=== PATIENT | male | born 1955 | race Caucasian/White ===

== ENCOUNTER → 2019-10-14 00:01 | Outpatient (BNVA) | payer MEDICARE, MEDICAID, SELFPAY | PROVIDERS: PCP Nurse Practitioner Family; Visit Provider Nurse Practitioner Family | DX: E11.9 Type 2 diabetes mellitus without complications (principal); G43.909 Migraine, unspecified, not intractable, without status migrainosus; E55.9 Vitamin D deficiency, unspecified; H66.90 Otitis media, unspecified, unspecified ear; R52 Pain, unspecified; E78.2 Mixed hyperlipidemia; R53.83 Other fatigue; Z12.5 Encounter for screening for malignant neoplasm of prostate | CPT/HCPCS: 80053; 80061; 81001; 82306; 82607; 82746; 83036; 83735; 84153; 84443; 85025 ==

== ENCOUNTER 2020-06-02 16:30 | Inpatient (IN) | payer MEDICARE, MEDICAID, SELFPAY ==
[2020-06-02 17:06] VITALS: BP 100/63; PULSE 67; RESP 14; TEMP 36.7; O2SAT 98; BMI 20.7
--- NOTE | 2020-06-02 17:58 | XR_ITS ---
WS: [id number] KUMary, 06/02/2020 Clinical Data: constipation Comparison: None. Findings: No abnormal intraabdominal masses or calcifications are seen. There are dilated central small bowel l oops consistent with partial small bowel obstruction. There is fecal material in the colon.There is a healed fracture of the pubic symphysis. XR/XR KUB [id number] Impression: 1. Dilated central small bowel loops consistent with small bowel obstruction. 2. Recommend follow-up abdomen x-ray in one to 2 days.
[2020-06-02] MEDS: lactulose oral liq 20 gm/30 mL UDC 30 GM PO (18:07)
--- NOTE | 2020-06-02 18:12 | W.ED.GENADLT ---
HPI - General Adult General: Chief complaint: General Medical Stated complaint: lower abd pain Time Seen by Provider: 06/02/20 17:58 Source: patient Mode of arrival: ambulatory Limitations: no limitations History of Present Illness: HPI narrative: 65-year-old male states he had constipation over the last 2 weeks. Patient states he is been seen at [place] and was placed on docusate but states he still has not been able have a bowel movement. States he had some abdominal pain and distention. States pain is cramping and rates it a 2 out of 10. He said no vomiting. Associated symptoms: Deny chest pain, dyspnea, headache(s) or rash Review of Systems Const: Denies: fever(s), chills, body aches or change in appetite Eyes: Denies: blurry vision or eye discomfort ENMT: Denies: throat pain or dental pain Card: Denies: chest pain Resp: Denies: dyspnea GI: Reports: abdominal pain and constipation : Denies: dysuria Musc: Denies: neck pain or back pain Skin/Breast: Denies: rash Neuro: Denies: headache(s) Psych: Denies: depression Patel/Lymph: Denies: easy bruising All/Imm: Denies: urticaria PFSH ED PFSH: Medical History Constipation Environmental and seasonal allergies Insect bite Migraine Pre-diabetes Vitamin B12 deficiency (dietary) anemia Surgical History Status post knee surgery Social History Smoking and tobacco status: never smoked Second hand smoke exposure: No Smoking risk assessment/counseling performed?: No Alcohol intake: never Desire information about alcohol rehabilitation?: No Counseling given: No Desire information about substance/drug rehabilitation?: No Counseling given: No Physical Exam Const: COMMON NORMALS: no acute distress, patient oriented x3 and healthy appearing HENMT: COMMON NORMALS: normocephalic and atraumatic HEAD & SCALP: normocephalic and atraumatic Eye: COMMON NORMALS: Equal, round and reactive pupils present and EOMs intact bilaterally PUPIL: Yes Equal, round and reactive pupils present Neck/C-Spine: COMMON NORMALS: full ROM and supple Chest: COMMONS NORMALS: normal inspection of the chest and normal palpation of entire chest wall Resp: COMMON NORMALS: normal respiratory effort, No retractions, No use of accessory muscles and clear to auscultation bilaterally AUSCULTATION: clear to auscultation bilaterally Cardio: COMMON NORMALS: regular rate, regular rhythm and No murmurs present (Cardio) RATE: regular rate RHYTHM: regular rhythm GI: COMMON NORMALS: Normal to inspection, nondistended, normoactive bowel sounds present, Soft to palpation, non-tender and no masses PALPATION: Yes Soft to palpation Extremity: COMMON NORMALS: normal to inspection and full ROM Neuro: COMMON NORMALS: patient oriented x3, moves all extremities and no focal motor deficits Psych: COMMON NORMALS: mental status grossly normal, Normal thought process present and cooperative THOUGHT PROCESS: Normal thought process present Skin: COMMON NORMALS: no rashes or lesions noted and no wounds GENERAL SKIN EXAM: no rashes or lesions noted Course Vital Signs: Vital signs: Vital Signs Temperature 98.0 F 06/02/20 17:06 Pulse Rate 67 06/02/20 17:06 Respiratory Rate 14 06/02/20 17:06 Blood Pressure 100/63 06/02/20 17:06 Pulse Oximetry 98 06/02/20 17:06 MDM - General Adult MDM Narrative: Medical decision making narrative: Patient presents with a small bowel obstruction. Will place an NG tube. I spoke to hospitalist who is admitting also spoke to Dr. Craig who is consulting. Patient is been stable on the ED. Lab Data: Labs: Lab Results 06/02/20 06/02/20 Range/Units 18:30 18:30 WBC 7.7 (4.0-10.0) 10^3/ uL RBC 4.82 (4.1-5.3) 10^6/u L Hgb 14.7 (11.7-16.6) g/dL Hct 43.8 (42.0-52.0) % MCV 90.9 (80-94) fL MCH 30.5 (28.0-34.0) pg MCHC 33.6 (30.0-36.0) g/dL RDW 12.9 (12.1-15.1) % Plt Count 267 (130-400) 10^3/c mm MPV 9.7 (7.4-10.4) fL Neut % (Auto) 63.9 % Lymph % (Auto) 24.3 % [place] % (Auto) 9.2 % Eos % (Auto) 1.9 % Baso % (Auto) 0.4 % Neut # (Auto) 4.95 (1.8-7.7) 10^3/u L Lymph # (Auto) 1.9 (0.8-4.8) 10^3/u L [place] # (Auto) 0.7 (0.2-0.9) 10^3/u L Eos # (Auto) 0.2 (0.0-0.8) 10^3/u L Baso # (Auto) 0.0 (0.0-0.1) 10^3/u L Nucleated RBC % (a uto) 0 % Nucleated RBCs # 0.0 /100WBC Sodium 138 (136-145) mmol/L Potassium 4.2 (3.5-5.1) mmol/L Chloride 101 (98-107) mmol/L Carbon Dioxide 29 (22-29) mmol/L Anion Gap 12.2 (5-19) BUN 21 (8-23) mg/dL Creatinine 1.1 (0.7-1.2) mg/dL GFR Calculation 67.0 L (90-130) mL/min Glucose 100 (65-115) mg/dL Calculated Osmolal ity 283 L (285-295) mOsm/k g Calcium 10.4 (8.5-10.5) mg/dL Total Bilirubin 1.0 (0.15-1.2) mg/dL AST 29 (0-40) U/L ALT 31 (0-41) U/L Alkaline Phosphata se 52 (40-130) IU/L Total Protein 6.8 (6.6-8.7) g/dL Albumin 4.1 (3.5-5.2) g/dL Globulin 2.7 (1.3-4.6) g/dL Lipase 49 (13-60) U/L Imaging Data^: CT Abd/Pel: Attestation: I personally reviewed and interpreted this imaging study as follows: Radiologist's impression: [address] [place] [address] CT Scan Report Signed Patient: Ryland Huang Unit #: [id number] : 1955 [facility]#:[id number] Age/Sex: 65 / M ADM Date: 06/02/20 Loc: ER Room/Bed: Attending Dr: Ordering Provider/Ordering MD: Epi Chauhan MD Date of Service: 06/02/20 Procedure(s): CT abdomen pelvis w con* [id number] Accession Number(s): [id number] Report Number: [id number] PROCEDURE INFORMATION: Exam: CT Abdomen And Pelvis With Contrast Exam date and time: 06/02/2020 7:27 PM Age: 65 years old Clinical indication: Constipation; Abdominal pain; Additional info: Abd pain TECHNIQUE: Imaging protocol: Computed tomography of the abdomen and pelvis with intravenous contrast. Radiation optimization: All CT scans at this facility use at least one of these dose optimization techniques: automated exposure control; mA and/or kV adjustment per patient size (includes targeted exams where dose is matched to clinical indication); or iterative reconstruction. Contrast material: OMNI 30; Contrast volume: 75 ml; Contrast route: INTRAVENOUS (IV); COMPARISON: CR XR KUB [id number] 06/02/2020 6:08 PM RADIATION DOSE METRICS: Total DLP (mGy-cm): 246.79 FINDINGS: Lungs: Limited assessment lung bases without visible evidence of active cardiopulmonary process. Liver: Unremarkable. No mass. Gallbladder and bile ducts: Gallbladder is contracted. No visible cholelithiasis. No visible intra or extrahepatic biliary ectasia. Pancreas: Unremarkable. No ductal dilation. Spleen: Normal. No splenomegaly. Adrenals: Unremarkable. No mass. Kidneys and ureters: Normal. No hydronephrosis. Stomach and bowel: Examination reveals a high grade partial distal small-bowel obstruction. Exact transition zone is difficult to ascertain with any high level of confidence but appears to occur distal ileal loop anterior right lower quadrant of the abdomen series 2, image 52. Suspected site of transition coronal image series 602, image 39 and sagittal image series 601, image 38. Distal ileal loops to the terminal ileum decompressed. Associated gastrictasis and would recommend decompression. Appendix: No evidence of appendicitis. Intraperitoneal space: Tiny amount of free fluid in the pouch of Dk. Vasculature: The abdominal aorta is nonaneurysmal. Moderate arterial sclerotic disease. Lymph nodes: Unremarkable. No enlarged lymph nodes. Bladder: Unremarkable as visualized. Reproductive: Prostate hypertrophy. Bones/joints: No visible acute osseous abnormality. Age-appropriate degenerative disease of the spine. No visible osteolytic or osteoblastic destructive process. Soft tissues: Unremarkable. CT/CT abdomen pelvis w con* [id number] IMPRESSION: High-grade partial distal small-bowel obstruction. Discharge Plan Discharge Condition: Good Prescriptions: No Action naproxen 125 mg/5 mL suspension 750 mg PO BID RF: 0 cyanocobalamin (vitamin B-12) 1,000 mcg/15 mL liquid 1,000 mcg PO DAILY 30 Days Qty: 240 RF: 5 cholecalciferol (vitamin D3) 125 mcg/mL (5,000 unit/mL) drops 5,000 unit PO DAILY 30 Days Qty: 59 RF: 2 hydrocortisone 1 % ointment 1 applic TOPICAL BID PRN (Reason: skin irritation) 30 Days Qty: 28 RF: 0 docusate sodium 50 mg/5 mL liquid 100 mg PO DAILY 30 Days Qty: 473 RF: 5 sumatriptan 5 mg/actuation spray,non-aerosol 5 mg INTRANASAL DAILY MDD benita PRN (Reason: migraine headache) 30 Days Qty: 1 RF: 2 bisacodyl 10 mg Suppository 10 mg KS DAILY PRN (Reason: Constipation) RF: 0 lansoprazole 15 mg Tablet,Disintegrat, Delay Rel 15 mg PO DAILY RF: 0 Referrals: LUCERO Dueñas, WAISTLINE JOINER [Primary Care Provider] - Coding Level of Care Code ED Volleyball Commentator for Chg Fwd Exam Comprehensive
[2020-06-02 18:40] LABS: Basophils % 0.4 %; Eosinophils # 0.2 10^3/uL (0.0-0.8); Eosinophils % 1.9 %; Hematocrit 43.8 % (42.0-52.0); Hemoglobin 14.7 g/dL (11.7-16.6); Lymphocytes # 1.9 10^3/uL (0.8-4.8); Lymphocytes % 24.3 %; Mean Corpuscular HGB Conc 33.6 g/dL (30.0-36.0); Mean Corpuscular Hemoglobin 30.5 pg (28.0-34.0); Mean Corpuscular Volume 90.9 fL (80-94); Mean Platelet Volume 9.7 fL (7.4-10.4); Monocytes # 0.7 10^3/uL (0.2-0.9); Monocytes % 9.2 %; Neutrophils # 4.95 10^3/uL (1.8-7.7); Neutrophils % 63.9 %; Nucleated Red Blood Cells % 0 %; Platelet Count 267 10^3/cmm (130-400); Red Blood Count 4.82 10^6/uL (4.1-5.3); Red Cell Distribution Width 12.9 % (12.1-15.1); White Blood Count 7.7 10^3/uL (4.0-10.0)
--- NOTE | 2020-06-02 18:55 | CTR_ITS ---
PROCEDURE INFORMATION: Exam: CT Abdomen And Pelvis With Contrast Exam date and time: 06/02/2020 7:27 PM Age: 65 years old Clinical indication: Constipation; Abdominal pain; Additional info: Abd pain TECHNIQUE: Imaging protocol: Computed tomography of the abdomen and pelvis with intravenous contrast. Radiation optimization: All CT scans at this facility use at least one of these dose optimization techniques: automated exposure control; mA and/or kV adjustment per patient size (includes targeted exams where dose is matched to clinical indication); or iterative reconstruction. Contrast material: OMNI 30; Contrast volume: 75 ml; Contrast route: INTRAVENOUS (IV); COMPARISON: CR XR KUB [id number] 06/02/2020 6:08 PM RADIATION DOSE METRICS: Total DLP (mGy-cm): 246.79 FINDINGS: Lungs: Limited assessment lung bases without visible evidence of active cardiopulmonary process. Liver: Unremarkable. No mass. Gallbladder and bile ducts: Gallbladder is contracted. No visible cholelithiasis. No visible intra or extrahepatic biliary ectasia. Pancreas: Unremarkable. No ductal dilation. Spleen: Normal. No splenomegaly. Adrenals: Unremarkable. No mass. Kidneys and ureters: Normal. No hydronephrosis. Stomach and bowel: Examination reveals a high grade partial distal small-bowel obstruction. Exact transition zone is difficult to ascertain with any high level of confidence but appears to occur distal ileal loop anterior right lower quadrant of the abdomen series 2, image 52. Suspected site of transition coronal image series 602, image 39 and sagittal image series 601, image 38. Distal ileal loops to the terminal ileum decompressed. Associated gastrictasis and would recommend decompression. Appendix: No evidence of appendicitis. Intraperitoneal space: Tiny amount of free fluid in the pouch of Dk. Vasculature: The abdominal aorta is nonaneurysmal. Moderate arterial sclerotic disease. Lymph nodes: Unremarkable. No enlarged lymph nodes. Bladder: Unremarkable as visualized. Reproductive: Prostate hypertrophy. Bones/joints: No visible acute osseous abnormality. Age-appropriate degenerative disease of the spine. No visible osteolytic or osteoblastic destructive process. Soft tissues: Unremarkable. CT/CT abdomen pelvis w con* [id number] IMPRESSION: High-grade partial distal small-bowel obstruction. Radiation Dose CTDIVOL = (mGy): DLP = 246.79 (mGy-cm)
[2020-06-02 18:57] LABS: Alanine Aminotransferase 31 U/L (0-41); Albumin Level 4.1 g/dL (3.5-5.2); Alkaline Phosphatase 52 IU/L (40-130); Anion Gap 12.2 (5-19); Aspartate Amino Transferase 29 U/L (0-40); Blood Urea Nitrogen 21 mg/dL (8-23); Calcium 10.4 mg/dL (8.5-10.5); Carbon Dioxide 29 mmol/L (22-29); Chloride 101 mmol/L (98-107); Globulin 2.7 g/dL (1.3-4.6); Glucose 100 mg/dL (65-115); Lipase 49 U/L (13-60); Osmolality Calculated 283 mOsm/kg (285-295); Potassium 4.2 mmol/L (3.5-5.1); Sodium 138 mmol/L (136-145); Total Protein 6.8 g/dL (6.6-8.7)
[2020-06-02] MEDS: iohexol 300 mg/mL 100 mL Btl IV (19:46)
[2020-06-02] MEDS: LORazepam 2 mg/mL INJ 1 mL 1 MG IVP (20:58)
--- NOTE | 2020-06-02 21:03 | PM.HP ---
Providers/Chief Complaint Primary Care Provider: JAYCEE Clemente Chief Complaint: lower abd pain History of Present Illness Ryland Huang is a 65 year old male does not have significant past medical history came in with chief complaint of nausea, vomiting and abdominal pain. Patient is stating that he was in his usual state of health until 3 weeks ago he started experiencing nausea, constipation, he tried multiple bowel regimens but was unsuccessful, his p.o. intake decreased, he tried to have chicken soup today when he started experiencing recurrent episodes of vomiting associated with nausea. He was abdominal pain in periumbilical area and hypogastric region which got better after placement of NG tube in the ER. Patient is denying fever, night sweats, abnormal colonoscopies in the past, dysuria, chest pain, shortness of breath. He chews tobacco. Does not drink alcohol. No IV drug abuse. No family history of colon cancers. Denies previous history abdominal surgeries. Diagnosis in the ER revealed normal hemodynamics, normal CBC and BMP, urinalysis unremarkable, CT abdomen revealed high-grade distal small bowel obstruction, NG tube has been placed which is draining creamy colored content Review of Systems Const: Reports: chills, body aches and fatigue; Denies: fever(s) Eyes: Denies: change in vision ENMT: Denies: throat pain Card: Denies: chest pain Resp: Denies: dyspnea GI: Reports: abdominal pain, nausea, vomiting and constipation : Denies: flank pain Musc: Denies: neck pain Skin/Breast: Denies: rash Neuro: Denies: headache(s) Psych: Reports: anxiety Endo: Denies: polyuria Patel/Lymph: Denies: easy bruising All/Imm: Denies: urticaria Medications/Allergies Home Medications Medication Instructions Recorded Confirmed Last Taken Type cholecalciferol (vitamin D3) 125 5,000 unit PO DAILY 30 Days #59 ml 03/15/20 06/02/20 06/01/20 Rx mcg/mL (5,000 unit/mL) oral drops cyanocobalamin (vitamin B-12) 1,000 mcg PO DAILY 30 Days #240 ml 03/15/20 06/02/20 06/01/20 Rx 1,000 mcg/15 mL oral liquid hydrocortisone 1 % topical ointment 1 applic TOPICAL BID PRN 30 Days 03/15/20 06/02/20 Unknown Rx #28 gm naproxen 125 mg/5 mL oral 750 mg PO BID ml 03/15/20 06/02/20 Unknown History suspension docusate sodium 50 mg/5 mL oral 100 mg PO DAILY 30 Days #473 ml 03/25/20 06/02/20 Unknown Rx liquid sumatriptan 5 mg/actuation nasal 5 mg INTRANASAL DAILY PRN 30 Days 04/14/20 06/02/20 Unknown Rx spray #1 each MDD benita bisacodyl 10 mg [place] DAILY PRN 06/02/20 06/02/20 Unknown History lansoprazole 15 mg PO DAILY 06/02/20 06/02/20 Unknown History Allergies Allergy/AdvReac Type Severity Reaction Status Date / Time aspirin AdvReac low heart Verified 06/02/20 18:59 rate PFSH Acute PFSH: Medical History Constipation Environmental and seasonal allergies Insect bite Migraine Pre-diabetes Vitamin B12 deficiency (dietary) anemia Surgical History Status post knee surgery Family History (Updated 06/02/20 @ 22:26 by Vinicius Moulton MD) Denies family history of CAD (coronary artery disease) Cancer Social History (Updated 06/02/20 @ 22:27 by Vinicius Moulton MD) Smoking and tobacco status: current every day smoker smokeless tobacco Smokeless tobacco user: chewing tobacco Second hand smoke exposure: No Smoking risk assessment/counseling performed?: No Alcohol intake: never Desire information about alcohol rehabilitation?: No Counseling given: No Substance/Drug Use: never Desire information about substance/drug rehabilitation?: No Counseling given: No Vitals/I&O/Wt Last Vital Signs Temp 98.0 F 06/02/20 17:06 Pulse 67 06/02/20 17:06 Resp 14 06/02/20 17:06 BP 100/63 06/02/20 17:06 Pulse Ox 98 06/02/20 17:06 Weight last 48 hrs Weight 56.699 kg Physical Exam Narrative: EXAM NARRATIVE: male appears more than stated age Dehydrated, lean body mass NG tube draining creamy colored gastric content without any blood or bile colored Abdomen soft, nontender, bowel sounds sluggish S1, S2 no tachycardia heart failure Lungs are clear to auscultation Patient is experiencing nausea with dry heaves, complaining of sore throat because of NG placement Awake alert oriented x3 GCS 15 Irritable mood No skin ulcers noted Data : 06/02/20 18:30 06/02/20 18:30 A&P Assessment and plan (1) Small bowel obstruction: Status: Acute (2) Constipation: Status: Acute (3) Chews tobacco: Status: Acute Additional A&P Information High-grade small bowel obstruction No previous history abdominal surgeries, patient is stating that his previous 2 colonoscopies was unremarkable, no family history of colon cancer Patient is endorsing symptoms started 3 weeks ago and before 3 weeks he never had similar complaints Denying fever, night sweats, Conservative management N.p.o., NG to suction Dr. Craig has been consulted Serial abdominal exams We will get KUB in the morning No severe electrolyte abnormality noticed He will need diagnostic endoscopy down the road, no acute indication, no active signs of peritonitis, no leukocytosis Patient is stating that he was diagnosed as prediabetic Current glucose 100, starting D5 half-normal saline fluid resuscitation, We will check A1c level and B12 level Needs extensive counseling to quit tobacco usage, he is using smokeless tobacco, chews tobacco on daily basis Full code DVT prophylaxis: Lovenox N.p.o. Maintenance fluid with D5 half-normal saline Zofran antiemetic regimen along Dilaudid for analgesia Attestations Medical Necessity Statement*: Suffering from high-grade small bowel obstruction I am anticipating stay in the hospital cross more than 2 midnights currently needs NG placement Time Spent in Patient Care: (>than 50% of time spent in counselling and/or direct pt care on unit). 40 minutes Coding Level of Care Code Acute Analysis Analyst for Chg Fwd Diagnoses Small bowel obstruction K56.609 Constipation K59.00 Chews tobacco Z72.0
[2020-06-02] MEDS: ondansetron 2 mg/ML SDV 2 mL 4 MG IVP (21:12)
[2020-06-02 21:49] LABS: Add Urine Microscopic? NO
[2020-06-02 21:53] LABS: Bilirubin Urine 2+ (NEGATIVE); Blood Urine Neg (Negative); Glucose Urine UA Norm (Normal); Ketones Urine Negative (Negative); Leukocyte Esterase Urine Negative (Negative); Nitrate Urine Negative (Negative); Protein Urine Neg (Negative); Urine Appearance Clear (CLEAR); Urine Color Yellow (Yellow); Urobilinogen Urine 1 mg/dL (Negative); pH Urine 5 (5-7)
[2020-06-02 22:04] VITALS: BP 121/67; PULSE 63; O2SAT 97
--- NOTE | 2020-06-02 22:44 | XR_ITS ---
WS: [id number] Portable AP upright chest, 06/02/2020 Clinical Data: ng tube Comparison: None. Findings: No nodules, masses or effusions are seen. The heart is normal. The pulmonary vascularity is not increased. No pneumonia or pneumothorax is seen. There is a nasogastric tube which appears to en d in the stomach. The aortic arch and descending aorta show calcification and tortuosity. XR/XR chest 1V portable [id number] Impression: Atherosclerosis.
[2020-06-02 22:56] LABS: Amphetamines Screen Urine Negative (Negative); Barbiturates Screen Urine Negative (Negative); Benzodiazepines Screen Urine Negative (Negative); Cocaine Screen Urine Negative (Negative); Opiate Screen Urine Negative (Negative); PCP Screen Urine Negative (Negative); THC Screen Urine Negative (Negative)
[2020-06-02 23:12] LABS: Alcohol Level < 10 mg/dL (0-10); Estmated Average Glucose 105; Hemoglobin A1C 5.3 % (4.0-6.0)
[2020-06-02 23:27] VITALS: BP 119/75; PULSE 79; RESP 18; TEMP 36.5; O2SAT 94
--- NOTE | 2020-06-03 00:27 | PC.NURSE ---
Patient arrived on floor at 2327 with 18F NG tube in right nare. When hooking NG tube to suction, the suction sounds was very loud and sounded like it was coming from the mouth. Upon further assessment, NG tube was placed in the throat. NG tube was removed. This nurse, with the assistance of two nurses reinserted a 16 F NG in the Right nare. This nurse injected 60mls of air and auscultated for bubbles which were heard. Suction was applied with thick yellow secretions. Patient is resting well currently. Will continue to monitor.
[2020-06-03 01:05] LABS: Vitamin B12 190 pg/mL (232-1245)
[2020-06-03] MEDS: enoxaparin 40 mg/0.4 mL Syringe SUBCUT (03:32)
[2020-06-03] MEDS: dextrose 5%-sod chloride 0.45% 1,000 ML 75 ML IV (03:32)
[2020-06-03 03:58] VITALS: BP 107/68; PULSE 65; RESP 16; TEMP 36.8; O2SAT 93
[2020-06-03 06:08] LABS: Basophils % 0.4 %; Eosinophils # 0.1 10^3/uL (0.0-0.8); Eosinophils % 1.4 %; Hematocrit 40.2 % (42.0-52.0); Hemoglobin 13.6 g/dL (11.7-16.6); Lymphocytes # 1.7 10^3/uL (0.8-4.8); Mean Corpuscular HGB Conc 33.8 g/dL (30.0-36.0); Mean Corpuscular Hemoglobin 30.5 pg (28.0-34.0); Mean Corpuscular Volume 90.1 fL (80-94); Mean Platelet Volume 10.5 fL (7.4-10.4); Monocytes # 0.8 10^3/uL (0.2-0.9); Monocytes % 10.8 %; Neutrophils # 4.58 10^3/uL (1.8-7.7); Neutrophils % 63.1 %; Nucleated Red Blood Cells % 0 %; Platelet Count 264 10^3/cmm (130-400); Red Blood Count 4.46 10^6/uL (4.1-5.3); Red Cell Distribution Width 12.9 % (12.1-15.1); White Blood Count 7.3 10^3/uL (4.0-10.0)
--- NOTE | 2020-06-03 06:22 | PM.CONSULT ---
Providers/Reason For Consult Consulting Physican/Specialty*: General Surgery Rigo Craig MD Reason for Consult*: Small bowel obstruction by CT. Attending Physician: Vinicius Moulton MD Primary Care Provider: JAYCEE Clemente History of Present Illness History of Present Illness Ryland Huang is a 65 year old male for about 3 weeks now he has had problems on and off with constipation, abdominal bloating and growling. He has been to the emergency room at [facility] several times by his own account. It sounds like he was diagnosed with constipation and was told to take stool softeners. He also ended up getting some suppositories which did not work very well. He says his stools were very hard before all of this started. He continues to pass flatus. He has not had any evidence of hematochezia. He has had some intermittent nausea and vomiting over the past 3 weeks and got to the point yesterday where he had a hard time keeping anything down and so he presented to the hospital again. He denies any evidence of hematemesis or coffee-ground emesis. A CAT scan showed evidence of what was thought to be a distal small bowel obstruction. The patient says he has never had these problems before. He says since his problem started 3 to 4 weeks ago he has lost about 15 pounds, but he has not been able to eat normally. He denies any other constitutional symptoms such as fevers, night sweats, etc. He thinks he may have had a colonoscopy in [facility] about 20 years ago and says they did not find any issues. He denies any known family history of upper or lower GI neoplasia. He has never had any abdominal surgery. Review of Systems General: Reports: 10 or more systems reviewed and unremarkable except in HPI and below Const: Reports: change in weight; Denies: fever(s) GI: Reports: abdominal pain, nausea, vomiting and change in bowel habits Meds/Allergies Home Medications and Allergies Home Medications Medication Instructions Recorded Confirmed Last Taken Type cholecalciferol (vitamin D3) 125 5,000 unit PO DAILY 30 Days #59 ml 03/15/20 06/02/20 06/01/20 Rx mcg/mL (5,000 unit/mL) oral drops cyanocobalamin (vitamin B-12) 1,000 mcg PO DAILY 30 Days #240 ml 03/15/20 06/02/2020 Rx 1,000 mcg/15 mL oral liquid hydrocortisone 1 % topical ointment 1 applic TOPICAL BID PRN 30 Days 03/15/20 06/02/20 Unknown Rx #28 gm naproxen 125 mg/5 mL oral 750 mg PO BID ml 03/15/20 06/02/20 Unknown History suspension docusate sodium 50 mg/5 mL oral 100 mg PO DAILY 30 Days #473 ml 03/25/20 06/02/20 Unknown Rx liquid sumatriptan 5 mg/actuation nasal 5 mg INTRANASAL DAILY PRN 30 Days 04/14/20 06/02/20 Unknown Rx spray #1 each MDD benita bisacodyl 10 mg TN DAILY PRN 06/02/20 06/02/20 Unknown History lansoprazole 15 mg PO DAILY 06/02/20 06/02/20 Unknown History Allergies Allergy/AdvReac Type Severity Reaction Status Date / Time aspirin AdvReac low heart Verified 06/03/20 06:48 rate Current Medications Current Medications Generic Name Dose Route Start Last Admin Trade Name Freq PRN Reason Stop Dose Admin Enoxaparin Sodium 40 mg 06/02/20 23:26 06/03/20 03:32 Lovenox SUBCUT 40 mg Q24H NETO Administration Dextrose/Sodium Chloride 1,000 mls @ 75 mls/hr 06/02/20 23:26 06/03/20 03:32 Dextrose 5%-Sod Chloride 0.45% IV 75 mls/hr .[id number] NETO Administration PFSH Acute PFSH: Medical History Chews tobacco Constipation Environmental and seasonal allergies Insect bite Migraine Pre-diabetes Vitamin B12 deficiency (dietary) anemia Surgical History (Updated 06/03/20 @ 06:43 by Rigo Craig MD) Status post knee surgery Left Family History Denies family history of CAD (coronary artery disease) Cancer Social History Smoking and tobacco status: current every day smoker smokeless tobacco Smokeless tobacco user: chewing tobacco Second hand smoke exposure: No Smoking risk assessment/counseling performed?: No Alcohol intake: never Desire information about alcohol rehabilitation?: No Counseling given: No Substance/Drug Use: never Desire information about substance/drug rehabilitation?: No Counseling given: No Vitals/I&O/Wt Last Vital Signs Temp 98.2 F 06/03/20 03:58 Pulse 65 06/03/20 03:58 Resp 16 06/03/20 03:58 BP 107/68 06/03/20 03:58 Pulse Ox 93 06/03/20 03:58 06/02/20 06/02/20 06/03/20 14:59 22:59 06:59 Output Total 200 / 200 Balance -200 / -200 Weight last 48 hrs Weight 125 lb Physical Exam Narrative: EXAM NARRATIVE: The patient was encountered in his hospital room. He has a nasogastric tube in place which is draining some somewhat thick yellow material. The pupils seem equal. No carotid bruits are heard. The lungs are clear anteriorly. The heart is regular. The abdomen is soft but bowel sounds are hyperactive. He does not really seem to have much in the way of tenderness on exam, however. I cannot feel any obvious masses. The extremities reveal no significant edema. Neurologically the patient appears to be grossly intact. Data Imaging^: CT Abd/Pel: Radiologist's impression: CT scan abdomen/pelvis 06/02/2020 iMPRESSION: High-grade partial distal small-bowel obstruction. A&P Assessment and plan (1) Small bowel obstruction: CT reviewed. I agree that the patient seems to have evidence of at least a partial obstructive process in the distal small bowel. His colon contains an excessive amount of stool, however, and I have to wonder if things are being complicated by that factor; I have to wonder if he is full enough that his small bowel is having a hard time moving things through. He has not had any previous abdominal surgery and has no obvious hernias. Status: Acute (2) Constipation: I have suggested to the patient that we try an enema to see if we can get things moving for him. If he improves remarkably after that I do not know that any further studies will be necessary, but if he continues to have obstructive issues then exploratory surgery may have to be entertained. He is agreeable with the above plan. Status: Acute Consult Attestations Medical Necessity Statement: See admitting service's notation. 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
[2020-06-03 06:28] LABS: Anion Gap 12.7 (5-19); Blood Urea Nitrogen 21 mg/dL (8-23); Calcium 9.4 mg/dL (8.5-10.5); Carbon Dioxide 25 mmol/L (22-29); Chloride 104 mmol/L (98-107); Glomerular Filtration Rate 84.4 mL/min (90-130); Glucose 97 mg/dL (65-115); Osmolality Calculated 283 mOsm/kg (285-295); Potassium 3.7 mmol/L (3.5-5.1); Sodium 138 mmol/L (136-145)
--- NOTE | 2020-06-03 07:00 | XR_ITS ---
WS: [id number] KUB, portable supine, 06/03/2020 Clinical Data: SBO Comparison: KUB, 06/02/2020 Findings: The dilated small bowel loops remain unchanged. There is fecal material throughout the colon. There i s a nasogastric tube that appears to end in the stomach. Contrast material is seen in the bladder fro m the patient's recent CT abdomen and pelvis. No abnormal intra-abdominal masses or calcifications ar e seen. XR/XR KUB portable [id number] Impression: 1. No change in probable small bowel obstruction. 2. Nasogastric tube probably ends within the stomach.
[2020-06-03 07:32] VITALS: BP 107/72; PULSE 88; RESP 18; TEMP 36.7; O2SAT 92
[2020-06-03] MEDS: pantoprazole 40 mg SDV IVP (09:59)
[2020-06-03] MEDS: cyanocobalamin 1,000 mcg/mL SDV 1000 MCG IM (09:59)
[2020-06-03 11:17] VITALS: BP 99/59; PULSE 59; RESP 18; TEMP 36.6; O2SAT 95
--- NOTE | 2020-06-03 11:38 | PC.CHAP ---
Pastoral Care Encounter/Spiritual Assessment Type of Contact [] Declined pharmacology teacher visit [] Patient/Family/Request visit [] Outpatient visit [] Follow-up visit [] Physician referral [] Code/Alert [x] Routine visit [] Staff referral [] Actively dying [] Patient sleeping [] Family support [] [] Out of room [] Palliative care [] [] Receiving care in room [] Pre-surgical visit [] Trauma [] Long length of stay [] ICU visit [] Other: Relational/Emotional Strength [x] Patient feels connected with others/family/visitors/staff [] Distress [] Loneliness/isolation [] Abandonment Spirituality of Patient [] Person of Toya [] Attends Religion of their [place]a [] Believes in Prayer [] Reads Bible or Caodaism materials [x] There are Spiritual issues to be addressed Head Librarian Interventions [x] Prayer [x] Active listening [x] Non-anxious presence [x] Spiritual/emotional support [] Crisis/trauma care [x] Spiritual counseling [] Bereavement support [] Provided bereavement packet [] Provided Bible/devotional materials [] Provided toy/stuffed animal, coloring book to patient or family member [] Provided Communion [] Anointing/[place] [] Salvation [x] Completed spiritual assessment [] Other: Impact on Illness or Injury [] Angry [] Fearful [] Anxious [] Often cries [] Exhaustion [] Unable to work [] Unable to attend bahai [] Unable to walk/stand [] Unable to read [] Unable to drive [] Unable to eat/drink [] Unable to sleep [] Unable to be with family [] Patient intubated [x] Other: Summary Patient expressed an intellectual belief and understanding regarding the [place] of [place]feanyi. The Gospel of Ifeanyi, specific to the Lord's [employer] Day and the believer's acknowledgement and submission through obedience to His holy standards was provided in-part. Time spent with patient 15 minutes
--- NOTE | 2020-06-03 14:23 | PC.NURSE ---
Patient did not recall previous IM injection of cyanocobalamin when asked about band-aid on left arm.
--- NOTE | 2020-06-03 15:07 | PM.PN ---
Subjective Subjective: Interval history: Patient reports doing much better and has less abdominal discomfort. Denies shortness of breath or chest pain. Nausea improved and he reports being hungry and wants to eat although still has NG tube draining gastric fluid. Reports passing gas but had no bowel movement yet. Vitals/I&O/Wt Last Vital Signs Temp 97.8 F 06/03/20 11:17 Pulse 59 L 06/03/20 11:17 Resp 18 06/03/20 11:17 BP 99/59 06/03/20 11:17 Pulse Ox 95 06/03/20 11:17 06/03/20 06/03/20 06/03/20 06:59 14:59 22:59 Intake Total 698.333 / 698.333 Output Total 450 / 450 1500 / 1500 Balance -450 / -450 -801.667 / -801.667 Weight last 48 hrs Weight 56.699 kg Physical Exam Const: COMMON NORMALS: no acute distress and patient oriented x3 Resp: COMMON NORMALS: normal respiratory effort and clear to auscultation bilaterally AUSCULTATION: clear to auscultation bilaterally Cardio: COMMON NORMALS: regular rate, regular rhythm and S2 normal heart sound present RATE: regular rate RHYTHM: regular rhythm HEART SOUNDS: S2 normal heart sound present OTHER: No lower extremity edema GI: COMMON NORMALS: Normal to inspection, nondistended, normoactive bowel sounds present, Soft to palpation and non-tender PALPATION: Yes Soft to palpation Neuro: COMMON NORMALS: patient oriented x3 and no focal motor deficits Data : 06/03/20 05:15 06/03/20 05:15 A&P Assessment and plan (1) Small bowel obstruction: Status: Acute (2) Constipation: Status: Acute (3) Chews tobacco: Status: Acute Additional A&P Information High-grade small bowel obstruction No previous history abdominal surgeries, patient is stating that his previous 2 colonoscopies was unremarkable, no family history of colon cancer Patient is endorsing symptoms started 3 weeks ago and before 3 weeks he never had similar complaints Denying fever, night sweats, Conservative management N.p.o., NG to suction Dr. Craig has been consulted Serial abdominal exams We will get KUB in the morning No severe electrolyte abnormality noticed He will need diagnostic endoscopy down the road, no acute indication, no active signs of peritonitis, no leukocytosis Patient is stating that he was diagnosed as prediabetic Current glucose 100, starting D5 half-normal saline fluid resuscitation, We will check A1c level and B12 level Needs extensive counseling to quit tobacco usage, he is using smokeless tobacco, chews tobacco on daily basis Full code DVT prophylaxis: Lovenox N.p.o. Maintenance fluid with D5 half-normal saline Zofran antiemetic regimen along Dilaudid for analgesia PLAN: Appreciate Dr. Craig's help. Continue current monitoring and treatment. Attestations Medical Necessity Statement*: Patient with small bowel obstruction requires close inpatient monitoring and treatment. Time Spent in Patient Care: less than 15 minutes Coding Level of Care Code Acute Process Supervisor for [facility] Nicolasd Diagnoses Small bowel obstruction K56.609 Constipation K59.00 Chews tobacco Z72.0
[2020-06-03 15:53] VITALS: BP 92/52; PULSE 63; RESP 18; TEMP 36.9; O2SAT 94
--- NOTE | 2020-06-03 19:17 | PC.NURSE ---
Spoke with Dr. Craig about about admin of magnesium citrate. Dr. Craig ordered for admin of 10 ml of mag citrate and to flush with 20ml of water. Ordered clamp of NG tube. If patient becomes distended or nauseated to place back on suction.
[2020-06-03 19:32] VITALS: BP 114/52; PULSE 67; RESP 18; TEMP 36.9; O2SAT 95
[2020-06-03] MEDS: magnesium citrate Btl 296 mL NG-TUBE (20:07)
[2020-06-03] MEDS: phenol oral Spray 177 mL 3 SPRAY MUCOUS MEM (22:21)
[2020-06-03 23:52] VITALS: BP 103/63; PULSE 66; RESP 18; TEMP 36.8; O2SAT 93
[2020-06-04] MEDS: enoxaparin 40 mg/0.4 mL Syringe SUBCUT ×2 (00:01→23:41)
--- NOTE | 2020-06-04 01:17 | PC.NURSE ---
Patient was complaining of feeling fullness and acid reflux. Patient stated It's like everything in my stomach is trying to come back up. NG was hooked up to intermittent suctioning. 200 ml was removed. Will continue to monitor.
[2020-06-04] MEDS: dextrose 5%-sod chloride 0.45% 1,000 ML 100 ML IV ×2 (01:21→14:09)
[2020-06-04 04:00] VITALS: BP 95/60; PULSE 59; RESP 18; TEMP 36.6; O2SAT 95
--- NOTE | 2020-06-04 06:38 | PC.NURSE ---
Patient expressed desire too use the toilet this morning. BM was of water consistency, brown/yellow in color with minimal small flakes of fecal matter.
--- NOTE | 2020-06-04 07:00 | XR_ITS ---
WS: [id number] [facility], 06/04/2020 Clinical Data: Follow-up small bowel obstruction Comparison: [facility], 06/03/2020 Findings: The dilated small bowel loops are no longer present. There is minimal small bowel air in the left jovanna e of the abdomen and the loops are not dilated. There is air throughout the colon. The nasogastric tu be remains in the stomach. XR/XR KUB [id number] Impression: Marked improvement in small bowel obstruction with only minimal small bowel air on the left side of the abdomen.
--- NOTE | 2020-06-04 07:44 | PM.PN ---
Subjective Subjective: Interval history: The patient feels well this morning. He had an enema yesterday morning with some results. His NG tube got clamped yesterday and he ended up getting some magnesium citrate by the tube. He has done well and has continued to pass flatus and have more bowel movements. He is hungry and would like the nasogastric tube removed. Vitals/I&O/Wt Last Vital Signs Temp 97.9 F 06/04/20 04:00 Pulse 59 L 06/04/20 04:00 Resp 18 06/04/20 04:00 BP 95/60 06/04/20 04:00 Pulse Ox 95 06/04/20 04:00 06/03/20 06/04/20 06/04/20 22:59 06:59 14:59 Intake Total 120 / 818.333 0 / 818.333 Output Total 250 / 2225 475 / 2225 Balance -130 / -1406.667 -475 / -1406.667 Weight last 48 hrs Weight 125 lb Physical Exam Narrative: EXAM NARRATIVE: Abdomen is soft and nontender. I hooked his nasogastric tube up to suction this morning with no significant return of fluid. Data : 06/03/20 05:15 06/03/20 05:15 A&P Assessment and plan (1) Small bowel obstruction: Discontinue nasogastric tube. Continue clear liquid diet. If the patient continues to do well consideration could be given to a small bowel follow-through study given his original presentation. Status: Acute (2) Constipation: I have suggested to the patient that we try an enema to see if we can get things moving for him. If he improves remarkably after that I do not know that any further studies will be necessary, but if he continues to have obstructive issues then exploratory surgery may have to be entertained. He is agreeable with the above plan. Status: Acute Attestations Medical Necessity Statement*: See admitting service's notation. Coding Level of Care Code Acute Clerk Rating for [facility]on Londono Diagnoses Small bowel obstruction K56.609 Constipation K59.00
[2020-06-04 08:00] VITALS: BP 96/62; PULSE 60; RESP 16; TEMP 36.6; O2SAT 97
[2020-06-04] MEDS: cyanocobalamin 1,000 mcg/mL SDV 1000 MCG IM (10:10)
[2020-06-04] MEDS: pantoprazole 40 mg SDV IVP (10:19)
--- NOTE | 2020-06-04 10:25 | P.PN_ITS ---
Subjective Subjective: Interval history: Patient reports doing much better this morning. He had good bowel movement after laxative. He is passing gas and denies nausea. His NG tube was removed this morning and diet was advanced. Vitals/I&O/Wt Last Vital Signs Temp 97.9 F 06/04/20 08:00 Pulse 60 06/04/20 08:00 Resp 16 06/04/20 08:00 BP 96/62 06/04/20 08:00 Pulse Ox 97 06/04/20 08:00 06/03/20 06/04/20 06/04/20 22:59 06:59 14:59 Intake Total 120 / 818.333 0 / 818.333 300 / 300 Output Total 250 / 1750 475 / 2225 Balance -130 / -931.667 -475 / -1406.667 300 / 300 Weight last 48 hrs Weight 56.699 kg Physical Exam Const: COMMON NORMALS: no acute distress and patient oriented x3 Resp: COMMON NORMALS: normal respiratory effort and clear to auscultation bilaterally AUSCULTATION: clear to auscultation bilaterally Cardio: COMMON NORMALS: regular rate, regular rhythm and S2 normal heart sound present RATE: regular rate RHYTHM: regular rhythm HEART SOUNDS: S2 normal heart sound present OTHER: No lower extremity edema GI: COMMON NORMALS: Normal to inspection, nondistended, normoactive bowel sounds present, Soft to palpation and non-tender PALPATION: Yes Soft to palpation Neuro: COMMON NORMALS: patient oriented x3 and no focal motor deficits Data : 06/03/20 05:15 06/03/20 05:15 A&P Assessment and plan (1) Small bowel obstruction: Status: Acute (2) Constipation: Status: Acute (3) Chews tobacco: Status: Acute Additional A&P Information High-grade small bowel obstruction No previous history abdominal surgeries, patient is stating that his previous 2 colonoscopies was unremarkable, no family history of colon cancer Patient is endorsing symptoms started 3 weeks ago and before 3 weeks he never had similar complaints Denying fever, night sweats, Conservative management N.p.o., NG to suction Dr. Craig has been consulted Serial abdominal exams We will get KUB in the morning No severe electrolyte abnormality noticed He will need diagnostic endoscopy down the road, no acute indication, no active signs of peritonitis, no leukocytosis Patient is stating that he was diagnosed as prediabetic Current glucose 100, starting D5 half-normal saline fluid resuscitation, We will check A1c level and B12 level Needs extensive counseling to quit tobacco usage, he is using smokeless tobacco, chews tobacco on daily basis Full code DVT prophylaxis: Lovenox N.p.o. Maintenance fluid with D5 half-normal saline Zofran antiemetic regimen along Dilaudid for analgesia PLAN: Appreciate Dr. Craig's help. Continue current monitoring and treatment. If continues to get better we will likely be able to dismiss him home later today or tomorrow. Attestations Medical Necessity Statement*: Patient with small bowel obstruction requires close inpatient monitoring and treatment until deemed safe for discharge. 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
[2020-06-04 11:29] VITALS: BP 95/62; PULSE 59; RESP 16; TEMP 36.7; O2SAT 96
[2020-06-04 16:00] VITALS: BP 98/50; PULSE 65; RESP 17; TEMP 36.9; O2SAT 93
--- NOTE | 2020-06-04 18:35 | PC.NURSE ---
pt NG tube was removed, pt has tolerated clear liquids and gi soft diet. pt has had multiple liquid BM's this shift. Pt has not been nauseous after NG tube removed. no other changes this shift.
[2020-06-04 19:17] VITALS: BP 96/62; PULSE 59; RESP 18; TEMP 36.8; O2SAT 94
[2020-06-05] VITALS: BP 110/65; PULSE 54; RESP 20; TEMP 36.7; O2SAT 96
[2020-06-05 03:47] VITALS: BP 102/58; PULSE 61; RESP 18; TEMP 36.8; O2SAT 94
[2020-06-05] MEDS: dextrose 5%-sod chloride 0.45% 1,000 ML 100 ML IV (07:10)
--- NOTE | 2020-06-05 07:29 | P.PN_ITS ---
Subjective Subjective: Interval history: I ordered a small bowel follow-through yesterday, but the patient could not tolerate drinking the oral contrast and refused to drink enough to make it a meaningful study. He has been on solid food since then and continues to have bowel movements and is passing flatus. He has minimal symptoms of abdominal pain and would like to go home. Vitals/I&O/Wt Last Vital Signs Temp 98.2 F 06/05/20 03:47 Pulse 61 06/05/20 03:47 Resp 18 06/05/20 03:47 BP 102/58 06/05/20 03:47 Pulse Ox 94 06/05/20 03:47 06/04/20 06/05/20 06/05/20 22:59 06:59 14:59 Intake Total 120 / 3121 1480 / 3121 Balance 120 / 3121 1480 / 3121 Physical Exam Narrative: EXAM NARRATIVE: The patient has minimal scattered abdominal tenderness on exam. Data : 06/03/20 05:15 06/03/20 05:15 A&P Assessment and plan (1) Small bowel obstruction: The patient's bowel obstruction appears to have resolved. He was unable to tolerate oral contrast for a small bowel follow-through study yesterday. As result, I am okay with him being discharged with PRN follow-up. Disposition per hospitalist team. Status: Acute (2) Constipation: Resolved with enema and magnesium citrate. Status: Acute Attestations Medical Necessity Statement*: See admitting service's notation. Coding Level of Care Code Acute Plant Maintenance Worker for [facility] Londono Diagnoses Small bowel obstruction K56.609 Constipation K59.00
[2020-06-05 07:56] VITALS: BP 105/55; PULSE 82; RESP 16; TEMP 36.7; O2SAT 98
[2020-06-05] MEDS: pantoprazole 40 mg SDV IVP (09:01)
[2020-06-05] MEDS: cyanocobalamin 1,000 mcg/mL SDV 1000 MCG IM (09:03)
--- NOTE | 2020-06-05 09:09 | PM.DCS ---
Discharge Providers Date of Admission: 06/02/20 20:42 Date of Discharge: June 05, 2020 Attending Provider at Admission: Vinicius Moulton MD Attending Provider at Discharge: Eliseo Joel MD Primary Care Provider: JAYCEE Clemente Diagnoses at Discharge Discharge Diagnosis (1) Small bowel obstruction: Status: Acute (2) Constipation: Status: Acute Reason for Visit Reason for Visit: lower abd pain Hospital Course Discharge Summary: Patient presented with small bowel obstruction which improved with conservative treatment. Because of obstructive process was not clear. Patient noted to be on NSAID and this could possibly play a role therefore it will be discontinued and patient will be started on Tylenol as needed. This morning patient denies any shortness of breath or chest pain. Denies abdominal pain or nausea. Passes gas and had several bowel movements. He wants to go home and I have discussed with patient for further evaluation and we agreed on starting with colonoscopy first. Patient may require upper endoscopy or capsule endoscopy down the road if his small bowel obstruction recurs. Will add lactulose to use as needed for constipation. Patient was seen by Dr. Craig and unfortunately patient could not tolerate small bowel follow-through test as he was unable to drink enough of the contrast. Physical Exam Const: COMMON NORMALS: no acute distress and patient oriented x3 Resp: COMMON NORMALS: normal respiratory effort and clear to auscultation bilaterally AUSCULTATION: clear to auscultation bilaterally Cardio: COMMON NORMALS: regular rate, regular rhythm and S2 normal heart sound present RATE: regular rate RHYTHM: regular rhythm HEART SOUNDS: S2 normal heart sound present OTHER: No lower extremity edema GI: COMMON NORMALS: Normal to inspection, nondistended, normoactive bowel sounds present, Soft to palpation and non-tender PALPATION: Yes Soft to palpation Neuro: COMMON NORMALS: patient oriented x3 and no focal motor deficits Discharge Data Data Completed and Pending: Completed Studies During Hospitalization Category Date Time Status CT abdomen pelvis w con* [id number] Urge nt Cat Scan 06/02/20 18:55 Completed XR KUB [id number] Rout ine Exams 06/04/20 07:00 Completed XR KUB [id number] Stat Exams 06/02/20 17:58 Completed XR KUB portable 7 [id number] Routine Exams 06/03/20 07:00 Completed XR chest 1V chandan ble [id number] Routine Exams 06/02/20 22:44 Completed Pending at discharge Category Date Time Status Complete Blood Co unt w/Auto Stat Lab 06/05/20 08:35 Results Comprehensive Met abolic Panel Stat Lab 06/05/20 08:35 Received Labs from last 24 hours 06/05/20 06/05/20 08:35 08:35 WBC Pending RBC Pending Hgb Pending Hct Pending MCV Pending MCH Pending MCHC Pending RDW Pending Plt Count Pending MPV Pending Lymph % (Auto) Pending [place] % (Auto) Pending Lymph # (Auto) Pending [place] # (Auto) Pending Sodium Pending Potassium Pending Chloride Pending Carbon Dioxide Pending Anion Gap Pending BUN Pending Creatinine Pending GFR Calculation Pending Glucose Pending Calculated Osmolal ity Pending Calcium Pending Total Bilirubin Pending AST Pending ALT Pending Alkaline Phosphata se Pending Total Protein Pending Albumin Pending Globulin Pending Vitals: Last Vital Signs Temp 98.0 F 06/05/20 07:56 Pulse 82 06/05/20 07:56 Resp 16 06/05/20 07:56 BP 105/55 06/05/20 07:56 Pulse Ox 98 06/05/20 07:56 Discharge Plan Discharge Patient Disposition: Home Condition: Stable Prescriptions: New acetaminophen [Tylenol 8 Hour] 650 mg tablet extended release 650 mg PO Q8H PRN (Reason: pain) Qty: 30 RF: 0 pantoprazole [Protonix] 40 mg tablet,delayed release (DR/EC) 40 mg PO DAILY 28 Days Qty: 30 RF: 0 lactulose 10 gram/15 mL solution 20 gm PO DAILY PRN (Reason: constipation) Qty: 473 RF: 0 Continued cyanocobalamin (vitamin B-12) 1,000 mcg/15 mL liquid 1,000 mcg PO DAILY 30 Days Qty: 240 RF: 5 cholecalciferol (vitamin D3) 125 mcg/mL (5,000 unit/mL) drops 5,000 unit PO DAILY 30 Days Qty: 59 RF: 2 hydrocortisone 1 % ointment 1 applic TOPICAL BID PRN (Reason: skin irritation) 30 Days Qty: 28 RF: 0 docusate sodium 50 mg/5 mL liquid 100 mg PO DAILY 30 Days Qty: 473 RF: 5 sumatriptan 5 mg/actuation spray,non-aerosol 5 mg INTRANASAL DAILY MDD benita PRN (Reason: migraine headache) 30 Days Qty: 1 RF: 2 bisacodyl 10 mg Suppository 10 mg MS DAILY PRN (Reason: Constipation) RF: 0 lansoprazole 15 mg Tablet,Disintegrat, Delay Rel 15 mg PO DAILY RF: 0 Discontinued naproxen 125 mg/5 mL suspension 750 mg PO BID RF: 0 Discharge Orders: Discharge Order (Routine); Ordered 06/05/20 Ordered By: Eliseo Joel Referrals: Rigo Craig MD [Physician] - 4-7 days LUCERO Dueñas FNP [Primary Care Provider] - 4-7 days Discharge Diet: Advance as tolerated Discharge Activity: Increase activity as tolerated Patient Instructions: Constipation - Adult, Bowel Obstruction (DC), Smokeless Tobacco Activity Restrictions/Additional Instructions: Please call your doctor or present to emergency department if your condition worsens or you develop diarrhea, lightheadedness, fatigue or see blood in your stool or black stool. Discharge Attestations Time Spent in Discharge Care*: greater than 30 min Quality Metrics Clinical Quality Measures During this hospital stay, did patient experience: None Coding Level of Care Code Acute Multimedia Project Manager for Chg Fwd Diagnoses Small bowel obstruction K56.609 Constipation K59.00
[2020-06-05 09:21] LABS: Basophils % 0.4 %; Eosinophils # 0.1 10^3/uL (0.0-0.8); Eosinophils % 2.5 %; Hematocrit 43.8 % (42.0-52.0); Lymphocytes # 1.8 10^3/uL (0.8-4.8); Lymphocytes % 32.9 %; Mean Corpuscular HGB Conc 34.2 g/dL (30.0-36.0); Mean Corpuscular Hemoglobin 31.3 pg (28.0-34.0); Mean Corpuscular Volume 91.3 fL (80-94); Monocytes # 0.6 10^3/uL (0.2-0.9); Monocytes % 11.3 %; Neutrophils # 2.96 10^3/uL (1.8-7.7); Neutrophils % 52.7 %; Nucleated Red Blood Cells % 0 %; Platelet Count 154 10^3/cmm (130-400); Red Cell Distribution Width 13.2 % (12.1-15.1); White Blood Count 5.6 10^3/uL (4.0-10.0)
[2020-06-05 10:10] LABS: Alanine Aminotransferase 25 U/L (0-41); Albumin Level 3.6 g/dL (3.5-5.2); Alkaline Phosphatase 42 IU/L (40-130); Blood Urea Nitrogen 13 mg/dL (8-23); Carbon Dioxide 27 mmol/L (22-29); Chloride 105 mmol/L (98-107); Globulin 2.3 g/dL (1.3-4.6); Glomerular Filtration Rate 96.7 mL/min (90-130); Glucose 91 mg/dL (65-115); Osmolality Calculated 288 mOsm/kg (285-295); Sodium 141 mmol/L (136-145); Total Bilirubin 0.4 mg/dL (0.15-1.2); Total Protein 5.9 g/dL (6.6-8.7)
[2020-06-05 10:18] LABS: Anion Gap 13.4 (5-19); Aspartate Amino Transferase 24 U/L (0-40); Potassium 4.4 mmol/L (3.5-5.1)
[2020-06-05 11:23] VITALS: BP 105/55; PULSE 82; RESP 16; TEMP 36.7; O2SAT 98
--- NOTE | 2020-06-05 11:54 | PC.SOCIAL ---
IMM Update Pg. 2 of [facility] updated and copy provided to patient, who verbalized understanding.
== END 2020-06-05 13:30 | disposition home or self-care (01) | DRG 390 ==
LOC: ER 21:37 → MEDSURG 21:38
PROVIDERS: Emergency Medicine; Admitting Provider Internal Medicine; PCP Nurse Practitioner Family; Visit Provider Internal Medicine
DX: K56.609 Unspecified intestinal obstruction, unspecified as to partial versus complete obstruction (principal); K59.00 Constipation, unspecified; D51.9 Vitamin B12 deficiency anemia, unspecified; F17.220 Nicotine dependence, chewing tobacco, uncomplicated
CPT/HCPCS: 12345; 36415; 71045; 74018; 74177; 80048; 80053; 80306; 80307; 81003; 82607; 83036; 83690; 85025; 96372; 96375; 99283; C9113; J1650; J2060; J2405; J3411; J3420; J7799; Q9967

== ENCOUNTER 2020-06-07 16:20 | Inpatient (IN) | payer MEDICARE, MEDICAID, SELFPAY ==
[2020-06-07 16:25] VITALS: BP 119/76; PULSE 70; RESP 18; TEMP 36.2; O2SAT 96; BMI 20.7
--- NOTE | 2020-06-07 16:42 | XRR_ITS ---
PROCEDURE INFORMATION: Exam: XR Abdomen, 2 Views Exam date and time: 06/07/2020 6:06 PM Age: 65 years old Clinical indication: Abdominal pain; Additional info: Abd pain TECHNIQUE: Imaging protocol: XR of the abdomen. Views: 2 Views. COMPARISON: CR XR KUB [id number] 06/04/2020 6:36 AM FINDINGS: Gastrointestinal tract: Multiple dilated small bowel loops are seen in the mid and lower abdomen. The lower abdomen is not visible on the upright views. There is no significant air within the colon. These findings are suspicious for a small bowel obstruction. Clarification of this finding with CT examination of the abdomen and pelvis is recommended Intraperitoneal space: Normal. No free air. Bones/joints: Unremarkable for age. Chest: The heart and great vessels are normal for projection. The lungs are clear. A granuloma is present in the right upper lobe. XR/XR acute abdomen series 15300 IMPRESSION: 1. Multiple dilated bowel loops possible small bowel obstruction 2. Negative for acute chest abnormalities. 3. Granuloma right upper lobe
--- NOTE | 2020-06-07 16:44 | ED_ITS ---
Documented by User: Earl Ryder DO 06/08/20 09:07 HPI - Abdominal Pain General: Chief Complaint: Abdominal Pain Stated Complaint: abd pain Time Seen by Provider: 06/07/20 16:30 History of Present Illness: HPI narrative: 65-year-old male comes in complaining of abdominal pain with nausea. He is still having bowel movements he was hospitalized last week and discharged from [facility] [address] Lopez been following up for small bowel obstruction which resolved with conservative measures. He felt fine until this morning and began having increasing cramping and discomfort similar to what it had when he is admitted with a bowel obstruction he denies hematochezia melena hematemesis cough tenderness no fever no respiratory symptoms no dysuria urgency or frequency. MD elicited complaint: abdominal pain Pertinent past history: other (Recent hospitalization small bowel obstruction) Onset (ago): hour(s) Pain Consistency: constant Location: Diffuse (Abdomen) Severity: moderate Quality: cramping Radiation: none Exacerbating factors: nothing Relieving factors: nothing Context: history of similar episodes and other (Recent small bowel obstruction) Associated Symptoms: Reports bloating, change in stool character and GI cramping; Denies coffee ground emesis, constipation, diarrhea, dyspepsia, dysuria, fever(s), hematochezia, hematuria, hematemesis, fecal incontinence, loose stools, melena, nausea, poor appetite and vomiting Review of Systems Const: Denies: fever(s) ENMT: Denies: throat pain, ear or mastoid pain, nasal discharge or nasal congestion Card: Denies: chest pain, edema, dyspnea on exertion or orthopnea Resp: Denies: dyspnea, productive cough or non-productive cough GI: Reports: bloating, GI cramping and change in stool character; Denies: nausea, vomiting, hematemesis, coffee ground emesis, diarrhea, constipation, fecal incontinence, hematochezia or melena : Denies: dysuria or hematuria Skin/Breast: Denies: rash or pruritus [facility] ED PFSH: Medical History (Updated 06/07/20 @ 21:08 by Prashanth Kamara MD) Chews tobacco Constipation Environmental and seasonal allergies Insect bite Migraine Pre-diabetes Tobacco dependency Vitamin B12 deficiency (dietary) anemia Surgical History Status post knee surgery Left Family History Denies family history of CAD (coronary artery disease) Cancer Social History Smoking and tobacco status: current every day smoker smokeless tobacco Smokeless tobacco user: chewing tobacco Second hand smoke exposure: No Smoking risk assessment/counseling performed?: No Alcohol intake: never Desire information about alcohol rehabilitation?: No Counseling given: No Desire information about substance/drug rehabilitation?: No Counseling given: No Physical Exam Const: COMMON NORMALS: no acute distress GENERAL APPEARANCE: cooperative and comfortable ORIENTATION/CONSCIOUSNESS: Yes awake, Yes oriented to person, Yes oriented to place and Yes oriented to time HENMT: COMMON NORMALS: normocephalic, atraumatic and hearing grossly normal bilaterally HEAD & SCALP: normocephalic and atraumatic Eye: COMMON NORMALS: Equal, round and reactive pupils present, EOMs intact bilaterally, conjunctivae normal and no scleral icterus CONJUNCTIVA: Yes conjunctivae normal PUPIL: Yes Equal, round and reactive pupils present Neck/C-Spine: COMMON NORMALS: no JVD Resp: COMMON NORMALS: normal respiratory effort, No retractions, No use of accessory muscles and clear to auscultation bilaterally AUSCULTATION: clear to auscultation bilaterally Cardio: COMMON NORMALS: no JVD, regular rate, regular rhythm and No murmurs present (Cardio) RATE: regular rate RHYTHM: regular rhythm GI: COMMON NORMALS: Soft to palpation and No hepatosplenomegaly present AUSCULTATION: Yes normoactive bowel sounds PALPATION: Yes Soft to palpation, Yes Tenderness to palpation present (GI) (Diffuse mild tenderness), No Guarding due to palpation present (GI) and Yes No hepatosplenomegaly present Extremity: COMMON NORMALS: normal to inspection, capillary refill normal, no clubbing, cyanosis or edema, no calf tenderness and no pedal edema NARRATIVE EXTREMITY EXAM: Femoral pulses equal bilaterally Neuro: SENSORIUM/ORIENTATION: Yes oriented to person, Yes oriented to place and Yes oriented to time Skin: COMMON NORMALS: no rashes or lesions noted GENERAL SKIN EXAM: no rashes or lesions noted Course Vital Signs: Vital signs: Vital Signs Temperature 97.8 F 06/08/20 07:36 Pulse Rate 64 06/08/20 07:36 Respiratory Rate 18 06/08/20 07:36 Blood Pressure 104/65 06/08/20 07:36 Pulse Oximetry 95 06/08/20 07:36 MDM - Abdominal Pain MDM Narrative: Medical decision making narrative: Care turned over to Dr. Chauhan at change of shift see his note for final diagnosis and disposition Lab Data: Labs: Lab Results 06/07/20 06/07/20 06/07/20 Range/Units 17:14 17:24 17:24 WBC 9.0 (4.0-10.0) 10^3/ uL RBC 4.90 (4.1-5.3) 10^6/u L Hgb 14.8 (11.7-16.6) g/dL Hct 45.2 (42.0-52.0) % MCV 92.2 (80-94) fL MCH 30.2 (28.0-34.0) pg MCHC 32.7 (30.0-36.0) g/dL RDW 13.1 (12.1-15.1) % Plt Count 261 (130-400) 10^3/c mm MPV 9.8 (7.4-10.4) fL Neut % (Auto) 72.6 % Lymph % (Auto) 18.6 % [place] % (Auto) 7.1 % Eos % (Auto) 1.3 % Baso % (Auto) 0.2 % Neut # (Auto) 6.53 (1.8-7.7) 10^3/u L Lymph # (Auto) 1.7 (0.8-4.8) 10^3/u L [place] # (Auto) 0.6 (0.2-0.9) 10^3/u L Eos # (Auto) 0.1 (0.0-0.8) 10^3/u L Baso # (Auto) 0.0 (0.0-0.1) 10^3/u L Nucleated RBC % (a uto) 0 % Nucleated RBCs # 0.0 /100WBC Sodium 139 (136-145) mmol/L Potassium 4.2 (3.5-5.1) mmol/L Chloride 104 (98-107) mmol/L Carbon Dioxide 27 (22-29) mmol/L Anion Gap 12.2 (5-19) BUN 10 (8-23) mg/dL Creatinine 1.1 (0.7-1.2) mg/dL GFR Calculation 67.0 L (90-130) mL/min Glucose 87 (65-115) mg/dL Calculated Osmolal ity 283 L (285-295) mOsm/k g Calcium 10.5 (8.5-10.5) mg/dL Magnesium (1.7-2.3) mg/dL Total Bilirubin 0.5 (0.15-1.2) mg/dL AST 61 H (0-40) U/L ALT 69 H (0-41) U/L Alkaline Phosphata se 51 (40-130) IU/L Total Protein 7.3 (6.6-8.7) g/dL Albumin 4.1 (3.5-5.2) g/dL Globulin 3.2 (1.3-4.6) g/dL Lipase (13-60) U/L Urine Color Straw (Yellow) Urine Appearance Clear (CLEAR) Urine pH 8 H (5-7) Ur Specific Gravit y 1.010 (1.005-1.030) Urine Protein Neg (Negative) Urine Glucose (UA) Norm (Normal) Urine Ketones 1+ H (Negative) Urine Blood Neg (Negative) Urine Nitrate Negative (Negative) Urine Bilirubin Neg (NEGATIVE) Prot Sulfosalicyli c Acd Negative (Negative) Urine Urobilinogen Norm (Negative) mg/dL Ur Leukocyte Lisa ase Negative (Negative) 06/07/20 06/07/20 Range/Units 17:24 17:24 WBC (4.0-10.0) 10^3/ uL RBC (4.1-5.3) 10^6/u L Hgb (11.7-16.6) g/dL Hct (42.0-52.0) % MCV (80-94) fL MCH (28.0-34.0) pg MCHC (30.0-36.0) g/dL RDW (12.1-15.1) % Plt Count (130-400) 10^3/c mm MPV (7.4-10.4) fL Neut % (Auto) % Lymph % (Auto) % [place] % (Auto) % Eos % (Auto) % Baso % (Auto) % Neut # (Auto) (1.8-7.7) 10^3/u L Lymph # (Auto) (0.8-4.8) 10^3/u L [place] # (Auto) (0.2-0.9) 10^3/u L Eos # (Auto) (0.0-0.8) 10^3/u L Baso # (Auto) (0.0-0.1) 10^3/u L Nucleated RBC % (a uto) % Nucleated RBCs # /100WBC Sodium (136-145) mmol/L Potassium (3.5-5.1) mmol/L Chloride (98-107) mmol/L Carbon Dioxide (22-29) mmol/L Anion Gap (5-19) BUN (8-23) mg/dL Creatinine (0.7-1.2) mg/dL GFR Calculation (90-130) mL/min Glucose (65-115) mg/dL Calculated Osmolal ity (285-295) mOsm/k g Calcium (8.5-10.5) mg/dL Magnesium 2.3 (1.7-2.3) mg/dL Total Bilirubin (0.15-1.2) mg/dL AST (0-40) U/L ALT (0-41) U/L Alkaline Phosphata se (40-130) IU/L Total Protein (6.6-8.7) g/dL Albumin (3.5-5.2) g/dL Globulin (1.3-4.6) g/dL Lipase 49 (13-60) U/L Urine Color (Yellow) Urine Appearance (CLEAR) Urine pH (5-7) Ur Specific Gravit y (1.005-1.030) Urine Protein (Negative) Urine Glucose (UA) (Normal) Urine Ketones (Negative) Urine Blood (Negative) Urine Nitrate (Negative) Urine Bilirubin (NEGATIVE) Prot Sulfosalicyli c Acd (Negative) Urine Urobilinogen (Negative) mg/dL Ur Leukocyte Lisa ase (Negative) Discharge Plan Discharge Patient Disposition: Admitted As Inpatient Admit Provider: Prashanth Kamara Clinical Impression: Small bowel obstruction Condition: Stable Referrals: LUCERO Dueñas, JAYCEE [Primary Care Provider] - Discharge Date/Time: 06/07/20 21:00 Coding Level of Care Code ED Grain Operator for Chg Fwd Exam Comprehensive Documented by User: Epi Chauhan MD 06/07/20 19:45 HPI - Abdominal Pain General: Chief Complaint: Abdominal Pain Stated Complaint: abd pain Time Seen by Provider: 06/07/20 16:30 PFSH ED PFSH: Medical History (Updated 06/07/20 @ 21:08 by Prashanth Kamara MD) Chews tobacco Constipation Environmental and seasonal allergies Insect bite Migraine Pre-diabetes Tobacco dependency Vitamin B12 deficiency (dietary) anemia Surgical History Status post knee surgery Left Family History Denies family history of CAD (coronary artery disease) Cancer Social History Smoking and tobacco status: current every day smoker smokeless tobacco Smokeless tobacco user: chewing tobacco Second hand smoke exposure: No Smoking risk assessment/counseling performed?: No Alcohol intake: never Desire information about alcohol rehabilitation?: No Counseling given: No Desire information about substance/drug rehabilitation?: No Counseling given: No Course Vital Signs: Vital signs: Vital Signs Temperature 97.8 F 06/08/20 07:36 Pulse Rate 64 06/08/20 07:36 Respiratory Rate 18 06/08/20 07:36 Blood Pressure 104/65 06/08/20 07:36 Pulse Oximetry 95 06/08/20 07:36 MDM - Abdominal Pain MDM Narrative: Medical decision making narrative: Patient presents here with a small bowel obstruction. This is seen on CT scan. Will place an NG tube I spoke to hospitalist who will admit. I also spoke to Dr. Gilbert of surgery who is consulted. Lab Data: Labs: Lab Results 06/07/20 06/07/20 06/07/20 Range/Units 17:14 17:24 17:24 WBC 9.0 (4.0-10.0) 10^3/ uL RBC 4.90 (4.1-5.3) 10^6/u L Hgb 14.8 (11.7-16.6) g/dL Hct 45.2 (42.0-52.0) % MCV 92.2 (80-94) fL MCH 30.2 (28.0-34.0) pg MCHC 32.7 (30.0-36.0) g/dL RDW 13.1 (12.1-15.1) % Plt Count 261 (130-400) 10^3/c mm MPV 9.8 (7.4-10.4) fL Neut % (Auto) 72.6 % Lymph % (Auto) 18.6 % [place] % (Auto) 7.1 % Eos % (Auto) 1.3 % Baso % (Auto) 0.2 % Neut # (Auto) 6.53 (1.8-7.7) 10^3/u L Lymph # (Auto) 1.7 (0.8-4.8) 10^3/u L [place] # (Auto) 0.6 (0.2-0.9) 10^3/u L Eos # (Auto) 0.1 (0.0-0.8) 10^3/u L Baso # (Auto) 0.0 (0.0-0.1) 10^3/u L Nucleated RBC % (a uto) 0 % Nucleated RBCs # 0.0 /100WBC Sodium 139 (136-145) mmol/L Potassium 4.2 (3.5-5.1) mmol/L Chloride 104 (98-107) mmol/L Carbon Dioxide 27 (22-29) mmol/L Anion Gap 12.2 (5-19) BUN 10 (8-23) mg/dL Creatinine 1.1 (0.7-1.2) mg/dL GFR Calculation 67.0 L (90-130) mL/min Glucose 87 (65-115) mg/dL Calculated Osmolal ity 283 L (285-295) mOsm/k g Calcium 10.5 (8.5-10.5) mg/dL Magnesium (1.7-2.3) mg/dL Total Bilirubin 0.5 (0.15-1.2) mg/dL AST 61 H (0-40) U/L ALT 69 H (0-41) U/L Alkaline Phosphata se 51 (40-130) IU/L Total Protein 7.3 (6.6-8.7) g/dL Albumin 4.1 (3.5-5.2) g/dL Globulin 3.2 (1.3-4.6) g/dL Lipase (13-60) U/L Urine Color Straw (Yellow) Urine Appearance Clear (CLEAR) Urine pH 8 H (5-7) Ur Specific Gravit y 1.010 (1.005-1.030) Urine Protein Neg (Negative) Urine Glucose (UA) Norm (Normal) Urine Ketones 1+ H (Negative) Urine Blood Neg (Negative) Urine Nitrate Negative (Negative) Urine Bilirubin Neg (NEGATIVE) Prot Sulfosalicyli c Acd Negative (Negative) Urine Urobilinogen Norm (Negative) mg/dL Ur Leukocyte Lisa ase Negative (Negative) 06/07/20 06/07/20 Range/Units 17:24 17:24 WBC (4.0-10.0) 10^3/ uL RBC (4.1-5.3) 10^6/u L Hgb (11.7-16.6) g/dL Hct (42.0-52.0) % MCV (80-94) fL MCH (28.0-34.0) pg MCHC (30.0-36.0) g/dL RDW (12.1-15.1) % Plt Count (130-400) 10^3/c mm MPV (7.4-10.4) fL Neut % (Auto) % Lymph % (Auto) % [place] % (Auto) % Eos % (Auto) % Baso % (Auto) % Neut # (Auto) (1.8-7.7) 10^3/u L Lymph # (Auto) (0.8-4.8) 10^3/u L [place] # (Auto) (0.2-0.9) 10^3/u L Eos # (Auto) (0.0-0.8) 10^3/u L Baso # (Auto) (0.0-0.1) 10^3/u L Nucleated RBC % (a uto) % Nucleated RBCs # /100WBC Sodium (136-145) mmol/L Potassium (3.5-5.1) mmol/L Chloride (98-107) mmol/L Carbon Dioxide (22-29) mmol/L Anion Gap (5-19) BUN (8-23) mg/dL Creatinine (0.7-1.2) mg/dL GFR Calculation (90-130) mL/min Glucose (65-115) mg/dL Calculated Osmolal ity (285-295) mOsm/k g Calcium (8.5-10.5) mg/dL Magnesium 2.3 (1.7-2.3) mg/dL Total Bilirubin (0.15-1.2) mg/dL AST (0-40) U/L ALT (0-41) U/L Alkaline Phosphata se (40-130) IU/L Total Protein (6.6-8.7) g/dL Albumin (3.5-5.2) g/dL Globulin (1.3-4.6) g/dL Lipase 49 (13-60) U/L Urine Color (Yellow) Urine Appearance (CLEAR) Urine pH (5-7) Ur Specific Gravit y (1.005-1.030) Urine Protein (Negative) Urine Glucose (UA) (Normal) Urine Ketones (Negative) Urine Blood (Negative) Urine Nitrate (Negative) Urine Bilirubin (NEGATIVE) Prot Sulfosalicyli c Acd (Negative) Urine Urobilinogen (Negative) mg/dL Ur Leukocyte Lisa ase (Negative) Imaging Data ^: CT Abd/Pel: Radiologist's impression: [address] [address] [address] Scan Report Signed Patient: Ryland Huang Unit #: [id number] : 1955 Age/Sex: 65 / M ADM Date: 06/07/20 Loc: ER Room/Bed: Attending Dr: Ordering Provider/Ordering MD: Epi Chauhan MD Date of Service: 06/07/20 Procedure(s): CT abdomen pelvis con [id number] Accession Number(s): [id number] Report Number: [id number] PROCEDURE INFORMATION: Exam: CT Abdomen And Pelvis Without Contrast Exam date and time: 06/07/2020 6:50 PM Age: 65 years old Clinical indication: Abdominal pain; Patient HX: Recent bowel obstruction; Additional info: Abd pain TECHNIQUE: Imaging protocol: Computed tomography of the abdomen and pelvis without contrast. Radiation optimization: All CT scans at this facility use at least one of these dose optimization techniques: automated exposure control; mA and/or kV adjustment per patient size (includes targeted exams where dose is matched to clinical indication); or iterative reconstruction. COMPARISON: CT abdomen pelvis w con* [id number] 06/02/2020 7:41 PM RADIATION DOSE METRICS: Total DLP (mGy-cm): 253.43 FINDINGS: Lungs: Limited assessment lung bases without visible evidence of active cardiopulmonary process. Coronary artery disease. Liver: Unremarkable. No mass. Gallbladder and bile ducts: Unremarkable. No calcified stones. No ductal dilation. Pancreas: Unremarkable. No ductal dilation. Spleen: Normal. No splenomegaly. Adrenals: Unremarkable. No mass. Kidneys and ureters: Unremarkable. No hydronephrosis. Stomach and bowel: Examination again reveals a high-grade partial distal small-bowel obstruction. Again the exact transition zone remains difficult to ascertain with any level of confidence. Suspect transition zone most likely distal ileal loop anterior right lower quadrant of the abdomen. Remaining distal ileal loops to the terminal ileum decompressed. Colon partially decompressed. Colonic gas is identified to at least the splenic flexure. Appendix: No evidence of appendicitis. Intraperitoneal space: Tiny amount of free fluid in the pouch of Dk. Vasculature: The abdominal aorta is nonaneurysmal. Moderate arterial sclerotic disease. Lymph nodes: Unremarkable. No enlarged lymph nodes. Bladder: Urinary bladder unremarkable. Reproductive: Prostate hypertrophy. Bones/joints: No visible acute osseous abnormality. Age-appropriate degenerative disease of the spine. Soft tissues: Unremarkable. CT/CT abdomen pelvis con [id number] IMPRESSION: 1. Examination again reveals a high-grade partial distal small-bowel obstruction. 2. Again the exact transition zone remains difficult to ascertain with any level of confidence. 3. Suspect transition zone most likely distal ileal loop anterior right lower quadrant of the abdomen. 4. Remaining distal ileal loops to the terminal ileum decompressed. Discharge Plan Discharge Patient Disposition: Admitted As Inpatient Admit Provider: Prashanth Kamara Clinical Impression: Small bowel obstruction Condition: Stable Referrals: LUCERO Dueñas, IRON WORKER FOREMAN [Primary Care Provider] - Discharge Date/Time: 06/07/20 21:00 Coding Level of Care Code ED Grain Operator for Chg Fwd Exam Comprehensive
[2020-06-07 17:09] VITALS: BP 108/66; PULSE 64; RESP 12; O2SAT 97
[2020-06-07 17:31] LABS: Basophils % 0.2 %; Eosinophils # 0.1 10^3/uL (0.0-0.8); Eosinophils % 1.3 %; Hematocrit 45.2 % (42.0-52.0); Hemoglobin 14.8 g/dL (11.7-16.6); Lymphocytes # 1.7 10^3/uL (0.8-4.8); Lymphocytes % 18.6 %; Mean Corpuscular HGB Conc 32.7 g/dL (30.0-36.0); Mean Corpuscular Hemoglobin 30.2 pg (28.0-34.0); Mean Corpuscular Volume 92.2 fL (80-94); Mean Platelet Volume 9.8 fL (7.4-10.4); Monocytes # 0.6 10^3/uL (0.2-0.9); Monocytes % 7.1 %; Neutrophils # 6.53 10^3/uL (1.8-7.7); Neutrophils % 72.6 %; Nucleated Red Blood Cells % 0 %; Platelet Count 261 10^3/cmm (130-400); Red Cell Distribution Width 13.1 % (12.1-15.1)
--- NOTE | 2020-06-07 17:31 | PC.NURSE ---
Read and agree with assessment.
[2020-06-07 17:33] LABS: Add Urine Microscopic? NO
[2020-06-07 17:37] LABS: Bilirubin Urine Neg (NEGATIVE); Blood Urine Neg (Negative); Glucose Urine UA Norm (Normal); Ketones Urine 1+ (Negative); Leukocyte Esterase Urine Negative (Negative); Nitrate Urine Negative (Negative); Protein Urine Neg (Negative); Sulfosalicylic Acid Urine Negative (Negative); Urine Appearance Clear (CLEAR); Urine Color Straw (Yellow); Urobilinogen Urine Norm (Negative); pH Urine 8 (5-7)
[2020-06-07] MEDS: acetaminophen 325 mg Tablet 650 MG PO (17:43)
[2020-06-07] MEDS: sodium chloride 0.9% 1,000 ML 999 ML IV (17:44)
[2020-06-07] MEDS: ondansetron 2 mg/ML SDV 2 mL 4 MG IVP (17:44)
[2020-06-07 17:45] VITALS: BP 108/66; PULSE 61; RESP 16; O2SAT 98
[2020-06-07 17:58] LABS: Alanine Aminotransferase 69 U/L (0-41); Albumin Level 4.1 g/dL (3.5-5.2); Alkaline Phosphatase 51 IU/L (40-130); Anion Gap 12.2 (5-19); Aspartate Amino Transferase 61 U/L (0-40); Blood Urea Nitrogen 10 mg/dL (8-23); Calcium 10.5 mg/dL (8.5-10.5); Carbon Dioxide 27 mmol/L (22-29); Chloride 104 mmol/L (98-107); Globulin 3.2 g/dL (1.3-4.6); Glucose 87 mg/dL (65-115); Osmolality Calculated 283 mOsm/kg (285-295); Potassium 4.2 mmol/L (3.5-5.1); Sodium 139 mmol/L (136-145); Total Bilirubin 0.5 mg/dL (0.15-1.2); Total Protein 7.3 g/dL (6.6-8.7)
[2020-06-07 18:11] VITALS: BP 105/62; PULSE 65; RESP 16; O2SAT 95
--- NOTE | 2020-06-07 18:39 | CTR_ITS ---
PROCEDURE INFORMATION: Exam: CT Abdomen And Pelvis Without Contrast Exam date and time: 06/07/2020 6:50 PM Age: 65 years old Clinical indication: Abdominal pain; Patient HX: Recent bowel obstruction; Additional info: Abd pain TECHNIQUE: Imaging protocol: Computed tomography of the abdomen and pelvis without contrast. Radiation optimization: All CT scans at this facility use at least one of these dose optimization techniques: automated exposure control; mA and/or kV adjustment per patient size (includes targeted exams where dose is matched to clinical indication); or iterative reconstruction. COMPARISON: CT abdomen pelvis w con* [id number] 06/02/2020 7:41 PM RADIATION DOSE METRICS: Total DLP (mGy-cm): 253.43 FINDINGS: Lungs: Limited assessment lung bases without visible evidence of active cardiopulmonary process. Coronary artery disease. Liver: Unremarkable. No mass. Gallbladder and bile ducts: Unremarkable. No calcified stones. No ductal dilation. Pancreas: Unremarkable. No ductal dilation. Spleen: Normal. No splenomegaly. Adrenals: Unremarkable. No mass. Kidneys and ureters: Unremarkable. No hydronephrosis. Stomach and bowel: Examination again reveals a high-grade partial distal small-bowel obstruction. Again the exact transition zone remains difficult to ascertain with any level of confidence. Suspect transition zone most likely distal ileal loop anterior right lower quadrant of the abdomen. Remaining distal ileal loops to the terminal ileum decompressed. Colon partially decompressed. Colonic gas is identified to at least the splenic flexure. Appendix: No evidence of appendicitis. Intraperitoneal space: Tiny amount of free fluid in the pouch of [place]. Vasculature: The abdominal aorta is nonaneurysmal. Moderate arterial sclerotic disease. Lymph nodes: Unremarkable. No enlarged lymph nodes. Bladder: Urinary bladder unremarkable. Reproductive: Prostate hypertrophy. Bones/joints: No visible acute osseous abnormality. Age-appropriate degenerative disease of the spine. Soft tissues: Unremarkable. CT/CT abdomen pelvis wo con [id number] IMPRESSION: 1. Examination again reveals a high-grade partial distal small-bowel obstruction. 2. Again the exact transition zone remains difficult to ascertain with any level of confidence. 3. Suspect transition zone most likely distal ileal loop anterior right lower quadrant of the abdomen. 4. Remaining distal ileal loops to the terminal ileum decompressed. Radiation Dose CTDIVOL = (mGy): DLP = 253.43 (mGy-cm)
--- NOTE | 2020-06-07 20:21 | PC.NURSE ---
PT HAS BEEN ASKED A NUMBER OF TIMES IF HE WANTED MORPHINE AND ATIVAN THAT WAS ORDERED FOR HIM. PT CONT TO REFUSE MEDS AT THIS TIME. PT INSTRUCTED TO CALL IF HE WANTS THE MEDS. PT RESTING COMFORTABLY IN BED. NG TUBE PLACED AND TO LOW INTER. SUCTION.
--- NOTE | 2020-06-07 20:31 | P.HP_ITS ---
Providers/Chief Complaint Admitting Physician: Prashanth Kamara MD Primary Care Provider: JAYCEE Clemente Chief Complaint: abd pain History of Present Illness Ryland Huang is a 65 year old male who presents with complaints of abdominal discomfort. He was recently admitted for a partial small bowel obstruction that was treated conservatively. He reports he got home, and was feeling well but this morning awoke with similar abdominal pain that was severe, infraumbilical associate with nausea. He had no vomiting. He had a small bowel movement this morning and passed some gas this morning. He reports he is still having pain. This is the second time of occurrence of pain, with the first time being his recent admission. No fever. No history of COVID or COVID exposure. No blood in his stool or black or tarry stool. He reports he did not get Protonix that was prescribed last admission as he has difficulty swallowing pills, for fear of choking. He reports he has to chew all of his food up to prevent this from occurring. Review of Systems General: Reports: 10 or more systems reviewed and unremarkable except in HPI and below Const: Denies: fever(s) or chills Eyes: Denies: change in vision ENMT: Denies: throat pain Card: Denies: chest pain Resp: Denies: dyspnea GI: Reports: abdominal pain and nausea; Denies: vomiting : Denies: flank pain Musc: Denies: neck pain Skin/Breast: Denies: rash Neuro: Denies: headache(s) Psych: Denies: anxiety Endo: Denies: polyuria Patel/Lymph: Denies: easy bruising All/Imm: Denies: urticaria Medications/Allergies Home Medications Medication Instructions Recorded Confirmed Last Taken Type cholecalciferol (vitamin D3) 125 5,000 unit PO DAILY 30 Days #59 ml 03/15/20 06/07/20 06/01/20 Rx mcg/mL (5,000 unit/mL) oral drops cyanocobalamin (vitamin B-12) 1,000 mcg PO DAILY 30 Days #240 ml 03/15/20 06/07/20 06/01/20 Rx 1,000 mcg/15 mL oral liquid hydrocortisone 1 % topical ointment 1 applic TOPICAL BID PRN 30 Days 03/15/20 06/07/20 Unknown Rx #28 gm sumatriptan 5 mg/actuation nasal 5 mg INTRANASAL DAILY PRN 30 Days 04/14/20 06/07/20 Unknown Rx spray #1 each MDD benita bisacodyl 10 mg [place] DAILY PRN 06/02/20 06/07/20 Unknown History lansoprazole 15 mg PO DAILY 06/02/20 06/07/20 Unknown History acetaminophen [Tylenol 8 Hour] 650 mg PO Q8H PRN #30 tab 06/05/20 06/07/20 Unknown Rx lactulose 20 gm PO DAILY PRN #473 ml 06/05/20 06/07/20 Unknown Rx pantoprazole [Protonix] 40 mg PO DAILY 28 Days #30 tab 06/05/20 06/07/20 Unknown Rx Allergies Allergy/AdvReac Type Severity Reaction Status Date / Time aspirin AdvReac low heart Verified 06/07/20 17:50 rate PFSH Acute PFSH: Medical History Chews tobacco Constipation Environmental and seasonal allergies Insect bite Migraine Pre-diabetes Vitamin B12 deficiency (dietary) anemia Surgical History Status post knee surgery Left Family History Denies family history of CAD (coronary artery disease) Cancer Social History Smoking and tobacco status: current every day smoker smokeless tobacco Smokeless tobacco user: chewing tobacco Second hand smoke exposure: No Smoking risk assessment/counseling performed?: No Alcohol intake: never Desire information about alcohol rehabilitation?: No Counseling given: No Desire information about substance/drug rehabilitation?: No Counseling given: No Vitals/I&O/Wt Last Vital Signs Temp 97.1 F L 06/07/20 16:25 Pulse 65 06/07/20 18:11 Resp 16 06/07/20 18:11 BP 105/62 06/07/20 18:11 Pulse Ox 95 06/07/20 18:11 06/07/20 06/07/20 06/07/20 06:59 14:59 22:59 Intake Total 1000 / 1000 Balance 1000 / 1000 Weight last 48 hrs Weight 56.699 kg Physical Exam Narrative: EXAM NARRATIVE: General exam is a white male, no apparent distress, conversant HEENT: Pupils equally round. Oropharynx clear. Neck is supple no lymphadenopathy or thyromegaly Cardiovascular regular rate and rhythm without murmur, no S3 or S4 Lungs clear no wheezing or crackles Abdomen is tender, infraumbilical. No obvious organomegaly . No evidence of hernias Extremities no cyanosis clubbing or edema, cap refill brisk Skin no rash Neuro no focal deficits Data : 06/07/20 17:24 06/07/20 17:24 Other data: AST and ALT 61 and 69. Alk phos normal. Urinalysis negative. Lipase not checked Abdominal pelvis CT demonstrates high-grade partial distal small bowel obstruction Chest x-ray no pneumonia A&P Assessment and plan (1) Small bowel obstruction: Inpatient admission NG to low intermittent suction Hydration Surgical consultation Magnesium level blood in lab as well as lipase level. Status: Acute (2) Tobacco dependency: Encourage cessation. Counseling. Status: Acute Attestations Medical Necessity Statement*: Will need greater than 2 midnight stay for evaluation and treatment of partial small bowel obstruction. Coding Level of Care Code Acute Service Technician for [facility] Fwd Diagnoses Small bowel obstruction K56.609 Tobacco dependency F17.200
[2020-06-07 20:42] VITALS: BP 104/65; PULSE 60; RESP 16; O2SAT 94
[2020-06-07 21:21] VITALS: BP 100/64; PULSE 71; RESP 21; TEMP 36.6; O2SAT 98
[2020-06-07 21:54] LABS: Lipase 49 U/L (13-60)
[2020-06-07 22:08] LABS: Magnesium 2.3 mg/dL (1.7-2.3)
[2020-06-07] MEDS: sodium chloride 0.9% 1,000 ML 100 ML IV (22:12)
[2020-06-07] MEDS: heparin 5,000 unit/mL INJ 1 mL 5000 UNIT SUBCUT (22:14)
--- NOTE | 2020-06-07 22:26 | PC.NURSE ---
ADMIT NOTE Pt to floor from ER at 2119. Was just discharged from hospital on Sunday and says he felt good for couple of days then by Sunday was having abdominal pain again. Reports alot of gas but is not passing much of it. Abd is sl firm with some generalized tenderness. Has bowel sound present. NG tube in place via right nare from ER. Stated felt like was in the back of his throat. Placement verified and has return of thick creamy colored liquid per low int sx. IV fluids started at 100ml/hr rate. c/o abd pain but refused Morphine in ER and continues to refuse it here. Is aware is NPO
[2020-06-07] MEDS: pantoprazole 40 mg SDV IVP (22:55)
[2020-06-08 04:00] VITALS: BP 94/55; PULSE 56; RESP 17; TEMP 37; O2SAT 93
[2020-06-08 04:54] LABS: Basophils % 0.4 %; Eosinophils # 0.2 10^3/uL (0.0-0.8); Eosinophils % 2.7 %; Hematocrit 39.7 % (42.0-52.0); Hemoglobin 13.1 g/dL (11.7-16.6); Lymphocytes # 1.7 10^3/uL (0.8-4.8); Mean Corpuscular Hemoglobin 30.5 pg (28.0-34.0); Mean Corpuscular Volume 92.3 fL (80-94); Mean Platelet Volume 9.9 fL (7.4-10.4); Monocytes # 0.6 10^3/uL (0.2-0.9); Monocytes % 9.2 %; Neutrophils # 4.38 10^3/uL (1.8-7.7); Neutrophils % 63.4 %; Nucleated Red Blood Cells % 0 %; Platelet Count 216 10^3/cmm (130-400); Red Cell Distribution Width 13.2 % (12.1-15.1); White Blood Count 6.9 10^3/uL (4.0-10.0)
--- NOTE | 2020-06-08 05:19 | PC.NURSE ---
SHIFT SUMMARY Has rested well since admission. NG has drained 50ml creamy colored liquid with what appears to be some undigested food pieces. IV infusing without difficulty
[2020-06-08 05:35] LABS: Alanine Aminotransferase 57 U/L (0-41); Albumin Level 3.3 g/dL (3.5-5.2); Alkaline Phosphatase 43 IU/L (40-130); Anion Gap 11.3 (5-19); Aspartate Amino Transferase 47 U/L (0-40); Blood Urea Nitrogen 11 mg/dL (8-23); Calcium 9.5 mg/dL (8.5-10.5); Carbon Dioxide 23 mmol/L (22-29); Chloride 110 mmol/L (98-107); Globulin 2.5 g/dL (1.3-4.6); Glomerular Filtration Rate 84.4 mL/min (90-130); Glucose 76 mg/dL (65-115); Osmolality Calculated 285 mOsm/kg (285-295); Potassium 4.3 mmol/L (3.5-5.1); Sodium 140 mmol/L (136-145); Total Bilirubin 0.6 mg/dL (0.15-1.2); Total Protein 5.8 g/dL (6.6-8.7)
[2020-06-08 07:36] VITALS: BP 104/65; PULSE 64; RESP 18; TEMP 36.6; O2SAT 95
[2020-06-08] MEDS: sodium chloride 0.9% 1,000 ML 100 ML IV ×2 (08:13→18:01)
[2020-06-08] MEDS: pantoprazole 40 mg SDV IVP ×2 (09:17→22:12)
--- NOTE | 2020-06-08 09:39 | XRR_ITS ---
PROCEDURE INFORMATION: Exam: XR Abdomen, 2 Views Exam date and time: 06/08/2020 10:05 AM Age: 65 years old Clinical indication: Condition or disease; Intestinal condition; Obstruction; Additional info: Sbo TECHNIQUE: Imaging protocol: XR of the abdomen. Views: 2 Views. COMPARISON: CT abdomen pelvis w con* [id number] 06/07/2020 6:56 PM FINDINGS: Tubes, catheters and devices: Nasogastric tube in the region of the antrum. Gastrointestinal tract: Bowel gas pattern is nonspecific. No mass effect upon the bowel loops. Distal rectal gas. Scattered loops of air filled small bowel in the mid abdomen. Correlate. Moderate amount of stool throughout the large bowel. Intraperitoneal space: Normal. No free air. Bones/joints: Unremarkable for age. Soft tissues: No appreciable calcifications XR/XR abdomen min 2V [id number] IMPRESSION: 1. Bowel gas pattern is nonspecific. 2. Scattered loops of air filled small bowel in the mid abdomen. Correlate. 3. Moderate amount of stool throughout the large bowel. 4. Nasogastric tube in the region of the antrum.
[2020-06-08] MEDS: magnesium citrate Btl 296 mL 150 ML PO (10:33)
--- NOTE | 2020-06-08 10:47 | PC.CHAP ---
Pastoral Care Encounter/Spiritual Assessment Type of Contact [x] Declined green chain off bearer visit [] Patient/Family/Request visit [] Outpatient visit [] Follow-up visit [] Physician referral [] Code/Alert [] Routine visit [] Staff referral [] Actively dying [] Patient sleeping [] Family support [] [] Out of room [] Palliative care [] [] Receiving care in room [] Pre-surgical visit [] Trauma [] Long length of stay [] ICU visit [] Other: Relational/Emotional Strength [] Patient feels connected with others/family/visitors/staff [] Distress [] Loneliness/isolation [] Abandonment Spirituality of Patient [] Person of Toya [] Attends Orthodox of their [place] [] Believes in Prayer [] Reads Bible or Amish materials [] There are Spiritual issues to be addressed Hand Tool Filer Interventions [] Prayer [] Active listening [] Non-anxious presence [] Spiritual/emotional support [] Crisis/trauma care [] Spiritual counseling [] Bereavement support [] Provided bereavement packet [] Provided Bible/devotional materials [] Provided toy/stuffed animal, coloring book to patient or family member [] Provided Communion [] Anointing/[place] [] Salvation [] Completed spiritual assessment [] Other: Impact on Illness or Injury [] Angry [] Fearful [] Anxious [] Often cries [] Exhaustion [] Unable to work [] Unable to attend hinduism [] Unable to walk/stand [] Unable to read [] Unable to drive [] Unable to eat/drink [] Unable to sleep [] Unable to be with family [] Patient intubated [] Other: Summary Time spent with patient
--- NOTE | 2020-06-08 10:48 | PC.CHAP ---
Pastoral Care Encounter/Spiritual Assessment Type of Contact [x] Declined electrical controls designer visit [] Patient/Family/Request visit [] Outpatient visit [] Follow-up visit [] Physician referral [] Code/Alert [] Routine visit [] Staff referral [] Actively dying [] Patient sleeping [] Family support [] [] Out of room [] Palliative care [] [] Receiving care in room [] Pre-surgical visit [] Trauma [] Long length of stay [] ICU visit [] Other: Relational/Emotional Strength [] Patient feels connected with others/family/visitors/staff [] Distress [] Loneliness/isolation [] Abandonment Spirituality of Patient [] Person of Toya [] Attends Jew of their [place] [] Believes in Prayer [] Reads Bible or Yazidism materials [] There are Spiritual issues to be addressed Tray Room Worker Interventions [] Prayer [] Active listening [] Non-anxious presence [] Spiritual/emotional support [] Crisis/trauma care [] Spiritual counseling [] Bereavement support [] Provided bereavement packet [] Provided Bible/devotional materials [] Provided toy/stuffed animal, coloring book to patient or family member [] Provided Communion [] Anointing/[place] [] Salvation [] Completed spiritual assessment [] Other: Impact on Illness or Injury [] Angry [] Fearful [] Anxious [] Often cries [] Exhaustion [] Unable to work [] Unable to attend anabaptism [] Unable to walk/stand [] Unable to read [] Unable to drive [] Unable to eat/drink [] Unable to sleep [] Unable to be with family [] Patient intubated [] Other: Summary Patient declined Tray Room Worker visit. Time spent with patient
--- NOTE | 2020-06-08 10:55 | PM.PN ---
Subjective Subjective: Interval history: Patient awake in bed at time of exam this morning. He reported that his abdominal pain is significantly improved from admission. He stated that he is now able to Pass flatus. He reports not having any more nausea at this time. Patient denies any melanotic stools, no hematochezia. Patient reports some weight loss recently but believed to be due to decreased oral intake. Reports that his last bowel movement was on Sunday. Vitals/I&O/Wt Last Vital Signs Temp 97.8 F 06/08/20 07:36 Pulse 64 06/08/20 07:36 Resp 18 06/08/20 07:36 BP 104/65 06/08/20 07:36 Pulse Ox 95 06/08/20 07:36 06/07/20 06/08/20 06/08/20 22:59 06:59 14:59 Intake Total 1000 / 1000 0 / 1000 1000 / 1000 Output Total 200 / 200 Balance 1000 / 1000 -200 / 800 1000 / 1000 Weight last 48 hrs Weight 57.969 kg Weight 56.699 kg Physical Exam Const: COMMON NORMALS: patient oriented x3 and alert GENERAL APPEARANCE: cooperative ORIENTATION/CONSCIOUSNESS: Yes awake, Yes oriented to person, Yes oriented to place and Yes oriented to time HENMT: COMMON NORMALS: normocephalic and atraumatic HEAD & SCALP: normocephalic and atraumatic Eye: COMMON NORMALS: Equal, round and reactive pupils present PUPIL: Yes Equal, round and reactive pupils present Neck/C-Spine: COMMON NORMALS: supple GENERAL: Yes normal visual inspection Resp: COMMON NORMALS: normal respiratory effort and clear to auscultation bilaterally EFFORT & INSPECTION: Yes able to speak in complete sentences AUSCULTATION: clear to auscultation bilaterally, no rhonchi and no wheezes Cardio: COMMON NORMALS: regular rate, regular rhythm and No murmurs present (Cardio) RATE: regular rate RHYTHM: regular rhythm GI: COMMON NORMALS: Soft to palpation and non-tender INSPECTION: No abdominal distension AUSCULTATION: Yes normoactive bowel sounds PALPATION: Yes Soft to palpation Extremity: COMMON NORMALS: no clubbing, cyanosis or edema and no calf tenderness Neuro: COMMON NORMALS: patient oriented x3, CN's II-XII intact bilaterally, moves all extremities and no focal motor deficits SENSORIUM/ORIENTATION: Yes alert, Yes oriented to person, Yes oriented to place and Yes oriented to time SPEECH: speech normal Psych: COMMON NORMALS: mental status grossly normal and cooperative Skin: COMMON NORMALS: no rashes or lesions noted GENERAL SKIN EXAM: no rashes or lesions noted Data : 06/08/20 04:40 06/08/20 04:40 A&P Assessment and plan (1) Small bowel obstruction: Patient reports improvement today Clamp NG tube at this time Give dose of magnesium citrate Further bowel management protocol General surgeon, Dr. Gilbert consulted. Discussed with him this morning we will plan to clamp NG tube and if patient continues to have improvement we will set up close outpatient follow-up for further work-up due to recurrent small bowel obstruction. Imaging improved this morning. Gradually start on clear liquid diet as tolerated increase to full liquid diet as tolerated Status: Acute (2) Tobacco dependency: Encourage cessation. Counseling. Status: Acute Additional A&P Information Slight increase in AST and ALT: Appears to be downtrending, no right upper quadrant pain or tenderness, lipase within normal limits DVT prophylaxis: Heparin Diet: N.p.o. with gradual increase to clear liquid diet CODE STATUS: Full code Attestations Medical Necessity Statement*: Further hospitalization due to recurrent small bowel obstruction. Coding Level of Care Code Acute Associate Vice President for [facility] Fwd Diagnoses Small bowel obstruction K56.609 Tobacco dependency F17.200
[2020-06-08 11:09] VITALS: BP 110/69; PULSE 67; RESP 16; TEMP 36.8; O2SAT 94
--- NOTE | 2020-06-08 12:18 | PM.CONSULT ---
Providers/Reason For Consult Consulting Physican/Specialty*: Dr. Kamara Reason for Consult*: Small bowel obstruction Attending Physician: Mary Ellen Rushing DO Primary Care Provider: JAYCEE Clemente History of Present Illness History of Present Illness Ryland Huang is a 65 year old male who was recently admitted to the hospital and managed conservatively for small bowel obstruction. Patient states that he had been home for 3 days and subsequently started having severe abdominal pain associated with nausea and vomiting. He has not had a bowel movement over the last 24 hours he has been passing some flatus. Patient denies any nausea vomiting since the NG tube was placed. He states that he usually gets constipated. No prior colonoscopy. No prior abdominal surgeries. Review of Systems General: Reports: 10 or more systems reviewed and unremarkable except in HPI and below Meds/Allergies Home Medications and Allergies Home Medications Medication Instructions Recorded Confirmed Last Taken Type cholecalciferol (vitamin D3) 125 5,000 unit PO DAILY 30 Days #59 ml 03/15/20 06/07/20 06/01/20 Rx mcg/mL (5,000 unit/mL) oral drops cyanocobalamin (vitamin B-12) 1,000 mcg PO DAILY 30 Days #240 ml 03/15/20 06/07/20 06/01/20 Rx 1,000 mcg/15 mL oral liquid hydrocortisone 1 % topical ointment 1 applic TOPICAL BID PRN 30 Days 03/15/20 06/07/20 Unknown Rx #28 gm sumatriptan 5 mg/actuation nasal 5 mg INTRANASAL DAILY PRN 30 Days 04/14/20 06/07/20 Unknown Rx spray #1 each MDD benita bisacodyl 10 mg [place] DAILY PRN 06/02/20 06/07/20 Unknown History lansoprazole 15 mg PO DAILY 06/02/20 06/07/20 Unknown History acetaminophen [Tylenol 8 Hour] 650 mg PO Q8H PRN #30 tab 06/05/20 06/07/20 Unknown Rx lactulose 20 gm PO DAILY PRN #473 ml 06/05/20 06/07/20 Unknown Rx pantoprazole [Protonix] 40 mg PO DAILY 28 Days #30 tab 06/05/20 06/07/20 Unknown Rx Allergies Allergy/AdvReac Type Severity Reaction Status Date / Time aspirin AdvReac low heart Verified 06/07/20 17:50 rate Current Medications Current Medications Generic Name Dose Route Start Last Admin Trade Name Arturo PRN Reason Stop Dose Admin Heparin Sodium (Beef Lung) 5,000 unit 06/07/20 21:49 06/08/20 09:17 Heparin SUBCUT Not Given Q12H NETO Sodium Chloride 1,000 mls @ 30 mls/hr 06/07/20 21:49 06/08/20 08:13 Sodium Chloride 0.9% IV 100 mls/hr .Q24H NETO Administration Pantoprazole Sodium 40 mg 06/07/20 21:49 06/08/20 09:17 Protonix IVP 40 mg Q12H NETO Administration PFSH Acute PFSH: Medical History Environmental and seasonal allergies Migraine Pre-diabetes Small bowel obstruction Vitamin B12 deficiency (dietary) anemia Surgical History Status post knee surgery Left Family History Denies family history of CAD (coronary artery disease) Cancer Social History Smoking and tobacco status: current every day smoker smokeless tobacco Smokeless tobacco user: chewing tobacco Second hand smoke exposure: No Smoking risk assessment/counseling performed?: No Alcohol intake: never Desire information about alcohol rehabilitation?: No Counseling given: No Desire information about substance/drug rehabilitation?: No Counseling given: No Vitals/I&O/Wt Last Vital Signs Temp 98.2 F 06/08/20 11:09 Pulse 67 06/08/20 11:09 Resp 16 06/08/20 11:09 BP 110/69 06/08/20 11:09 Pulse Ox 94 06/08/20 11:09 06/07/20 06/08/20 06/08/20 22:59 06:59 14:59 Intake Total 1000 / 1000 0 / 1000 1000 / 1000 Output Total 200 / 200 300 / 300 Balance 1000 / 800 -200 / 800 700 / 700 Weight last 48 hrs Weight 127 lb 12.8 oz Weight 125 lb Physical Exam Narrative: EXAM NARRATIVE: HEENT: Normocephalic, NG tube in place Eye: Sclera /conjunctiva normal Respiratory and chest: Bilateral clear breath sounds on auscultation Cardiovascular: Normal S1 and S2 heart sounds Abdomen: Soft to palpation, nontender, nondistended, no guarding or rigidity Neurological: Oriented to place person and time Skin: Intact, no lesions appreciated on gross exam A&P Assessment and plan (1) Small bowel obstruction: 65-year-old gentleman with longstanding history of constipation who is now been admitted on 2 occasions in the last 1 week with small bowel obstruction. Patient is currently hemodynamically stable with no evidence of peritonitis. We will therefore clamp NG tube, start clear liquid diet and give him 1 bottle of magnesium citrate to see how he responds. If he responds to conservative measures then we will plan for outpatient colonoscopy Status: Acute Coding Level of Care Code Acute Phytochemistry Professor for [facility] Diagnoses Small bowel obstruction K56.609
--- NOTE | 2020-06-08 14:05 | PC.NURSE ---
Enema given at this time time. 150mls instilled and patient's states, I can not take anymore that is all. Patient held enema for approximately 15 minutes. No return out except for the enema liquid.
[2020-06-08 15:25] VITALS: BP 112/68; PULSE 67; RESP 20; TEMP 36.7; O2SAT 97
--- NOTE | 2020-06-08 18:24 | PC.NURSE ---
End of shift summary Patient had lunch and dinner liquid trays without any nausea or vomiting. Patient has had NG tube clammed since 10:30 this morning when he had Mag Citrate 150mg. Patient insisted that I put it in his NG tube because he has, trouble swallowin. medications. Patient is refusing his Heparin shots because he does not like it. Patient had a Milk and Molasses enema with only small liquid BM around 18:30. Patient is A&Ox3. Respirations even and non-labored on room air.
[2020-06-08 20:00] VITALS: BP 134/78; PULSE 52; RESP 18; TEMP 36.6; O2SAT 94
[2020-06-08] MEDS: acetaminophen 325 mg Tablet 650 MG PO (21:09)
[2020-06-08] MEDS: heparin 5,000 unit/mL INJ 1 mL 5000 UNIT SUBCUT (22:04)
[2020-06-08 23:27] VITALS: BP 131/75; PULSE 55; RESP 16; TEMP 36.8; O2SAT 95
[2020-06-09 04:00] VITALS: BP 101/60; PULSE 59; RESP 18; TEMP 36.7; O2SAT 95
[2020-06-09] MEDS: sodium chloride 0.9% 1,000 ML 30 ML IV (04:03)
--- NOTE | 2020-06-09 07:45 | PM.PN ---
Subjective Subjective: Interval history: Patient's NG tube was clamped yesterday, had multiple bowel movements after he was given enema and magnesium citrate. Patient tolerated clear liquid diet Vitals/I&O/Wt Last Vital Signs Temp 98.1 F 06/09/20 04:00 Pulse 59 L 06/09/20 04:00 Resp 18 06/09/20 04:00 BP 101/60 06/09/20 04:00 Pulse Ox 95 06/09/20 04:00 06/08/20 06/09/20 06/09/20 22:59 06:59 14:59 Intake Total 1340 / 3940 1000 / 3940 Output Total 850 / 1550 400 / 1550 Balance 490 / 2390 600 / 2390 Weight last 48 hrs Weight 127 lb Weight 127 lb 12.8 oz Weight 125 lb Physical Exam Narrative: EXAM NARRATIVE: Abdomen: Soft, not distended, nontender Data : 06/08/20 04:40 06/09/20 08:47 A&P Assessment and plan (1) Small bowel obstruction: Resolved with conservative measures 1 bottle of magnesium citrate then remove NG tube Advance to full liquid diet DC home today Follow-up in 2 weeks in clinic to schedule an outpatient colonoscopy Discharge home on Colace and lactulose twice daily to avoid further constipation Status: Acute Attestations Medical Necessity Statement*: SBO resolved Coding Level of Care Code Acute [place] Department Manager for [facility] Diagnoses Small bowel obstruction K56.609
[2020-06-09 08:00] VITALS: BP 121/74; PULSE 63; RESP 18; TEMP 36.8; O2SAT 99
[2020-06-09] MEDS: magnesium citrate Btl 296 mL PO (08:23)
[2020-06-09] MEDS: pantoprazole 40 mg SDV IVP (08:35)
[2020-06-09 09:12] LABS: Alanine Aminotransferase 48 U/L (0-41); Albumin Level 3.5 g/dL (3.5-5.2); Alkaline Phosphatase 46 IU/L (40-130); Anion Gap 11.9 (5-19); Aspartate Amino Transferase 32 U/L (0-40); Blood Urea Nitrogen 7 mg/dL (8-23); Calcium 9.8 mg/dL (8.5-10.5); Carbon Dioxide 27 mmol/L (22-29); Chloride 105 mmol/L (98-107); Globulin 2.9 g/dL (1.3-4.6); Glomerular Filtration Rate 96.7 mL/min (90-130); Glucose 116 mg/dL (65-115); Osmolality Calculated 287 mOsm/kg (285-295); Potassium 3.9 mmol/L (3.5-5.1); Sodium 140 mmol/L (136-145); Total Bilirubin 0.5 mg/dL (0.15-1.2); Total Protein 6.4 g/dL (6.6-8.7)
--- NOTE | 2020-06-09 09:30 | PC.NURSE ---
NG tube removed intact at this time. Patient tolerated well.
[2020-06-09] MEDS: heparin 5,000 unit/mL INJ 1 mL 5000 UNIT SUBCUT (10:31)
[2020-06-09 11:16] VITALS: BP 100/67; PULSE 69; RESP 17; TEMP 37; O2SAT 96
--- NOTE | 2020-06-09 11:55 | P.DS_ITS ---
Discharge Providers Date of Admission: 06/07/20 19:35 Date of Discharge: June 09, 2020 Attending Provider at Admission: Prashanth Kamara MD Attending Provider at Discharge: Mary Ellen Rushing DO Primary Care Provider: JAYCEE Clemente Diagnoses at Discharge Discharge Diagnosis (1) Small bowel obstruction: Status: Acute Reason for Visit Reason for Visit: abd pain Hospital Course Hospital Course: Patient was seen and evaluated in the emergency department noted to have concern for small bowel obstruction admitted for further evaluation and treatment. He had NG tube placed in the ED and had improvement of symptoms with decompression. He was kept n.p.o. and general surgery was consulted. Patient continued to improve and NG tube was clamped. He was started on clear liquid diet and started on medications to help with constipation. Patient continued to pass flatus and had improvement of nausea and abdominal pain. He was able to have large bowel movements and recommendation from surgery was for discharge to home with close outpatient follow-up for further evaluation due to recurrence of small bowel obstruction. On date of discharge patient denied any abdominal pain, tolerating a full liquid diet without any concern, had reported a large bowel movement. Discussed with patient plan for discharge to home with close outpatient follow-up, he verbalized understanding and agreed with plan. Discussed with general surgery on date of discharge, they cleared patient from surgical perspective for discharge with close outpatient follow-up. Physical Exam Const: COMMON NORMALS: patient oriented x3 and alert GENERAL APPEARANCE: cooperative ORIENTATION/CONSCIOUSNESS: Yes awake, Yes oriented to person, Yes oriented to place and Yes oriented to time HENMT: COMMON NORMALS: normocephalic and atraumatic HEAD & SCALP: normocephalic and atraumatic Eye: COMMON NORMALS: Equal, round and reactive pupils present PUPIL: Yes Equal, round and reactive pupils present Neck/C-Spine: COMMON NORMALS: supple GENERAL: Yes normal visual inspection Resp: COMMON NORMALS: normal respiratory effort and clear to auscultation bilaterally EFFORT & INSPECTION: Yes able to speak in complete sentences AUSCULTATION: clear to auscultation bilaterally, no rhonchi and no wheezes Cardio: COMMON NORMALS: regular rate, regular rhythm and No murmurs present (Cardio) RATE: regular rate RHYTHM: regular rhythm GI: COMMON NORMALS: Soft to palpation and non-tender INSPECTION: No abdominal distension AUSCULTATION: Yes normoactive bowel sounds PALPATION: Yes Soft to palpation Extremity: COMMON NORMALS: no clubbing, cyanosis or edema and no calf tenderness Neuro: COMMON NORMALS: patient oriented x3, CN's II-XII intact bilaterally, moves all extremities and no focal motor deficits SENSORIUM/ORIENTATION: Yes alert, Yes oriented to person, Yes oriented to place and Yes oriented to time SPEECH: speech normal Psych: COMMON NORMALS: mental status grossly normal and cooperative Skin: COMMON NORMALS: no rashes or lesions noted GENERAL SKIN EXAM: no rashes or lesions noted Discharge Data Data Completed and Pending: Completed Studies During Hospitalization Category Date Time Status CT abdomen pelvis wo con [id number] Urge nt Cat Scan 06/07/20 18:39 Completed XR abdomen min 2V [id number] Routine Exams 06/08/20 09:39 Completed XR acute abdomen series [id number] Stat Exams 06/07/20 16:42 Completed Labs from last 24 hours 06/09/20 08:47 Sodium 140 Potassium 3.9 Chloride 105 Carbon Dioxide 27 Anion Gap 11.9 BUN 7 L Creatinine 0.8 GFR Calculation 96.7 Glucose 116 H Calculated Osmolal ity 287 Calcium 9.8 Total Bilirubin 0.5 AST 32 ALT 48 H Alkaline Phosphata se 46 Total Protein 6.4 L Albumin 3.5 Globulin 2.9 Vitals: Last Vital Signs Temp 98.6 F 06/09/20 11:16 Pulse 69 06/09/20 11:16 Resp 17 06/09/20 11:16 BP 100/67 06/09/20 11:16 Pulse Ox 96 06/09/20 11:16 Discharge Plan Discharge Patient Disposition: Home Condition: Stable Prescriptions: New docusate sodium [Colace] 100 mg capsule 100 mg PO BID Qty: 30 RF: 0 lactulose 10 gram/15 mL solution 15 ml PO BID Qty: 237 RF: 2 Continued cyanocobalamin (vitamin B-12) 1,000 mcg/15 mL liquid 1,000 mcg PO DAILY 30 Days Qty: 240 RF: 5 cholecalciferol (vitamin D3) 125 mcg/mL (5,000 unit/mL) drops 5,000 unit PO DAILY 30 Days Qty: 59 RF: 2 hydrocortisone 1 % ointment 1 applic TOPICAL BID PRN (Reason: skin irritation) 30 Days Qty: 28 RF: 0 sumatriptan 5 mg/actuation spray,non-aerosol 5 mg INTRANASAL DAILY MDD benita PRN (Reason: migraine headache) 30 Days Qty: 1 RF: 2 bisacodyl 10 mg Suppository 10 mg NM DAILY PRN (Reason: Constipation) RF: 0 lansoprazole 15 mg Tablet,Disintegrat, Delay Rel 15 mg PO DAILY RF: 0 acetaminophen [Tylenol 8 Hour] 650 mg tablet extended release 650 mg PO Q8H PRN (Reason: pain) Qty: 30 RF: 0 pantoprazole [Protonix] 40 mg tablet,delayed release (DR/EC) 40 mg PO DAILY 28 Days Qty: 30 RF: 0 Discontinued lactulose 10 gram/15 mL solution 20 gm PO DAILY PRN (Reason: constipation) Qty: 473 RF: 0 Discharge Orders: Discharge Order (Routine); Ordered 06/09/20 Ordered By: Mary Ellen Rushing Referrals: LUCERO Dueñas, M[employer]IC[employer] LINE OPERATOR [Primary Care Provider] - 4-7 days Poncho Gilbert MD [Physician] - 2 weeks Discharge Diet: GI Soft Discharge Activity: Increase activity as tolerated Activity Restrictions/Additional Instructions: Continue with stool softener and laxative as prescribed. Continue to monitor for any worsening abdominal pain, increased nausea. Recommend follow-up with primary care provider in 4 to 7 days. Follow-up with general surgeon, Dr. Gilbert in 2 weeks we will plan for outpatient EGD and colonoscopy at that time. Call your physician or present to the ED for any acute illness or concern including increasing abdominal pain with inability to tolerate oral liquids or medications. 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
[2020-06-09 12:03] VITALS: BP 100/67; PULSE 69; RESP 17; TEMP 37; O2SAT 96
[2020-06-09 13:43] VITALS: BP 100/67; PULSE 69; RESP 17; TEMP 37; O2SAT 96
--- NOTE | 2020-06-09 13:44 | PC.NURSE ---
Reviewed patient's discharge with patient at this time. Patient verbalized understanding of follow up appointments and how to take Lactulose and stool softener. Patient is A&Ox3. Respirations even and non-labored on room air. IV removed intact. Patient ambulated to his private car without difficulty.
== END 2020-06-09 13:30 | disposition home or self-care (01) | DRG 390 ==
LOC: ER 19:35 → MEDSURG 20:30
PROVIDERS: Family Medicine; Admitting Provider Internal Medicine; PCP Nurse Practitioner Family; Visit Provider Family Medicine
DX: K56.609 Unspecified intestinal obstruction, unspecified as to partial versus complete obstruction (principal); F17.220 Nicotine dependence, chewing tobacco, uncomplicated; R73.03 Prediabetes; D51.9 Vitamin B12 deficiency anemia, unspecified
CPT/HCPCS: 12345; 36415; 74019; 74022; 74176; 80053; 81003; 83690; 83735; 85025; 96372; 96375; 99284; C9113; J1644; J2405; J7030

== ENCOUNTER 2020-06-11 12:31 | Inpatient (IN) | payer MEDICARE, MEDICAID, SELFPAY ==
[2020-06-11] VITALS (7 sets, daily range): BP systolic 95–133; BP diastolic 57–91; PULSE 57–100; RESP 15–26; TEMP 36.7–36.9; O2SAT 91–98; BMI 20.8
--- NOTE | 2020-06-11 13:01 | CT_ITS ---
WS: [id number] CT ABDOMEN AND PELVIS WITH CONTRAST HISTORY: abd pain, RIGHT lower abdominal pain. TECHNIQUE: Imaging performed of the abdomen and pelvis with IV contrast. Single phase imaging of the abdomen. Coronal and sagittal reformats are submitted. All CT scans at [facility] use at least one of these dose optimization techniques: automated exposure control; mA and/or kV adjustment per patient size (includes targeted exams where dose is matched to clinical indication); or iterativ e reconstruction. IV CONTRAST: Omnipaque 300; 95 mL IV. Oral contrast: No DLP: 205.81 mGy.cm COMPARISON: 06/07/2020 Lower thorax: Emphysematous changes at the lung bases. Linear atelectasis at the RIGHT lung base. Hea rt is normal size. No hiatal hernia. Liver/biliary system: Normal size with no intrahepatic dilatation. Gallbladder: Normal. No gallstones or wall thickening. No pericholecystic fluid. Pancreas: Normal. Spleen: Normal. Adrenal glands: Normal. Right kidney: Normal. Left kidney: Normal. Aorta: Mild atherosclerosis with no aneurysm. Lymphadenopathy: None. Free fluid: Small amount of free fluid in the pelvis. Fluid has slightly increased but is still only a small amount. GI tract: There is significant dilatation of small bowel loops with fluid. Proximal colon is also dil ated. The exact site of transition cannot be determined due to the significant distention of the GI t rack with fluid. There is conglomerate mass in the central abdomen, just to the RIGHT of midline with some tethering and narrowing of the lumen. This could very well be the site of the obstruction. Neop lasm needs to be considered as a possible etiology along with internal hernia. Indeterminate for small amount of free air in the upper abdomen and also entrapped within the central mesentery. Abdominal wall: Unremarkable abdominal wall. No hernia. Pelvis: Small amount of free fluid in the pelvis. Prostate gland contains central calcifications. Bones: No osteoblastic or osteolytic bone disease. CT/CT abdomen pelvis w con* [id number] IMPRESSION: 1. Persistent high-grade small bowel obstruction. Proximal colon also appears distended with fluid. Conglomerate mass in the central abdomen, just to the RIG HT of midline. Neoplasm needs to be considered as a possible etiology. Indeterm inate but suspicious for small amount of free air. 2. Small amount of free fluid in the pelvis is slightly increased. Notified Earl Ryder DO at 06/11/2020 2:23 PM.
--- NOTE | 2020-06-11 13:36 | PC.NURSE ---
pt to CT by stretcher with tech
[2020-06-11] MEDS: iohexol 300 mg/mL 100 mL Btl IV (13:41)
[2020-06-11 13:44] LABS: Alanine Aminotransferase 43 U/L (0-41); Albumin Level 4.3 g/dL (3.5-5.2); Alkaline Phosphatase 47 IU/L (40-130); Blood Urea Nitrogen 6 mg/dL (8-23); Calcium 10.2 mg/dL (8.5-10.5); Carbon Dioxide 27 mmol/L (22-29); Chloride 102 mmol/L (98-107); Globulin 3.2 g/dL (1.3-4.6); Glomerular Filtration Rate 84.4 mL/min (90-130); Glucose 95 mg/dL (65-115); Lipase 30 U/L (13-60); Osmolality Calculated 284 mOsm/kg (285-295); Sodium 139 mmol/L (136-145); Total Bilirubin 0.5 mg/dL (0.15-1.2); Total Protein 7.5 g/dL (6.6-8.7)
[2020-06-11 13:45] LABS: Lactic Sepsis W/Reflex 1.9 mmol/L (0.5-2.2)
[2020-06-11 13:46] LABS: Anion Gap 14.4 (5-19); Aspartate Amino Transferase 27 U/L (0-40); Potassium 4.4 mmol/L (3.5-5.1)
[2020-06-11] MEDS: sodium chloride 0.9% 1,000 ML 999 ML IV (13:53)
[2020-06-11] MEDS: ondansetron 2 mg/ML SDV 2 mL 4 MG IVP ×2 (13:53→22:28)
[2020-06-11] MEDS: morphine 4 mg/mL SDV 1 mL IVP (13:53)
[2020-06-11 14:03] LABS: Add Urine Microscopic? NO
[2020-06-11 14:04] LABS: Basophils % 0.2 %; Eosinophils # 0.1 10^3/uL (0.0-0.8); Eosinophils % 1.3 %; Hematocrit 42.9 % (42.0-52.0); Lymphocytes % 10.8 %; Mean Corpuscular HGB Conc 32.6 g/dL (30.0-36.0); Mean Corpuscular Hemoglobin 30.7 pg (28.0-34.0); Mean Corpuscular Volume 94.1 fL (80-94); Mean Platelet Volume 9.6 fL (7.4-10.4); Monocytes # 0.6 10^3/uL (0.2-0.9); Monocytes % 5.9 %; Neutrophils # 7.75 10^3/uL (1.8-7.7); Neutrophils % 81.4 %; Nucleated Red Blood Cells % 0 %; Platelet Count 257 10^3/cmm (130-400); Red Blood Count 4.56 10^6/uL (4.1-5.3); Red Cell Distribution Width 13.2 % (12.1-15.1); White Blood Count 9.5 10^3/uL (4.0-10.0)
[2020-06-11 14:11] LABS: Urine Appearance Clear (CLEAR); Urine Color Yellow (Yellow); pH Urine 8 (5-7)
[2020-06-11 14:12] LABS: Bilirubin Urine Neg (NEGATIVE); Blood Urine Neg (Negative); Glucose Urine UA Norm (Normal); Ketones Urine Negative (Negative); Leukocyte Esterase Urine Negative (Negative); Nitrate Urine Negative (Negative); Protein Urine Neg (Negative); Specific Gravity, Urine 1.015 (1.005-1.030); Sulfosalicylic Acid Urine Negative (Negative); Urobilinogen Urine Neg (Negative)
--- NOTE | 2020-06-11 14:39 | ED_ITS ---
HPI - Abdominal Pain General: Chief Complaint: Abdominal Pain Stated Complaint: blockage in bowels/ fluids in stomach Time Seen by Provider: 06/11/20 12:54 History of Present Illness: HPI narrative: 65-year-old male returns the emergency room again with abdominal pain and distention. He had a bowel movement of late this morning before coming in he has had vomiting and bloating after that. He has had several admissions for this problem and they keep contin uing a recurring is actually admitted earlier this week treated conservatively resolved and he went home he denies any fever sweats or chills. Associated Symptoms: Denies bloating, chills, coffee ground emesis, constipation, diarrhea, dysuria, fever(s), hematochezia, hematemesis, melena, nausea and vomiting Review of Systems Const: Denies: fever(s), chills, body aches, change in appetite, fatigue or malaise ENMT: Denies: throat pain, ear or mastoid pain, nasal discharge or nasal congestion Card: Denies: chest pain, edema, dyspnea on exertion or orthopnea Resp: Denies: dyspnea, productive cough or non-productive cough GI: Denies: abdominal pain, nausea, vomiting, hematemesis, coffee ground emesis, diarrhea, constipation, bloating, hematochezia or melena : Denies: flank pain, dysuria, urinary frequency or urinary urgency Skin/Breast: Denies: rash or pruritus PFSH ED PFSH: Medical History Environmental and seasonal allergies Migraine Pre-diabetes Small bowel obstruction Vitamin B12 deficiency (dietary) anemia Surgical History Status post knee surgery Left Family History Denies family history of CAD (coronary artery disease) Cancer Social History Smoking and tobacco status: current every day smoker smokeless tobacco Smokeless tobacco user: chewing tobacco Second hand smoke exposure: No Smoking risk assessment/counseling performed?: No Alcohol intake: never Desire information about alcohol rehabilitation?: No Counseling given: No Desire information about substance/drug rehabilitation?: No Counseling given: No Physical Exam Const: COMMON NORMALS: no acute distress GENERAL APPEARANCE: cooperative and comfortable ORIENTATION/CONSCIOUSNESS: Yes awake, Yes oriented to person, Yes oriented to place and Yes oriented to time HENMT: COMMON NORMALS: normocephalic, atraumatic and hearing grossly normal bilaterally HEAD & SCALP: normocephalic and atraumatic Eye: COMMON NORMALS: Equal, round and reactive pupils present, EOMs intact bilaterally, conjunctivae normal and no scleral icterus CONJUNCTIVA: Yes conjunctivae normal PUPIL: Yes Equal, round and reactive pupils present Neck/C-Spine: COMMON NORMALS: no JVD Resp: COMMON NORMALS: normal respiratory effort, No retractions, No use of accessory muscles and clear to auscultation bilaterally AUSCULTATION: clear to auscultation bilaterally Cardio: COMMON NORMALS: no JVD, regular rate, regular rhythm and No murmurs present (Cardio) RATE: regular rate RHYTHM: regular rhythm GI: COMMON NORMALS: Soft to palpation and No hepatosplenomegaly present AUSCULTATION: Yes normoactive bowel sounds PALPATION: Yes Soft to palpation, Yes Tenderness to palpation present (GI), No Guarding due to palpation present (GI) and Yes No hepatosplenomegaly present OTHER: Tympanic to percussion with bowel sounds present Extremity: COMMON NORMALS: normal to inspection, capillary refill normal, no clubbing, cyanosis or edema, no calf tenderness and no pedal edema Neuro: SENSORIUM/ORIENTATION: Yes oriented to person, Yes oriented to place and Yes oriented to time Skin: COMMON NORMALS: no rashes or lesions noted GENERAL SKIN EXAM: no rashes or lesions noted Course Vital Signs: Vital signs: Vital Signs Temperature 98.3 F 06/16/20 04:00 Pulse Rate 51 L 06/16/20 04:00 Respiratory Rate 20 H 06/16/20 04:00 Blood Pressure 80/47 06/16/20 04:00 Pulse Oximetry 100 06/16/20 04:00 MDM - Abdominal Pain MDM Narrative: Medical decision making narrative: Signs of an early obstruction as well as blood possible free air in the abdomen according to Dr. Espinoza see her note. Discussed Dr. Gilbert he will admit the patient Lab Data: Labs: Lab Results 06/11/20 06/11/20 06/11/20 Range/Units 13:15 13:15 13:54 WBC 9.5 (4.0-10.0) 10^3/ uL RBC 4.56 (4.1-5.3) 10^6/u L Hgb 14.0 (11.7-16.6) g/dL Hct 42.9 (42.0-52.0) % MCV 94.1 H (80-94) fL MCH 30.7 (28.0-34.0) pg MCHC 32.6 (30.0-36.0) g/dL RDW 13.2 (12.1-15.1) % Plt Count 257 (130-400) 10^3/c mm MPV 9.6 (7.4-10.4) fL Neut % (Auto) 81.4 % Lymph % (Auto) 10.8 % Perkins % (Auto) 5.9 % Eos % (Auto) 1.3 % Baso % (Auto) 0.2 % Neut # (Auto) 7.75 H (1.8-7.7) 10^3/u L Lymph # (Auto) 1.0 (0.8-4.8) 10^3/u L Perkins # (Auto) 0.6 (0.2-0.9) 10^3/u L Eos # (Auto) 0.1 (0.0-0.8) 10^3/u L Baso # (Auto) 0.0 (0.0-0.1) 10^3/u L Nucleated RBC % (a uto) 0 % Nucleated RBCs # 0.0 /100WBC Sodium 139 (136-145) mmol/L Potassium 4.4 (3.5-5.1) mmol/L Chloride 102 (98-107) mmol/L Carbon Dioxide 27 (22-29) mmol/L Anion Gap 14.4 (5-19) BUN 6 L (8-23) mg/dL Creatinine 0.9 (0.7-1.2) mg/dL GFR Calculation 84.4 L (90-130) mL/min Glucose 95 (65-115) mg/dL Calculated Osmolal ity 284 L (285-295) mOsm/k g Lactic Acid 1.9 (0.5-2.2) mmol/L Calcium 10.2 (8.5-10.5) mg/dL Total Bilirubin 0.5 (0.15-1.2) mg/dL AST 27 (0-40) U/L ALT 43 H (0-41) U/L Alkaline Phosphata se 47 (40-130) IU/L Total Protein 7.5 (6.6-8.7) g/dL Albumin 4.3 (3.5-5.2) g/dL Globulin 3.2 (1.3-4.6) g/dL Lipase 30 (13-60) U/L Urine Color (Yellow) Urine Appearance (CLEAR) Urine pH (5-7) Ur Specific Gravit y (1.005-1.030) Urine Protein (Negative) Urine Glucose (UA) (Normal) Urine Ketones (Negative) Urine Blood (Negative) Urine Nitrate (Negative) Urine Bilirubin (NEGATIVE) Prot Sulfosalicyli c Acd (Negative) Urine Urobilinogen (Negative) mg/dL Ur Leukocyte Lisa ase (Negative) 06/11/20 Range/Units 13:57 WBC (4.0-10.0) 10^3/ uL RBC (4.1-5.3) 10^6/u L Hgb (11.7-16.6) g/dL Hct (42.0-52.0) % MCV (80-94) fL MCH (28.0-34.0) pg MCHC (30.0-36.0) g/dL RDW (12.1-15.1) % Plt Count (130-400) 10^3/c mm MPV (7.4-10.4) fL Neut % (Auto) % Lymph % (Auto) % Perkins % (Auto) % Eos % (Auto) % Baso % (Auto) % Neut # (Auto) (1.8-7.7) 10^3/u L Lymph # (Auto) (0.8-4.8) 10^3/u L Perkins # (Auto) (0.2-0.9) 10^3/u L Eos # (Auto) (0.0-0.8) 10^3/u L Baso # (Auto) (0.0-0.1) 10^3/u L Nucleated RBC % (a uto) % Nucleated RBCs # /100WBC Sodium (136-145) mmol/L Potassium (3.5-5.1) mmol/L Chloride (98-107) mmol/L Carbon Dioxide (22-29) mmol/L Anion Gap (5-19) BUN (8-23) mg/dL Creatinine (0.7-1.2) mg/dL GFR Calculation (90-130) mL/min Glucose (65-115) mg/dL Calculated Osmolal ity (285-295) mOsm/k g Lactic Acid (0.5-2.2) mmol/L Calcium (8.5-10.5) mg/dL Total Bilirubin (0.15-1.2) mg/dL AST (0-40) U/L ALT (0-41) U/L Alkaline Phosphata se (40-130) IU/L Total Protein (6.6-8.7) g/dL Albumin (3.5-5.2) g/dL Globulin (1.3-4.6) g/dL Lipase (13-60) U/L Urine Color Yellow (Yellow) Urine Appearance Clear (CLEAR) Urine pH 8 H (5-7) Ur Specific Gravit y 1.015 (1.005-1.030) Urine Protein Neg (Negative) Urine Glucose (UA) Norm (Normal) Urine Ketones Negative (Negative) Urine Blood Neg (Negative) Urine Nitrate Negative (Negative) Urine Bilirubin Neg (NEGATIVE) Prot Sulfosalicyli c Acd Negative (Negative) Urine Urobilinogen Neg (Negative) mg/dL Ur Leukocyte Lisa ase Negative (Negative) Discharge Plan Discharge Patient Disposition: Admitted As Inpatient Admit Provider: Poncho Gilbert Clinical Impression: Small bowel obstruction Condition: Stable Discharge Diet: Full LIquid Discharge Activity: Resume usual activity Additional Instructions: My office will contact him to schedule a colonoscopy for Interventions: ED Discharge Assessment Last Done: 06/11/20 15:23 ED Charges Last Done: 06/11/20 15:23 Discharge Date/Time: 06/11/20 15:35 Coding Level of Care Code 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
[2020-06-11] MEDS: D5-NS 0.45% + KCL 20 mEq 20 MEQ/1,000 ML BAG 100 MEQ IV (16:20)
--- NOTE | 2020-06-11 17:01 | XRR_ITS ---
PROCEDURE INFORMATION: Exam: XR Abdomen, 2 Views Exam date and time: 06/11/2020 8:19 PM Age: 65 years old Clinical indication: Abdominal pain; Additional info: Sbo TECHNIQUE: Imaging protocol: XR of the abdomen. Views: 2 Views. COMPARISON: CT abdomen pelvis w con* [id number] 06/11/2020 1:34 PM FINDINGS: Gastrointestinal tract: Persistent numerous ectatic loops of small bowel with short-segment asynchronous air-fluid levels suggest the presence of small bowel obstruction. Colonic gas is visible to at least the level of the splenic flexure. Intraperitoneal space: No visible pneumoperitoneum. Bones/joints: Unremarkable for age. XR/XR abdomen min 2V [id number] IMPRESSION: Small bowel obstruction.
--- NOTE | 2020-06-11 17:03 | PM.HP ---
Providers/Chief Complaint Admitting Physician: Poncho Gilbert MD Primary Care Provider: JAYCEE Clemente Chief Complaint: blockage in bowels/ fluids in stomach History of Present Illness Ryland Huang is a 65 year old male who had been admitted to the hospital on 2 occasions over the last 1 week, with the first 1 being on 06/02/2020 and the second 1 being on 06/07/2020 with small bowel obstruction which was managed conservatively with NG tube and bowel rest. Patient had been discharged on 06/09/2020 and presented to the ER again on 06/11/2020 with complaints of abdominal pain, nausea and vomiting. Patient is passing flatus and had a bowel movement earlier that day. He states that he had some cheese which made him constipated and bloated. The pain is generalized, did not radiate, no aggravating or relieving factors and was described as a constant ache. No prior colonoscopy. No prior abdominal surgeries. Review of Systems General: Reports: 10 or more systems reviewed and unremarkable except in HPI and below Medications/Allergies Home Medications Medication Instructions Recorded Confirmed Last Taken Type docusate sodium 100 mg PO BID PRN 06/11/20 06/11/20 Unknown History lactulose 15 ml PO BID PRN 06/11/20 06/11/20 06/11/20 History Allergies Allergy/AdvReac Type Severity Reaction Status Date / Time aspirin AdvReac low heart Verified 06/07/20 17:50 rate PFSH Acute PFSH: Medical History Environmental and seasonal allergies Migraine Pre-diabetes Small bowel obstruction Vitamin B12 deficiency (dietary) anemia Surgical History Status post knee surgery Left Family History Denies family history of CAD (coronary artery disease) Cancer Social History Smoking and tobacco status: current every day smoker smokeless tobacco Smokeless tobacco user: chewing tobacco Second hand smoke exposure: No Smoking risk assessment/counseling performed?: No Alcohol intake: never Desire information about alcohol rehabilitation?: No Counseling given: No Desire information about substance/drug rehabilitation?: No Counseling given: No Vitals/I&O/Wt Last Vital Signs Temp 98.1 F 06/11/20 16:00 Pulse 100 06/11/20 16:00 Resp 18 06/11/20 16:00 BP 103/67 06/11/20 16:00 Pulse Ox 93 06/11/20 16:00 06/11/20 06/11/20 06/11/20 06:59 14:59 22:59 Intake Total 1000 / 1000 Balance 1000 / 1000 Weight last 48 hrs Weight 127 lb Physical Exam Narrative: EXAM NARRATIVE: HEENT: Normocephalic, NG tube in place Eye: Sclera /conjunctiva normal Respiratory and chest: Bilateral clear breath sounds on auscultation Cardiovascular: Normal S1 and S2 heart sounds Abdomen: Soft to palpation, nontender, slightly distended, no guarding or rigidity Neurological: Oriented to place person and time Skin: Intact, no lesions appreciated on gross exam Data : 06/13/20 04:00 06/13/20 04:00 A&P Assessment and plan (1) Small bowel obstruction: 65-year-old gentleman with longstanding history of constipation who is now been admitted on 2 occasions in the last 1 week with small bowel obstruction. Patient is currently hemodynamically stable with no evidence of peritonitis. CT scan read by Dr. Espinoza showed a possible mass to the right of the midline though it is not seen on the [address] scans. If he responds to conservative measures then we will plan for outpatient colonoscopy, but if there is no improvement in the next 48 to 72 hours we will need to consider surgical options NG tube to low intermittent suction Daily labs Abdominal series in the morning We will, less enema today Protonix for GI prophylaxis Lovenox for DVT prophylaxis Patient will need greater than 2 nights of inpatient stay to ensure resolution of obstruction. 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
--- NOTE | 2020-06-11 18:52 | PC.NURSE ---
NG PLACEMENT ATTEMPTED NG TUBE PLACEMENT TWICE LEFT SIDE. PT NOSE STARTED BLEEDING, WAS NOT ABLE TO PLACE NG TUBE. COULD NOT PLACE NG TUBE IN LEFT NOSTRIL BECAUSE PERVIOUS BREAK. DR. MIRELES NOTIFIED, HOLD NG PLACEMENT OFF FOR THE NIGHT. MYSQL DEVELOPER NURSE NOTIFIED. MILK AND MOLASSES ENEMA GIVEN RESULTING IN A BROWN LIQUID BOWEL MOVEMENT WITH SEVERAL LUMPS OF STOOL.
[2020-06-11] MEDS: sennosides 8.6 mg Tablet 17.2 MG PO (21:55)
[2020-06-12] VITALS (9 sets, daily range): BP systolic 93–128; BP diastolic 56–87; PULSE 56–98; RESP 17–22; TEMP 36.3–37.2; O2SAT 94–96
[2020-06-12] MEDS: morphine 4 mg/mL SDV 1 mL 2 MG IVP ×2 (00:33→11:13)
[2020-06-12] MEDS: D5-NS 0.45% + KCL 20 mEq 20 MEQ/1,000 ML BAG 100 MEQ IV ×3 (02:03→21:24)
[2020-06-12 04:37] LABS: Basophils % 0.2 %; Eosinophils # 0.1 10^3/uL (0.0-0.8); Eosinophils % 1.3 %; Hematocrit 43.9 % (42.0-52.0); Hemoglobin 14.4 g/dL (11.7-16.6); Lymphocytes # 1.3 10^3/uL (0.8-4.8); Lymphocytes % 15.4 %; Mean Corpuscular HGB Conc 32.8 g/dL (30.0-36.0); Mean Corpuscular Hemoglobin 30.7 pg (28.0-34.0); Mean Corpuscular Volume 93.6 fL (80-94); Mean Platelet Volume 10.8 fL (7.4-10.4); Monocytes # 0.6 10^3/uL (0.2-0.9); Monocytes % 6.9 %; Neutrophils # 6.34 10^3/uL (1.8-7.7); Neutrophils % 75.8 %; Nucleated Red Blood Cells % 0 %; Platelet Count 235 10^3/cmm (130-400); Red Blood Count 4.69 10^6/uL (4.1-5.3); Red Cell Distribution Width 13.2 % (12.1-15.1); White Blood Count 8.4 10^3/uL (4.0-10.0)
[2020-06-12 04:57] LABS: Alanine Aminotransferase 31 U/L (0-41); Albumin Level 3.4 g/dL (3.5-5.2); Alkaline Phosphatase 46 IU/L (40-130); Blood Urea Nitrogen 4 mg/dL (8-23); Calcium 9.7 mg/dL (8.5-10.5); Carbon Dioxide 24 mmol/L (22-29); Chloride 106 mmol/L (98-107); Globulin 2.6 g/dL (1.3-4.6); Glomerular Filtration Rate 84.4 mL/min (90-130); Glucose 116 mg/dL (65-115); Osmolality Calculated 283 mOsm/kg (285-295); Sodium 138 mmol/L (136-145); Total Bilirubin 0.5 mg/dL (0.15-1.2)
[2020-06-12 04:58] LABS: Anion Gap 12.3 (5-19); Aspartate Amino Transferase 23 U/L (0-40); Potassium 4.3 mmol/L (3.5-5.1)
[2020-06-12] MEDS: pantoprazole 40 mg SDV IVP (09:14)
--- NOTE | 2020-06-12 12:08 | XRR_ITS ---
PROCEDURE INFORMATION: Exam: XR Chest, 1 View Exam date and time: 06/12/2020 2:22 PM Age: 65 years old Clinical indication: Device placement; Ng tube; Additional info: Ng tube placement TECHNIQUE: Imaging protocol: XR of the chest Views: 1 view. COMPARISON: CR XR chest 1V portable [id number] 06/02/2020 10:56 PM FINDINGS: Tubes, catheters and devices: Coiling and termination of feeding tube in the gastric fundus. Lungs: Hyperinflation and interstitial prominence. Pleural space: No pleural effusion. Heart/Mediastinum: No cardiomegaly. Vascular: Ectasia of the thoracic aorta. Bones/joints: Degenerative change. Gastrointestinal tract: Small bowel dilatation and air-fluid levels, in the setting of CT detected small-bowel obstruction. XR/XR chest 1V portable [id number] IMPRESSION: 1. Coiling and termination of feeding tube in the gastric fundus. 2. Small bowel dilatation and air-fluid levels, in the setting of CT detected small-bowel obstruction.
--- NOTE | 2020-06-12 14:05 | P.PN_ITS ---
Subjective Subjective: Interval history: Patient feels better today, no significant nausea or vomiting, had 3 bowel movements with milk of molasses enema. Multiple attempts made at NG tube placement yesterday by the nursing staff which were unsuccessful Vitals/I&O/Wt Last Vital Signs Temp 98.1 F 06/12/20 11:38 Pulse 56 L 06/12/20 11:38 Resp 18 06/12/20 11:38 BP 115/73 06/12/20 11:38 Pulse Ox 96 06/12/20 11:38 06/11/20 06/12/20 06/12/20 22:59 06:59 14:59 Intake Total 971.667 / 1971.667 891.667 / 891.667 Output Total 200 / 500 300 / 500 300 / 300 Balance -200 / 1471.667 671.667 / 1471.667 591.667 / 591.667 Weight last 48 hrs Weight 127 lb Physical Exam Narrative: EXAM NARRATIVE: Abdomen: Soft, distended, no guarding or rigidity Data : 06/12/20 03:45 06/12/20 03:45 A&P Assessment and plan (1) Small bowel obstruction: 65-year-old gentleman with third episode of small bowel obstruction in the last 10 days. Patient is currently hemodynamically stable with no evidence of peritonitis. He had multiple bowel movements last night and has not had any nausea or vomiting. An NG tube was placed today without difficulty. Abdominal x-ray is pending Continue IV fluids Protonix for GI prophylaxis Lovenox for DVT prophylaxis Milk of molasses enema today Abdominal series in the morning Daily labs If there is no improvement in his status over the next 48 to 72 hours patient will need laparoscopy /laparotomy Status: Acute Attestations Medical Necessity Statement*: Small bowel obstruction requiring continued inpatient stay greater than 2 nights Coding Level of Care Code Acute Securities Research Analyst for [facility] Diagnoses Small bowel obstruction K56.609
--- NOTE | 2020-06-12 14:47 | PC.CHAP ---
Pastoral Care Encounter/Spiritual Assessment Type of Contact [xx] Declined vault attendant visit [] Patient/Family/Request visit [] Outpatient visit [] Follow-up visit [] Physician referral [] Code/Alert [] Routine visit [] Staff referral [] Actively dying [] Patient sleeping [] Family support [] [] Out of room [] Palliative care [] [] Receiving care in room [] Pre-surgical visit [] Trauma [] Long length of stay [] ICU visit [] Other: Relational/Emotional Strength [] Patient feels connected with others/family/visitors/staff [] Distress [] Loneliness/isolation [] Abandonment Spirituality of Patient [] Person of Toya [] Attends Tenriism of their Toya [] Believes in Prayer [] Reads Bible or Cheondoism materials [] There are Spiritual issues to be addressed Collar Cutter Interventions [] Prayer [] Active listening [] Non-anxious presence [] Spiritual/emotional support [] Crisis/trauma care [] Spiritual counseling [] Bereavement support [] Provided bereavement packet [] Provided Bible/devotional materials [] Provided toy/stuffed animal, coloring book to patient or family member [] Provided Communion [] Anointing/Rollins [] Salvation [] Completed spiritual assessment [] Other: Impact on Illness or Injury [] Angry [] Fearful [] Anxious [] Often cries [] Exhaustion [] Unable to work [] Unable to attend hinduism [] Unable to walk/stand [] Unable to read [] Unable to drive [] Unable to eat/drink [] Unable to sleep [] Unable to be with family [] Patient intubated [] Other: Summary Time spent with patient
[2020-06-12] MEDS: phenol oral Spray 177 mL 3 SPRAY MUCOUS MEM (16:06)
--- NOTE | 2020-06-12 18:27 | PC.NURSE ---
shift summary Dr Gilbert placed ng tube today, xray stated it needed to be advanced, speech writer advanced tube, pt was not happy with tube, stated it hurt, xray confirmed placement one more time, intermitted suction placed on low, output of 150ml of clear bhavana, PRN throat spray was appreciated.
--- NOTE | 2020-06-12 21:56 | PC.NURSE ---
Patient has been messing with NG tube complaining that it hurts. Patient was educated and agreed to understanding. Patients states he has been using the chloraseptic spray but it does not help. This nurse pushed 50ml bolus of air for placement confirmation with bubbles notes upon auscultation. Tubing was taped to patients gown to prevent tubing from dislodging. Will continue to monitor.
[2020-06-13 04:00] VITALS: BP 111/75; PULSE 58; RESP 18; TEMP 37.1
[2020-06-13 04:24] LABS: Basophils % 0.4 %; Eosinophils # 0.3 10^3/uL (0.0-0.8); Eosinophils % 3.7 %; Hematocrit 44.6 % (42.0-52.0); Hemoglobin 14.5 g/dL (11.7-16.6); Lymphocytes # 1.5 10^3/uL (0.8-4.8); Lymphocytes % 20.8 %; Mean Corpuscular HGB Conc 32.5 g/dL (30.0-36.0); Mean Corpuscular Hemoglobin 30.3 pg (28.0-34.0); Mean Corpuscular Volume 93.1 fL (80-94); Mean Platelet Volume 9.7 fL (7.4-10.4); Monocytes # 0.9 10^3/uL (0.2-0.9); Monocytes % 12.8 %; Neutrophils % 61.9 %; Nucleated Red Blood Cells % 0 %; Platelet Count 249 10^3/cmm (130-400); Red Blood Count 4.79 10^6/uL (4.1-5.3); Red Cell Distribution Width 13.5 % (12.1-15.1); White Blood Count 7.1 10^3/uL (4.0-10.0)
[2020-06-13 04:45] LABS: Anion Gap 9.3 (5-19); Blood Urea Nitrogen 3 mg/dL (8-23); Calcium 9.9 mg/dL (8.5-10.5); Carbon Dioxide 28 mmol/L (22-29); Chloride 106 mmol/L (98-107); Glomerular Filtration Rate 96.7 mL/min (90-130); Glucose 108 mg/dL (65-115); Osmolality Calculated 284 mOsm/kg (285-295); Potassium 4.3 mmol/L (3.5-5.1); Sodium 139 mmol/L (136-145)
--- NOTE | 2020-06-13 06:07 | XRR_ITS ---
PROCEDURE INFORMATION: Exam: XR Abdomen, 2 Views Exam date and time: 06/13/2020 12:00 AM Age: 65 years old Clinical indication: Small bowel obstruction; 2nd upright taken after advancement of NG tube. TECHNIQUE: Imaging protocol: XR of the abdomen. Views: 2 Views. COMPARISON: CR XR abdomen min 2V [id number] 06/11/2020 8:08 PM FINDINGS: Tubes, catheters and devices: There is an enteric tube present with the tip in the fundus of the stomach, and the side hole just above the gastroesophageal junction. This is demonstrated on the 2nd of 2 images after the enteric tube tip was advanced. Gastrointestinal tract: Gas-filled distended loops of small bowel persist but are slightly improved. There is gas in the colon which is not distended. Intraperitoneal space: No pneumoperitoneum. Bones/joints: Multilevel disc degeneration and facet arthropathy in the lumbar spine. XR/XR abdomen min 2V [id number] IMPRESSION: 1. Some improvement in the small bowel obstruction pattern. 2. Enteric tube tip in the stomach.
--- NOTE | 2020-06-13 07:12 | PC.NURSE ---
Patients rested through the night. Patient had zero output from NG and stated his stomach pain is feeling better. No pain medication was given. Patient passed flatus with no bowel movements.
[2020-06-13 08:00] VITALS: BP 100/62; PULSE 65; RESP 16; TEMP 36.8; O2SAT 93
[2020-06-13] MEDS: D5-NS 0.45% + KCL 20 mEq 20 MEQ/1,000 ML BAG 100 MEQ IV ×2 (08:21→22:35)
[2020-06-13] MEDS: pantoprazole 40 mg SDV IVP (09:44)
--- NOTE | 2020-06-13 10:36 | CTR_ITS ---
PROCEDURE INFORMATION: Exam: CT Abdomen And Pelvis With Contrast Exam date and time: 06/13/2020 10:45 AM Age: 65 years old Clinical indication: Bloating; Patient HX: Follow up small bowel obstruction; PT denies HX of CA, PT is a current smoker; Additional info: Sbo TECHNIQUE: Imaging protocol: Computed tomography of the abdomen and pelvis with intravenous contrast. Radiation optimization: All CT scans at this facility use at least one of these dose optimization techniques: automated exposure control; mA and/or kV adjustment per patient size (includes targeted exams where dose is matched to clinical indication); or iterative reconstruction. Contrast material: OMNIPAQUE 300; Contrast volume: 95 ml; Contrast route: INTRAVENOUS (IV); COMPARISON: CT abdomen pelvis w con* [id number] 06/11/2020 1:34 PM RADIATION DOSE METRICS: Total DLP (mGy-cm): 259.24 FINDINGS: Tubes, catheters and devices: An enteric tube is present with the tip in the stomach. Lungs: There is bilateral dependent atelectasis. Liver: The liver is homogeneous and is not enlarged. Gallbladder and bile ducts: No calcified gallstones, gallbladder wall thickening, or pericholecystic inflammation. No biliary ductal dilation. Pancreas: No pancreatic mass. No peripancreatic inflammation. No pancreatic ductal dilation. Spleen: The spleen is homogeneous and is not enlarged. Adrenals: No adrenal mass. Kidneys and ureters: No hydronephrosis. No nephrolithiasis. There is a slightly heterogeneous, solid-appearing 2.4 cm mass in the medial left kidney (series 2, image 23; series 602, image 16). Neoplasm is not excluded. Stomach and bowel: Persistent fluid-filled distention of proximal and mid small bowel with decompressed distal small bowel. The patient has been given gastrointestinal contrast which has moved to the distal distended small bowel. There is a small amount of gastrointestinal contrast in the decompressed terminal ileum and possibly admixed with stool in the proximal colon There is wall thickening involving some distal dilated small bowel loops. No pneumatosis intestinalis. Appendix: No evidence of appendicitis. Intraperitoneal space: There is small to moderate amount of low-attenuation free intraperitoneal fluid, but this has increased in volume in the interval. No pneumoperitoneum. Vasculature: No abdominal aortic aneurysm. No iliac or common femoral artery aneurysm. The mesenteric arteries are patent. The mesenteric, portal, and hepatic veins are patent. Lymph nodes: No enlarged lymph nodes. Bladder: No urinary bladder calculus or wall thickening. Reproductive: Unremarkable as visualized. Bones/joints: There is multilevel disc degeneration and facet arthropathy in the lumbar spine. Soft tissues: No acute soft tissue abnormality. CT/CT abdomen pelvis w con* [id number] IMPRESSION: 1. Persistent high-grade partial distal small bowel obstruction. 2. Increased volume of ascites. 3. Distal small bowel wall thickening which can be due to edema. 4. Solid-appearing left renal mass. Neoplasm is not excluded. Radiation Dose CTDIVOL = (mGy): DLP = 259.24 (mGy-cm)
--- NOTE | 2020-06-13 10:37 | P.PN_ITS ---
Subjective Subjective: Interval history: Patient had a small bowel movement yesterday, denies any nausea or vomiting. Does not feel distended and does not have any significant abdominal pain Vitals/I&O/Wt Last Vital Signs Temp 98.2 F 06/13/20 08:00 Pulse 65 06/13/20 08:00 Resp 16 06/13/20 08:00 BP 100/62 06/13/20 08:00 Pulse Ox 93 06/13/20 08:00 06/12/20 06/13/20 06/13/20 22:59 06:59 14:59 Intake Total 1000 / 3982.666 8111 / 1000 Output Total 1150 / 2450 1000 / 2450 1100 / 1100 Balance -150 / -558.333 -1000 / -558.333 -100 / -100 Weight last 48 hrs Weight 127 lb Physical Exam Narrative: EXAM NARRATIVE: Abdomen: Soft, nontender, minimally distended, NG tube to low intermittent suction Data : 06/13/20 04:00 06/13/20 04:00 A&P Assessment and plan (1) Small bowel obstruction: 65-year-old gentleman with third episode of small bowel obstruction in the last 10 days. Patient is currently hemodynamically stable with no evidence of peritonitis. Abdominal x-rays show slight improvement Continue IV fluids Clamp NG tube Protonix for GI prophylaxis Lovenox for DVT prophylaxis Milk of molasses enema, 1 bottle magnesium citrate today CT abdomen and pelvis with p.o. and IV contrast Daily labs If there is no improvement in his status over the next 48 to 72 hours patient will need laparoscopy /laparotomy Status: Acute Attestations Medical Necessity Statement*: Small bowel obstruction Coding Level of Care Code Acute It Application Support Analyst for [facility] Diagnoses Small bowel obstruction K56.609
[2020-06-13] MEDS: magnesium citrate Btl 296 mL PO (11:36)
[2020-06-13 12:00] VITALS: BP 122/82; PULSE 60; RESP 16; TEMP 37.1; O2SAT 96
[2020-06-13] MEDS: iohexol 300 mg/mL 100 mL Btl IV (12:40)
[2020-06-13 16:00] VITALS: BP 116/74; PULSE 62; RESP 17; TEMP 36.6; O2SAT 96
[2020-06-13 20:00] VITALS: BP 101/68; PULSE 72; RESP 20; TEMP 36.9; O2SAT 93
[2020-06-13] MEDS: sennosides 8.6 mg Tablet 17.2 MG PO (22:35)
[2020-06-14] VITALS: BP 110/75; PULSE 75; RESP 20; TEMP 37.5; O2SAT 94
[2020-06-14 04:00] VITALS: BP 114/75; PULSE 66; RESP 19; TEMP 36.4; O2SAT 94
[2020-06-14 05:35] LABS: Basophils % 0.2 %; Eosinophils # 0.2 10^3/uL (0.0-0.8); Eosinophils % 1.7 %; Hematocrit 44.7 % (42.0-52.0); Hemoglobin 14.9 g/dL (11.7-16.6); Lymphocytes # 1.5 10^3/uL (0.8-4.8); Lymphocytes % 17.2 %; Mean Corpuscular HGB Conc 33.3 g/dL (30.0-36.0); Mean Corpuscular Hemoglobin 30.6 pg (28.0-34.0); Mean Corpuscular Volume 91.8 fL (80-94); Mean Platelet Volume 10.3 fL (7.4-10.4); Monocytes # 1.2 10^3/uL (0.2-0.9); Monocytes % 13.8 %; Neutrophils # 5.79 10^3/uL (1.8-7.7); Neutrophils % 66.8 %; Nucleated Red Blood Cells % 0 %; Platelet Count 236 10^3/cmm (130-400); Red Blood Count 4.87 10^6/uL (4.1-5.3); Red Cell Distribution Width 13.3 % (12.1-15.1); White Blood Count 8.7 10^3/uL (4.0-10.0)
[2020-06-14 05:53] LABS: Blood Urea Nitrogen 6 mg/dL (8-23); Calcium 9.9 mg/dL (8.5-10.5); Carbon Dioxide 25 mmol/L (22-29); Chloride 101 mmol/L (98-107); Glomerular Filtration Rate 96.7 mL/min (90-130); Glucose 89 mg/dL (65-115); Osmolality Calculated 277 mOsm/kg (285-295); Sodium 136 mmol/L (136-145)
[2020-06-14 05:54] LABS: Anion Gap 14.7 (5-19); Potassium 4.7 mmol/L (3.5-5.1)
--- NOTE | 2020-06-14 07:39 | PC.NURSE ---
Patient resting in bed, easily awakens to voice, denies pain, reports passing flatus, denies nausea, no tenderness to abdomen upon palpation, denies nausea, discussed plan of care, verbalized understanding, call light in reach, side rails up X2.
[2020-06-14 08:00] VITALS: BP 109/67; PULSE 73; RESP 17; TEMP 37; O2SAT 97
--- NOTE | 2020-06-14 08:40 | PC.SOCIAL ---
IMM Page 2 of IMM explained to and signed by patient. He verbalizes understanding. Provided him with [facility] number as well. Initialed, dated, and timed and placed in chart. Copy provided to patient.
[2020-06-14] MEDS: pantoprazole 40 mg SDV IVP (08:48)
[2020-06-14] MEDS: D5-NS 0.45% + KCL 20 mEq 20 MEQ/1,000 ML BAG 100 MEQ IV ×2 (08:49→18:05)
--- NOTE | 2020-06-14 09:01 | PC.NURSE ---
Dr. Gilbert in to see patient, new orders to clamp NG and provide clear liquid tray. NG clamped at this time.
--- NOTE | 2020-06-14 10:00 | PM.PN ---
Subjective Subjective: Interval history: Patient had multiple bowel movements yesterday, denies any nausea, vomiting, does not feel bloated. Mainly complains of sore throat from the NG tube Medications: Reviewed: Yes Vitals/I&O/Wt Last Vital Signs Temp 98.6 F 06/14/20 08:00 Pulse 73 06/14/20 08:00 Resp 17 06/14/20 08:00 BP 109/67 06/14/20 08:00 Pulse Ox 97 06/14/20 08:00 06/13/20 06/14/20 06/14/20 22:59 06:59 14:59 Intake Total 1000 / 2000 1000 / 1000 Output Total 1700 / 3400 300 / 3400 700 / 700 Balance -700 / -1400 -300 / -1400 300 / 300 Physical Exam Narrative: EXAM NARRATIVE: Abdomen: Soft, nondistended, nontender Data : 06/14/20 04:48 06/14/20 04:48 A&P Assessment and plan (1) Small bowel obstruction: 65-year-old gentleman with third episode of small bowel obstruction in the last 10 days. Patient is currently hemodynamically stable with no evidence of peritonitis. Continue IV fluids Clamp NG tube, if tolerating will DC NG tube later this evening Clear liquid diet Protonix for GI prophylaxis Lovenox for DVT prophylaxis Milk of molasses enema, 1 bottle magnesium citrate today CT abdomen and pelvis with p.o. and IV contrast showed possible renal mass with partial small bowel obstruction and ascites, bowel wall edema Daily labs He appears to be doing better clinically and hoping that we can get him discharged without requiring surgery Status: Acute Attestations Medical Necessity Statement*: Small bowel obstruction requiring continued inpatient stay to ensure resolution Coding Level of Care Code Acute Semiconductor Package Symbol Stamper for [facility] Diagnoses Small bowel obstruction K56.609
[2020-06-14] MEDS: magnesium citrate Btl 296 mL PO (10:28)
[2020-06-14] MEDS: enoxaparin 40 mg/0.4 mL Syringe SUBCUT (10:28)
--- NOTE | 2020-06-14 10:45 | PC.NURSE ---
Patient demanding NG tube come out, stated, If this doesn't come out I'm pulling it out. Dr. Gilbert made aware and new order to DC NG tube was given.
--- NOTE | 2020-06-14 10:49 | PC.NURSE ---
NG tube removed per Dr. Vladimir verdin, tube intact, tolerated well.
[2020-06-14 12:00] VITALS: BP 93/58; PULSE 74; RESP 16; TEMP 37.2; O2SAT 93
[2020-06-14 16:00] VITALS: BP 99/72; PULSE 83; RESP 16; TEMP 36.9; O2SAT 95
[2020-06-14 20:00] VITALS: BP 93/55; PULSE 63; RESP 20; TEMP 36.8; O2SAT 93
[2020-06-15] VITALS (7 sets, daily range): BP systolic 89–105; BP diastolic 50–64; PULSE 54–68; RESP 18–20; TEMP 36.3–36.9; O2SAT 92–98
[2020-06-15] MEDS: D5-NS 0.45% + KCL 20 mEq 20 MEQ/1,000 ML BAG 100 MEQ IV ×2 (04:09→14:20)
--- NOTE | 2020-06-15 06:28 | PC.NURSE ---
Shift Summary Pt slept well throughout the night. Pt did not have any c/o pain, nausea, or vomiting to this nurse. pt did mention to right to refuse discharge. this nurse educated pt that if pt does not feel like he is medically ready to be discharged, that he does have the right to refuse. pt stated that he just wanted to make sure everything was all cleaned out so he didn't have to come back. Pt refused senna last night because he stated he was still having bowel movements. pt educated that the senna was to help keep his bowels softened so they can pass easily. pt will need more education on this.
--- NOTE | 2020-06-15 07:25 | PC.NURSE ---
Patient awake alert and oriented, reports having frequent stools that are loose and watery, denies abdominal pain but reports cramping in abdomen prior to bowel movement, discussed plan of care including diet advancement to full liquids, verbalized understanding and denies further questions or concerns.
[2020-06-15] MEDS: pantoprazole 40 mg SDV IVP (08:22)
[2020-06-15] MEDS: enoxaparin 40 mg/0.4 mL Syringe SUBCUT (08:22)
--- NOTE | 2020-06-15 11:47 | P.DS_ITS ---
Discharge Providers Date of Admission: 06/11/20 14:54 Date of Discharge: June 15, 2020 Attending Provider at Admission: Poncho Gilbert MD Attending Provider at Discharge: Poncho Gilbert MD Primary Care Provider: JAYCEE Clemente Diagnoses at Discharge Discharge Diagnosis (1) Small bowel obstruction: Status: Acute Reason for Visit Reason for Visit: blockage in bowels/ fluids in stomach Hospital Course Discharge Summary: Ryland Huang is a 65 year old male who had been admitted to the hospital on 2 occasions over the last 1 week, with the first 1 being on 06/02/2020 and the second 1 being on 06/07/2020 with small bowel obstruction which was managed conservatively with NG tube and bowel rest. Patient had been discharged on 06/09/2020 and presented to the ER again on 06/11/2020 with complaints of abdominal pain, nausea and vomiting. Patient is passing flatus and had a bowel movement earlier that day. He states that he had some cheese which made him constipated and bloated. The pain is generalized, did not radiate, no aggravating or relieving factors and was described as a constant ache. No prior colonoscopy. No prior abdominal surgeries. Patient was managed conservatively with bowel rest and NG tube and aggressive bowel regimen. Over the course of the next few days he started having bowel movements and his NG output is minimal. He was started on a full liquid diet and scheduled for a colonoscopy. He underwent colonoscopy on 06/17/2020 which showed a rectal mass which was biopsied. At time of discharge is tolerating a full liquid diet ambulating did not have any abdominal pain and his vital signs are stable. Discharge Data Data Completed and Pending: Completed Studies During Hospitalization Category Date Time Status CT abdomen pelvis w con* [id number] Rout ine Cat Scan 06/13/20 10:[address] abdomen pelvis w con* [id number] Stat Cat Scan 06/11/20 13:01 Completed XR abdomen min 2V [id number] Routine Exams 06/11/20 17:01 Completed XR abdomen min 2V [id number] Routine Exams 06/13/20 06:07 Completed XR chest 1V chandan ble [id number] Routine Exams 06/12/20 12:08 Completed Vitals: Last Vital Signs Temp 97.8 F 06/15/20 07:28 Pulse 67 06/15/20 07:28 Resp 18 06/15/20 07:28 BP 95/60 06/15/20 07:28 Pulse Ox 98 06/15/20 07:28 Discharge Plan Discharge Patient Disposition: Home Condition: Stable Prescriptions: Continued docusate sodium 50 mg/5 mL Liquid 100 mg PO BID PRN (Reason: Constipation) RF: 0 lactulose 10 gram/15 mL solution 15 ml PO BID PRN (Reason: Constipation) RF: 0 Discharge Orders: Discharge Order (Routine); Ordered 06/17/20 Ordered By: Poncho Gilbert Referrals: [facility]ARE [Other] - 2 weeks (PLEASE CALL Sunday06-18-20 TO MAKE AN APPOINTMENT TO FOLLOW UP WITH A ELECTRONIC SPECIALIST PER DR. RANDOLPH'S REQUEST. ) Poncho Gilbert MD [Physician] - 06/22/20 3:45 pm (You have an appointment on June 22 at 3:45pm) Discharge Diet: Full LIquid Discharge Activity: Resume usual activity Patient Instructions: Laxative, Stool Softeners (By mouth), Lactulose (By mouth) Activity Restrictions/Additional Instructions: My office will contact him to schedule a colonoscopy for Discharge Date/Time: 06/17/20 18:57 Discharge Attestations Time Spent in Discharge Care*: less than 30 min Quality Metrics Clinical Quality Measures During this hospital stay, did patient experience: None Coding Level of Care Code Acute Zoo Director for [facility] Diagnoses Small bowel obstruction K56.609
--- NOTE | 2020-06-15 11:47 | PM.PN ---
Subjective Subjective: Interval history: Patient feeling better today, after the NG tube was removed yesterday, no nausea or vomiting, had bowel movements yesterday Vitals/I&O/Wt Last Vital Signs Temp 97.8 F 06/15/20 07:28 Pulse 67 06/15/20 07:28 Resp 18 06/15/20 07:28 BP 95/60 06/15/20 07:28 Pulse Ox 98 06/15/20 07:28 06/14/20 06/15/20 06/15/20 22:59 06:59 14:59 Intake Total 1016.667 / 3016.667 1000 / 3016.667 100 / 100 Output Total 200 / 1450 300 / 1450 500 / 500 Balance 816.667 / 1566.667 700 / 1566.667 -400 / -400 Physical Exam Narrative: EXAM NARRATIVE: Abdomen: Soft, less distended, minimally tender Data : 06/14/20 04:48 06/14/20 04:48 A&P Assessment and plan (1) Small bowel obstruction: 65-year-old gentleman with third episode of small bowel obstruction in the last 10 days. Patient is currently hemodynamically stable with no evidence of peritonitis. Continue IV fluids Full liquid diet today, will try to keep him for a day or so more since this is his third admission with small bowel obstruction Protonix for GI prophylaxis Lovenox for DVT prophylaxis Daily labs Status: Acute Attestations Medical Necessity Statement*: Small bowel obstruction, appears to be improving hopefully discharge in the next 48 hours Coding Level of Care Code Acute Periodontal Assistant for [facility] Diagnoses Small bowel obstruction K56.609
[2020-06-15] MEDS: sennosides 8.6 mg Tablet 17.2 MG PO (22:10)
[2020-06-16] MEDS: D5-NS 0.45% + KCL 20 mEq 20 MEQ/1,000 ML BAG 100 MEQ IV ×2 (02:27→14:07)
[2020-06-16 04:00] VITALS: BP 80/47; PULSE 51; RESP 20; TEMP 36.8; O2SAT 100
[2020-06-16 08:00] VITALS: BP 88/56; PULSE 77; RESP 16; TEMP 36.8; O2SAT 92
[2020-06-16] MEDS: pantoprazole 40 mg SDV IVP (08:53)
--- NOTE | 2020-06-16 09:05 | PC.SOCIAL ---
IMM Updated Page 2 of IMM updated and given to patient. Initialed, dated, and timed and placed back in chart.
--- NOTE | 2020-06-16 10:44 | P.PN_ITS ---
Subjective Subjective: Interval history: Patient denies any nausea or vomiting, no BM today, passing flatus Vitals/I&O/Wt Last Vital Signs Temp 98.3 F 06/16/20 08:00 Pulse 77 06/16/20 08:00 Resp 16 06/16/20 08:00 BP 88/56 06/16/20 08:00 Pulse Ox 92 06/16/20 08:00 06/15/20 06/16/20 06/16/20 22:59 06:59 14:59 Intake Total 720 / 3300 1000 / 3300 600 / 600 Output Total 150 / 1750 700 / 1750 Balance 570 / 1550 300 / 1550 600 / 600 Physical Exam Narrative: EXAM NARRATIVE: Abdomen: Soft, nondistended, minimally tender Data : 06/14/20 04:48 06/14/20 04:48 A&P Assessment and plan (1) Small bowel obstruction: 65-year-old gentleman with third episode of small bowel obstruction in the last 10 days. Patient is currently hemodynamically stable with no evidence of peritonitis. Continue IV fluids Clear liquid diet today Protonix for GI prophylaxis Lovenox for DVT prophylaxis Milk of molasses enema, 1 bottle magnesium citrate today Plan for bowel prep and colonoscopy under MAC tomorrow Daily labs Status: Acute Attestations Medical Necessity Statement*: Small bowel obstruction, appears to be resolving Coding Level of Care Code Acute Speech Language Pathologist Assistant for [facility] Diagnoses Small bowel obstruction K56.609
[2020-06-16] MEDS: magnesium citrate Btl 296 mL PO (11:09)
[2020-06-16] MEDS: enoxaparin 40 mg/0.4 mL Syringe SUBCUT (11:09)
[2020-06-16 11:53] VITALS: BP 94/62; PULSE 57; RESP 18; TEMP 36.7; O2SAT 96
[2020-06-16] MEDS: bisacodyl 5 mg Tablet 40 MG PO (14:07)
[2020-06-16] MEDS: ondansetron 2 mg/ML SDV 2 mL 4 MG IVP ×2 (14:07→19:41)
--- NOTE | 2020-06-16 19:34 | ECG_ITS ---
[facility] Test Date: 2020-06-16 Pat Name: Ryland Huang Department: Room: 277 Gender: Male Layout Former: : 1955 Requested By: Poncho Gilbert Order Number: [id number] Robby MD: Nestor Balbuena M.D. Measurements Intervals Schaller Rate: 62 P: 52 WV: 200 QRS: 78 QRSD: 104 T: 57 QT: 390 QTc: 399 Interpretive Statements SINUS RHYTHM NONSPECIFIC ST ELEVATION [0.05+ mV ST ELEVATION] INTERPRETATION BASED ON A DEFAULT AGE OF 40 YEARS No previous ECG available for comparison Electronically Signed On 06-16-2020 20:02:14 CDT by Nestor Balbuena M.D. [email or web address]
--- NOTE | 2020-06-16 19:52 | XR_ITS ---
WS: [id number] Acute abdomen series, 06/16/2020 Clinical Data: SBO Comparison: Abdomen, flat and upright, 06/13/2020. Findings: In the chest there are no nodules, masses or effusions. The heart is normal. The pulmonary vascularity is not increased. The aortic arch and descending aorta are tortuous. No free air is seen beneath the diaphragms. No abnormal intra-abdominal masses or calcifications are seen. The small bowel loops are modestly dilated in the central portion of the abdomen. There is air in the colon which is not dilated. XR/XR acute abdomen series [id number] Impression: 1. Atherosclerosis. 2. Moderate distention of central small bowel loops which may represent a parti al small bowel obstruction.
[2020-06-16 20:00] VITALS: BP 83/51; PULSE 61; RESP 22; TEMP 36.8; O2SAT 96
[2020-06-16 20:54] LABS: Basophils % 0.5 %; Eosinophils # 0.3 10^3/uL (0.0-0.8); Hematocrit 44.9 % (42.0-52.0); Hemoglobin 14.6 g/dL (11.7-16.6); Lymphocytes # 1.5 10^3/uL (0.8-4.8); Lymphocytes % 17.9 %; Mean Corpuscular HGB Conc 32.5 g/dL (30.0-36.0); Mean Corpuscular Hemoglobin 30.7 pg (28.0-34.0); Mean Corpuscular Volume 94.3 fL (80-94); Mean Platelet Volume 10.3 fL (7.4-10.4); Monocytes # 0.6 10^3/uL (0.2-0.9); Monocytes % 7.8 %; Neutrophils # 5.78 10^3/uL (1.8-7.7); Neutrophils % 70.6 %; Nucleated Red Blood Cells % 0 %; Platelet Count 214 10^3/cmm (130-400); Red Blood Count 4.76 10^6/uL (4.1-5.3); Red Cell Distribution Width 13.2 % (12.1-15.1); White Blood Count 8.2 10^3/uL (4.0-10.0)
[2020-06-16 21:10] LABS: Troponin T (5th) Once 6 ng/L (0-15)
[2020-06-16 21:41] LABS: Alanine Aminotransferase 15 U/L (0-41); Alkaline Phosphatase 46 IU/L (40-130); Aspartate Amino Transferase 20 U/L (0-40); Blood Urea Nitrogen 5 mg/dL (8-23); Calcium 10.5 mg/dL (8.5-10.5); Carbon Dioxide 19 mmol/L (22-29); Chloride 103 mmol/L (98-107); Globulin 3.5 g/dL (1.3-4.6); Glomerular Filtration Rate 84.4 mL/min (90-130); Glucose 88 mg/dL (65-115); Osmolality Calculated 279 mOsm/kg (285-295); Sodium 137 mmol/L (136-145); Total Bilirubin 0.5 mg/dL (0.15-1.2); Total Protein 7.5 g/dL (6.6-8.7)
[2020-06-16 21:55] LABS: Anion Gap 19.1 (5-19); Potassium 4.1 mmol/L (3.5-5.1)
--- NOTE | 2020-06-16 22:50 | P.CONIM_ITS ---
Providers/Reason For Consult Consulting Physican/Specialty*: Jackie Doe MD, Hospitalist Reason for Consult*: ECG changes, medical management Requesting Physcian: Dr. Gilbert Attending Physician: Poncho Gilbert MD Primary Care Provider: JAYCEE Clemente History of Present Illness History of Present Illness Ryland Huang is a 65 year old male with PMHx noted below with known small bowel obstruction, third episode in the past 10 days and now undergoing a bowel prep for colonoscopy tomorrow with noted EKG changes on telemetry hence hospitalist consult. He denies prior cardiac issues and currently no prior EKGs to compare. During episode of noted EKG changes with concern for ST elevation patient was asymptomatic per nursing report. Electrolytes per labs this morning are within normal limits, baseline troponin is 6, EKG shows nonspecific ST changes. Vital signs remained stable. He is currently on room air. Has done partial bowel prep and refuses to continue this due to abdominal discomfort. Review of Systems Const: Denies: fever(s) or chills Eyes: Denies: change in vision ENMT: Reports: dry mouth Card: Denies: chest pain, swelling of feet/ankles or lightheadedness Resp: Denies: dyspnea, productive cough or non-productive cough GI: Reports: nausea and GI cramping; Denies: vomiting, hematemesis or hematochezia : Denies: dysuria, urinary frequency or hematuria Musc: Denies: back pain Skin/Breast: Denies: rash Neuro: Denies: numbness in extremities or weakness in extremities Psych: Denies: anxiety Meds/Allergies Home Medications and Allergies Home Medications Medication Instructions Recorded Confirmed Last Taken Type docusate sodium 100 mg PO BID PRN 06/11/20 06/11/20 Unknown History lactulose 15 ml PO BID PRN 06/11/20 06/11/20 06/11/20 History Allergies Allergy/AdvReac Type Severity Reaction Status Date / Time aspirin AdvReac low heart Verified 06/07/20 17:50 rate Current Medications Current Medications Generic Name Dose Route Start Last Admin Trade Name Freq PRN Reason Stop Dose Admin Enoxaparin Sodium 40 mg 06/14/20 10:15 06/16/20 11:09 Lovenox SUBCUT 40 mg Q24H NETO Administration Potassium Chloride/Dextrose/Sod Cl 20 meq in 1,000 mls @ 100 mls/hr 06/11/20 15:50 06/16/20 14:07 D5-Ns 0.45% + Kcl 20 Meq IV 100 mls/hr .Q10H NETO Administration Ondansetron HCl 4 mg 06/11/20 16:59 06/16/20 19:41 Zofran IVP 4 mg Q4H PRN Administration NAUSEA AND VOMITING Pantoprazole Sodium 40 mg 06/12/20 09:00 06/16/20 08:53 Protonix IVP 40 mg DAILY NETO Administration Phenol 3 spray 06/12/20 15:13 06/12/20 16:06 Phenaseptic MUCOUS MEM 3 spray Q2H PRN Administration SORE THROAT Senna 17.2 mg 06/11/20 21:00 06/16/20 20:12 Senna Lax PO Not Given BEDTIME NETO PFSH Acute PFSH: Medical History Environmental and seasonal allergies Migraine Pre-diabetes Small bowel obstruction Vitamin B12 deficiency (dietary) anemia Surgical History Status post knee surgery Left Family History Denies family history of CAD (coronary artery disease) Cancer Social History Smoking and tobacco status: current every day smoker smokeless tobacco Smokeless tobacco user: chewing tobacco Second hand smoke exposure: No Smoking risk assessment/counseling performed?: No Alcohol intake: never Desire information about alcohol rehabilitation?: No Counseling given: No Desire information about substance/drug rehabilitation?: No Counseling given: No Vitals/I&O/Wt Last Vital Signs Temp 98.3 F 06/16/20 20:00 Pulse 61 06/16/20 20:00 Resp 22 H 06/16/20 20:00 BP 83/51 06/16/20 20:00 Pulse Ox 96 06/16/20 20:00 06/16/20 06/16/20 06/16/20 06:59 14:59 22:59 Intake Total 1000 / 3300 1840 / 1840 530 / 2370 Output Total 700 / 1750 500 / 500 Balance 300 / 1550 1840 / 1840 30 / 1870 Physical Exam Const: COMMON NORMALS: no acute distress, patient oriented x3 and alert GENERAL APPEARANCE: cooperative, comfortable, disheveled and appears older than stated age; not ill appearing NUTRITIONAL APPEARANCE: thin ORIENTATION/CONSCIOUSNESS: Yes awake HENMT: COMMON NORMALS: normocephalic, atraumatic, hearing grossly normal bilaterally and moist oral mucous membranes HEAD & SCALP: normocephalic and atraumatic TEETH & GINGIVA: Yes poor dentition Eye: COMMON NORMALS: Equal, round and reactive pupils present, EOMs intact bilaterally and conjunctivae normal CONJUNCTIVA: Yes conjunctivae normal PUPIL: Yes Equal, round and reactive pupils present Neck/C-Spine: COMMON NORMALS: full ROM GENERAL: Yes normal visual inspection and Yes trachea midline Resp: COMMON NORMALS: normal respiratory effort, No retractions, No use of accessory muscles and clear to auscultation bilaterally EFFORT & INSPECTION: Yes able to speak in complete sentences, Yes symmetric chest movement and No tachypneic AUSCULTATION: clear to auscultation bilaterally Cardio: COMMON NORMALS: regular rate, regular rhythm, S1 normal heart sound present, S2 normal heart sound present and No murmurs present (Cardio) RATE: regular rate RHYTHM: regular rhythm HEART SOUNDS: S1 normal heart sound present and S2 normal heart sound present GI: COMMON NORMALS: Soft to palpation INSPECTION: Yes normal to inspection AUSCULTATION: Yes Hyperactive bowel sounds present PALPATION: Yes Soft to palpation, Yes Tenderness to palpation present (GI) (minimal generalized tenderness), No Guarding due to palpation present (GI) and No Rigid due to palpation Extremity: COMMON NORMALS: normal to inspection, full ROM and no clubbing, cyanosis or edema; negative for no pedal edema Neuro: COMMON NORMALS: patient oriented x3, moves all extremities, no focal motor deficits, no sensory deficits noted and gait normal SENSORIUM/ORIENTATION: Yes alert Psych: COMMON NORMALS: mental status grossly normal, Normal thought process present, cooperative, normal affect and speech normal SPEECH: Yes normal speech THOUGHT PROCESS: Normal thought process present Skin: COMMON NORMALS: no rashes or lesions noted, no jaundice, no petechiae and no mottling GENERAL SKIN EXAM: no rashes or lesions noted A&P Assessment and plan (1) Small bowel obstruction: -has had 3 episodes of these x 10 days -no NGT currently, undergoing bowel prep for colonoscopy tomorrow -NPO, IVF hydration -pain control, antiemetics as needed -continue to monitor vital signs Status: Acute (2) Acute electrocardiogram changes: -noted ST changes on telemetry overnight, confirmed on ECG; patient asymptomatic, troponin wnl -K wnl, check Mg in AM -no prior CAD hx -no prior cardiac workup including ECG to compare -telemetry monitoring; continued monitoring of vital signs -would hold off on further workup at this time unless recurrent, symptomatic Status: Acute Additional A&P Information -NPO -GI ppx with PPI -DVT ppx with lovenox -Dispo: home -Code status: FULL code Thank you for this consult, will continue to follow along with you. Consult Attestations Medical Necessity Statement: Patient requires hospitalization for continued management of small bowel obstruction, pending colonoscopy with noted EKG changes requiring telemetry monitoring. Time Spent in Patient Care: Greater than 35 minutes (>than 50% of time spent in counselling and/or direct pt care on unit) . Coding Level of Care Code Acute Security Delivery Specialist for Delon Londono Diagnoses Small bowel obstruction K56.609 Acute electrocardiogram changes R94.31
[2020-06-17] VITALS (12 sets, daily range): BP systolic 93–145; BP diastolic 53–82; PULSE 53–86; RESP 12–20; TEMP 36.3–36.9; O2SAT 93–100
--- NOTE | 2020-06-17 00:14 | PC.NURSE ---
contacted dr sarah ordonez regarding telemetry rhythm changes, icu stated there was ST elevation. Dr ordered EKG CBC CMP Troponin and abd series. also notified that pt refusing mag cit.
[2020-06-17] MEDS: D5-NS 0.45% + KCL 20 mEq 20 MEQ/1,000 ML BAG 100 MEQ IV (00:46)
[2020-06-17 05:58] LABS: Basophils % 0.6 %; Eosinophils # 0.2 10^3/uL (0.0-0.8); Eosinophils % 4.3 %; Hematocrit 40.2 % (42.0-52.0); Hemoglobin 13.3 g/dL (11.7-16.6); Lymphocytes # 1.5 10^3/uL (0.8-4.8); Lymphocytes % 27.3 %; Mean Corpuscular HGB Conc 33.1 g/dL (30.0-36.0); Mean Corpuscular Hemoglobin 30.3 pg (28.0-34.0); Mean Corpuscular Volume 91.6 fL (80-94); Mean Platelet Volume 9.6 fL (7.4-10.4); Monocytes # 0.5 10^3/uL (0.2-0.9); Monocytes % 9.6 %; Neutrophils # 3.08 10^3/uL (1.8-7.7); Nucleated Red Blood Cells % 0 %; Platelet Count 276 10^3/cmm (130-400); Red Blood Count 4.39 10^6/uL (4.1-5.3); Red Cell Distribution Width 13.2 % (12.1-15.1); White Blood Count 5.3 10^3/uL (4.0-10.0)
[2020-06-17 06:40] LABS: Anion Gap 11.2 (5-19); Blood Urea Nitrogen 5 mg/dL (8-23); Calcium 10.2 mg/dL (8.5-10.5); Carbon Dioxide 27 mmol/L (22-29); Chloride 104 mmol/L (98-107); Glucose 103 mg/dL (65-115); Osmolality Calculated 282 mOsm/kg (285-295); Potassium 4.2 mmol/L (3.5-5.1); Sodium 138 mmol/L (136-145)
[2020-06-17 06:42] LABS: Magnesium 2.2 mg/dL (1.7-2.3)
--- NOTE | 2020-06-17 08:19 | P.PN_ITS ---
Subjective Subjective: Interval history: Patient had some nausea today, concerns about ST elevation, ruled out DE by Dr. Doe Vitals/I&O/Wt Last Vital Signs Temp 98.2 F 06/17/20 07:45 Pulse 55 L 06/17/20 07:45 Resp 18 06/17/20 07:45 BP 93/53 06/17/20 07:45 Pulse Ox 98 06/17/20 07:45 06/16/20 06/17/20 06/17/20 22:59 06:59 14:59 Intake Total 530 / 23789 17948 / 82988 Output Total 1999 / 0 600 / 2600 Balance -1470 / 88201 64542 / 64697 Physical Exam Narrative: EXAM NARRATIVE: Abdomen: Soft, nondistended, nontender Data : 06/17/20 05:22 06/17/20 05:22 A&P Assessment and plan (1) Small bowel obstruction: Appears to be resolving CT scan had shown possible narrowing in the mid transverse colon and therefore well, will obtain a colonoscopy today rule out any mass contributing to obstruction Status: Acute Attestations Medical Necessity Statement*: Small bowel obstruction, resolved plan for colonoscopy today Coding Level of Care Code Acute Manufacturers Service Representative for Delon Londono Diagnoses Small bowel obstruction K56.609
--- NOTE | 2020-06-17 08:49 | USCV_ITS ---
Rylnad Huang Age: 65 Gender: M : 1955 Exam Date: 06/17/2020 14:34 Ordering Phys: Jose Guadalupe Shaffer MD Technologist: Sandip Frank Exam Location: [facility] [place] Indication: EKG CHANGES BP: 126 / 70 HR: 62 Rhythm: Sinus Technical Quality: Good MEASUREMENTS (Male / Female) Normal Values 2D ECHO LV Diastolic Diameter PLAX 3.7 cm 4.2 - 5.9 / 3.9 - 5.3 cm LV Systolic Diameter PLAX 2.0 cm IVS Diastolic Thickness 1.2 cm 0.6 - 1.0 / 0.6 - 0.9 cm IVS Systolic Thickness 1.3 cm LVPW Diastolic Thickness 1.1 cm 0.6 - 1.0 / 0.6 - 0.9 cm LVPW Systolic Thickness 1.2 cm LVOT Diameter 2.2 cm LV Ejection Fraction 2D Teich 78.9 % LV Ejection Fraction MOD 2C 66.5 % LV Ejection Fraction 2C AL 68.0 % LA Diameter 4.0 cm LA Width 4.2 cm LA Height 3.7 cm RA Width 2.9 cm RA Height 3.8 cm Aorta at Sinotubular Diameter 1.3 cm M-MODE LV Diastolic Diameter MM 4.4 cm 4.2 - 5.9 / 3.9 - 5.3 cm LV Systolic Diameter MM 3.3 cm LV Ejection Fraction MM Teich 52.2 % IVS Diastolic Thickness MM 1.0 cm 0.6 - 1.0 / 0.6 - 0.9 cm IVS Systolic Thickness MM 1.1 cm LVPW Diastolic Thickness MM 1.2 cm 0.6 - 1.0 / 0.6 - 0.9 cm LVPW Systolic Thickness MM 2.0 cm RV Diastolic Diameter MM 2.8 cm Aortic Annulus Diameter 4.0 cm LA Ao Ratio MM 1.0 MV E Point Septal Separation 1.1 cm DOPPLER AV Peak Velocity 109.0 cm/s LVOT Peak Velocity 92.0 cm/s AV Area Cont Eq vti 3.1 cm squared AV Area Cont Eq pk 3.2 cm squared MV Area PHT 3.7 cm squared Mitral E to A Ratio 0.8 MV E' Velocity 9.0 cm/s Mitral E to MV E' Ratio 7.6 Mitral E to LV E' Lateral Ratio 6.8 Mitral E to LV E' Septal Ratio 8.6 TR Peak Velocity 239.0 cm/s TR Peak Gradient 22.9 mmHg TV Peak E Velocity 104.0 cm/s Right Atrial Pressure 3.0 mmHg Pulmonary Artery Systolic Pressu 25.8 mmHg PV Peak Velocity 93.0 cm/s FINDINGS Left Ventricle Normal left ventricular size and systolic function with no regional wall motion abnormalities. Prominent LV trabeculations are noted. Mild LVH is present. Diastolic dysfunction is present. Right Ventricle The right ventricle is normal in size and function. Right Atrium The right atrium is normal in size. Left Atrium The left atrium is normal in size. Mitral Valve Structurally normal mitral valve without significant stenosis or prolapse. There is no mitral regurgitation. Aortic Valve Aortic valve is thickened. No significant aortic stenosis is noted. There is mild aortic regurgitation. Tricuspid Valve Grossly redundant tricuspid valve without significant stenosis or regurgitation. Insufficient TR jet to calculate RVSP. Pulmonic Valve Structurally normal pulmonic valve without significant stenosis. There is no pulmonic regurgitation. Pericardium Normal pericardium without effusion. Aorta Normal ascending aorta dimension. CONCLUSIONS LV systolic function is normal with EF of 55 to 60%. Diastolic dysfunction is present. Mild aortic regurgitation is noted Jatinder Li MD (Electronically Signed) Final Date: 17 June 2020 17:56 S
--- NOTE | 2020-06-17 08:58 | P.ANESASSM_ITS ---
Pre-Anesthetic Assessment Pre-Anesthetic Assessment: Height/Weight: Height 1.66 m Weight 57.606 kg Temp Pulse Resp BP Pulse Ox 98.2 F 55 L 18 93/53 98 06/17/20 07:45 06/17/20 07:45 06/17/20 07:45 06/17/20 07:45 06/17/20 07:45 Preop Diagnosis: bowel obstruction Proposed Procedure: Operation Date: 06/17/20 08:30 Proposed Procedures p Colonoscopy with possible biopsy, possible polypectomy(Not Applicable) - Poncho Gilbert MD Familial anesthetic complications: none Was Beta Radha taken within 24 hours: N/A Last intake: OLEOMARGARINE MAKER:O > 8 hrs Social: Social History: No alcohol and No tobacco Comment: chewed tbacco Exam: Pre-Anes Outpt Exam: alert, oriented x 3, clear to auscultation bilaterally and regular rate & rhythm Airway: Cervical ROM: WNL MP: 2 Dentition: Other (no teeth) Pulmonary: Pulmonary: None reported Comments: hx bronchitis CV/HEM: CV/HEM: HTN Comments: st changes but normal troponin GI: Comments: SBO Metabolic: Metabolic: DM (pre DM) Anesthetic Plan: ASA status: 3 Anesthesia: General Other: RSI Risk of > 500 ml blood loss (7ml/kg in children): No Meds/Allergies Current Medications: Current Medications Generic Name Dose Route Start Last Admin Trade Name Freq PRN Reason Stop Dose Admin Enoxaparin Sodium 40 mg 06/14/20 10:15 06/16/20 11:09 Lovenox SUBCUT 40 mg Q24H NETO Administration Potassium Chloride /Dextrose/Sod Cl 20 meq in 1,000 m ls @ 100 mls/hr 06/11/20 15:50 06/17/20 00:46 D5-Ns 0.45% + Elton l 20 Meq IV 100 mls/hr .Q10H NETO Administration Ondansetron HCl 4 mg 06/11/20 16:59 06/16/20 19:41 Zofran IVP 4 mg Q4H PRN Administration NAUSEA AND VOMITI NG Pantoprazole Sodiu m 40 mg 06/12/20 09:00 06/16/20 08:53 Protonix IVP 40 mg DAILY NETO Administration Phenol 3 spray 06/12/20 15:13 06/12/20 16:06 Phenaseptic MUCOUS MEM 3 spray Q2H PRN Administration SORE THROAT Senna 17.2 mg 06/11/20 21:00 06/16/20 20:12 Senna Lax PO Not Given BEDTIME NETO PFSH Anesthesia PFSH: Medical History Environmental and seasonal allergies Migraine Pre-diabetes Small bowel obstruction Vitamin B12 deficiency (dietary) anemia Surgical History Status post knee surgery Left Family History Denies family history of CAD (coronary artery disease) Cancer Social History Smoking and tobacco status: current every day smoker smokeless tobacco Smokeless tobacco user: chewing tobacco Second hand smoke exposure: No Smoking risk assessment/counseling performed?: No Alcohol intake: never Desire information about alcohol rehabilitation?: No Counseling given: No Desire information about substance/drug rehabilitation?: No Counseling given: No Data Anesthesia CBC & Chem 7: 06/17/20 05:22 06/17/20 05:22 Other Labs: Laboratory Results - last 48 hr 06/16/20 06/16/20 06/16/20 20:44 20:44 20:44 WBC 8.2 RBC 4.76 Hgb 14.6 Hct 44.9 MCV 94.3 H MCH 30.7 MCHC 32.5 RDW 13.2 Plt Count 214 MPV 10.3 Neut % (Auto) 70.6 Lymph % (Auto) 17.9 [place] % (Auto) 7.8 Eos % (Auto) 3.0 Baso % (Auto) 0.5 Neut # (Auto) 5.78 Lymph # (Auto) 1.5 [place] # (Auto) 0.6 Eos # (Auto) 0.3 Baso # (Auto) 0.0 Nucleated RBC % (auto) 0 Nucleated RBCs # 0.0 Sodium 137 Potassium 4.1 Chloride 103 Carbon Dioxide 19 L Anion Gap 19.1 H BUN 5 L Creatinine 0.9 GFR Calculation 84.4 L Glucose 88 Calculated Osmolality 279 L Calcium 10.5 Magnesium Total Bilirubin 0.5 AST 20 ALT 15 Alkaline Phosphatase 46 Troponin T Gen 5 ng/L 6 Total Protein 7.5 Albumin 4.0 Globulin 3.5 06/17/20 06/17/20 06/17/20 05:22 05:22 05:22 WBC 5.3 RBC 4.39 Hgb 13.3 Hct 40.2 L MCV 91.6 MCH 30.3 MCHC 33.1 RDW 13.2 Plt Count 276 MPV 9.6 Neut % (Auto) 58.0 Lymph % (Auto) 27.3 [place] % (Auto) 9.6 Eos % (Auto) 4.3 Baso % (Auto) 0.6 Neut # (Auto) 3.08 Lymph # (Auto) 1.5 [place] # (Auto) 0.5 Eos # (Auto) 0.2 Baso # (Auto) 0.0 Nucleated RBC % (auto) 0 Nucleated RBCs # 0.0 Sodium 138 Potassium 4.2 Chloride 104 Carbon Dioxide 27 Anion Gap 11.2 BUN 5 L Creatinine 1.1 GFR Calculation 67.0 L Glucose 103 Calculated Osmolality 282 L Calcium 10.2 Magnesium 2.2 Total Bilirubin AST ALT Alkaline Phosphatase Troponin T Gen 5 ng/L Total Protein Albumin Globulin Cardiac Studies: No Data to Display
--- NOTE | 2020-06-17 12:27 | P.PN_ITS ---
Subjective Subjective: Interval history: This morning patient was seen in the preop area just before his colonoscopy, states that he continues to have abdominal pain, is anticipating his colonoscopy, tells me that they are worried about his heart last night, but he does not have any chest pain, no shortness of breath, no tightness or tenderness, no dizziness, no nausea, no vomiting Patient denies a cardiac history, no family history of CAD, no history of chest pain, does tell me that he had a stress test many years ago which was unremarkable, overall besides the abdomen does not have any chest pain or shortness of breath complaints Vitals/I&O/Wt Last Vital Signs Temp 98.2 F 06/17/20 07:45 Pulse 55 L 06/17/20 07:45 Resp 18 06/17/20 07:45 BP 93/53 06/17/20 07:45 Pulse Ox 98 06/17/20 07:45 06/16/20 06/17/20 06/17/20 22:59 06:59 14:59 Intake Total 530 / 2370 90046 / 44740 Output Total 1999 600 / 2600 Balance -1470 / 370 00737 / 40015 Physical Exam Const: COMMON NORMALS: no acute distress and patient oriented x3 HENMT: COMMON NORMALS: normocephalic HEAD & SCALP: normocephalic Neck/C-Spine: COMMON NORMALS: no JVD Resp: COMMON NORMALS: normal respiratory effort, No retractions, No use of accessory muscles and clear to auscultation bilaterally AUSCULTATION: clear to auscultation bilaterally Cardio: COMMON NORMALS: no JVD, regular rate, regular rhythm, S1 normal heart sound present and S2 normal heart sound present RATE: regular rate RHYTHM: regular rhythm HEART SOUNDS: S1 normal heart sound present and S2 normal heart sound present GI: COMMON NORMALS: Normal to inspection, nondistended, normoactive bowel soun ds present and Soft to palpation AUSCULTATION: Yes Hypoactive bowel sounds present PALPATION: Yes Soft to palpation and Yes Tenderness to palpation present (GI) Extremity: COMMON NORMALS: capillary refill normal, no clubbing, cyanosis or edema, no calf tenderness and no pedal edema Neuro: COMMON NORMALS: patient oriented x3 Psych: COMMON NORMALS: mental status grossly normal Data : 06/17/20 05:22 06/17/20 05:22 A&P Assessment and plan (1) Small bowel obstruction: -no NGT currently, undergoing bowel prep for colonoscopy tomorrow -NPO, IVF hydration -pain control, antiemetics as needed -continue to monitor vital signs Status: Acute (2) Acute electrocardiogram changes: -noted ST changes on telemetry overnight, confirmed on ECG; patient asymptomatic, troponin wnl -K wnl, magnesium within normal limits -no prior CAD hx -no prior cardiac workup including ECG to compare -telemetry monitoring; continued monitoring of vital signs -Will order cardiac echocardiogram -Follow-up postop, will have patient follow-up with primary care physician -Monitor for chest pain, monitor for shortness of breath Status: Acute Additional A&P Information -NPO -GI ppx with PPI -DVT ppx with lovenox -Dispo: home -Code status: FULL code Thank you for this consult, will continue to follow along with you. Attestations Medical Necessity Statement*: Patient requires hospitalization for small bowel obstruction, acute EKG changes Coding Level of Care Code Acute Tacking Stitch Remover for Delon Londono Diagnoses Small bowel obstruction K56.609 Acute electrocardiogram changes R94.31
--- NOTE | 2020-06-17 12:52 | SUR.PHASEI ---
1243 PATIENT TO OPS FROM OR. RR EVEN AND UNLABORED. SPO2 100% ON RA.
--- NOTE | 2020-06-17 13:00 | PM.PACU ---
PACU note Post-Anesthesia Exam: awake and vital signs stable Disposition: back to floor
--- NOTE | 2020-06-17 13:07 | PC.RESP ---
Smoking Cessation information and a schedule of classes to patient.
--- NOTE | 2020-06-17 13:13 | SUR.PHASEI ---
1301 PATIENT TO MED SURG. DENIES PAIN. PATIENT AMBULATORY FROM [facility] TO BED ON ARRIVAL TO MED SURG.
== END 2020-06-17 18:57 | disposition home or self-care (01) | DRG 389 ==
LOC: ER 13:07 → MEDSURG 15:14
PROVIDERS: Family Medicine; Admitting Provider Surgery; PCP Nurse Practitioner Family; Visit Provider Surgery
PROC: 0DJD8ZZ Inspection of Lower Intestinal Tract, Via Natural or Artificial Opening Endoscopic (ICD-10-PCS; CPT 45378; principal; 2020-06-17 08:30)
DX: K56.609 Unspecified intestinal obstruction, unspecified as to partial versus complete obstruction (principal); R18.8 Other ascites; R73.03 Prediabetes; D51.9 Vitamin B12 deficiency anemia, unspecified; F17.220 Nicotine dependence, chewing tobacco, uncomplicated
CPT/HCPCS: 12345; 36415; 45380; 71045; 74019; 74022; 74177; 80048; 80053; 81003; 83605; 83690; 83735; 84484; 85025; 88305; 93005; 93306; 96372; 96375; 99283; C9113; J0330; J1650; J2270; J2370; J2405; J2704; J3010; J3490; J7030; Q9967

== ENCOUNTER 2020-06-24 12:25 | Outpatient (CLI) | payer MEDICARE, MEDICAID, SELFPAY ==
[2020-06-24] MEDS: iohexol 300 mg/mL 100 mL Btl IV (14:06)
[2020-06-24] MEDS: iohexol 300 mg/mL 50 mL Btl PO (14:06)
--- NOTE | 2020-06-24 14:30 | CT_ITS ---
WS: [id number] CT ABDOMEN PELVIS TECHNIQUE: Contrast-enhanced CT of the abdomen and pelvis with coronal and sagittal reformatted image s. CLINICAL INFORMATION: bowel obstruction COMPARISON: CT 06/13/2020 and 06/11/2020 DLP: 974.[address] scans at [facility] use at least one of these dose optimization techniques: automat ed exposure control; mA and/or kV adjustment per patient size (includes targeted exams where dose is matched to clinical indication); or iterative reconstruction. FINDINGS: Again seen are changes of partial high-grade small bowel obstruction with multiple air-fluid levels. Distended loops of small bowel throughout the abdomen. No significant change in appearance since the prior examination. Small to moderate amount of free fluid in the pelvis is unchanged. Fluid and feca l retention within the colon. Mild thickening of the distal ileal small bowel loops similar in appear ance to the prior examinations. No definite transition point identified. Normal liver. Normal gallbladder. Spleen is normal. Normal GE junction. Lung bases are well aerated. Subsegmental atelectasis right lower lobe. Adrenal glands are normal. Suspected enhancing lesion in t he medial left kidney upper pole measuring 2.1 CCM. This can be followed up with ultrasound. Normal c aliber abdominal aorta. Aortic calcification. Calcified enlarged prostate measuring 4.[address]/CT abdomen pelvis w con* [id number] IMPRESSION: 1. Stable findings of distal high-grade partial small bowel obstruction with p ersistent air and fluid within the colon. 2. Small bowel obstruction not significantly changed with multiple air-fluid l evels and edema in the distal ileal small bowel loops. No definite transition p oint identified. 3. No free air. 4. Possible enhancing lesion in the medial aspect of the left kidney upper adonay e. Neoplasm not excluded. Recommend further evaluation with ultrasound. 5. Small moderate ascites in the pelvis is unchanged. 6. Enlarged prostate. Recommend correlation PSA.
== END 2020-06-24 12:26 | disposition home or self-care (01) ==
LOC: RADWPI 12:30
PROVIDERS: PCP Nurse Practitioner Family; Visit Provider Surgery
DX: K56.609 Unspecified intestinal obstruction, unspecified as to partial versus complete obstruction (principal); N40.0 Benign prostatic hyperplasia without lower urinary tract symptoms; R18.8 Other ascites; N28.9 Disorder of kidney and ureter, unspecified
CPT/HCPCS: 74177; Q9967

== ENCOUNTER 2020-06-25 03:18 | Emergency (ER) | payer MEDICARE, MEDICAID, SELFPAY ==
[2020-06-25 03:20] VITALS: BP 116/86; PULSE 76; RESP 18; TEMP 37.1; O2SAT 99; BMI 21.1
--- NOTE | 2020-06-25 03:22 | ED_ITS ---
HPI - Abdominal Pain General: Chief Complaint: Abdominal Pain Stated Complaint: abd pain/n/v Time Seen by Provider: 06/25/20 03:21 Source: patient and EMS Mode of arrival: EMS Limitations: no limitations History of Present Illness: HPI narrative: 65-year-old male has a history of small bowel obstructions. He states he started having severe abdominal pain tonight along with vomiting. He states it feels like his previous bowel obstructions. He states pain is sharp in nature and rates it a 7 out of 10. Denies any worsening or improving factors. Denies any fever. MD elicited complaint: abdominal pain Associated Symptoms: Reports nausea and vomiting; Denies chills, dysuria and fever(s) Review of Systems Const: Denies: fever(s), chills, body aches or change in appetite Eyes: Denies: blurry vision or eye discomfort ENMT: Denies: throat pain or dental pain Card: Denies: chest pain Resp: Denies: dyspnea GI: Reports: abdominal pain, nausea and vomiting : Denies: dysuria Musc: Denies: neck pain or back pain Skin/Breast: Denies: rash Neuro: Denies: headache(s) Psych: Denies: depression Patel/Lymph: Denies: easy bruising All/Imm: Denies: urticaria PFSH ED PFSH: Medical History Environmental and seasonal allergies Migraine Pre-diabetes Small bowel obstruction Vitamin B12 deficiency (dietary) anemia Surgical History Status post knee surgery Left Family History Denies family history of CAD (coronary artery disease) Cancer Social History Smoking and tobacco status: current every day smoker smokeless tobacco Smokeless tobacco user: chewing tobacco Second hand smoke exposure: No Smoking risk assessment/counseling performed?: No Alcohol intake: never Desire information about alcohol rehabilitation?: No Counseling given: No Desire information about substance/drug rehabilitation?: No Counseling given: No Physical Exam Const: COMMON NORMALS: no acute distress, patient oriented x3 and healthy appearing HENMT: COMMON NORMALS: normocephalic and atraumatic HEAD & SCALP: normocephalic and atraumatic Eye: COMMON NORMALS: Equal, round and reactive pupils present and EOMs intact bilaterally PUPIL: Yes Equal, round and reactive pupils present Neck/C-Spine: COMMON NORMALS: full ROM and supple Chest: COMMONS NORMALS: normal inspection of the chest and normal palpation of entire chest wall Resp: COMMON NORMALS: normal respiratory effort, No retractions, No use of accessory muscles and clear to auscultation bilaterally AUSCULTATION: clear to auscultation bilaterally Cardio: COMMON NORMALS: regular rate, regular rhythm and No murmurs present (Cardio) RATE: regular rate RHYTHM: regular rhythm GI: COMMON NORMALS: Normal to inspection, nondistended, normoactive bowel sounds present, Soft to palpation and no masses PALPATION: Yes Soft to palpation OTHER: diffuse tenderness Extremity: COMMON NORMALS: normal to inspection and full ROM Neuro: COMMON NORMALS: patient oriented x3, moves all extremities and no focal motor deficits Psych: COMMON NORMALS: mental status grossly normal, Normal thought process present and cooperative THOUGHT PROCESS: Normal thought process present Skin: COMMON NORMALS: no rashes or lesions noted and no wounds GENERAL SKIN EXAM: no rashes or lesions noted Course Vital Signs: Vital signs: Vital Signs Temperature 98.7 F 06/25/20 03:20 Pulse Rate 70 06/25/20 05:02 Respiratory Rate 16 06/25/20 05:02 Blood Pressure 82/52 06/25/20 05:02 Pulse Oximetry 97 06/25/20 05:02 MDM - Abdominal Pain MDM Narrative: Medical decision making narrative: Ryland presents with abdominal pain is since resolved. He has had a chronic bowel obstruction. Patient states his pain is much improved here. He has been able to tolerate p.o. liquid. I talked to Dr. Gilbert who is been following patient and saw him 2 days ago in clinic. Dr. Gilbert states he will follow him in 1 to 2 days and patient is to continue his liquid diet. Patient would like to go home I feel he is stable for discharge. He is return if worsening. He understands and agrees the plan. Lab Data: Labs: Lab Results 06/25/20 06/25/20 Range/Units 03:39 03:39 WBC 9.4 (4.0-10.0) 10^3/ uL RBC 4.84 (4.1-5.3) 10^6/u L Hgb 14.8 (11.7-16.6) g/dL Hct 45.2 (42.0-52.0) % MCV 93.4 (80-94) fL MCH 30.6 (28.0-34.0) pg MCHC 32.7 (30.0-36.0) g/dL RDW 13.2 (12.1-15.1) % Plt Count 164 (130-400) 10^3/c mm MPV 10.8 H (7.4-10.4) fL Neut % (Auto) 77.0 % Lymph % (Auto) 15.8 % Williamson % (Auto) 5.4 % Eos % (Auto) 1.1 % Baso % (Auto) 0.3 % Neut # (Auto) 7.24 (1.8-7.7) 10^3/u L Lymph # (Auto) 1.5 (0.8-4.8) 10^3/u L Williamson # (Auto) 0.5 (0.2-0.9) 10^3/u L Eos # (Auto) 0.1 (0.0-0.8) 10^3/u L Baso # (Auto) 0.0 (0.0-0.1) 10^3/u L Nucleated RBC % (a uto) 0 % Nucleated RBCs # 0.0 /100WBC Sodium 138 (136-145) mmol/L Potassium 4.0 (3.5-5.1) mmol/L Chloride 100 (98-107) mmol/L Carbon Dioxide 24 (22-29) mmol/L Anion Gap 18.0 (5-19) BUN 10 (8-23) mg/dL Creatinine 1.1 (0.7-1.2) mg/dL GFR Calculation 67.0 L (90-130) mL/min Glucose 136 H (65-115) mg/dL Calculated Osmolal ity 287 (285-295) mOsm/k g Calcium 10.8 H (8.5-10.5) mg/dL Total Bilirubin 0.5 (0.15-1.2) mg/dL AST 17 (0-40) U/L ALT 10 (0-41) U/L Alkaline Phosphata se 56 (40-130) IU/L Total Protein 7.4 (6.6-8.7) g/dL Albumin 4.1 (3.5-5.2) g/dL Globulin 3.3 (1.3-4.6) g/dL Lipase 43 (13-60) U/L Imaging Data ^: CT Abd/Pel: Radiologist's impression: [address] [address] [address] Scan Report Signed Patient: Ryland Huang Unit #: [id number] : 1955 Age/Sex: 65 / M ADM Date: 06/25/20 Loc: ER Room/Bed: Attending Dr: Ordering Provider/Ordering MD: Epi Chauhan MD Date of Service: 06/25/20 Procedure(s): CT abdomen pelvis w con* [id number] Accession Number(s): [id number] Report Number: [id number] PROCEDURE INFORMATION: Exam: CT Abdomen And Pelvis With Contrast Exam date and time: 06/25/2020 4:10 AM Age: 65 years old Clinical indication: Abdominal pain; Generalized; Additional info: Abd pain TECHNIQUE: Imaging protocol: Computed tomography of the abdomen and pelvis with intravenous contrast. Radiation optimization: All CT scans at this facility use at least one of these dose optimization techniques: automated exposure control; mA and/or kV adjustment per patient size (includes targeted exams where dose is matched to clinical indication); or iterative reconstruction. Contrast material: OMNI 300; Contrast volume: 75 ml; Contrast route: INTRAVENOUS (IV); COMPARISON: CT abdomen pelvis w con* [id number] 06/24/2020 1:57 PM RADIATION DOSE METRICS: Total DLP (mGy-cm): 229.58 FINDINGS: Liver: Normal. No mass. Gallbladder and bile ducts: Normal. No calcified stones. No ductal dilation. Pancreas: Normal. No ductal dilation. Spleen: Normal. No splenomegaly. Adrenals: Normal. No mass. Kidneys and ureters: Normal. No hydronephrosis. Stomach and bowel: There are dilated loops of small bowel containing fluid and air fluid levels present within the abdomen worrisome for small bowel obstruction. Transition is indeterminate but is likely present within the pelvis. Appendix: No evidence of appendicitis. Intraperitoneal space: There is some free fluid seen within the dependent portion of the pelvis. Vasculature: Unremarkable. No abdominal aortic aneurysm. Lymph nodes: Unremarkable. No enlarged lymph nodes. Bladder: Unremarkable as visualized. Reproductive: There are small bilateral hydroceles. Prostate gland is mildly prominent measuring 4.9 x 4.7 x 4.2 cm. There is some hyperdense material seen centrally within the prostate gland possibly representing hemorrhagic material. Prostatitis cannot be excluded. Bones/joints: Unremarkable. No acute fracture. Soft tissues: Unremarkable. CT/CT abdomen pelvis w con* [id number] IMPRESSION: 1. Dilated small bowel loops containing fluid and air fluid levels are seen compatible with a small-bowel obstruction. The transition is indeterminate although it is likely present within the pelvis. 2. Small amount free fluid seen in the pelvis. 3. Small bilateral hydroceles. 4. Mildly prominent prostate gland with some hyperdense material seen centrally within the prostate gland, findings that could represent some hemorrhagic material. Prostatitis cannot be excluded. Discharge Plan Discharge Patient Disposition: Home Clinical Impression: Abdominal pain Qualifiers: Abdominal location: generalized Qualified Code(s): R10.84 - Generalized abdominal pain Condition: Stable Prescriptions: No Action docusate sodium 50 mg/5 mL Liquid 100 mg PO BID PRN (Reason: Constipation) RF: 0 lactulose 10 gram/15 mL solution 15 ml PO BID PRN (Reason: Constipation) RF: 0 Discharge Orders: Discharge Order (Routine); Ordered 06/25/20 Ordered By: Epi Chauhan Referrals: LUCERO Dueñas FNP [Primary Care Provider] - Poncho Gilbert MD [Physician] - 1-3 days Discharge Diet: Advance as tolerated Discharge Activity: Resume usual activity Patient Instructions: Abdominal Pain (ED) Activity Restrictions/Additional Instructions: continue liquid diet Coding Level of Care Code ED [employer] for [employer] Fwd Exam Comprehensive
[2020-06-25 03:29] VITALS: RESP 18
[2020-06-25] MEDS: morphine 4 mg/mL SDV 1 mL IVP (03:29)
[2020-06-25 03:40] VITALS: BP 112/76; PULSE 60; RESP 18; O2SAT 99
[2020-06-25] MEDS: diphenhydrAMINE 50 mg/mL SDV 1mL 25 MG IVP (03:49)
[2020-06-25] MEDS: metoclopramide 5 mg/mL SDV 2 mL IVP (03:51)
[2020-06-25 03:56] LABS: Basophils % 0.3 %; Eosinophils # 0.1 10^3/uL (0.0-0.8); Eosinophils % 1.1 %; Hematocrit 45.2 % (42.0-52.0); Hemoglobin 14.8 g/dL (11.7-16.6); Lymphocytes # 1.5 10^3/uL (0.8-4.8); Lymphocytes % 15.8 %; Mean Corpuscular HGB Conc 32.7 g/dL (30.0-36.0); Mean Corpuscular Hemoglobin 30.6 pg (28.0-34.0); Mean Corpuscular Volume 93.4 fL (80-94); Mean Platelet Volume 10.8 fL (7.4-10.4); Monocytes # 0.5 10^3/uL (0.2-0.9); Monocytes % 5.4 %; Neutrophils # 7.24 10^3/uL (1.8-7.7); Nucleated Red Blood Cells % 0 %; Platelet Count 164 10^3/cmm (130-400); Red Blood Count 4.84 10^6/uL (4.1-5.3); Red Cell Distribution Width 13.2 % (12.1-15.1); White Blood Count 9.4 10^3/uL (4.0-10.0)
[2020-06-25] MEDS: iohexol 300 mg/mL 100 mL Btl IV (04:08)
[2020-06-25 04:09] LABS: Alanine Aminotransferase 10 U/L (0-41); Albumin Level 4.1 g/dL (3.5-5.2); Alkaline Phosphatase 56 IU/L (40-130); Aspartate Amino Transferase 17 U/L (0-40); Blood Urea Nitrogen 10 mg/dL (8-23); Calcium 10.8 mg/dL (8.5-10.5); Carbon Dioxide 24 mmol/L (22-29); Chloride 100 mmol/L (98-107); Globulin 3.3 g/dL (1.3-4.6); Glucose 136 mg/dL (65-115); Lipase 43 U/L (13-60); Osmolality Calculated 287 mOsm/kg (285-295); Sodium 138 mmol/L (136-145); Total Bilirubin 0.5 mg/dL (0.15-1.2); Total Protein 7.4 g/dL (6.6-8.7)
[2020-06-25 04:20] LABS: Slide Review Slide Review Perform
[2020-06-25 05:02] VITALS: BP 82/52; PULSE 70; RESP 16; O2SAT 97
== END 2020-06-25 06:08 | disposition home or self-care (01) ==
PROVIDERS: Emergency Provider Emergency Medicine; PCP Nurse Practitioner Family
DX: R10.84 Generalized abdominal pain (principal); F17.220 Nicotine dependence, chewing tobacco, uncomplicated
CPT/HCPCS: 12345; 74177; 80053; 83690; 85025; 96365; 96375; 99283; 99284; J1200; J2270; J2765; Q9967

== ENCOUNTER → 2020-06-29 14:49 | Outpatient (BNVA) | payer MEDICARE, MEDICAID, SELFPAY | PROVIDERS: PCP Nurse Practitioner Family; Referring Provider Surgery; Visit Provider Urology | DX: N39.9 Disorder of urinary system, unspecified (principal) | CPT/HCPCS: 81001 ==

== ENCOUNTER 2020-06-30 15:30 | Inpatient (IN) | payer MEDICARE, MEDICAID, SELFPAY ==
[2020-06-30 15:56] VITALS: BP 95/66; PULSE 67; RESP 15; TEMP 36.3; O2SAT 97; BMI 21.1
--- NOTE | 2020-06-30 16:07 | W.ED.ABDPA2 ---
HPI - Abdominal Pain General: Chief Complaint: Abdominal Pain Stated Complaint: ABD PAIN Time Seen by Provider: 06/30/20 16:04 History of Present Illness: HPI narrative: 65-year-old male presents emergency room complaining of abdominal pain and bloating he had multiple episodes of this before he has had nausea with dry heaving but no actual vomiting. He had a bowel movement this morning after that it seemed to begin. Denies any hematochezia melena hematemesis or coffee-ground emesis had multiple hospitalizations in the past for this. MD elicited complaint: abdominal pain Pertinent past history: other (Recurrent small bowel obstructions) Onset (ago): hour(s) Pain Consistency: constant Location: Diffuse Quality: cramping Radiation: none Migration to: no migration Exacerbating factors: eating Relieving factors: nothing Context: other (Recurrent bowel obstruction) Associated Symptoms: Reports anorexia, bloating, change in bowel habits, GI cramping, nausea and poor appetite; Denies chills, coffee ground emesis, constipation, diarrhea, dyspepsia, dysuria, fever(s), heartburn, hematochezia, hematuria, hematemesis, fecal incontinence, loose stools, melena, syncope and vomiting Review of Systems Const: Denies: fever(s) or chills ENMT: Denies: throat pain, ear or mastoid pain, nasal discharge or nasal congestion Card: Denies: syncope Resp: Denies: dyspnea, productive cough or non-productive cough GI: Reports: nausea, bloating, GI cramping and change in bowel habits; Denies: vomiting, hematemesis, coffee ground emesis, heartburn, diarrhea, constipation, fecal incontinence, hematochezia or melena : Denies: dysuria or hematuria Skin/Breast: Denies: rash or pruritus PFSH ED PFSH: Medical History (Updated 07/04/20 @ 07:51 by Earl Ryder DO) Environmental and seasonal allergies Left renal mass Migraine Pre-diabetes Small bowel obstruction Recurrent Vitamin B12 deficiency (dietary) anemia Surgical History Status post knee surgery Left Family History Denies family history of CAD (coronary artery disease) Cancer Social History (Updated 06/30/20 @ 16:03 by Faustino Grullon RN) Smoking and tobacco status: former smoker Second hand smoke exposure: No Smoking risk assessment/counseling performed?: No Alcohol intake: former Desire information about alcohol rehabilitation?: No Counseling given: No Substance/Drug Use: never Desire information about substance/drug rehabilitation?: No Counseling given: No Physical Exam Const: COMMON NORMALS: no acute distress GENERAL APPEARANCE: cooperative and comfortable ORIENTATION/CONSCIOUSNESS: Yes awake, Yes oriented to person, Yes oriented to place and Yes oriented to time HENMT: COMMON NORMALS: normocephalic, atraumatic and hearing grossly normal bilaterally HEAD & SCALP: normocephalic and atraumatic Eye: COMMON NORMALS: Equal, round and reactive pupils present, EOMs intact bilaterally, conjunctivae normal and no scleral icterus CONJUNCTIVA: Yes conjunctivae normal PUPIL: Yes Equal, round and reactive pupils present Neck/C-Spine: COMMON NORMALS: full ROM, no lymphadenopathy, supple and no JVD Lymph: LYMPHATIC: no lymphadenopathy noted and no lymphedema noted Resp: COMMON NORMALS: normal respiratory effort, No retractions, No use of accessory muscles and clear to auscultation bilaterally AUSCULTATION: clear to auscultation bilaterally Cardio: COMMON NORMALS: no JVD, regular rate, regular rhythm and No murmurs present (Cardio) RATE: regular rate RHYTHM: regular rhythm GI: AUSCULTATION: Yes Absent bowel sounds PALPATION: Yes Tenderness to palpation present (GI) and No Guarding due to palpation present (GI) PERCUSSION: tympanic to percussion Extremity: COMMON NORMALS: normal to inspection, capillary refill normal, no clubbing, cyanosis or edema, no calf tenderness and no pedal edema Neuro: SENSORIUM/ORIENTATION: Yes oriented to person, Yes oriented to place and Yes oriented to time Skin: COMMON NORMALS: no rashes or lesions noted GENERAL SKIN EXAM: no rashes or lesions noted Course Vital Signs: Vital signs: Vital Signs Temperature 97.9 F 07/04/20 07:18 Pulse Rate 58 L 07/04/20 07:18 Respiratory Rate 20 H 07/04/20 07:18 Blood Pressure 121/67 07/04/20 07:18 Pulse Oximetry 95 07/04/20 07:18 MDM - Abdominal Pain MDM Narrative: Medical decision making narrative: Small bowel obstruction with a transition point. Unfortunately patient has had multiple episodes of the they do resolve with GI rest. Discussed Dr. Craig is on-call he will admit the patient. Lab Data: Labs: Lab Results 06/30/20 06/30/20 Range/Units 16:13 16:13 WBC 8.3 (4.0-10.0) 10^3/ uL RBC 4.29 (4.1-5.3) 10^6/u L Hgb 13.2 (11.7-16.6) g/dL Hct 40.1 L (42.0-52.0) % MCV 93.5 (80-94) fL MCH 30.8 (28.0-34.0) pg MCHC 32.9 (30.0-36.0) g/dL RDW 13.4 (12.1-15.1) % Plt Count 234 (130-400) 10^3/c mm MPV 9.8 (7.4-10.4) fL Neut % (Auto) 76.0 % Lymph % (Auto) 14.1 % Boundary % (Auto) 8.5 % Eos % (Auto) 0.8 % Baso % (Auto) 0.5 % Neut # (Auto) 6.28 (1.8-7.7) 10^3/u L Lymph # (Auto) 1.2 (0.8-4.8) 10^3/u L Boundary # (Auto) 0.7 (0.2-0.9) 10^3/u L Eos # (Auto) 0.1 (0.0-0.8) 10^3/u L Baso # (Auto) 0.0 (0.0-0.1) 10^3/u L Nucleated RBC % (a uto) 0 % Nucleated RBCs # 0.0 /100WBC Sodium 142 (136-145) mmol/L Potassium 4.1 (3.5-5.1) mmol/L Chloride 107 (98-107) mmol/L Carbon Dioxide 27 (22-29) mmol/L Anion Gap 12.1 (5-19) BUN 9 (8-23) mg/dL Creatinine 1.1 (0.7-1.2) mg/dL GFR Calculation 67.0 L (90-130) mL/min Glucose 89 (65-115) mg/dL Calculated Osmolal ity 292 (285-295) mOsm/k g Calcium 10.5 (8.5-10.5) mg/dL Total Bilirubin 0.5 (0.15-1.2) mg/dL AST 17 (0-40) U/L ALT 9 (0-41) U/L Alkaline Phosphata se 48 (40-130) IU/L Total Protein 6.3 L (6.6-8.7) g/dL Albumin 3.8 (3.5-5.2) g/dL Globulin 2.5 (1.3-4.6) g/dL Lipase 33 (13-60) U/L Discharge Plan Discharge Patient Disposition: Admitted As Inpatient Admit Provider: Rigo Craig Clinical Impression: Small bowel obstruction Condition: Stable Interventions: ED Discharge Assessment Last Done: 06/30/20 18:54 ED Charges Last Done: 06/30/20 18:54 Discharge Date/Time: 06/30/20 18:55 Coding Level of Care Code ED [employer] for g Fwd Exam Comprehensive
[2020-06-30 16:17] LABS: Basophils % 0.5 %; Eosinophils # 0.1 10^3/uL (0.0-0.8); Eosinophils % 0.8 %; Hematocrit 40.1 % (42.0-52.0); Hemoglobin 13.2 g/dL (11.7-16.6); Lymphocytes # 1.2 10^3/uL (0.8-4.8); Lymphocytes % 14.1 %; Mean Corpuscular HGB Conc 32.9 g/dL (30.0-36.0); Mean Corpuscular Hemoglobin 30.8 pg (28.0-34.0); Mean Corpuscular Volume 93.5 fL (80-94); Mean Platelet Volume 9.8 fL (7.4-10.4); Monocytes # 0.7 10^3/uL (0.2-0.9); Monocytes % 8.5 %; Neutrophils # 6.28 10^3/uL (1.8-7.7); Nucleated Red Blood Cells % 0 %; Platelet Count 234 10^3/cmm (130-400); Red Blood Count 4.29 10^6/uL (4.1-5.3); Red Cell Distribution Width 13.4 % (12.1-15.1); White Blood Count 8.3 10^3/uL (4.0-10.0)
--- NOTE | 2020-06-30 16:20 | CTR_ITS ---
PROCEDURE INFORMATION: Exam: CT Abdomen And Pelvis With Contrast Exam date and time: 06/30/2020 4:48 PM Age: 65 years old Clinical indication: Abdominal pain; Patient HX: HX sbo; Additional info: Abd pain TECHNIQUE: Imaging protocol: Computed tomography of the abdomen and pelvis with intravenous contrast. Radiation optimization: All CT scans at this facility use at least one of these dose optimization techniques: automated exposure control; mA and/or kV adjustment per patient size (includes targeted exams where dose is matched to clinical indication); or iterative reconstruction. Contrast material: OMNI 300; Contrast volume: 75 ml; Contrast route: INTRAVENOUS (IV); COMPARISON: 1. CT abdomen pelvis w con* [id number] 06/25/2020 4:[address] abdomen pelvis w con* [id number] 06/02/2020 7:41:34 PM RADIATION DOSE METRICS: Total DLP (mGy-cm): 269.14 FINDINGS: Lungs: Dependent atelectasis in the lungs bilaterally. Pleural space: No pleural effusion. Heart: Stable mild enlargement of the visualized portions of the heart. Liver: The liver is unremarkable. Gallbladder and bile ducts: The gallbladder is unremarkable. No biliary ductal dilatation. Pancreas: The pancreas is unremarkable. No pancreatic ductal dilatation. Spleen: The spleen is unremarkable. Adrenals: The right and left adrenal glands are unremarkable. Kidneys and ureters: The right kidney is unremarkable. Mildly hyperdense, subtle mass in the upper pole of the left kidney measuring 2.0 x 1.7 x 2.4 cm (series 602, image 16 and series 2, image 25). Findings are stable dating back to 06/02/2020. The distal right and left ureters are obscured by adjacent bowel loops and soft tissue structures. The visualized portions of the ureters are unremarkable. Stomach and bowel: Moderate gastric distention with a large air-fluid level in the stomach. Dilated small bowel loops with air-fluid levels are redemonstrated, increased compared with the previous study. Small bowel loops now measure up to 4.3 cm in diameter (series 2, image 36). The transition point is in the right lower quadrant in the distal ileum (series 2, image 58). Air-fluid levels in the colon, the colon is not dilated however. Appendix: Appendix not definitely visualized. No inflammatory changes in the pericecal region however. Intraperitoneal space: No free intraperitoneal air. No ascites. No loculated fluid collections to suggest an abscess. Vasculature: Mild atherosclerotic changes in the visualized arteries. No evidence for aortic aneurysm or aortic dissection. Hepatic veins, portal veins, splenic vein, and SMV are patent. Lymph nodes: No lymphadenopathy. Urinary bladder: Stable diffuse, mild wall thickening of the bladder. Reproductive: Stable moderate enlargement of the prostate gland. Nonspecific parenchymal calcifications in the prostate gland. Bones/joints: Mild degenerative changes at both the right and left hips. Mild degenerative changes of the right and left sacroiliac joints. Multilevel degenerative changes of varying severity in the visualized spine. Soft tissues: Unremarkable. CT/CT abdomen pelvis w con* [id number] IMPRESSION: 1. Findings suggesting a worsening small bowel obstruction. The transition point is in the right lower quadrant in the distal ileum. 2. Moderate gastric distention with a large air-fluid level in the stomach. 3. Stable mass in the left kidney dating back to 06/02/2020. Possible neoplasm cannot be ruled out. 4. Stable diffuse, mild wall thickening of the bladder. In the correct clinical setting, this may suggest cystitis. Recommend correlation with laboratory findings. Alternatively, this may be secondary to chronic outlet obstruction. 5. Incidental/nonacute findings are listed in the report. Radiation Dose CTDIVOL = (mGy): DLP = 269.14 (mGy-cm)
[2020-06-30] MEDS: sodium chloride 0.9% 1,000 ML 999 ML IV (16:34)
[2020-06-30] MEDS: metoclopramide 5 mg/mL SDV 2 mL 10 MG IVP (16:37)
[2020-06-30 16:43] LABS: Alanine Aminotransferase 9 U/L (0-41); Albumin Level 3.8 g/dL (3.5-5.2); Alkaline Phosphatase 48 IU/L (40-130); Anion Gap 12.1 (5-19); Aspartate Amino Transferase 17 U/L (0-40); Blood Urea Nitrogen 9 mg/dL (8-23); Calcium 10.5 mg/dL (8.5-10.5); Carbon Dioxide 27 mmol/L (22-29); Chloride 107 mmol/L (98-107); Globulin 2.5 g/dL (1.3-4.6); Glucose 89 mg/dL (65-115); Lipase 33 U/L (13-60); Osmolality Calculated 292 mOsm/kg (285-295); Potassium 4.1 mmol/L (3.5-5.1); Sodium 142 mmol/L (136-145); Total Bilirubin 0.5 mg/dL (0.15-1.2); Total Protein 6.3 g/dL (6.6-8.7)
[2020-06-30] MEDS: iohexol 300 mg/mL 100 mL Btl IV (16:51)
--- NOTE | 2020-06-30 17:59 | PC.NURSE ---
Pt keeps pulling out NG tube while this RN attempting to insert. Dr. Ryder notified, orders received.
--- NOTE | 2020-06-30 18:09 | PC.NURSE ---
Pt refusing morphine and ativan, refusing NG tube. Dr. Ryder notified, order received to admit w/o NG tube.
--- NOTE | 2020-06-30 18:38 | PC.NURSE ---
2 attempts made to call report, this RN was told that the patient hasn't been assigned yet.
--- NOTE | 2020-06-30 19:20 | PM.HP ---
Providers/Chief Complaint Admitting Physician: Rigo Craig MD Primary Care Provider: JAYCEE Clemente Chief Complaint: ABD PAIN History of Present Illness Ryland Huang is a 65 year old male who has been in the hospital four times over the past month with recurrent small bowel obstructions. During his first hospitalization I saw him and he improved quickly. Given the fact that he had never had any abdominal surgery before, the source of his obstruction was somewhat unclear and so we tried to do a small bowel follow-through prior to discharge just to ensure no obvious masses, etc. He could not tolerate the oral contrast (taste) and so he went home. I believe Dr. Gilbert has been provisioning specialist and has taken care of him on both of the other occasions he has had to be admitted. He again eventually improved without any surgery on each occasion. He ended up having a colonoscopy 2 weeks ago because I think one CAT scan seemed to suggest a possible transverse colon problem, but his colonoscopy was normal (a rectal biopsy showed some lymphoid aggregate). He has been following up in Dr. Gilbert's office. The patient says he has been staying on a liquid diet at home but Dr. Gilbert's nurse told him to try to start advancing that. He ate some potatoes yesterday and some crackers this morning. He ended up getting back into trouble this afternoon with abdominal bloating and crampy abdominal pain. He presented back to the emergency department where he vomited 3 times. Another CAT scan (this is the seventh one he has had in the past 4 weeks) once again showed a very distal small bowel obstruction. He says he is still passing a little bit of flatus. They passed a nasogastric tube in the emergency room, but the patient pulled it back out because he could not tolerated it. He is still refusing one now. He has lost about 10 pounds over the past month due to his inability to eat much solid food. He has no family history of upper or lower GI neoplasia or inflammatory bowel disease. He has never had abdominal trauma or abdominal surgery. He did see Dr. Costa recently for a small left renal mass that was seen on his CAT scan, in addition to possible changes of cystitis. He says Dr. Costa did not seem to feel very concerned about the renal mass. Cystoscopy was recommended but the patient said he wanted to wait until his intestinal problem had resolved prior to pursuing any further diagnostics. Review of Systems General: Reports: 10 or more systems reviewed and unremarkable except in HPI and below Const: Reports: change in weight (10 pound weight loss over the past month --unable to eat); Denies: fever(s) or night sweats GI: Reports: abdominal pain, nausea, vomiting, bloating and GI cramping; Denies: hematemesis : Reports: other (As of 06/30/2020, recently saw Dr. Costa for a small renal mass/possible cystitis --they are awaiting resolution of his intestinal problem before proceeding with further work-up) Medications/Allergies Home Medications Medication Instructions Recorded Confirmed Last Taken Type lactulose 15 ml PO BID PRN 06/11/20 06/30/20 06/11/20 History magnesium citrate 150 ml PO DAILY 06/29/20 06/30/20 06/30/20 History sumatriptan 5 mg/actuation nasal 20 mg INTRANASAL Q2H PRN 06/29/20 06/30/20 Unknown History spray Allergies Allergy/AdvReac Type Severity Reaction Status Date / Time phenylephrine Allergy ADR-Nausea Verified 06/25/20 03:29 [From Sudafed PE] pseudoephedrine Allergy ADR-Nausea Verified 06/25/20 03:29 [From Actifed] triprolidine [From Actifed] Allergy ADR-Nausea Verified 06/25/20 03:29 aspirin AdvReac low heart Verified 06/22/20 13:53 rate PFSH Acute PFSH: Medical History (Updated 06/30/20 @ 20:06 by Rigo Craig MD) Environmental and seasonal allergies Left renal mass Migraine Pre-diabetes Small bowel obstruction Recurrent Vitamin B12 deficiency (dietary) anemia Surgical History Status post knee surgery Left Family History Denies family history of CAD (coronary artery disease) Cancer Social History (Updated 06/30/20 @ 16:03 by Faustino Grullon RN) Smoking and tobacco status: former smoker Second hand smoke exposure: No Smoking risk assessment/counseling performed?: No Alcohol intake: former Desire information about alcohol rehabilitation?: No Counseling given: No Substance/Drug Use: never Desire information about substance/drug rehabilitation?: No Counseling given: No Vitals/I&O/Wt Last Vital Signs Temp 97.3 F L 06/30/20 15:56 Pulse 67 06/30/20 15:56 Resp 15 06/30/20 15:56 BP 95/66 06/30/20 15:56 Pulse Ox 97 06/30/20 15:56 Weight last 48 hrs Weight 127 lb Physical Exam Narrative: EXAM NARRATIVE: The patient was encountered in his hospital room. He is in no distress. During our conversation, he had to run to the bathroom to pass some stool. Upon his return his examination reveals his pupils to be equal. The lungs are clear anteriorly. The heart is regular. The abdomen reveals hypoactive bowel sounds. The abdomen is softly distended and no obvious masses or surgical scars are identified. He has some very mild scattered tenderness which is not always reproducible. The extremities reveal no edema. Neurologically the patient is grossly intact. Data : 06/30/20 16:13 06/30/20 16:13 CT Abd/Pel: Radiologist's impression: CT abdomen/pelvis 06/30/2020 IMPRESSION: 1. Findings suggesting a worsening small bowel obstruction. The transition point is in the right lower quadrant in the distal ileum. 2. Moderate gastric distention with a large air-fluid level in the stomach. 3. Stable mass in the left kidney dating back to 06/02/2020. Possible neoplasm cannot be ruled out. 4. Stable diffuse, mild wall thickening of the bladder. In the correct clinical setting, this may suggest cystitis. Recommend correlation with laboratory findings. Alternatively, this may be secondary to chronic outlet obstruction. A&P Assessment and plan (1) Small bowel obstruction: This is the fourth hospitalization the patient has had in the past month for the same issue. He has had a colonoscopy which did not reveal any abnormalities (rectal biopsy showed benign lymphoid aggregates). The patient has had 7 CAT scans over the past 4 weeks. I told Ryland that I suspect this is going to be an ongoing problem and that surgery is going to be necessary to not only make a diagnosis, but resolve the problem. We discussed exploratory laparotomies with possible surgical treatment of internal hernias, Meckel's diverticula, obstructive lesions, etc. Risks of surgery were discussed; the patient seems to be most concerned about anesthesia and is afraid I will not wake up despite the fact that he has had knee surgery in the past. The patient seems to understand and is agreeable to scheduling surgery for tomorrow. Particularly since he does not have a nasogastric tube in place and continues to refuse one, the patient will be left n.p.o. tonight. I will make tentative arrangements for an exploratory laparotomy with release of small bowel obstruction tomorrow. Status: Acute Attestations Medical Necessity Statement*: Based on my medical assessment, presenting symptoms, medical accuity and consideration of surgical therapy, I expect this patient will require treatment in the hospital for a period spanning at least 2 midnights. Coding Level of Care Code Acute Non Categorical Preschool Teacher for Delon Londono Diagnoses Small bowel obstruction K56.609
[2020-06-30] MEDS: D5-NS 0.45% + KCL 20 mEq 20 MEQ/1,000 ML BAG 100 MEQ IV (22:03)
[2020-06-30] MEDS: famotidine 20 mg/2 mL INJ IVP (22:03)
[2020-07-01] VITALS (18 sets, daily range): BP systolic 88–134; BP diastolic 51–81; PULSE 44–83; RESP 10–20; TEMP 36.2–37.1; O2SAT 94–100
[2020-07-01 06:00] LABS: Basophils % 0.6 %; Eosinophils # 0.1 10^3/uL (0.0-0.8); Eosinophils % 2.2 %; Hematocrit 38.9 % (42.0-52.0); Hemoglobin 12.4 g/dL (11.7-16.6); Lymphocytes # 1.2 10^3/uL (0.8-4.8); Lymphocytes % 24.1 %; Mean Corpuscular HGB Conc 31.9 g/dL (30.0-36.0); Mean Corpuscular Hemoglobin 30.6 pg (28.0-34.0); Mean Platelet Volume 10.5 fL (7.4-10.4); Monocytes # 0.5 10^3/uL (0.2-0.9); Monocytes % 10.8 %; Neutrophils # 3.08 10^3/uL (1.8-7.7); Neutrophils % 61.9 %; Nucleated Red Blood Cells % 0 %; Platelet Count 208 10^3/cmm (130-400); Red Blood Count 4.05 10^6/uL (4.1-5.3); Red Cell Distribution Width 13.2 % (12.1-15.1)
[2020-07-01 06:31] LABS: Alanine Aminotransferase 8 U/L (0-41); Albumin Level 3.3 g/dL (3.5-5.2); Alkaline Phosphatase 42 IU/L (40-130); Blood Urea Nitrogen 9 mg/dL (8-23); Calcium 9.4 mg/dL (8.5-10.5); Carbon Dioxide 23 mmol/L (22-29); Chloride 107 mmol/L (98-107); Globulin 2.5 g/dL (1.3-4.6); Glomerular Filtration Rate 96.7 mL/min (90-130); Glucose 81 mg/dL (65-115); Osmolality Calculated 284 mOsm/kg (285-295); Sodium 138 mmol/L (136-145); Total Bilirubin 0.7 mg/dL (0.15-1.2); Total Protein 5.8 g/dL (6.6-8.7)
[2020-07-01 06:35] LABS: Anion Gap 12.2 (5-19); Aspartate Amino Transferase 17 U/L (0-40); Potassium 4.2 mmol/L (3.5-5.1)
--- NOTE | 2020-07-01 06:46 | PM.PN ---
Subjective Subjective: Interval history: Patient says he is ready to have surgery. He is still passing a little bit of flatus but had no vomiting or bowel movements overnight. His biggest concern is that he would like his girlfriend to be here during his operation and because of the pandemic restrictions, he was afraid that might not be possible. Vitals/I&O/Wt Last Vital Signs Temp 98.7 F 07/01/20 04:00 Pulse 56 L 07/01/20 04:00 Resp 18 07/01/20 04:00 BP 88/51 07/01/20 04:00 Pulse Ox 94 07/01/20 04:00 06/30/20 06/30/20 07/01/20 14:59 22:59 06:59 Output Total 250 / 250 Balance -250 / -250 Weight last 48 hrs Weight 127 lb Physical Exam Narrative: EXAM NARRATIVE: The abdomen remains softly distended with some mild scattered tenderness. Data : 07/01/20 05:15 07/01/20 05:15 A&P Assessment and plan (1) Small bowel obstruction: The patient is agreeable to proceeding with surgery later today. I will try to make arrangements to see if his girlfriend can be in the hospital at the time of the surgery. Status: Acute Attestations Medical Necessity Statement*: Based on my medical assessment, presenting symptoms, medical accuity and consideration of surgical therapy, I expect this patient will require treatment in the hospital for a period spanning at least 2 midnights. Coding Level of Care Code Acute Netting Inspector for Delon Londono Diagnoses Small bowel obstruction K56.609
[2020-07-01] MEDS: D5-NS 0.45% + KCL 20 mEq 20 MEQ/1,000 ML BAG 100 MEQ IV ×2 (07:01→16:44)
[2020-07-01] MEDS: famotidine 20 mg/2 mL INJ IVP ×2 (09:01→21:27)
--- NOTE | 2020-07-01 11:06 | PC.CHAP ---
Pastoral Care Encounter/Spiritual Assessment Type of Contact [] Declined director safety council visit [] Patient/Family/Request visit [] Outpatient visit [x] Follow-up visit [] Physician referral [] Code/Alert [] Routine visit [] Staff referral [] Actively dying [] Patient sleeping [] Family support [] [] Out of room [] Palliative care [] [] Receiving care in room [] Pre-surgical visit [] Trauma [] Long length of stay [] ICU visit [] Other: Relational/Emotional Strength [] Patient feels connected with others/family/visitors/staff [] Distress [] Loneliness/isolation [] Abandonment Spirituality of Patient [] Person of [place] [] Attends Pentecostalism of their [place] [] Believes in Prayer [] Reads Bible or Congregational materials [] There are Spiritual issues to be addressed Human Resources Records Clerk Interventions [] Prayer [] Active listening [] Non-anxious presence [] Spiritual/emotional support [] Crisis/trauma care [] Spiritual counseling [] Bereavement support [] Provided bereavement packet [] Provided Bible/devotional materials [] Provided toy/stuffed animal, coloring book to patient or family member [] Provided Communion [] Anointing/[place] [] Salvation [] Completed spiritual assessment [] Other: Impact on Illness or Injury [] Angry [] Fearful [] Anxious [] Often cries [] Exhaustion [] Unable to work [] Unable to attend zoroastrianism [] Unable to walk/stand [] Unable to read [] Unable to drive [] Unable to eat/drink [] Unable to sleep [] Unable to be with family [] Patient intubated [] Other: Summary Follow-up visit Time spent with patient 5 mins
--- NOTE | 2020-07-01 11:58 | PC.NURSE ---
patient taken to OR via gurney
--- NOTE | 2020-07-01 12:33 | ECG_ITS ---
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 Measurements Intervals [place] Rate: 44 P: 47 MI: 210 QRS: 76 QRSD: 106 T: 56 QT: 459 QTc: 393 Interpretive Statements SINUS BRADYCARDIA WITH FIRST DEGREE AV BLOCK Compared to ECG 06/16/2020 19:37:25 First degree AV block now present Sinus rhythm no longer present ST (T wave) deviation no longer present Electronically Signed On 07-01-2020 17:11:18 CDT by Esha Davis M.D. [id number]
--- NOTE | 2020-07-01 12:39 | PC.NURSE ---
EKG ordered per anesthesia protocol r/t bradycardia in preop. BP stable. Dr Herrmann aware. RT at bedside now.
[2020-07-01] MEDS: glycopyrrolate 0.2 mg/mL SDV 2 mL IV (13:01)
--- NOTE | 2020-07-01 13:03 | PC.NURSE ---
Monica Quinn, JESSICA administered glycopyrrolate 0.2 IVP once. HR now 57, BP 115/75. Pt asymptomatic at this time.
--- NOTE | 2020-07-01 13:44 | P.ANESASSM_ITS ---
Pre-Anesthetic Assessment Pre-Anesthetic Assessment: Height/Weight: Height 1.65 m Weight 57.606 kg Temp Pulse Resp BP Pulse Ox 97.9 F 57 L 20 H 115/75 95 07/01/20 12:08 07/01/20 13:08 07/01/20 13:08 07/01/20 13:08 07/01/20 13:08 Preop Diagnosis: bowel obstruction Proposed Procedure: Operation Date: 07/01/20 13:30 Proposed Procedures p Exploratory Laparotomy with release of small bowel obstruction/possible bowel resection(Not Applicable) - Rigo Craig MD Familial anesthetic complications: None Was Beta Radha taken within 24 hours: N/A Last intake: Intake Last Liquid Date 07/01/20 Last Liquid Time 00:00 Last Solid Date 07/01/20 Last Solid Time 00:00 Social: Social History: No alcohol and No tobacco Comment: forme rsmoker Exam: Pre-Anes Outpt Exam: alert, oriented x 3, clear to auscultation bilaterally and regular rate & rhythm Airway: Cervical ROM: WNL MP: 2 Dentition: Other (no teeth) CV/HEM: CV/HEM: HTN Comments: EKG 06/17 showed EKG changes, was asymptomatic no troponin elevation. Echo was performed showe EF of 60% and some diastolic dysunction, milkd LVH, and mild AVR. Having some asx bradycardia, EKG w/ 1st AV block. BP stable. No other cardiac history. : Comments: SBo, no NG tube in place (patient refused) Metabolic: Metabolic: DM (pre DM) Comments: joo b12 deficiency Anesthetic Plan: ASA status: 3 Anesthesia: General Other: RSI Risk of > 500 ml blood loss (7ml/kg in children): No Meds/Allergies Current Medications: Current Medications Generic Name Dose Route Start Last Admin Trade Name Freq PRN Reason Stop Dose Admin Famotidine 20 mg 06/30/20 21:00 07/01/20 09:01 Pepcid Inj IVP 20 mg Q12H NETO Administration Glycopyrrolate 0.2 mg 07/01/20 12:43 07/01/20 13:01 Robinol IV 0.2 mg Q4H PRN Administration SECRETIONS Potassium Chloride /Dextrose/Sod Cl 20 meq in 1,000 m ls @ 100 mls/hr 06/30/20 20:15 07/01/20 07:01 D5-Ns 0.45% + Elton l 20 Meq IV 100 mls/hr .Q10H NETO Administration PFSH Anesthesia PFSH: Medical History Environmental and seasonal allergies Left renal mass Migraine Pre-diabetes Small bowel obstruction Recurrent Vitamin B12 deficiency (dietary) anemia Surgical History Status post knee surgery Left Family History Denies family history of CAD (coronary artery disease) Cancer Social History (Updated 06/30/20 @ 16:03 by Faustino Grullon RN) Smoking and tobacco status: former smoker Second hand smoke exposure: No Smoking risk assessment/counseling performed?: No Alcohol intake: former Desire information about alcohol rehabilitation?: No Counseling given: No Substance/Drug Use: never Desire information about substance/drug rehabilitation?: No Counseling given: No Data Anesthesia CBC & Chem 7: 07/01/20 05:15 07/01/20 05:15 Other Labs: Laboratory Results - last 48 hr 06/30/20 06/30/20 07/01/20 16:13 16:13 05:15 WBC 8.3 5.0 RBC 4.29 4.05 L Hgb 13.2 12.4 Hct 40.1 L 38.9 L MCV 93.5 96.0 H MCH 30.8 30.6 MCHC 32.9 31.9 RDW 13.4 13.2 Plt Count 234 208 MPV 9.8 10.5 H Neut % (Auto) 76.0 61.9 Lymph % (Auto) 14.1 24.1 [place] % (Auto) 8.5 10.8 Eos % (Auto) 0.8 2.2 Baso % (Auto) 0.5 0.6 Neut # (Auto) 6.28 3.08 Lymph # (Auto) 1.2 1.2 [place] # (Auto) 0.7 0.5 Eos # (Auto) 0.1 0.1 Baso # (Auto) 0.0 0.0 Nucleated RBC % (auto) 0 0 Nucleated RBCs # 0.0 0.0 Sodium 142 Potassium 4.1 Chloride 107 Carbon Dioxide 27 Anion Gap 12.1 BUN 9 Creatinine 1.1 GFR Calculation 67.0 L Glucose 89 Calculated Osmolality 292 Calcium 10.5 Total Bilirubin 0.5 AST 17 ALT 9 Alkaline Phosphatase 48 Total Protein 6.3 L Albumin 3.8 Globulin 2.5 Lipase 33 07/01/20 05:15 WBC RBC Hgb Hct MCV MCH MCHC RDW Plt Count MPV Neut % (Auto) Lymph % (Auto) [place] % (Auto) Eos % (Auto) Baso % (Auto) Neut # (Auto) Lymph # (Auto) [place] # (Auto) Eos # (Auto) Baso # (Auto) Nucleated RBC % (auto) Nucleated RBCs # Sodium 138 Potassium 4.2 Chloride 107 Carbon Dioxide 23 Anion Gap 12.2 BUN 9 Creatinine 0.8 GFR Calculation 96.7 Glucose 81 Calculated Osmolality 284 L Calcium 9.4 Total Bilirubin 0.7 AST 17 ALT 8 Alkaline Phosphatase 42 Total Protein 5.8 L Albumin 3.3 L Globulin 2.5 Lipase Cardiac Studies: No Data to Display
[2020-07-01] MEDS: metroNIDAZOLE IV 250 MG in empty flexible container 1 EACH 50 MG IV (14:05)
--- NOTE | 2020-07-01 15:28 | PM.OP ---
Operative Report Date of procedure: July 01, 2020 Pre-op Diagnosis: Recurrent small bowel obstructions. 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 Procedure Done: Exploratory laparotomy with resection of ileum and cecum. Specimens removed/disposition: Ileum and cecum. Surgeon: Rigo Craig Anesthesia: General Estimated blood loss (mL): 50 Complications: None. Condition: stable Disposition: PACU Procedure: The patient was brought to the operating room and was placed in a supine position on the operating room table. General endotracheal anesthesia was induced. A Caruso catheter was inserted by nursing. A nasogastric tube was eventually passed by anesthesia. The abdomen was prepped and draped in a sterile fashion. A small midline incision was carried out underneath the umbilicus. Cautery was used to divide the subcutaneous tissue and the midline fascia. The peritoneal cavity was entered. There is a small to moderate amount of straw-colored fluid in the peritoneal cavity that was suctioned out. The small bowel that was initially encountered was very dilated. This was brought out through the incision and a significant stricture was found within a foot of the terminal ileum. It appeared to be secondary to tumor that was based near the mesenteric border. The mesentery had scattered tumor implants. By palpation the patient had limited but obvious peritoneal studding in the pelvis, primarily on the right side anteriorly. The appendix seem to have tumor associated with it, as well. When the process was found to be a malignancy, the incision was extended superiorly up and adjacent to the umbilicus for better exposure. The cecum and ascending colon were mobilized by incising the peritoneal reflection laterally and rolling the colon medially. The patient had multiple palpable lymph nodes within the mesentery of the cecum as well as throughout the small bowel. Upon exteriorizing more of the small bowel it became clear that the patient had several other areas involving tumor, the most significant being in the mid ileum where there was another rather severe stricture secondary to a nearly identical process at the mesenteric border, just in a different area. He had other mesenteric border tumors that were present more proximally, but had not as yet created any obstructive process. It appeared as if the patient's obstructive process was a combination of the 2 severe strictures that were obviously present, although he had other early areas that just were not symptomatic yet. Palpation in the upper abdomen revealed a pancreas with a very firm head. No obvious evidence of peritoneal studding was present in the upper abdomen. A frozen section of a mesenteric implant was sent to pathology and was confirmed to be malignant. It was clear that the tumor process was involving the entire length of the small bowel, just not as severe proximally. It was difficult to tell if this was a primary appendiceal process, a small bowel process or some other malignancy that was now rather diffusely throughout the abdomen. The decision was made to perform a palliative bowel resection to relieve the obstructive symptoms. This was obviously going to have to involve the 2 severe strictures in the ileum as well as the abnormal appendix/cecum. A HIRAM 55 was used to divide the ileum proximal to the proximal severe stricture. A HIRAM 55 was used to divide the mid ascending colon past the obvious gross disease involving the appendix/cecum/lymph nodes. The intervening mesentery was then divided using the LigaSure. The specimen was removed. The remaining bowel was returned to the abdomen and extensive irrigation was carried out. Again, there was still evidence of some peritoneal studding in the pelvis as well as multiple mesenteric implants involving the remaining small bowel and several areas of tumor involvement of the mesenteric border of the remaining small bowel. The proximal ileum and ascending colon were placed next each other in preparation for a functional end-to-end anastomosis. The 2 limbs of bowel were approximated to each other with several pop-off sutures of 3-0 Vicryl. An opening was made in either limb of bowel and an arm of a HIRAM 55 stapler was passed down either limb and was fired, creating a common opening between the 2 limbs of bowel. The staple lines were transposed and a TX 60 stapler was used to close the common opening on the end. Several stay sutures of 3-0 Vicryl were used at the end of the staple line to take tension off of the anastomosis. The anastomosis was palpably patent and all the bowel was clearly viable. The mesenteric window that had been created was closed using a running suture of 3-0 Vicryl. The nasogastric tube was found to be in good position within the gastric lumen by palpation. A final look around the abdomen revealed no bleeding or other problems. Once again, extensive irrigation was carried out in the abdominal cavity and attention was directed towards closure. The midline fascia was closed using a running looped suture of #1 PDS. The subcutaneous tissue was irrigated and the skin was approximated using skin vishnu. A sterile dressing was placed over the wound and the patient was taken back to the recovery area in stable condition postoperatively.
--- NOTE | 2020-07-01 15:59 | PM.PACU ---
PACU note Post-Anesthesia Exam: somnolent, arousable and vital signs stable Disposition: back to floor
[2020-07-01] MEDS: ketorolac 30 mg/mL INJ 15 MG IVP ×2 (16:45→21:30)
--- NOTE | 2020-07-01 16:57 | PTH.FRZRPT ---
Frozen Section Notes Specimen(s): Peritoneal implant Gross: The specimen is received fresh in a container labeled with the patient's name and MRN number and additionally labeled, peritoneal implant and consists of a florian-red fragment measuring 0.1 x 0.1 x 0.1 cm, submitted for frozen section diagnoses in FSA 1. Preliminary Impression: Peritoneum, implant , biopsy: ?Positive for malignancy. ?Metastatic adenocarcinoma. - Specimen Information Pathologist: Angelina Schmidt Date: 07/01/20 Specimen reported at what time: 14:50 - Clinician Specimen collection time: 14:35 Clinician reported to: Rigo Craig
[2020-07-01] MEDS: levalbuterol 0.63 mg/3 mL Neb INHALATION (20:23)
[2020-07-01] MEDS: ceFAZolin 1,000 MG in sodium chloride 0.9% (plus) 50 ML 100 MG IV (21:25)
[2020-07-01] MEDS: metroNIDAZOLE IV 500 MG/100 ML PREMIX 100 MG IV (21:31)
[2020-07-02] VITALS (10 sets, daily range): BP systolic 78–144; BP diastolic 45–79; PULSE 60–89; RESP 16–24; TEMP 36.2–37.6; O2SAT 93–100
[2020-07-02] MEDS: ketorolac 30 mg/mL INJ 15 MG IVP ×4 (04:15→22:32)
[2020-07-02] MEDS: ondansetron 2 mg/ML SDV 2 mL 4 MG IVP ×2 (05:17→17:00)
[2020-07-02] MEDS: metroNIDAZOLE IV 500 MG/100 ML PREMIX 100 MG IV ×2 (05:18→14:20)
[2020-07-02] MEDS: ceFAZolin 1,000 MG in sodium chloride 0.9% (plus) 50 ML 100 MG IV ×2 (05:18→13:16)
[2020-07-02] MEDS: heparin 5,000 unit/mL INJ 1 mL 5000 UNIT SUBCUT ×2 (05:18→17:00)
[2020-07-02 06:04] LABS: Basophils % 0.1 %; Hemoglobin 12.9 g/dL (11.7-16.6); Lymphocytes # 0.9 10^3/uL (0.8-4.8); Lymphocytes % 7.8 %; Mean Corpuscular HGB Conc 32.3 g/dL (30.0-36.0); Mean Corpuscular Hemoglobin 30.6 pg (28.0-34.0); Mean Corpuscular Volume 94.8 fL (80-94); Mean Platelet Volume 10.6 fL (7.4-10.4); Monocytes # 0.7 10^3/uL (0.2-0.9); Monocytes % 6.6 %; Neutrophils # 9.46 10^3/uL (1.8-7.7); Neutrophils % 85.1 %; Nucleated Red Blood Cells % 0 %; Platelet Count 199 10^3/cmm (130-400); Red Blood Count 4.22 10^6/uL (4.1-5.3); Red Cell Distribution Width 13.4 % (12.1-15.1); White Blood Count 11.1 10^3/uL (4.0-10.0)
[2020-07-02 06:36] LABS: Anion Gap 12.3 (5-19); Blood Urea Nitrogen 8 mg/dL (8-23); Calcium 9.6 mg/dL (8.5-10.5); Carbon Dioxide 23 mmol/L (22-29); Chloride 103 mmol/L (98-107); Glomerular Filtration Rate 84.4 mL/min (90-130); Glucose 91 mg/dL (65-115); Osmolality Calculated 276 mOsm/kg (285-295); Potassium 4.3 mmol/L (3.5-5.1); Sodium 134 mmol/L (136-145)
--- NOTE | 2020-07-02 07:41 | ANE.PACU2 ---
Inpatient post-anesthesia follow up: Airway intact: Yes Vital signs: Temperature 98.2 F Pulse Rate [Left R adial] 67 Pulse Rate 67 Respiratory Rate 18 Blood Pressure [Le ft Arm] 95/66 Blood Pressure 144/79 Pulse Oximetry 95 Oxygen Delivery Me thod Room Air Oxygen Flow Rate Fraction of Inspir ed Oxygen Hydration adequate: Yes Nausea and vomiting: No Pain level: 5 Mental status: Baseline Additional Comments: back pain and headache with some abdominal cramping
--- NOTE | 2020-07-02 08:37 | PM.PN ---
Subjective Subjective: Interval history: The patient says his abdomen is sore. Pain medication makes it better. He is not passing any flatus yet. Surgical findings were again discussed with him this morning Vitals/I&O/Wt Last Vital Signs Temp 99.6 F 07/02/20 08:22 Pulse 67 07/02/20 08:22 Resp 18 07/02/20 08:22 BP 87/56 07/02/20 08:22 Pulse Ox 95 07/02/20 08:22 07/01/20 07/02/20 07/02/20 22:59 06:59 14:59 Intake Total 1121.667 / 2118.334 Output Total 700 / 2750 1450 / 2750 Balance 421.667 / -631.666 -1450 / -631.666 Weight last 48 hrs Weight 127 lb Physical Exam Narrative: EXAM NARRATIVE: Bowel sounds are hypoactive. The midline dressing is dry. Urinary Catheter Management^: Coude: Cath Placed During This Visit: yes Reason for Continuing Indwelling Catheter: Required Immobilization for Trauma or Surgery or Anesthesia Urinary Catheter Date of Insertion: 07/01/20 Urinary Catheter Time of Insertion: 14:00 Data : 07/02/20 04:43 07/02/20 04:43 A&P Assessment and plan (1) Abdominal malignancy: The patient was found to have diffuse tumor involving the abdomen. 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 He underwent excision of a good portion of his ileum where he had 2 severe strictures as well as his cecum where the appendix was grossly abnormal. Up in a chair today. The patient's procedure yesterday should resolve his obstructive symptoms, but unfortunately, he has more tumor throughout his abdomen that is likely to eventually cause more issues. Following his convalescence and final pathology, I will make arrangements for him to follow-up with the oncology service. Status: Acute Attestations Medical Necessity Statement*: See admitting service's notation. Coding Level of Care Code Acute Medicaid Business Analyst for [facility] Diagnoses Abdominal malignancy C76.2
--- NOTE | 2020-07-02 08:52 | PC.RESP ---
Tobacco Cessation information sent to patient.
[2020-07-02] MEDS: famotidine 20 mg/2 mL INJ IVP ×2 (08:58→20:39)
[2020-07-02] MEDS: D5-NS 0.45% + KCL 20 mEq 20 MEQ/1,000 ML BAG 100 MEQ IV ×2 (11:13→22:09)
[2020-07-02] MEDS: morphine 4 mg/mL SDV 1 mL IVP (11:14)
[2020-07-02] MEDS: levalbuterol 0.63 mg/3 mL Neb INHALATION ×2 (11:14→16:28)
--- NOTE | 2020-07-02 17:41 | PC.NURSE ---
SHIFT SUMMARY PATIENT HAS DONE WELL TODAY. PATIENT HAS BEEN UP TO THE CHAIR TWICE TODAY. HE HAD 700ML OF URINE OUTPUT AND 150ML OF OUTPUT FROM THE NG TUBE. MORPHINE WAS ADMINISTERED ONE TIME BY THIS NURSE FOR BREAKTHROUGH PAIN. PATIENT'S PAIN HAS BEEN WELL CONTROLLED WITH THE SCHEDULED TORADOL. SURGICAL INCISION DRESSING IS C/D/I. PATIENT HAS ACTIVE BOWEL SOUNDS, BUT HAS NOT PASSED GAS AT THIS TIME.
[2020-07-03] VITALS (10 sets, daily range): BP systolic 93–106; BP diastolic 56–66; PULSE 54–72; RESP 16–20; TEMP 36.5–36.8; O2SAT 95–97
[2020-07-03 04:27] LABS: Basophils % 0.1 %; Eosinophils # 0.1 10^3/uL (0.0-0.8); Eosinophils % 1.1 %; Hematocrit 36.4 % (42.0-52.0); Lymphocytes % 11.4 %; Mean Corpuscular Hemoglobin 30.9 pg (28.0-34.0); Mean Corpuscular Volume 93.8 fL (80-94); Mean Platelet Volume 10.3 fL (7.4-10.4); Monocytes # 0.8 10^3/uL (0.2-0.9); Monocytes % 9.3 %; Neutrophils # 6.56 10^3/uL (1.8-7.7); Neutrophils % 77.7 %; Nucleated Red Blood Cells % 0 %; Platelet Count 182 10^3/cmm (130-400); Red Blood Count 3.88 10^6/uL (4.1-5.3); Red Cell Distribution Width 13.6 % (12.1-15.1); White Blood Count 8.4 10^3/uL (4.0-10.0)
[2020-07-03 04:45] LABS: Anion Gap 10.4 (5-19); Blood Urea Nitrogen 8 mg/dL (8-23); Calcium 9.7 mg/dL (8.5-10.5); Carbon Dioxide 26 mmol/L (22-29); Chloride 107 mmol/L (98-107); Glomerular Filtration Rate 84.4 mL/min (90-130); Glucose 91 mg/dL (65-115); Osmolality Calculated 286 mOsm/kg (285-295); Potassium 4.4 mmol/L (3.5-5.1); Sodium 139 mmol/L (136-145)
[2020-07-03] MEDS: ketorolac 30 mg/mL INJ 15 MG IVP ×4 (05:34→23:03)
[2020-07-03] MEDS: heparin 5,000 unit/mL INJ 1 mL 5000 UNIT SUBCUT ×2 (06:20→17:15)
--- NOTE | 2020-07-03 08:01 | PM.PN ---
Subjective Subjective: Interval history: The patient has some occasional abdominal cramping, he suspects from air moving around. He has not passed any flatus yet, however. Vitals/I&O/Wt Last Vital Signs Temp 98.1 F 07/03/20 07:46 Pulse 54 L 07/03/20 07:46 Resp 18 07/03/20 07:46 BP 104/64 07/03/20 07:46 Pulse Ox 96 07/03/20 07:46 07/02/20 07/03/20 07/03/20 22:59 06:59 14:59 Intake Total 1060 / 1060 Output Total 850 / 3450 1750 / 3450 Balance 210 / -2390 -1750 / -2390 Physical Exam Narrative: EXAM NARRATIVE: Vital signs are stable. Urine output is excellent. The midline dressing was removed. The incision looks good. Bowel sounds are active. Urinary Catheter Management^: Coude: Cath Placed During This Visit: yes Reason for Continuing Indwelling Catheter: Required Immobilization for Trauma or Surgery or Anesthesia Urinary Catheter Date of Insertion: 07/01/20 Urinary Catheter Time of Insertion: 14:00 Data : 07/03/20 04:00 07/03/20 04:00 A&P Assessment and plan (1) Abdominal malignancy: The patient was found to have diffuse tumor involving the abdomen. 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 He underwent excision of a good portion of his ileum where he had 2 severe strictures as well as his cecum where the appendix was grossly abnormal. The patient's procedure should resolve his obstructive symptoms, but unfortunately, he has more tumor throughout his abdomen that is likely to eventually cause more issues. Following his convalescence and final pathology, I will make arrangements for him to follow-up with the oncology service. Today: Remove Caruso catheter. Start to ambulate. Status: Acute Attestations Medical Necessity Statement*: patient requires ongoing inpatient care following bowel resection. 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
[2020-07-03] MEDS: levalbuterol 0.63 mg/3 mL Neb INHALATION ×2 (08:05→13:30)
[2020-07-03] MEDS: famotidine 20 mg/2 mL INJ IVP ×2 (08:21→20:25)
[2020-07-03] MEDS: D5-NS 0.45% + KCL 20 mEq 20 MEQ/1,000 ML BAG 100 MEQ IV ×2 (08:21→22:04)
--- NOTE | 2020-07-03 10:26 | PC.SOCIAL ---
IMM Update Pg. 2 of IMM updated and reviewed with patient. Copy provided.
[2020-07-04] VITALS (12 sets, daily range): BP systolic 103–134; BP diastolic 65–75; PULSE 48–81; RESP 16–20; TEMP 36.3–36.9; O2SAT 93–99
--- NOTE | 2020-07-04 00:20 | PC.NURSE ---
This nurse has observed the patient rubbing his surgical incision site with his bare hands twice this shift. This nurse educated the patient about surgical site infections and that touching the surgical site with unwashed hands could result in infection. The patient verbalized understanding, however the next time this nurse was in the patient's room the nurse saw the patient rubbing the surgical site again. This nurse will continue to remind and redirect the patient.
[2020-07-04] MEDS: levalbuterol 0.63 mg/3 mL Neb INHALATION ×3 (00:40→11:17)
--- NOTE | 2020-07-04 02:39 | PC.NURSE ---
patient has reported to this nurse on two occasions this shift that he has passed flatus. Pt has active bowel sounds.
[2020-07-04] MEDS: ketorolac 30 mg/mL INJ 15 MG IVP ×2 (04:51→16:27)
[2020-07-04] MEDS: heparin 5,000 unit/mL INJ 1 mL 5000 UNIT SUBCUT ×2 (05:13→17:43)
[2020-07-04 06:01] LABS: Basophils % 0.2 %; Eosinophils # 0.3 10^3/uL (0.0-0.8); Hematocrit 35.2 % (42.0-52.0); Hemoglobin 11.7 g/dL (11.7-16.6); Lymphocytes # 1.1 10^3/uL (0.8-4.8); Mean Corpuscular HGB Conc 33.2 g/dL (30.0-36.0); Mean Corpuscular Hemoglobin 31.2 pg (28.0-34.0); Mean Corpuscular Volume 93.9 fL (80-94); Mean Platelet Volume 10.5 fL (7.4-10.4); Monocytes # 0.5 10^3/uL (0.2-0.9); Monocytes % 8.4 %; Neutrophils % 70.1 %; Nucleated Red Blood Cells % 0 %; Platelet Count 178 10^3/cmm (130-400); Red Blood Count 3.75 10^6/uL (4.1-5.3); Red Cell Distribution Width 13.3 % (12.1-15.1); White Blood Count 6.3 10^3/uL (4.0-10.0)
[2020-07-04 06:24] LABS: Anion Gap 10.3 (5-19); Blood Urea Nitrogen 7 mg/dL (8-23); Calcium 9.4 mg/dL (8.5-10.5); Carbon Dioxide 25 mmol/L (22-29); Chloride 107 mmol/L (98-107); Glomerular Filtration Rate 112.8 mL/min (90-130); Glucose 99 mg/dL (65-115); Osmolality Calculated 284 mOsm/kg (285-295); Potassium 4.3 mmol/L (3.5-5.1); Sodium 138 mmol/L (136-145)
--- NOTE | 2020-07-04 07:27 | P.PN_ITS ---
Subjective Subjective: Interval history: The patient reports he started passing flatus this morning. He has no complaints. Vitals/I&O/Wt Last Vital Signs Temp 97.9 F 07/04/20 07:18 Pulse 58 L 07/04/20 07:18 Resp 20 H 07/04/20 07:18 BP 121/67 07/04/20 07:18 Pulse Ox 95 07/04/20 07:18 07/03/20 07/04/20 07/04/20 22:59 06:59 14:59 Intake Total 1000 / 2060 60 / 2060 Output Total 850 / 2450 750 / 2450 Balance 150 / -390 -690 / -390 Physical Exam Narrative: EXAM NARRATIVE: The incision looks good. Bowel sounds are present. Urinary Catheter Management^: Coude: Cath Placed During This Visit: yes Reason for Continuing Indwelling Catheter: Required Immobilization for Trauma or Surgery or Anesthesia Urinary Catheter Date of Insertion: 07/01/20 Urinary Catheter Time of Insertion: 14:00 Data : 07/04/20 05:32 07/04/20 05:32 A&P Assessment and plan (1) Abdominal malignancy: The patient was found to have diffuse tumor involving the abdomen. 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 He underwent excision of a good portion of his ileum where he had 2 severe strictures as well as his cecum where the appendix was grossly abnormal. The patient's procedure should resolve his obstructive symptoms, but unfortunately, he has more tumor throughout his abdomen that is likely to eventually cause more issues. Following his convalescence and final pathology, I will make arrangements for him to follow-up with the oncology service. Today: Remove nasogastric tube. Clear liquid diet. Continue activity. Status: Acute Attestations Medical Necessity Statement*: Patient requires continued inpatient care following partial bowel resection for intra-abdominal malignancy. 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
[2020-07-04] MEDS: famotidine 20 mg/2 mL INJ IVP ×2 (09:10→20:59)
[2020-07-04] MEDS: D5-NS 0.45% + KCL 20 mEq 20 MEQ/1,000 ML BAG 100 MEQ IV ×2 (09:11→20:19)
[2020-07-05] VITALS (13 sets, daily range): BP systolic 91–112; BP diastolic 51–70; PULSE 54–76; RESP 18–20; TEMP 36.4–36.9; O2SAT 92–97
[2020-07-05] MEDS: D5-NS 0.45% + KCL 20 mEq 20 MEQ/1,000 ML BAG 100 MEQ IV ×2 (05:15→19:33)
[2020-07-05] MEDS: heparin 5,000 unit/mL INJ 1 mL 5000 UNIT SUBCUT ×2 (05:16→18:01)
--- NOTE | 2020-07-05 05:49 | PM.PN ---
Subjective Subjective: Interval history: The patient had some lower abdominal cramping yesterday afternoon/evening but then passed a lot of flatus and felt better. He still has not had a bowel movement. His appetite is increasing. He would like some soft food. Vitals/I&O/Wt Last Vital Signs Temp 98.4 F 07/05/20 03:00 Pulse 54 L 07/05/20 03:00 Resp 20 H 07/05/20 03:00 BP 108/65 07/05/20 03:00 Pulse Ox 97 07/05/20 03:00 07/04/20 07/04/20 07/05/20 14:59 22:59 06:59 Intake Total 1960 / 4533.333 1680 / 4533.333 893.333 / 4533.333 Output Total 350 / 1225 875 / 1225 0 / 1225 Balance 1610 / 3308.333 805 / 3308.333 893.333 / 3308.333 Physical Exam Narrative: EXAM NARRATIVE: The incision looks good. Bowel sounds are present. Urinary Catheter Management^: Coude: Cath Placed During This Visit: yes, but has since been removed by the nurse Reason for Continuing Indwelling Catheter: Decision to DC Catheter Urinary Catheter Date of Insertion: 07/01/20 Urinary Catheter Time of Insertion: 14:00 Date Urinary Catheter Removed: 07/03/20 Time Urinary Catheter Discontinued: 09:00 Data : 07/04/20 05:32 07/04/20 05:32 A&P Assessment and plan (1) Abdominal malignancy: The patient was found to have diffuse tumor involving the abdomen. 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 He underwent excision of a good portion of his ileum where he had 2 severe strictures as well as his cecum where the appendix was grossly abnormal. The patient's procedure should resolve his obstructive symptoms, but unfortunately, he has more tumor throughout his abdomen that is likely to eventually cause more issues. Following his convalescence and final pathology, I will make arrangements for him to follow-up with the oncology service. Today: Soft diet. Status: Acute Attestations Medical Necessity Statement*: Patient requires continued inpatient care following bowel resection for or intra-abdominal malignancy. Coding Level of Care Code Acute Pension Manager for [facility] Diagnoses Abdominal malignancy C76.2
[2020-07-05] MEDS: famotidine 20 mg/2 mL INJ IVP ×2 (08:38→21:08)
[2020-07-05] MEDS: levalbuterol 0.63 mg/3 mL Neb INHALATION ×4 (09:26→20:10)
--- NOTE | 2020-07-05 10:58 | PC.CHAP ---
Pastoral Care Encounter/Spiritual Assessment Type of Contact [] Declined senior control systems engineer visit [] Patient/Family/Request visit [] Outpatient visit [] Follow-up visit [] Physician referral [] Code/Alert [x] Routine visit [] Staff referral [] Actively dying [] Patient sleeping [] Family support [] [] Out of room [] Palliative care [] [] Receiving care in room [] Pre-surgical visit [] Trauma [x] Long length of stay [] ICU visit [] Other: Relational/Emotional Strength [x] Patient feels connected with others/family/visitors/staff [] Distress [] Loneliness/isolation [] Abandonment Spirituality of Patient [x] Person of Toy[place] [x] Attends Scientologist of their [place] [x] Believes in Prayer [] Reads Bible or Yazidism materials [] There are Spiritual issues to be addressed Kaitara Taraka Interventions [] Prayer [x] Active listening [x] Non-anxious presence [x] Spiritual/emotional support [] Crisis/trauma care [] Spiritual counseling [] Bereavement support [] Provided bereavement packet [] Provided Bible/devotional materials [] Provided toy/stuffed animal, coloring book to patient or family member [] Provided Communion [] Anointing/[place] [] Salvation [x] Completed spiritual assessment [] Other: Impact on Illness or Injury [] Angry [] Fearful [] Anxious [] Often cries [] Exhaustion [] Unable to work [] Unable to attend restorationism [] Unable to walk/stand [] Unable to read [] Unable to drive [] Unable to eat/drink [] Unable to sleep [x] Unable to be with family [] Patient intubated [] Other: Summary Patient stated that he did not want prayer at this time and didn't need anything from the chaplains. Kaitara Taraka visited with patient about this health issues and the surgery he just had. Patient stated that this was his fourth time in the hospital for this problem. Time spent with patient 20 minutes
--- NOTE | 2020-07-05 11:18 | PC.SOCIAL ---
IMM Updated Updated pt on Pg 2 IMM. Provided pt a copy. No questions voiced. Signed, dated, & timed copy in chart.
--- NOTE | 2020-07-05 11:36 | PC.NURSE ---
Rcvd order from Dr Craig to leave IV out.
[2020-07-05] MEDS: ondansetron 2 mg/ML SDV 2 mL 4 MG IVP (18:01)
[2020-07-05] MEDS: D5-NS 0.45% + KCL 20 mEq 20 MEQ/1,000 ML BAG 50 MEQ IV (19:35)
[2020-07-06 04:00] VITALS: BP 87/52; PULSE 67; RESP 18; TEMP 36.9; O2SAT 94
[2020-07-06] MEDS: heparin 5,000 unit/mL INJ 1 mL 5000 UNIT SUBCUT (05:30)
--- NOTE | 2020-07-06 06:44 | PC.NURSE ---
SHIFT SUMMARY Had a good night. Had a large liquid BM at first of shift. Has denied pain or need for pain med. Midline incision clean & dry with vishnu intact. Ashlee fluids well. IV infusing at 50ml/hr rate. Voiding per urinal
--- NOTE | 2020-07-06 06:50 | PM.DCS ---
Discharge Providers Date of Admission: 06/30/20 17:38 Date of Discharge: July 06, 2020 Attending Provider at Admission: Rigo Craig MD Attending Provider at Discharge: Rigo Craig MD Primary Care Provider: JAYCEE Clemente Diagnoses at Discharge Discharge Diagnosis (1) Abdominal malignancy: Status: Acute Reason for Visit Reason for Visit: ABD PAIN Hospital Course Discharge Summary: This is a 65-year-old white male who has had recurrent problems with small bowel obstructions over the past month. Exploration was finally agreed upon. The patient was found to have an intra-abdominal malignancy, final pathology is still pending. He underwent removal of a good portion of his ileum and his cecum. Postoperatively the patient did well and had a fairly uneventful hospital course. His bowel function returned and an oral diet was begun. By 929 the patient was feeling well, was passing flatus and had had a bowel movement. He was anxious to go home. He was instructed with respect to wound care, diet, activity limitations, etc. A follow-up appointment will be made for him to see me in the office as an outpatient. Physical Exam Narrative: EXAM NARRATIVE: Bowel sounds are present. The wound looks good. Urinary Catheter Management^: Coude: Cath Placed During This Visit: yes, but has since been removed by the nurse Reason for Continuing Indwelling Catheter: Decision to DC Catheter Urinary Catheter Date of Insertion: 07/01/20 Urinary Catheter Time of Insertion: 14:00 Date Urinary Catheter Removed: 07/03/20 Time Urinary Catheter Discontinued: 09:00 Discharge Data Data Completed and Pending: Completed Studies During Hospitalization Category Date Time Status CT abdomen pelvis w con* [id number] Stat Cat Scan 06/30/20 16:20 Completed Pending at discharge Category Date Time Status Pathology: Surgic al [PTH] Routine Pth 07/01/20 15:11 Received Vitals: Last Vital Signs Temp 98.4 F 07/06/20 04:00 Pulse 67 07/06/20 04:00 Resp 18 07/06/20 04:00 BP 87/52 07/06/20 04:00 Pulse Ox 94 07/06/20 04:00 Discharge Plan Discharge Patient Disposition: Home Condition: Stable Prescriptions: New hydromorphone 4 mg Tablet 4 mg PO Q6H PRN (Reason: Pain) Qty: 15 RF: 0 Continued sumatriptan 5 mg/actuation spray,non-aerosol 20 mg INTRANASAL Q2H PRN (Reason: Migraine Headache) RF: 0 Discontinued magnesium citrate Solution 150 ml PO DAILY RF: 0 lactulose 10 gram/15 mL solution 15 ml PO BID PRN (Reason: Constipation) RF: 0 Discharge Orders: Discharge Order (Routine); Ordered 07/06/20 Ordered By: Rigo Craig Referrals: Rigo Craig MD [Physician] - 7-10 days (Nursing: Please call Dr. Craig's office ([phone]) and make an appointment for the patient to be seen next week.) Discharge Diet: Advance as tolerated Discharge Activity: Limit activity as instructed Activity Restrictions/Additional Instructions: May shower at home, okay to get incision wet. No lifting over 20 pounds, no repetitive bending or twisting, no strenuous pushing / pulling or other heavy activity. Ambulate regularly. May go up and down steps if needed. 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
[2020-07-06 07:31] VITALS: BP 101/61; PULSE 52; RESP 16; TEMP 36.9; O2SAT 95
[2020-07-06] MEDS: famotidine 20 mg/2 mL INJ IVP (07:44)
[2020-07-06] MEDS: levalbuterol 0.63 mg/3 mL Neb INHALATION (07:52)
[2020-07-06 07:53] VITALS: PULSE 59; RESP 17; O2SAT 94
[2020-07-06 07:54] VITALS: BP 101/61; PULSE 52; RESP 16; TEMP 36.9; O2SAT 95
[2020-07-06 07:58] VITALS: PULSE 60
[2020-07-06] MEDS: ondansetron 2 mg/ML SDV 2 mL 4 MG IVP (08:36)
[2020-07-06 11:13] VITALS: BP 96/62; PULSE 58; RESP 16; TEMP 36.8; O2SAT 95
--- NOTE | 2020-08-13 13:34 | PC.SOCIAL ---
Post D/C trip arranged Pt called to the med surg floor this am & asked the nurse to set up a ride for him, Roma was unsure on how to do this, so she asked service writer if could help him. Pt said he needs to come into the hospital on Sunday about 1pm, to get a Covid swab done, prior a procedure that following week. Pt provided his name, , & address. Creative Director called [facility] [place] & setup a trip for pt to pick him up, bring him here to the hospital to get tested & then be taken back home. El from [facility] [place] said that pt will be picked up from his house at 11:30, Appointment at 1pm, & then will be picked up from Hospital at 1:45pm & taken home. Trip# [id number]. Creative Director notified pt of times & trip# provided to pt.
== END 2020-07-06 12:03 | disposition home or self-care (01) | DRG 331 ==
LOC: ER 16:04 → MEDSURG 18:18
PROVIDERS: Emergency Medicine; Family Medicine; Admitting Provider Surgery; PCP Nurse Practitioner Family; Visit Provider Surgery
PROC: 0DBF0ZZ Excision of Right Large Intestine, Open Approach (ICD-10-PCS; CPT 49000; principal; 2020-07-01 13:30)
DX: K56.609 Unspecified intestinal obstruction, unspecified as to partial versus complete obstruction (principal); C76.2 Malignant neoplasm of abdomen; Z87.891 Personal history of nicotine dependence
CPT/HCPCS: 12345; 36415; 51702; 74177; 80048; 80053; 81001; 83690; 85025; 88305; 88309; 93005; 94640; 96372; 96375; 99282; J0330; J0690; J1100; J1644; J1885; J2270; J2405; J2704; J2710; J2765; J3010; J3490; J7030; J7614; Q9967; S0030

== ENCOUNTER 2020-07-22 13:14 | Outpatient (CLI) | payer MEDICARE, MEDICAID, SELFPAY ==
--- NOTE | 2020-07-23 13:52 | ONC CON_ITS ---
Dr. Prater New Patient Note Patient: Ryland Haung Unit #: [id number]: [id number] Dicatated By: Lilliam Prater M.D.Date of Visit: Jul 22, 2020 Onc MED New Patient/Consult Referring Physician: No 'Referrals from' exist for this patient. History of Present Illness: Mr. Ryland Huang, is a 65-year-old gentleman with multiple hospitalization with recurrent small bowel obstructions and treated conservatively and underwent multiple CT scan of abdomen which showed abnormality in the transverse colon, as per patient underwent colonoscopy, which was as per patient normal and rectal biopsies showed some lymphoid aggregate. Because of abdominal pain nausea vomiting, patient lost about more than 10 pounds weight initially patient was seen by Dr. Gilbert and then was evaluated by Dr. Craig and on July 01, 2020, patient underwent exploratory laparotomy due to recurrent small bowel obstructions which showed carcinomatosis, peritoneal biopsy was obtained as well as ileum and cecum was resected and final pathology report came back, peritoneal biopsy confirmed metastatic adenocarcinoma and small bowel showed adenocarcinoma, primary site being the ileum with 2 ileal strictures, tumor size were 2.9 cm but no perforation was identified no lymphovascular invasion was seen tumor shows visceral peritoneal deposit and invades other organs e.g. rectum but clear surgical margins and 2 out of 24 lymph nodes were positive e.g. T4, N1,M1. And with intact MSI MMR status. Patient denies any family history of colorectal cancer, is a former smoker and quit alcohol in the past During his multiple hospitalization, patient was also found to have left renal mass, for which he was referred to Dr. Costa but work-up was postponed because of acute abdominal issue due to recurrent small bowel obstruction. Patient denies any specific complaint today, no fever chills, no nausea or vomiting, no diarrhea constipation, no abdominal pain, tolerating orally reasonably well. Past Medical History: Mr. Huang's medical history consists of left renal mass, migraine headaches, and Vitamin B12 deficiency anemia. Past Surgical History: Mr. Huang's surgical/procedural history consists of left knee and colon segmental resection in 2019. Medications: Dilaudid 1 Tablet (of 4 mg) Oral q 6 hours, Polyethylene Glycol 1000 1 Scoop(s) Powder daily PRN, SUMAtriptan 1 Underhill(s) (of 5 mg/act) Solution Nasal PRN Allergies: Aspirin, Phenylephrine HCl, Pseudoephedrine HCl, and Triprolidine-PSE. Social History: Mr. Huang is . Mr. Huang no longer smokes. He is a former drinker. He has indicated exposure to the following products: chewing tobacco. Family History: pt is unsure of when parents but believes they of old age. Review Of Symptoms: Review of Systems is not available for this patient. Vital Signs: Performed on Jul 22, 2020 14:51: 8, 18.97, 1.56 sq.m, 65.00 in, 98 %, 75 /min, 16 /min, 90/60 mm(hg), 98.0 F (LOW), and 114.0 lbs (HIGH). Performance Status: 1 - No physically strenuous activity, but ambulatory and able to carry out light or sedentary work (e.g. office work, light house work). (ECOG) Physical Examination: ENMT - No mouth sores, no thrush, no jaundice, Respiratory - Lungs are clear to auscultation, Cardiovascular - Regular rate and rhythm of heart, Abdomen - Denies any abdominal pain or fullness, Extremities - No visible edema. Lab/Imaging: Most recent lab results are not available for this patient. 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 Will consider FOLFOX if tolerated may add Avastin. All the side effects possible benefits associated with FOLFOX including but not limited, bone marrow suppression, nausea vomiting diarrhea, mouth sores, hepatic toxicity, peripheral neuropathy, hand-foot syndrome, hair loss, were mentioned further teaching will be done by chemotherapy nurse. We will also request Dr. Craig for Port-A-Cath placement. Patient said he will discuss with his family and let us know if we will proceed to chemotherapy or not. Patient will return to clinic after Port-A-Cath placement for further discussion. In the meantime we will obtain approval from his insurance prior to this treatment. Patient was also offered evaluation at tertiary care center for clinical trial or second opinion, patient declined. Signed By: Lilliam Prater M.D. <<Signature on File>>
== END 2020-07-22 13:15 | disposition home or self-care (01) ==
LOC: ONCMED 13:19
PROVIDERS: PCP Nurse Practitioner Family; Visit Provider Internal Medicine Hematology & Oncology
DX: C17.2 Malignant neoplasm of ileum (principal); C78.6 Secondary malignant neoplasm of retroperitoneum and peritoneum; F17.220 Nicotine dependence, chewing tobacco, uncomplicated
CPT/HCPCS: 99203

== ENCOUNTER 2020-08-02 06:22 | Outpatient (CLI) | payer MEDICARE, MEDICAID, SELFPAY ==
[2020-08-02 09:16] LABS: Basophils % 0.3 %; Eosinophils # 0.2 10^3/uL (0.0-0.8); Eosinophils % 4.2 %; Hematocrit 38.2 % (42.0-52.0); Hemoglobin 12.4 g/dL (11.7-16.6); Lymphocytes # 1.6 10^3/uL (0.8-4.8); Lymphocytes % 27.7 %; Mean Corpuscular HGB Conc 32.5 g/dL (30.0-36.0); Mean Corpuscular Hemoglobin 30.8 pg (28.0-34.0); Mean Platelet Volume 9.5 fL (7.4-10.4); Monocytes # 0.6 10^3/uL (0.2-0.9); Monocytes % 9.9 %; Neutrophils # 3.33 10^3/uL (1.8-7.7); Neutrophils % 57.6 %; Nucleated Red Blood Cells % 0 %; Platelet Count 218 10^3/cmm (130-400); Red Blood Count 4.02 10^6/uL (4.1-5.3); Red Cell Distribution Width 14.3 % (12.1-15.1); White Blood Count 5.8 10^3/uL (4.0-10.0)
[2020-08-02 09:46] LABS: Alanine Aminotransferase 66 U/L (0-41); Albumin Level 3.5 g/dL (3.5-5.2); Alkaline Phosphatase 61 IU/L (40-130); Anion Gap 9.8 (5-19); Aspartate Amino Transferase 33 U/L (0-40); Blood Urea Nitrogen 14 mg/dL (8-23); Calcium 9.6 mg/dL (8.5-10.5); Carbon Dioxide 28 mmol/L (22-29); Chloride 104 mmol/L (98-107); Globulin 2.5 g/dL (1.3-4.6); Glomerular Filtration Rate 96.7 mL/min (90-130); Glucose 70 mg/dL (65-115); Osmolality Calculated 285 mOsm/kg (285-295); Potassium 3.8 mmol/L (3.5-5.1); Sodium 138 mmol/L (136-145); Total Bilirubin 0.6 mg/dL (0.15-1.2)
== END 2020-08-02 06:23 | disposition home or self-care (01) ==
LOC: ONCMED 06:24
PROVIDERS: PCP Nurse Practitioner Family; Visit Provider Internal Medicine Hematology & Oncology
DX: C17.2 Malignant neoplasm of ileum (principal)
CPT/HCPCS: 36415; 80053; 85025

== ENCOUNTER 2020-08-03 05:50 | Outpatient (CLI) | payer MEDICARE, MEDICAID, SELFPAY ==
--- NOTE | 2020-08-03 17:02 | ONC FU_ITS ---
Dr. Prater follow up note Patient: Ryland Huang Unit #: [id number]: 1955 Dicatated By: Lilliam Prater M.D.Date of Visit:Aug 03, 2020 Onc Med Follow-up/Prog Note History of Present Illness: Mr. Ryland Huang, is a 65-year-old gentleman with multiple hospitalization with recurrent small bowel obstructions and treated conservatively and underwent multiple CT scan of abdomen which showed abnormality in the transverse colon, as per patient underwent colonoscopy, which was as per patient normal and rectal biopsies showed some lymphoid aggregate. Because of abdominal pain nausea vomiting, patient lost about more than 10 pounds weight initially patient was seen by Dr. Gilbert and then was evaluated by Dr. Craig and on July 01, 2020, patient underwent exploratory laparotomy due to recurrent small bowel obstructions which showed carcinomatosis, peritoneal biopsy was obtained as well as ileum and cecum was resected and final pathology report came back, peritoneal biopsy confirmed metastatic adenocarcinoma and small bowel showed adenocarcinoma, primary site being the ileum with 2 ileal strictures, tumor size were 2.9 cm but no perforation was identified no lymphovascular invasion was seen tumor shows visceral peritoneal deposit and invades other organs e.g. rectum but clear surgical margins and 2 out of 24 lymph nodes were positive e.g. T4, N1,M1. And with intact MSI MMR status. Patient denies any family history of colorectal cancer, is a former smoker and quit alcohol in the past During his multiple hospitalization, patient was also found to have left renal mass, for which he was referred to Dr. Costa but work-up was postponed because of acute abdominal issue due to recurrent small bowel obstruction. Patient denies any specific complaint today, no fever chills, no nausea or vomiting, no diarrhea constipation, no abdominal pain, tolerating orally reasonably well. Came for follow-up, denies any specific complaints, no fever chills, no nausea or vomiting, no diarrhea constipation, no abdominal fullness, no abdominal pain Medications: Dilaudid 1 Tablet (of 4 mg) Oral q 6 hours, Polyethylene Glycol 1000 1 Scoop(s) Powder daily PRN, SUMAtriptan 1 [place](s) (of 5 mg/act) Solution Nasal PRN Allergies: Aspirin, Phenylephrine HCl, Pseudoephedrine HCl, and Triprolidine-PSE. Review of Systems: Review of Systems is not available for this patient. Vital Signs: Performed on Aug 03, 2020 09:17 Height - 65.00 in Weight - 113.8 lbs (LOW) BSA - 1.56 sq.m BMI - 18.94 Temperature - 97 F (LOW) Pulse - 59 /min (LOW) Respiration - 19 /min BP - 114/79 mm(hg) O2 Sat - 99 % Pain - 0 Performance Status: 0 - Fully active, able to carry on all predisease activities without restrictions. (ECOG) Physical Examination: ENMT - No mouth sores, no thrush, no jaundice, Respiratory - Lungs are clear to auscultation, Cardiovascular - Regular rate and rhythm of heart, Abdomen - Soft, bowel sounds present, Extremities - No visible edema. Lab/Imaging: Most recent lab results are not available for this patient. 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, 2 out of 24 lymph nodes showed metastatic disease per exploratory laparotomy done on July 01, 2020, pathology stage T4, N1, M1 Left renal mass, being evaluated by urology Plan: Discussed with patient regarding his labs from August 02, 2020 shows white blood count 5.8 hemoglobin 12.4 hematocrit 28.2 platelets 218,000 CMP within normal limits except ALT 66 Clinically, patient is doing reasonably well, now being evaluated for systemic chemotherapy, patient said he did discuss with his family and would consider chemotherapy as long as tolerating, at this point will request Dr. Craig to place Port-A-Cath to facilitate chemotherapy and consider FOLFOX plus minus Avastin. All the side effects possible benefits associated with FOLFOX including but not limited to bone marrow suppression, nausea vomiting diarrhea, liver toxicity, hand-foot syndrome, hair loss, peripheral neuropathy especially with oxaliplatin, were mentioned, patient expressed full understanding, further teaching will be done by chemotherapy nurse. We will consider FOLFOX every 2 weeks x 6 doses followed by follow-up CT PET scan to assess disease status if there is a good response then continue, as long patient is tolerating. Return to clinic 1 week after chemotherapy is initiated with CBC CMP Signed By: Lilliam Prater M.D. <<Signature on File>>
== END 2020-08-03 05:51 | disposition home or self-care (01) ==
LOC: ONCMED 05:52
PROVIDERS: PCP Nurse Practitioner Family; Visit Provider Internal Medicine Hematology & Oncology
DX: C17.2 Malignant neoplasm of ileum (principal); C78.6 Secondary malignant neoplasm of retroperitoneum and peritoneum; C77.2 Secondary and unspecified malignant neoplasm of intra-abdominal lymph nodes
CPT/HCPCS: 99214

== ENCOUNTER 2020-08-05 16:17 | Emergency (ER) | payer MEDICARE, MEDICAID, SELFPAY ==
[2020-08-05 16:36] VITALS: BP 119/70; PULSE 73; RESP 18; TEMP 36.5; O2SAT 98; BMI 19.8
--- NOTE | 2020-08-05 17:53 | ED_ITS ---
HPI - General Adult General: Chief complaint: Headache Stated complaint: acid reflux, headache, bad taste Time Seen by Provider: 08/05/20 17:44 History of Present Illness: HPI narrative: Patient presents with complaint about reflux denies any sinus problems presently. Denies a headache. Said he has no spray for sinuses and seems to be working but he would like get something take care of his reflux that he gets after he eats something and he says not been prescribed any medicine for that. Does have stage IV colon cancer and is on Dilaudid. Onset (ago): month(s) Severity scale (1-10): 3 Quality: burning Pain Consistency: intermittent Exacerbating factors: eating Associated symptoms: Reports no associated symptoms; Deny chest pain, dyspnea, headache(s), nausea, rash or vomiting Review of Systems Const: Denies: fever(s), chills or body aches Eyes: Denies: change in vision or blurry vision ENMT: Reports: other (Sinus problems taken care of with [id number] medication); Denies: throat pain or nasal congestion Card: Denies: chest pain or dyspnea on exertion Resp: Denies: dyspnea, productive cough or non-productive cough GI: Reports: other (GERD heartburn); Denies: abdominal pain, nausea or vomiting : Denies: difficulty urinating Musc: Denies: extremity pain Skin/Breast: Denies: rash Neuro: Denies: headache(s) Psych: Denies: anxiety or depression Patel/Lymph: Denies: easy bruising PFSH ED PFSH: Medical History (Updated 08/05/20 @ 17:50 by JAYCEE Ash) Environmental and seasonal allergies Left renal mass Migraine Pre-diabetes Small bowel obstruction Recurrent Vitamin B12 deficiency (dietary) anemia Surgical History Status post knee surgery Left Family History Denies family history of CAD (coronary artery disease) Cancer Social History (Updated 06/30/20 @ 16:03 by Faustino Grullon RN) Smoking and tobacco status: former smoker Second hand smoke exposure: No Smoking risk assessment/counseling performed?: No Alcohol intake: former Desire information about alcohol rehabilitation?: No Counseling given: No Desire information about substance/drug rehabilitation?: No Counseling given: No Physical Exam Const: COMMON NORMALS: no acute distress, average body habitus and patient oriented x3 HENMT: COMMON NORMALS: normocephalic HEAD & SCALP: normal to inspection and normocephalic FACE & SINUS: normal facial exam Eye: COMMON NORMALS: conjunctivae normal GENERAL EYE: appearance normal, both eyes and all related structures CONJUNCTIVA: Yes conjunctivae normal Neck/C-Spine: COMMON NORMALS: no JVD Chest: COMMONS NORMALS: normal inspection of the chest Resp: COMMON NORMALS: normal respiratory effort and clear to auscultation bilaterally AUSCULTATION: clear to auscultation bilaterally Cardio: COMMON NORMALS: no JVD, regular rate and regular rhythm RATE: regular rate RHYTHM: regular rhythm GI: COMMON NORMALS: Normal to inspection, nondistended, normoactive bowel sounds present PALPATION: Yes Tenderness to palpation present (GI) Extremity: COMMON NORMALS: normal to inspection and full ROM Neuro: COMMON NORMALS: patient oriented x3 Course Vital Signs: Vital signs: Vital Signs Temperature 97.7 F 08/05/20 16:36 Pulse Rate 73 08/05/20 16:36 Respiratory Rate 18 08/05/20 16:36 Blood Pressure 119/70 08/05/20 16:36 Pulse Oximetry 98 08/05/20 16:36 Discharge Plan Discharge Patient Disposition: Home Clinical Impression: Chronic GERD Condition: Stable Prescriptions: New Protonix 40 mg tablet,delayed release (DR/EC) 40 mg PO DAILY 28 Days Qty: 28 RF: 0 Zofran 4 mg tablet 4 mg PO Q8H 4 Days Qty: 12 RF: 0 No Action sumatriptan 5 mg/actuation spray,non-aerosol 20 mg INTRANASAL Q2H PRN (Reason: Migraine Headache) RF: 0 hydromorphone 4 mg Tablet 4 mg PO Q6H PRN (Reason: Pain) Qty: 15 RF: 0 Discharge Orders: Discharge Order (Routine); Ordered 08/05/20 Ordered By: Altaf French Referrals: LUCERO Dueñas, CLINICAL RESEARCH DIRECTOR [Primary Care Provider] - Discharge Diet: Usual diet and As Directed Discharge Activity: Increase activity as tolerated Patient Instructions: Gastroesophageal Reflux Disease (ED) Activity Restrictions/Additional Instructions: Follow-up with medical provider as directed. Take medications as prescribed. Return to the ER or your medical provider if condition worsens. Please read and understand discharge instructions. If any questions ask please. Discharge Date/Time: 08/05/20 18:08 Coding Level of Care Code ED Buffet Attendant for Chg Fwd Exam Comprehensive
[2020-08-05] MEDS: pantoprazole DR 40 mg Tablet PO (18:05)
[2020-08-05] MEDS: ondansetron 4 MG Tablet PO (18:05)
== END 2020-08-05 18:08 | disposition home or self-care (01) ==
PROVIDERS: Emergency Provider Nurse Practitioner Family; PCP Nurse Practitioner Family
DX: K21.9 Gastro-esophageal reflux disease without esophagitis (principal); Z87.891 Personal history of nicotine dependence
CPT/HCPCS: 12345; 99281; 99283; Q0162

== ENCOUNTER → 2020-08-15 12:34 | Outpatient (BNVA) | payer MEDICARE, MEDICAID, SELFPAY | PROVIDERS: PCP Nurse Practitioner Family; Visit Provider Surgery | DX: Z11.59 Encounter for screening for other viral diseases (principal) | CPT/HCPCS: 87635 ==

== ENCOUNTER 2021-02-21 11:05 | Emergency (ER) | payer MEDICARE, MEDICAID, SELFPAY ==
[2021-02-21 11:11] VITALS: BP 119/86; PULSE 72; RESP 18; O2SAT 96; BMI 19.4
[2021-02-21 11:23] VITALS: BP 119/86; PULSE 72; RESP 20; O2SAT 97
--- NOTE | 2021-02-21 11:32 | XRR_ITS ---
PROCEDURE INFORMATION: Exam: XR Chest Exam date and time: 02/21/2021 11:42 AM Age: 66 years old Clinical indication: Shortness of breath; Patient HX: Infrequent cp, SOB, HX of colon and stomach cancer; Additional info: SOB, cp TECHNIQUE: Imaging protocol: XR of the chest. Views: 1 view. COMPARISON: CR XR chest 1V portable [id number] 06/12/2020 2:02 PM FINDINGS: Lungs: Unremarkable. No consolidation. Pleural spaces: Unremarkable. No pleural effusion. No pneumothorax. Heart/Mediastinum: Unremarkable. No cardiomegaly. Bones/joints: Unremarkable. XR/XR chest 1V portable [id number] IMPRESSION: No acute findings.
--- NOTE | 2021-02-21 11:33 | ECG_ITS ---
[facility] Test Date: 2021-02-21 Pat Name: Ryland Huang Department: Room: Gender: Male Hvac Service Technician: : 1955 Requested By: Reggie Perez I Order Number: [id number] Robby MD: Nestor Balbuena M.D. Measurements Intervals [place] Rate: 67 P: 55 NH: 182 QRS: 69 QRSD: 95 T: 49 QT: 400 QTc: 425 Interpretive Statements SINUS RHYTHM Compared to ECG 07/01/2020 12:40:18 Sinus bradycardia no longer present First degree AV block no longer present Electronically Signed On 02-22-2021 0:43:08 CDT by Nestor Balbuena M.D. [id number]
--- NOTE | 2021-02-21 11:33 | W.ED.SOB ---
HPI - SOB/Dyspnea General: Chief Complaint: Shortness of Breath/Dyspnea Stated Complaint: BIT OF CP, SOB, CANCER PT Time Seen by Provider: 02/21/21 11:12 Source: patient and family () Mode of arrival: ambulatory Limitations: no limitations History of Present Illness: HPI Narrative: 66-year-old male with a history of adenocarcinoma of his ileum who is receiving chemotherapy presents to the emergency department with shortness of breath and associated chest pain. Symptoms started yesterday and have continued into today. He denies any cough, diaphoresis, headache or dizziness. No nausea or vomiting. Chest pain is intermittent and he describes it as a sharp pain on the left side of his chest that radiates to the right side. He has some radiation to his right upper and lower extremity. He is not on anticoagulation. MD elicited complaint: shortness of breath Onset (ago): day(s) (1) Timing: constant Severity: moderate Exacerbating factors: nothing Relieving factors: nothing Known history of: other (adenocarcinoma of the ileum) Associated symptoms: Reports chest pain; Deny abdominal pain, chest congestion, cough, diaphoresis, dizziness, fever(s), hemoptysis, lightheadedness, myalgias, nausea, orthopnea, palpitations, paresthesias, polydipsia, polyuria, rash, sense of impending doom, syncope or vomiting Treatment prior to arrival: none Review of Systems General: Reports: 10 or more systems reviewed and unremarkable except in HPI and below Const: Denies: fever(s) or diaphoresis Card: Reports: chest pain; Denies: palpitations, lightheadedness, syncope or orthopnea Resp: Denies: hemoptysis or chest congestion GI: Denies: abdominal pain, nausea or vomiting Neuro: Denies: dizziness Endo: Denies: polyuria or polydipsia PFS ED PFSH: Medical History (Reviewed 02/21/21 @ 11:36 by Reggie Perez MD, [facility] – [place]) Anxiety Chronic constipation Environmental and seasonal allergies GERD (gastroesophageal reflux disease) Left renal mass Migraine Nausea Pre-diabetes Small bowel obstruction Recurrent Vitamin B12 deficiency (dietary) anemia Surgical History (Reviewed 02/21/21 @ 11:36 by Reggie Perez MD, [facility] – [place]) Status post knee surgery Left Family History (Reviewed 02/21/21 @ 11:36 by Reggie Perez MD, [facility] – [place]) Denies family history of CAD (coronary artery disease) Cancer Social History (Reviewed 02/21/21 @ 11:36 by Reggie Perez MD, [facility] – [place]) Smoking and tobacco status: former smoker Second hand smoke exposure: No Smoking risk assessment/counseling performed?: No Alcohol intake: former Desire information about alcohol rehabilitation?: No Counseling given: No Desire information about substance/drug rehabilitation?: No Counseling given: No Physical Exam Const: COMMON NORMALS: no acute distress, average body habitus, patient oriented x3, no limitations, healthy appearing, alert and well nourished HENMT: COMMON NORMALS: normocephalic, atraumatic and moist oral mucous membranes HEAD & SCALP: normocephalic and atraumatic Neck/C-Spine: COMMON NORMALS: no meningeal signs and no JVD Resp: COMMON NORMALS: normal respiratory effort, No retractions, No use of accessory muscles, clear to auscultation bilaterally and percussion normal AUSCULTATION: clear to auscultation bilaterally PERCUSSION: percussion normal Cardio: COMMON NORMALS: no JVD, regular rate, regular rhythm, S1 normal heart sound present, S2 normal heart sound present, No gallops present (Cardio), No clicks present (Cardio), No murmurs present (Cardio), No rub (Cardio) and Peripheral pulses 2+ throughout RATE: regular rate RHYTHM: regular rhythm HEART SOUNDS: S1 normal heart sound present and S2 normal heart sound present PERIPHERAL PULSES: Peripheral pulses 2+ throughout GI: COMMON NORMALS: Normal to inspection, nondistended, normoactive bowel sounds present, Soft to palpation, non-tender, No hepatosplenomegaly present, no masses and no bruits PALPATION: Yes Soft to palpation and Yes No hepatosplenomegaly present Extremity: COMMON NORMALS: normal to inspection, full ROM, capillary refill normal, no calf tenderness and no pedal edema Neuro: COMMON NORMALS: patient oriented x3 SENSORIUM/ORIENTATION: Yes alert MENINGEAL SIGNS: Yes no meningeal signs Skin: COMMON NORMALS: no rashes or lesions noted, no wounds, turgor normal, no jaundice, no petechiae and no mottling GENERAL SKIN EXAM: no rashes or lesions noted and turgor normal Course Reevaluation(s): Reevaluation #1: Discussed his lab and imaging findings with him. Negative for acute findings. We will discharge him home with no new orders. He voiced understanding and is in agreement with the plan. Time: 15:31 Vital Signs: Vital signs: Vital Signs Pulse Rate 76 02/21/21 16:00 Respiratory Rate 15 02/21/21 16:00 Blood Pressure 123/85 02/21/21 16:00 Pulse Oximetry 100 02/21/21 16:00 MDM - SOB/Dyspnea MDM Narrative: Medical decision making narrative: 66-year-old male who presents to the emergency department chest pain or shortness of breath. He has a history of adenocarcinoma of the ileum. Evaluation in the emergency department was unremarkable including a negative CT of his chest. He is discharged home with no new orders. Medical Records: Attestation: I reviewed the patient's medical records. Lab Data: Attestation: I reviewed the patient's lab results. Labs: Lab Results 02/21/21 02/21/21 02/21/21 Range/Units 12:49 12:49 12:49 WBC 9.5 (4.0-10.0) 10^3/ uL RBC 4.13 (4.1-5.3) 10^6/u L Hgb 12.3 (11.7-16.6) g/dL Hct 38.7 L (42.0-52.0) % MCV 93.7 (80-94) fL MCH 29.8 (28.0-34.0) pg MCHC 31.8 (30.0-36.0) g/dL RDW 13.2 (12.1-15.1) % Plt Count 235 (130-400) 10^3/c mm MPV 9.7 (7.4-10.4) fL Neut % (Auto) 75.8 % Lymph % (Auto) 13.5 % [place] % (Auto) 9.0 % Eos % (Auto) 1.1 % Baso % (Auto) 0.3 % Neut # (Auto) 7.16 (1.8-7.7) 10^3/u L Lymph # (Auto) 1.3 (0.8-4.8) 10^3/u L [place] # (Auto) 0.9 (0.2-0.9) 10^3/u L Eos # (Auto) 0.1 (0.0-0.8) 10^3/u L Baso # (Auto) 0.0 (0.0-0.1) 10^3/u L Nucleated RBC % (a uto) 0 % Nucleated RBCs # 0.0 /100WBC D-Dimer 0.71 H (0-0.59) ug/mIFE U Sodium 139 (136-145) mmol/L Potassium 4.4 (3.5-5.1) mmol/L Chloride 105 (98-107) mmol/L Carbon Dioxide 26 (22-29) mmol/L Anion Gap 12.4 (5-19) BUN 12 (8-23) mg/dL Creatinine 0.7 (0.7-1.2) mg/dL GFR Calculation 112.5 (90-130) mL/min Glucose 73 (65-115) mg/dL Calculated Osmolal ity 286 (285-295) mOsm/k g Calcium 9.0 (8.5-10.5) mg/dL Total Bilirubin 0.8 (0.15-1.2) mg/dL AST 14 (0-40) U/L ALT 11 (0-41) U/L Alkaline Phosphata se 71 (40-130) IU/L Troponin T Baselin e (0-15) ng/L NT-Pro-B Natriuret Pep 194 H (0-125) pg/mL Total Protein 6.5 L (6.6-8.7) g/dL Albumin 3.7 (3.5-5.2) g/dL Globulin 2.8 (1.3-4.6) g/dL Lipase 36 (13-60) U/L 02/21/21 Range/Units 12:49 WBC (4.0-10.0) 10^3/ uL RBC (4.1-5.3) 10^6/u L Hgb (11.7-16.6) g/dL Hct (42.0-52.0) % MCV (80-94) fL MCH (28.0-34.0) pg MCHC (30.0-36.0) g/dL RDW (12.1-15.1) % Plt Count (130-400) 10^3/c mm MPV (7.4-10.4) fL Neut % (Auto) % Lymph % (Auto) % [place] % (Auto) % Eos % (Auto) % Baso % (Auto) % Neut # (Auto) (1.8-7.7) 10^3/u L Lymph # (Auto) (0.8-4.8) 10^3/u L [place] # (Auto) (0.2-0.9) 10^3/u L Eos # (Auto) (0.0-0.8) 10^3/u L Baso # (Auto) (0.0-0.1) 10^3/u L Nucleated RBC % (a uto) % Nucleated RBCs # /100WBC D-Dimer (0-0.59) ug/mIFE U Sodium (136-145) mmol/L Potassium (3.5-5.1) mmol/L Chloride (98-107) mmol/L Carbon Dioxide (22-29) mmol/L Anion Gap (5-19) BUN (8-23) mg/dL Creatinine (0.7-1.2) mg/dL GFR Calculation (90-130) mL/min Glucose (65-115) mg/dL Calculated Osmolal ity (285-295) mOsm/k g Calcium (8.5-10.5) mg/dL Total Bilirubin (0.15-1.2) mg/dL AST (0-40) U/L ALT (0-41) U/L Alkaline Phosphata se (40-130) IU/L Troponin T Baselin e 6 (0-15) ng/L NT-Pro-B Natriuret Pep (0-125) pg/mL Total Protein (6.6-8.7) g/dL Albumin (3.5-5.2) g/dL Globulin (1.3-4.6) g/dL Lipase (13-60) U/L Imaging Data^: CTA Chest: Attestation: I personally reviewed and interpreted this imaging study as follows: Radiologist's impression: [address] [address]GY Scan ReportSigned Patient: Марина Huang #: [id number]: 4Acct#:[id number]/Sex: 66 / MADM Date: 02/21/21Loc: ERRoom/Bed:Attending Dr: Ordering Provider/Ordering MD: Reggie Perez MD, HALIE Date of Service: 02/21/21 Procedure(s): CT angio chest PE protcl [id number] Accession Number(s): [id number] Report Number: [id number] WS: [id number] CTA OF THE CHEST WITH PULMONARY EMBOLISM PROTOCOL TECHNIQUE: High-resolution contrast enhanced CTA of the chest with coronal and sagittal reformatted images with pulmonary embolism protocol. MIP images are also reviewed. CLINICAL INFORMATION: CP, SOB, has active malignancy, elevated d-dimer COMPARISON: None. DLP: 449.[address] scans at [facility] use at least one of these dose optimization techniques: automated exposure control; mA and/or kV adjustment per patient size (includes targeted exams where dose is matched to clinical indication); or iterative reconstruction. FINDINGS: Proximal main pulmonary arteries are normal. No evidence of pulmonary embolus. Normal caliber thoracic aorta. No mediastinal or hilar lymphadenopathy. Mild chronic emphysematous changes. No acute pulmonary infiltrates. No consolidation or pleural fluid. No focal pneumonia. Subsegmental atelectasis lung bases. CT/CT angio chest PE protcl [id number] IMPRESSION: 1. No evidence for pulmonary embolus. 2. Both lungs are well aerated. Subsegmental atelectasis in the lung bases. 3. No acute pulmonary infiltrates. Dictated By:Brady Mensah MDSigned By:Brady Mensah MDSigned Date/Time:02/21/21 1511DD/ 1505 CXR: Attestation: I personally reviewed and interpreted this imaging study as follows: Radiologist's impression: [address], [place] [address]SMuj ReportSigned Patient: Марина Huang #: [id number]: [id number]#:[id number]/Sex: 66 / MADM Date: 02/21/21Loc: ERRoom/Bed:Attending Dr: Ordering Provider/Ordering MD: Reggie Perez MD, [facility] – [place] Date of Service: 02/21/21 Procedure(s): XR chest 1V portable [id number] Accession Number(s): [id number] Report Number: [id number] PROCEDURE INFORMATION: Exam: XR Chest Exam date and time: 02/21/2021 11:42 AM Age: 66 years old Clinical indication: Shortness of breath; Patient HX: Infrequent cp, SOB, HX of colon and stomach cancer; Additional info: SOB, cp TECHNIQUE: Imaging protocol: XR of the chest. Views: 1 view. COMPARISON: CR XR chest 1V portable [id number] 06/12/2020 2:02 PM FINDINGS: Lungs: Unremarkable. No consolidation. Pleural spaces: Unremarkable. No pleural effusion. No pneumothorax. Heart/Mediastinum: Unremarkable. No cardiomegaly. Bones/joints: Unremarkable. XR/XR chest 1V portable [id number] IMPRESSION: No acute findings. Dictated By:Petty Feliciano By:Petty Feliciano Date/Time:02/21/21 1235DD/ 1234 EKG Data^: EKG 1: Attestation: I personally reviewed and interpreted this EKG as follows: EKG Interpretation Date: 02/21/21 EKG interpretation time: 12:12 Prior EKG tracings: not available for review Interpretation: Sinus rhythm. Heart rate 67 bpm. Normal axis. No ST changes. EKG 2: Attestation: I personally reviewed and interpreted this EKG as follows: EKG Interpretation Date: 02/21/21 EKG interpretation time: 14:58 Prior EKG tracings: available for review Interpretation: Sinus bradycardia. Heart rate [address] changes. No significant change from earlier today. Discharge Plan Discharge Patient Disposition: Home Clinical Impression: Chest pain, non-cardiac Condition: Stable Prescriptions: Continued ondansetron HCl [Zofran] 4 mg tablet 4 mg PO Q8H PRN (Reason: nausea and vomiting) 15 Days Qty: 45 RF: 0 sumatriptan 5 mg/actuation spray,non-aerosol 20 mg INTRANASAL Q2H PRN (Reason: Migraine Headache) 30 Days Qty: 6 RF: 5 simethicone [Gas Relief (simethicone)] 40 mg/0.6 mL drops,suspension 40 mg PO BID PRN (Reason: abdominal distention) 30 Days Qty: 36 RF: 0 lorazepam 1 mg tablet 1 mg PO TID PRN (Reason: nausea) 30 Days Qty: 90 RF: 1 hydromorphone 4 mg Tablet 4 mg PO Q6H PRN (Reason: Pain) Qty: 15 RF: 0 prochlorperazine maleate 10 mg tablet 10 mg PO DAILY@0900 RF: 0 Stool Softener (docusate [place]) 240 mg Capsule 240 mg PO DAILY@0900 RF: 0 ibuprofen 200 mg Tablet 200 - 400 mg PO Q6H PRN (Reason: Pain) RF: 0 pantoprazole 40 mg tablet,delayed release (DR/EC) 40 mg PO DAILY@0900 RF: 0 Miralax 17 gram/dose powder 17 g PO BID@0900,2100 RF: 0 Discharge Orders: Discharge ED (Routine); Ordered 02/21/21 Ordered By: Reggie Perez Referrals: LUCERO Dueñas, METAL SPRAYING MACHINE OPERATOR [Primary Care Provider] - 1-3 days Discharge Diet: Usual diet Discharge Activity: Increase activity as tolerated Patient Instructions: Chest Pain - Noncardiac, Diet for Ulcers and Gastritis (ED), Gastroesophageal Reflux Disease (ED) Activity Restrictions/Additional Instructions: Return for any new or worsening symptoms. Follow-up with your primary care provider within 3 days. Continue home medications. Coding Level of Care Code ED Cad Intern for Bog Fwd Exam Comprehensive
[2021-02-21 12:35] VITALS: BP 106/77; PULSE 65; RESP 18; O2SAT 96
[2021-02-21 12:56] VITALS: BP 106/77; PULSE 67; RESP 18; O2SAT 96
[2021-02-21 12:57] LABS: Basophils % 0.3 %; Eosinophils # 0.1 10^3/uL (0.0-0.8); Eosinophils % 1.1 %; Hematocrit 38.7 % (42.0-52.0); Hemoglobin 12.3 g/dL (11.7-16.6); Lymphocytes # 1.3 10^3/uL (0.8-4.8); Lymphocytes % 13.5 %; Mean Corpuscular HGB Conc 31.8 g/dL (30.0-36.0); Mean Corpuscular Hemoglobin 29.8 pg (28.0-34.0); Mean Corpuscular Volume 93.7 fL (80-94); Mean Platelet Volume 9.7 fL (7.4-10.4); Monocytes # 0.9 10^3/uL (0.2-0.9); Neutrophils # 7.16 10^3/uL (1.8-7.7); Neutrophils % 75.8 %; Nucleated Red Blood Cells % 0 %; Platelet Count 235 10^3/cmm (130-400); Red Blood Count 4.13 10^6/uL (4.1-5.3); Red Cell Distribution Width 13.2 % (12.1-15.1); White Blood Count 9.5 10^3/uL (4.0-10.0)
[2021-02-21 13:10] LABS: D Dimer 0.71 ug/mIFEU (0-0.59)
[2021-02-21 13:17] LABS: Troponin(5th) Baseline 6 ng/L (0-15)
[2021-02-21 13:32] LABS: Alanine Aminotransferase 11 U/L (0-41); Albumin Level 3.7 g/dL (3.5-5.2); Alkaline Phosphatase 71 IU/L (40-130); Anion Gap 12.4 (5-19); Aspartate Amino Transferase 14 U/L (0-40); Blood Urea Nitrogen 12 mg/dL (8-23); Carbon Dioxide 26 mmol/L (22-29); Chloride 105 mmol/L (98-107); Globulin 2.8 g/dL (1.3-4.6); Glomerular Filtration Rate 112.5 mL/min (90-130); Glucose 73 mg/dL (65-115); Lipase 36 U/L (13-60); NT Pro B Type Natriuretic Pept 194 pg/mL (0-125); Osmolality Calculated 286 mOsm/kg (285-295); Potassium 4.4 mmol/L (3.5-5.1); Sodium 139 mmol/L (136-145); Total Bilirubin 0.8 mg/dL (0.15-1.2); Total Protein 6.5 g/dL (6.6-8.7)
--- NOTE | 2021-02-21 13:33 | ECG_ITS ---
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 Measurements Intervals [place] Rate: 54 P: 61 NH: 200 QRS: 75 QRSD: 98 T: 55 QT: 427 QTc: 407 Interpretive Statements SINUS BRADYCARDIA Compared to ECG 02/21/2021 12:12:00 Sinus rhythm no longer present Electronically Signed On 02-22-2021 0:52:47 CDT by Nestor Balbuena M.D. [id number]
--- NOTE | 2021-02-21 13:37 | CT_ITS ---
WS: [id number] CTA OF THE CHEST WITH PULMONARY EMBOLISM PROTOCOL TECHNIQUE: High-resolution contrast enhanced CTA of the chest with coronal and sagittal reformatted i mages with pulmonary embolism protocol. MIP images are also reviewed. CLINICAL INFORMATION: CP, SOB, has active malignancy, elevated d-dimer COMPARISON: None. DLP: 449.[address] scans at [facility] use at least one of these dose optimization techniques: automat ed exposure control; mA and/or kV adjustment per patient size (includes targeted exams where dose is matched to clinical indication); or iterative reconstruction. FINDINGS: Proximal main pulmonary arteries are normal. No evidence of pulmonary embolus. Normal caliber thoraci c aorta. No mediastinal or hilar lymphadenopathy. Mild chronic emphysematous changes. No acute pulmonary infiltrates. No consolidation or pleural fluid . No focal pneumonia. Subsegmental atelectasis lung bases. CT/CT angio chest PE protcl [id number] IMPRESSION: 1. No evidence for pulmonary embolus. 2. Both lungs are well aerated. Subsegmental atelectasis in the lung bases. 3. No acute pulmonary infiltrates.
[2021-02-21] MEDS: iohexol 350 mg/mL 100 mL Btl IV (14:40)
[2021-02-21 14:47] VITALS: PULSE 54; RESP 18; O2SAT 97
[2021-02-21 16:00] VITALS: BP 123/85; PULSE 76; RESP 15; O2SAT 100
== END 2021-02-21 16:01 | disposition home or self-care (01) ==
PROVIDERS: Emergency Provider Family Medicine; PCP Nurse Practitioner Family
DX: R07.89 Other chest pain (principal); Z87.891 Personal history of nicotine dependence
CPT/HCPCS: 36415; 71045; 71275; 80053; 83690; 83880; 84484; 85025; 85378; 93005; 99284; Q9967

== ENCOUNTER 2021-02-28 08:10 | Outpatient (CLI) | payer MEDICARE, MEDICAID, SELFPAY ==
[2021-02-28 10:22] LABS: Basophils % 0.3 %; Eosinophils # 0.1 10^3/uL (0.0-0.8); Eosinophils % 1.4 %; Hematocrit 37.1 % (42.0-52.0); Hemoglobin 11.9 g/dL (11.7-16.6); Lymphocytes # 1.2 10^3/uL (0.8-4.8); Lymphocytes % 13.3 %; Mean Corpuscular HGB Conc 32.1 g/dL (30.0-36.0); Mean Corpuscular Hemoglobin 30.1 pg (28.0-34.0); Mean Corpuscular Volume 93.9 fL (80-94); Mean Platelet Volume 9.7 fL (7.4-10.4); Monocytes # 0.6 10^3/uL (0.2-0.9); Monocytes % 7.3 %; Neutrophils # 6.75 10^3/uL (1.8-7.7); Neutrophils % 77.2 %; Nucleated Red Blood Cells % 0 %; Platelet Count 243 10^3/cmm (130-400); Red Blood Count 3.95 10^6/uL (4.1-5.3); Red Cell Distribution Width 13.3 % (12.1-15.1); White Blood Count 8.7 10^3/uL (4.0-10.0)
[2021-02-28 10:59] LABS: Carcinoembryonic Antigen 3.3 ng/mL (0.0-4.7)
[2021-02-28 11:10] LABS: Alanine Aminotransferase 12 U/L (0-41); Albumin Level 3.5 g/dL (3.5-5.2); Alkaline Phosphatase 62 IU/L (40-130); Anion Gap 14.9 (5-19); Aspartate Amino Transferase 16 U/L (0-40); Blood Urea Nitrogen 12 mg/dL (8-23); Calcium 8.8 mg/dL (8.5-10.5); Carbon Dioxide 21 mmol/L (22-29); Chloride 107 mmol/L (98-107); Globulin 2.7 g/dL (1.3-4.6); Glomerular Filtration Rate 134.4 mL/min (90-130); Glucose 76 mg/dL (65-115); Osmolality Calculated 287 mOsm/kg (285-295); Potassium 3.9 mmol/L (3.5-5.1); Sodium 139 mmol/L (136-145); Total Bilirubin 0.8 mg/dL (0.15-1.2); Total Protein 6.2 g/dL (6.6-8.7)
--- NOTE | 2021-03-02 08:50 | ONC FU_ITS ---
Dr. Prater follow up note Patient: Ryland Huang Unit #: [id number]: 1955 Dicatated By: Lililam Prater M.D.Date of Visit:February 28, 2021 Onc Med Follow-up/Prog Note History of Present Illness: Mr. Ryland Huang, is a 66-year-old gentleman with multiple hospitalization with recurrent small bowel obstructions and treated conservatively and underwent multiple CT scan of abdomen which showed abnormality in the transverse colon, as per patient underwent colonoscopy, which was as per patient normal and rectal biopsies showed some lymphoid aggregate. Because of abdominal pain nausea vomiting, patient lost about more than 10 pounds weight initially patient was seen by Dr. Gilbert and then was evaluated by Dr. Craig and on July 01, 2020, patient underwent exploratory laparotomy due to recurrent small bowel obstructions which showed carcinomatosis, peritoneal biopsy was obtained as well as ileum and cecum was resected and final pathology report came back, peritoneal biopsy confirmed metastatic adenocarcinoma and small bowel showed adenocarcinoma, primary site being the ileum with 2 ileal strictures, tumor size were 2.9 cm but no perforation was identified no lymphovascular invasion was seen tumor shows visceral peritoneal deposit and invades other organs e.g. rectum but clear surgical margins and 2 out of 24 lymph nodes were positive e.g. T4, N1,M1. And with intact MSI MMR status. Patient denies any family history of colorectal cancer, is a former smoker and quit alcohol in the past During his multiple hospitalization, patient was also found to have left renal mass, for which he was referred to Dr. Costa but work-up was postponed because of acute abdominal issue due to recurrent small bowel obstruction. 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 Medications: Dilaudid 1 Tablet (of 4 mg) Oral q 6 hours, Polyethylene Glycol 1000 1 Scoop(s) Powder daily PRN, SUMAtriptan 1 [place](s) (of 5 mg/act) Solution Nasal PRN Allergies: Aspirin, Phenylephrine HCl, Pseudoephedrine HCl, and Triprolidine-PSE. Review of Systems: Review of Systems is not available for this patient. Vital Signs: Performed on February 28, 2021 11:22 Height - 65.00 in Weight - 115.2 lbs (HIGH) BSA - 1.56 sq.m BMI - 19.17 Temperature - 98.0 F (LOW) Pulse - 64 /min Respiration - 18 /min BP - 112/63 mm(hg) O2 Sat - 99 % Pain - 0 Fatigue - 0 Performance Status: 0 - Fully active, able to carry on all predisease activities without restrictions. (ECOG) Physical Examination: ENMT - No mouth sores, no thrush, no jaundice, Respiratory - Lungs are clear to auscultation, Cardiovascular - Regular rate and rhythm of heart, Abdomen - Soft, bowel sounds present, Extremities - No visible edema. Lab/Imaging: Most recent lab results are not available for this patient. 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, 2 out of 24 lymph nodes showed metastatic disease per exploratory laparotomy done on July 01, 2020, pathology stage T4, N1, M1 During his visit on August 02, 2020 patient was offered palliative chemotherapy with FOLFOX, but patient never return to clinic for the treatment and decided not to take any treatment AGAINST MEDICAL ADVICE Left renal mass, being evaluated by urology Plan: Discussed with patient regarding his concern and question about off and on mid abdominal pain and off-and-on constipation which could be due to anastomosis stricture site stenosis or disease progression. So we will consider CBC CMP and CEA and CT scan of abdomen pelvis and refer him to Dr. Rafa for colonoscopy and evaluation of anastomosis site. And patient return to clinic after CT scan of abdomen pelvis for further discussion Signed By: Lilliam Prater M.D. <<Signature on File>>
== END 2021-02-28 08:11 | disposition home or self-care (01) ==
PROVIDERS: PCP Nurse Practitioner Family; Visit Provider Internal Medicine Hematology & Oncology
DX: C17.2 Malignant neoplasm of ileum (principal); C78.6 Secondary malignant neoplasm of retroperitoneum and peritoneum; K91.858 Other complications of intestinal pouch; K62.4 Stenosis of anus and rectum
CPT/HCPCS: 80053; 82378; 85025; 99214

== ENCOUNTER 2021-03-17 09:59 | Outpatient (CLI) | payer MEDICARE, MEDICAID, SELFPAY ==
--- NOTE | 2021-03-17 10:13 | CT_ITS ---
WS: [id number] CT ABDOMEN PELVIS TECHNIQUE: Contrast-enhanced CT of the abdomen and pelvis with coronal and sagittal reformatted image s. CLINICAL INFORMATION: MALIGNANT NEOPLASM OF THE ILEUM COMPARISON: CT June 30, 2020 DLP: 993.[address] scans at [facility] use at least one of these dose optimization techniques: automat ed exposure control; mA and/or kV adjustment per patient size (includes targeted exams where dose is matched to clinical indication); or iterative reconstruction. FINDINGS: Diffuse thickening with submucosal enhancement and induration about the transverse colon co nsistent with infectious or inflammatory colitis. Ascending and descending colons are normal in appea rolando. Similar-appearing pattern involving the sigmoid colon extending to the rectum also suspicious for colitis. No drainable fluid collection or abscess. Fluid distended stomach with air-fluid levels extending into the proximal duodenum. Multiple polypoid lesions involving the stomach more prominent in the fundus with diffuse gastric wall thickening. Lar gest polypoid lesion measures approximately 6.1 x 2.1 x 1.7 CM. Diffuse thickening and luminal narrow ing involving the proximal duodenum. Fluid-filled small bowel loops with mild distention. Normal ilea l anastomosis in the right lower quadrant. No evidence of small bowel obstruction. Mild diffuse fatty infiltration of the liver. Normal portal vein and splenic vein. Tiny right hepatic cyst. Normal spleen. Chronic emphysematous changes in the lung bases. Subsegmental atelectasis right greater than left lower lobes. Adrenal glands are normal. Normal renal parenchymal enhancement. No hydronephrosis. Small left renal cyst. Normal portal vein and splenic vein. Normal caliber abdominal aorta. Mild aortic calcification. Enlarged prostate measuring 4.5 x 4.5 x 4.9 CCM. Evidence of bladder outlet obstruction. CT/CT abdomen pelvis w con* [id number] IMPRESSION: 1. Diffuse thickening with submucosal enhancement and induration involving the transverse colon suspicious for infectious or inflammatory colitis. Similar-ap pearing enhancement with thickening and induration involving the sigmoid colon extending to the rectum. 2. Distended stomach with air-fluid levels. Multiple submucosal polypoid lesio ns prominent in the gastric fundus with the largest en plaque lesion measuring 6.1 x 2.1 x 1.7 CM. This appears new from the prior examination. Recommend furt her evaluation with endoscopy.Associated diffuse gastric wall thickening. 3. Diffuse transmural thickening involving the duodenal bulb extending into th e first and second portions of the duodenum nonspecific but can be seen with du odenitis. Infiltrating neoplasm such as lymphoma not excluded. 4. Focal filling defect in the second portion the duodenum measuring 6 mm susp icious or polyp. Recommend further evaluation with endoscopy. 5. Prior postoperative changes right lower quadrant ileal anastomosis. 6. Previously described small bowel obstruction has resolved. 7. Enlarged heterogeneous enhancing prostate measuring 4.5 x 4.5 x 4.9 cm. Rec ommend correlation PSA. 8. Evidence of bladder outlet obstruction.
[2021-03-17] MEDS: iohexol 300 mg/mL 100 mL Btl IV (11:57)
[2021-03-17] MEDS: iohexol 300 mg/mL 50 mL Btl PO (11:57)
== END 2021-03-17 10:00 | disposition home or self-care (01) ==
PROVIDERS: PCP Nurse Practitioner Family; Visit Provider Internal Medicine Medical Oncology
DX: C17.2 Malignant neoplasm of ileum (principal); N40.0 Benign prostatic hyperplasia without lower urinary tract symptoms; K63.89 Other specified diseases of intestine; K31.89 Other diseases of stomach and duodenum
CPT/HCPCS: 74177; Q9967

== ENCOUNTER 2021-03-18 20:04 | Emergency (ER) | payer MEDICARE, MEDICAID, SELFPAY ==
[2021-03-18 21:00] VITALS: BP 106/66; PULSE 58; RESP 16; TEMP 36.3; O2SAT 98; BMI 19.3
--- NOTE | 2021-03-18 22:48 | ED_ITS ---
HPI - Abdominal Pain General: Chief Complaint: Abdominal Pain Stated Complaint: abdomen pain Time Seen by Provider: 03/18/21 22:25 Source: patient Mode of arrival: ambulatory Limitations: no limitations History of Present Illness: HPI narrative: 66-year-old male history of colon cancer states that he ate this morning and since then he has been having some diffuse abdominal cramping he rates a 2 out of 10. States he also had a bowel movement had a slight amount of blood on the outside of the stool. He states it was red appearing. He denies any weakness. He denies any fevers. He had a CT scan outpatient yesterday. He had no vomiting or diarrhea. Associated Symptoms: Denies chills, diarrhea, dysuria, fever(s), nausea and vomiting Review of Systems Const: Denies: fever(s), chills, body aches or change in appetite Eyes: Denies: blurry vision or eye discomfort ENMT: Denies: throat pain or dental pain Card: Denies: chest pain Resp: Denies: dyspnea GI: Denies: abdominal pain, nausea, vomiting or diarrhea : Denies: dysuria Musc: Denies: neck pain or back pain Skin/Breast: Denies: rash Neuro: Denies: headache(s) Psych: Denies: depression Patel/Lymph: Denies: easy bruising All/Imm: Denies: urticaria PFSH ED PFSH: Medical History (Updated 03/18/21 @ 23:55 by Epi Chauhan MD) Anxiety Chronic constipation Environmental and seasonal allergies GERD (gastroesophageal reflux disease) Insect bite Left renal mass Migraine Nausea Pre-diabetes Small bowel obstruction Recurrent Vitamin B12 deficiency (dietary) anemia Surgical History Status post knee surgery Left Family History Denies family history of CAD (coronary artery disease) Cancer Social History Smoking and tobacco status: former smoker Second hand smoke exposure: No Smoking risk assessment/counseling performed?: No Alcohol intake: former Desire information about alcohol rehabilitation?: No Counseling given: No Desire information about substance/drug rehabilitation?: No Counseling given: No Physical Exam Const: COMMON NORMALS: no acute distress, patient oriented x3 and healthy appearing HENMT: COMMON NORMALS: normocephalic and atraumatic HEAD & SCALP: normocephalic and atraumatic Eye: COMMON NORMALS: Equal, round and reactive pupils present and EOMs intact bilaterally PUPIL: Yes Equal, round and reactive pupils present Neck/C-Spine: COMMON NORMALS: full ROM and supple Chest: COMMONS NORMALS: normal inspection of the chest and normal palpation of entire chest wall Resp: COMMON NORMALS: normal respiratory effort, No retractions, No use of accessory muscles and clear to auscultation bilaterally AUSCULTATION: clear to auscultation bilaterally Cardio: COMMON NORMALS: regular rate, regular rhythm and No murmurs present (Cardio) RATE: regular rate RHYTHM: regular rhythm GI: COMMON NORMALS: Normal to inspection, nondistended, normoactive bowel sounds present, Soft to palpation, non-tender and no masses PALPATION: Yes Soft to palpation Extremity: COMMON NORMALS: normal to inspection and full ROM Neuro: COMMON NORMALS: patient oriented x3, moves all extremities and no focal motor deficits Psych: COMMON NORMALS: mental status grossly normal, Normal thought process present and cooperative THOUGHT PROCESS: Normal thought process present Skin: COMMON NORMALS: no rashes or lesions noted and no wounds GENERAL SKIN EXAM: no rashes or lesions noted Course Vital Signs: Vital signs: Vital Signs Temperature 97.3 F L 03/18/21 21:00 Pulse Rate 58 L 03/18/21 21:00 Respiratory Rate 16 03/18/21 21:00 Blood Pressure 106/66 03/18/21 21:00 Pulse Oximetry 98 03/18/21 21:00 MDM - Abdominal Pain MDM Narrative: Medical decision making narrative: Ryland presents with abdominal pain that is very mild in nature. He has no tenderness on exam. He has no signs of acute surgical abdomen his blood work is normal. CT yesterday showed a possible colitis we will place him on Cipro and Flagyl and he is to follow-up his PCP in 2 to 4 days. He is return to ER if worsening. Lab Data: Labs: Lab Results 03/18/21 03/18/21 Range/Units 23:22 23:22 WBC 6.4 (4.0-10.0) 10^3/ uL RBC 3.92 L (4.1-5.3) 10^6/u L Hgb 11.8 (11.7-16.6) g/dL Hct 36.4 L (42.0-52.0) % MCV 92.9 (80-94) fL MCH 30.1 (28.0-34.0) pg MCHC 32.4 (30.0-36.0) g/dL RDW 13.8 (12.1-15.1) % Plt Count 208 (130-400) 10^3/c mm MPV 9.6 (7.4-10.4) fL Neut % (Auto) 70.0 % Lymph % (Auto) 18.8 % [place] % (Auto) 8.3 % Eos % (Auto) 2.2 % Baso % (Auto) 0.5 % Neut # (Auto) 4.48 (1.8-7.7) 10^3/u L Lymph # (Auto) 1.2 (0.8-4.8) 10^3/u L [place] # (Auto) 0.5 (0.2-0.9) 10^3/u L Eos # (Auto) 0.1 (0.0-0.8) 10^3/u L Baso # (Auto) 0.0 (0.0-0.1) 10^3/u L Nucleated RBC % (a uto) 0 % Nucleated RBCs # 0.0 /100WBC Sodium 143 (136-145) mmol/L Potassium 4.6 (3.5-5.1) mmol/L Chloride 106 (98-107) mmol/L Carbon Dioxide 27 (22-29) mmol/L Anion Gap 14.6 (5-19) BUN 15 (8-23) mg/dL Creatinine 0.9 (0.7-1.2) mg/dL GFR Calculation 84.2 L (90-130) mL/min Glucose 80 (65-115) mg/dL Calculated Osmolal ity 296 H (285-295) mOsm/k g Calcium 9.5 (8.5-10.5) mg/dL Total Bilirubin 0.7 (0.15-1.2) mg/dL AST 19 (0-40) U/L ALT 14 (0-41) U/L Alkaline Phosphata se 60 (40-130) IU/L Total Protein 6.3 L (6.6-8.7) g/dL Albumin 3.6 (3.5-5.2) g/dL Globulin 2.7 (1.3-4.6) g/dL Lipase 56 (13-60) U/L Discharge Plan Discharge Patient Disposition: Home Clinical Impression: Colitis Condition: Stable Prescriptions: New Cipro 500 mg tablet 500 mg PO BID Qty: 14 RF: 0 Flagyl 500 mg tablet 500 mg PO Q8H 7 Days Qty: 21 RF: 0 No Action ondansetron HCl [Zofran] 4 mg tablet 4 mg PO Q8H PRN (Reason: nausea and vomiting) 15 Days Qty: 45 RF: 0 sumatriptan 5 mg/actuation spray,non-aerosol 20 mg INTRANASAL Q2H PRN (Reason: Migraine Headache) 30 Days Qty: 6 RF: 5 simethicone [Gas Relief (simethicone)] 40 mg/0.6 mL drops,suspension 40 mg PO BID PRN (Reason: abdominal distention) 30 Days Qty: 36 RF: 0 Hold Instructions: Dose Change lorazepam 1 mg tablet 1 mg PO TID PRN (Reason: nausea) 30 Days Qty: 90 RF: 1 Miralax 17 gram/dose powder 17 g PO BID@0900,2100 30 Days Qty: 765 RF: 2 sucralfate [Carafate] 100 mg/mL suspension 10 ml PO TID 30 Days Qty: 900 RF: 1 mupirocin 2 % ointment 1 applic topical TID 14 Days Qty: 15 RF: 0 Zyrtec 10 mg capsule 10 mg PO DAILY Qty: 30 RF: 5 docusate sodium 50 mg/5 mL liquid 100 mg PO BID Qty: 473 RF: 2 pantoprazole 40 mg tablet,delayed release (DR/EC) See Rx Instructions .ROUTE .COMPLEX Qty: 90 RF: 1 hydromorphone 4 mg Tablet 4 mg PO Q6H PRN (Reason: Pain) Qty: 15 RF: 0 prochlorperazine maleate 10 mg tablet 10 mg PO DAILY@0900 RF: 0 Stool Softener (docusate [place]) 240 mg Capsule 240 mg PO DAILY@0900 RF: 0 ibuprofen 200 mg Tablet 200 - 400 mg PO Q6H PRN (Reason: Pain) RF: 0 Discharge Orders: Discharge ED (Routine); Ordered 06/11/21 Ordered By: pEi Chauhan Referrals: LUCERO Dueñas, OFFICE SUPPORT CLERK [Primary Care Provider] - Discharge Diet: Advance as tolerated Discharge Activity: Resume usual activity Patient Instructions: Infectious Colitis (ED) Coding Level of Care Code ED Accounts Receivable Representative for Bog Fwd Exam Comprehensive
[2021-03-18 23:30] LABS: Basophils % 0.5 %; Eosinophils # 0.1 10^3/uL (0.0-0.8); Eosinophils % 2.2 %; Hematocrit 36.4 % (42.0-52.0); Hemoglobin 11.8 g/dL (11.7-16.6); Lymphocytes # 1.2 10^3/uL (0.8-4.8); Lymphocytes % 18.8 %; Mean Corpuscular HGB Conc 32.4 g/dL (30.0-36.0); Mean Corpuscular Hemoglobin 30.1 pg (28.0-34.0); Mean Corpuscular Volume 92.9 fL (80-94); Mean Platelet Volume 9.6 fL (7.4-10.4); Monocytes # 0.5 10^3/uL (0.2-0.9); Monocytes % 8.3 %; Neutrophils # 4.48 10^3/uL (1.8-7.7); Nucleated Red Blood Cells % 0 %; Platelet Count 208 10^3/cmm (130-400); Red Blood Count 3.92 10^6/uL (4.1-5.3); Red Cell Distribution Width 13.8 % (12.1-15.1); White Blood Count 6.4 10^3/uL (4.0-10.0)
[2021-03-18 23:46] LABS: Alanine Aminotransferase 14 U/L (0-41); Albumin Level 3.6 g/dL (3.5-5.2); Alkaline Phosphatase 60 IU/L (40-130); Anion Gap 14.6 (5-19); Aspartate Amino Transferase 19 U/L (0-40); Blood Urea Nitrogen 15 mg/dL (8-23); Calcium 9.5 mg/dL (8.5-10.5); Carbon Dioxide 27 mmol/L (22-29); Chloride 106 mmol/L (98-107); Globulin 2.7 g/dL (1.3-4.6); Glomerular Filtration Rate 84.2 mL/min (90-130); Glucose 80 mg/dL (65-115); Lipase 56 U/L (13-60); Osmolality Calculated 296 mOsm/kg (285-295); Potassium 4.6 mmol/L (3.5-5.1); Sodium 143 mmol/L (136-145); Total Bilirubin 0.7 mg/dL (0.15-1.2); Total Protein 6.3 g/dL (6.6-8.7)
[2021-03-19 00:20] VITALS: BP 120/80; PULSE 80; RESP 18; TEMP 36.6; O2SAT 98
== END 2021-03-19 00:22 | disposition home or self-care (01) ==
PROVIDERS: Emergency Provider Emergency Medicine; PCP Nurse Practitioner Family
DX: K52.9 Noninfective gastroenteritis and colitis, unspecified (principal); K21.9 Gastro-esophageal reflux disease without esophagitis; Z85.038 Personal history of other malignant neoplasm of large intestine; K59.09 Other constipation
CPT/HCPCS: 36415; 80053; 83690; 85025; 99282

== ENCOUNTER 2021-03-20 17:22 | Emergency (ER) | payer MEDICARE, MEDICAID, SELFPAY ==
[2021-03-20 17:26] VITALS: BP 98/64; PULSE 58; RESP 15; TEMP 36.7; O2SAT 95; BMI 19.4
--- NOTE | 2021-03-20 18:49 | W.ED.GENADLT ---
HPI - General Adult General: Chief complaint: General Medical Stated complaint: DIARRHEA Time Seen by Provider: 03/20/21 18:20 Source: patient Mode of arrival: ambulatory Limitations: no limitations History of Present Illness: HPI narrative: 66-year-old male has a history of cancer was seen 2 days ago and diagnosed with colitis and started on Cipro and Flagyl. He states these medicines are making him feel ill he states that he is having a difficulty time swallowing him and he started to have some diarrhea with him. He states that he is feeling quite anxious and feeling that he is not going to wake up. He states he would like a different antibiotic. He has got some abdominal cramping rates like a 1 out of 10 but denies any severe pain. Denies any vomiting. Denies any fevers. Associated symptoms: Deny chest pain, dyspnea, headache(s) or rash Review of Systems Const: Denies: fever(s), chills, body aches or change in appetite Eyes: Denies: blurry vision or eye discomfort ENMT: Denies: throat pain or dental pain Card: Denies: chest pain Resp: Denies: dyspnea GI: Reports: diarrhea : Denies: dysuria Musc: Denies: neck pain or back pain Skin/Breast: Denies: rash Neuro: Denies: headache(s) Psych: Reports: anxiety Patel/Lymph: Denies: easy bruising All/Imm: Denies: urticaria PFSH ED PFSH: Medical History (Updated 03/20/21 @ 19:32 by Epi Chauhan MD) Anxiety Chronic constipation Environmental and seasonal allergies GERD (gastroesophageal reflux disease) Insect bite Left renal mass Migraine Nausea Pre-diabetes Small bowel obstruction Recurrent Vitamin B12 deficiency (dietary) anemia Surgical History Status post knee surgery Left Family History Denies family history of CAD (coronary artery disease) Cancer Social History Smoking and tobacco status: former smoker Second hand smoke exposure: No Smoking risk assessment/counseling performed?: No Alcohol intake: former Desire information about alcohol rehabilitation?: No Counseling given: No Desire information about substance/drug rehabilitation?: No Counseling given: No Physical Exam Const: COMMON NORMALS: no acute distress, patient oriented x3 and healthy appearing HENMT: COMMON NORMALS: normocephalic and atraumatic HEAD & SCALP: normocephalic and atraumatic Eye: COMMON NORMALS: Equal, round and reactive pupils present and EOMs intact bilaterally PUPIL: Yes Equal, round and reactive pupils present Neck/C-Spine: COMMON NORMALS: full ROM and supple Chest: COMMONS NORMALS: normal inspection of the chest and normal palpation of entire chest wall Resp: COMMON NORMALS: normal respiratory effort, No retractions, No use of accessory muscles and clear to auscultation bilaterally AUSCULTATION: clear to auscultation bilaterally Cardio: COMMON NORMALS: regular rate, regular rhythm and No murmurs present (Cardio) RATE: regular rate RHYTHM: regular rhythm GI: COMMON NORMALS: Normal to inspection, nondistended, normoactive bowel sounds present, Soft to palpation, non-tender and no masses PALPATION: Yes Soft to palpation Extremity: COMMON NORMALS: normal to inspection and full ROM Neuro: COMMON NORMALS: patient oriented x3, moves all extremities and no focal motor deficits Psych: COMMON NORMALS: mental status grossly normal, Normal thought process present and cooperative THOUGHT PROCESS: Normal thought process present Skin: COMMON NORMALS: no rashes or lesions noted and no wounds GENERAL SKIN EXAM: no rashes or lesions noted Course Vital Signs: Vital signs: Vital Signs Temperature 98.1 F 03/20/21 17:26 Pulse Rate 58 L 03/20/21 17:26 Respiratory Rate 15 03/20/21 17:26 Blood Pressure 98/64 03/20/21 17:26 Pulse Oximetry 95 03/20/21 17:26 MDM - General Adult MDM Narrative: Medical decision making narrative: Ryland presents here saying that his antibiotics are making him feel weird and he is having abdominal cramping. His blood work here is all normal and I will switch him to Augmentin. He is to follow-up his PCP this week and return if worsening. His abdominal exam here is benign he has no signs of acute surgical abdomen. Lab Data: Labs: Lab Results 03/20/21 03/20/21 Range/Units 18:50 18:50 WBC 5.9 (4.0-10.0) 10^3/ uL RBC 3.86 L (4.1-5.3) 10^6/u L Hgb 11.5 L (11.7-16.6) g/dL Hct 35.7 L (42.0-52.0) % MCV 92.5 (80-94) fL MCH 29.8 (28.0-34.0) pg MCHC 32.2 (30.0-36.0) g/dL RDW 13.5 (12.1-15.1) % Plt Count 200 (130-400) 10^3/c mm MPV 9.7 (7.4-10.4) fL Neut % (Auto) 70.1 % Lymph % (Auto) 17.2 % [place] % (Auto) 9.8 % Eos % (Auto) 2.0 % Baso % (Auto) 0.7 % Neut # (Auto) 4.16 (1.8-7.7) 10^3/u L Lymph # (Auto) 1.0 (0.8-4.8) 10^3/u L [place] # (Auto) 0.6 (0.2-0.9) 10^3/u L Eos # (Auto) 0.1 (0.0-0.8) 10^3/u L Baso # (Auto) 0.0 (0.0-0.1) 10^3/u L Nucleated RBC % (a uto) 0 % Nucleated RBCs # 0.0 /100WBC Sodium 142 (136-145) mmol/L Potassium 3.6 (3.5-5.1) mmol/L Chloride 107 (98-107) mmol/L Carbon Dioxide 26 (22-29) mmol/L Anion Gap 12.6 (5-19) BUN 14 (8-23) mg/dL Creatinine 0.9 (0.7-1.2) mg/dL GFR Calculation 84.2 L (90-130) mL/min Glucose 103 (65-115) mg/dL Calculated Osmolal ity 295 (285-295) mOsm/k g Calcium 8.8 (8.5-10.5) mg/dL Total Bilirubin 0.4 (0.15-1.2) mg/dL AST 15 (0-40) U/L ALT 12 (0-41) U/L Alkaline Phosphata se 52 (40-130) IU/L Total Protein 5.9 L (6.6-8.7) g/dL Albumin 3.3 L (3.5-5.2) g/dL Globulin 2.6 (1.3-4.6) g/dL Discharge Plan Discharge Patient Disposition: Home Clinical Impression: Colitis Condition: Stable Prescriptions: New ondansetron 4 mg tablet,disintegrating 4 mg PO Q6H PRN (Reason: nausea and vomiting) Qty: 14 RF: 0 Augmentin 875-125 mg tablet 1 tab PO BID Qty: 14 RF: 0 Discontinued ciprofloxacin HCl [Cipro] 500 mg tablet 500 mg PO BID Qty: 14 RF: 0 metronidazole [Flagyl] 500 mg tablet 500 mg PO Q8H 7 Days Qty: 21 RF: 0 No Action ondansetron HCl [Zofran] 4 mg tablet 4 mg PO Q8H PRN (Reason: nausea and vomiting) 15 Days Qty: 45 RF: 0 sumatriptan 5 mg/actuation spray,non-aerosol 20 mg INTRANASAL Q2H PRN (Reason: Migraine Headache) 30 Days Qty: 6 RF: 5 simethicone [Gas Relief (simethicone)] 40 mg/0.6 mL drops,suspension 40 mg PO BID PRN (Reason: abdominal distention) 30 Days Qty: 36 RF: 0 Hold Instructions: Dose Change lorazepam 1 mg tablet 1 mg PO TID PRN (Reason: nausea) 30 Days Qty: 90 RF: 1 Miralax 17 gram/dose powder 17 g PO BID@0900,2100 30 Days Qty: 765 RF: 2 sucralfate [Carafate] 100 mg/mL suspension 10 ml PO TID 30 Days Qty: 900 RF: 1 mupirocin 2 % ointment 1 applic topical TID 14 Days Qty: 15 RF: 0 Zyrtec 10 mg capsule 10 mg PO DAILY Qty: 30 RF: 5 docusate sodium 50 mg/5 mL liquid 100 mg PO BID Qty: 473 RF: 2 pantoprazole 40 mg tablet,delayed release (DR/EC) See Rx Instructions .ROUTE .COMPLEX Qty: 90 RF: 1 hydromorphone 4 mg Tablet 4 mg PO Q6H PRN (Reason: Pain) Qty: 15 RF: 0 prochlorperazine maleate 10 mg tablet 10 mg PO DAILY@0900 RF: 0 Stool Softener (docusate [place]) 240 mg Capsule 240 mg PO DAILY@0900 RF: 0 ibuprofen 200 mg Tablet 200 - 400 mg PO Q6H PRN (Reason: Pain) RF: 0 Discharge Orders: Discharge ED (Routine); Ordered 03/20/21 Ordered By: Epi Chauhan Referrals: LUCERO Dueñas, SUPERVISOR MATRIX [Primary Care Provider] - Discharge Diet: Advance as tolerated Discharge Activity: Resume usual activity Patient Instructions: Infectious Colitis (ED) Coding Level of Care Code ED Top Executive for Bog Fwd Exam Comprehensive
[2021-03-20 18:55] LABS: Basophils % 0.7 %; Eosinophils # 0.1 10^3/uL (0.0-0.8); Hematocrit 35.7 % (42.0-52.0); Hemoglobin 11.5 g/dL (11.7-16.6); Lymphocytes % 17.2 %; Mean Corpuscular HGB Conc 32.2 g/dL (30.0-36.0); Mean Corpuscular Hemoglobin 29.8 pg (28.0-34.0); Mean Corpuscular Volume 92.5 fL (80-94); Mean Platelet Volume 9.7 fL (7.4-10.4); Monocytes # 0.6 10^3/uL (0.2-0.9); Monocytes % 9.8 %; Neutrophils # 4.16 10^3/uL (1.8-7.7); Neutrophils % 70.1 %; Nucleated Red Blood Cells % 0 %; Platelet Count 200 10^3/cmm (130-400); Red Blood Count 3.86 10^6/uL (4.1-5.3); Red Cell Distribution Width 13.5 % (12.1-15.1); White Blood Count 5.9 10^3/uL (4.0-10.0)
[2021-03-20 19:12] LABS: Alanine Aminotransferase 12 U/L (0-41); Albumin Level 3.3 g/dL (3.5-5.2); Alkaline Phosphatase 52 IU/L (40-130); Anion Gap 12.6 (5-19); Aspartate Amino Transferase 15 U/L (0-40); Blood Urea Nitrogen 14 mg/dL (8-23); Calcium 8.8 mg/dL (8.5-10.5); Carbon Dioxide 26 mmol/L (22-29); Chloride 107 mmol/L (98-107); Globulin 2.6 g/dL (1.3-4.6); Glomerular Filtration Rate 84.2 mL/min (90-130); Glucose 103 mg/dL (65-115); Osmolality Calculated 295 mOsm/kg (285-295); Potassium 3.6 mmol/L (3.5-5.1); Sodium 142 mmol/L (136-145); Total Bilirubin 0.4 mg/dL (0.15-1.2); Total Protein 5.9 g/dL (6.6-8.7)
[2021-03-20] MEDS: sodium chloride 0.9% 1,000 ML 999 ML IV (19:27)
[2021-03-20 19:58] VITALS: BP 99/66; PULSE 59; RESP 16; O2SAT 96
== END 2021-03-20 19:58 | disposition home or self-care (01) ==
PROVIDERS: Emergency Provider Emergency Medicine; PCP Nurse Practitioner Family
DX: K52.9 Noninfective gastroenteritis and colitis, unspecified (principal); Z87.891 Personal history of nicotine dependence
CPT/HCPCS: 80053; 85025; 96360; 99283; J7030

== ENCOUNTER 2021-03-22 08:10 | Outpatient (CLI) | payer MEDICARE, MEDICAID, SELFPAY ==
--- NOTE | 2021-03-22 09:53 | ONC FU_ITS ---
Dr. Prater follow up note Patient: Ryland Huang Unit #: [id number]: [id number] Dicatated By: Lilliam Prater M.D.Date of Visit:Mar 22, 2021 Onc Med Follow-up/Prog Note History of Present Illness: Mr. Ryland Huang, is a 66-year-old gentleman with multiple hospitalization with recurrent small bowel obstructions and treated conservatively and underwent multiple CT scan of abdomen which showed abnormality in the transverse colon, as per patient underwent colonoscopy, which was as per patient normal and rectal biopsies showed some lymphoid aggregate. Because of abdominal pain nausea vomiting, patient lost about more than 10 pounds weight initially patient was seen by Dr. Gilbert and then was evaluated by Dr. Craig and on July 01, 2020, patient underwent exploratory laparotomy due to recurrent small bowel obstructions which showed carcinomatosis, peritoneal biopsy was obtained as well as ileum and cecum was resected and final pathology report came back, peritoneal biopsy confirmed metastatic adenocarcinoma and small bowel showed adenocarcinoma, primary site being the ileum with 2 ileal strictures, tumor size were 2.9 cm but no perforation was identified no lymphovascular invasion was seen tumor shows visceral peritoneal deposit and invades other organs e.g. rectum but clear surgical margins and 2 out of 24 lymph nodes were positive e.g. T4, N1,M1. And with intact MSI MMR status. Patient denies any family history of colorectal cancer, is a former smoker and quit alcohol in the past During his multiple hospitalization, patient was also found to have left renal mass, for which he was referred to Dr. Costa but work-up was postponed because of acute abdominal issue due to recurrent small bowel obstruction.Follow-up CT scan of abdomen pelvis done on March 17, 2021 showed diffuse thickening with submucosal enhancement and induration involving transverse colon, sigmoid colon, extending to the rectum. Distended abdomen with air-fluid levels. Multiple submucosal polypoid lesion prominent in the gastric fundus with the largest en plaque lesion measuring 6.1 x 2.1 x 1.7 cm, associated diffuse gastric wall thickening. Diffuse transmural thickening involving the duodenal bulb extending into the first and second portion of the duodenum. Focal filling defect in the second portion of duodenum measuring 6 mm suspicious for polyp. Enlarged heterogeneous enhancing prostate 4.5 x 4.5 x 4.9 cm, evidence of bladder outlet obstruction, patient went [place] [facility] [place], 2021 where he was diagnosed with colitis and was started on ciprofloxacin and Flagyl, as per patient that made him feel weird, because someone anxiety and diarrhea mild abdominal cramps, patient went back to ER on March 20, 2021 where, ciprofloxacin/Flagyl was discontinued and switched to Augmentin which he is taking now and tolerating well., Came for follow-up, denies any specific complaints except chronic off and on mild abdominal discomfort/pain but no melena or hematochezia, no mucus in the stool, no nausea or vomiting, no abdominal fullness, complaining of off and on decreased urine output, Medications: Cetirizine HCl (10 mg) Tablet Oral daily, Dilaudid 1 Tablet (of 4 mg) Oral q 6 hours, Ondansetron HCl (4 mg) Tablet Oral t.i.d. PRN, Pantoprazole Sodium (40 mg) Tablet, enteric coated Oral daily, Polyethylene Glycol 1000 1 Scoop(s) Powder daily PRN, SUMAtriptan 1 [place](s) (of 5 mg/act) Solution Nasal PRN Allergies: Aspirin, Phenylephrine HCl, Pseudoephedrine HCl, and Triprolidine-PSE. Review of Systems: Review of Systems is not available for this patient. Vital Signs: Performed on Mar 22, 2021 08:55 Height - 65.00 in Weight - 112 lbs (LOW) BSA - 1.55 sq.m BMI - 18.64 Temperature - 97.7 F (LOW) Pulse - 58 /min (LOW) Respiration - 18 /min BP - 99/63 mm(hg) O2 Sat - 98 % Pain - 0 Fatigue - 0 Performance Status: 0 - Fully active, able to carry on all predisease activities without restrictions. (ECOG) Physical Examination: ENMT - No mouth sores, no thrush, no jaundice, Respiratory - Lungs are clear to auscultation, Cardiovascular - Regular rate and rhythm of heart, Abdomen - Soft, bowel sounds present, no palpable mass or rebound tenderness, Extremities - No visible edema. Lab/Imaging: Most recent lab results are not available for this patient. 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, 2 out of 24 lymph nodes showed metastatic disease per exploratory laparotomy done on July 01, 2020, pathology stage T4, N1, M1 During his visit on August 02, 2020 patient was offered palliative chemotherapy with FOLFOX, but patient never return to clinic for the treatment and decided not to take any treatment AGAINST MEDICAL ADVICE Left renal mass, being evaluated by urology Follow-up CT scan of abdomen pelvis done on March 17, 2021 showed diffuse thickening with submucosal enhancement and induration involving transverse colon/sigmoid colon/rectum and distended stomach with air-fluid levels, multiple submucosal polypoid lesions prominent in the gastric fundus with largest en plaque lesion measuring 6.1 x 2.1 x 1.7 cm, associated diffuse gastric wall thickening. Diffuse transmural thickening involving duodenal bulb extending into the first and second portion of duodenum, nonspecific but can be seen with duodenitis. Infiltrating neoplasm such as lymphoma not excluded. Focal filling defect in the second portion of duodenum measuring 6 mm suspicious for polyp. Postop changes right lower quadrant ileal anastomosis Enlarged heterogeneous enhancing prostate measuring 4.5 x 4.5 x 4.9 cm.With evidence of bladder outlet obstruction Plan: Discussed with patient regarding his CT scan of abdomen pelvis findings and his tumor marker CEA was checked during his last visit on February 28, 2021 which was 3.3, his CT scan of abdomen pelvis shows extensive thickening with submucosal enhancement and induration involving transverse colon/sigmoid colon/rectum and duodenum/stomach, etiology could be inflammation like diffuse colitis/gastritis/enteritis or infiltrative process like lymphoma, liver shows no metastatic disease. Patient is not acutely symptomatic except off and on chronic mid abdominal pain/discomfort 1-2 on a scale of 10, recently on went to hospital where he was diagnosed with acute colitis was given prescription for Cipro/Flagyl which patient could not tolerate as per patient it caused anxiety and restlessness and could not sleep so during his second visit to [facility] on [place], [place], ciprofloxacin/Flagyl was discontinued but started on Augmentin, which she is tolerating well. Patient is scheduled to see Dr. Craig today at 11:00 for evaluation via EGD/colonoscopy. Patient was advised to see Dr. Craig and in case there is a new acute symptoms, he needs to go to [facility] for evaluation otherwise we will see him back after EGD/colonoscopy for further discussion As far as history of colon cancer is concerned his follow-up CT scan shows no evidence of recurrence, his tumor marker CEA was within normal limits but incidental finding of diffuse submucosal edema/induration noted involving stomach/duodenum/colon, but no acute symptoms and now EGD/colonoscopy is under consideration. Signed By: Lilliam Prater M.D. <<Signature on File>>
== END 2021-03-22 08:11 | disposition home or self-care (01) ==
PROVIDERS: PCP Nurse Practitioner Family; Visit Provider Internal Medicine Hematology & Oncology
DX: Z08 Encounter for follow-up examination after completed treatment for malignant neoplasm (principal); Z85.048 Personal history of other malignant neoplasm of rectum, rectosigmoid junction, and anus; N40.1 Benign prostatic hyperplasia with lower urinary tract symptoms; N13.8 Other obstructive and reflux uropathy; Z79.899 Other long term (current) drug therapy
CPT/HCPCS: 99214

== ENCOUNTER → 2021-03-28 09:49 | Outpatient (BNVA) | payer MEDICARE, MEDICAID, SELFPAY | PROVIDERS: PCP Nurse Practitioner Family; Visit Provider Surgery | DX: Z01.812 Encounter for preprocedural laboratory examination (principal); Z11.52 Encounter for screening for COVID-19 | CPT/HCPCS: 87635 ==

== ENCOUNTER 2021-03-31 06:49 | Day surgery (SDC) | payer MEDICARE, MEDICAID, SELFPAY ==
[2021-03-29 13:36] VITALS: BMI 18.6
[2021-03-31 07:25] VITALS: BP 91/73; PULSE 57; RESP 18; TEMP 36.4; O2SAT 96
[2021-03-31 07:44] LABS: Glucose Point of Care 67 mg/dL (70-110)
[2021-03-31] MEDS: sodium chloride 0.9% 1,000 ML 30 ML IV (07:44)
--- NOTE | 2021-03-31 07:54 | ANES.PREANE2 ---
Pre-Anesthetic Assessment Pre-Anesthetic Assessment: Height/Weight: Height 1.65 m Weight 50.802 kg Temp Pulse Resp BP Pulse Ox 97.5 F L 57 L 18 91/73 96 03/31/21 07:25 03/31/21 07:25 03/31/21 07:25 03/31/21 07:25 03/31/21 07:25 Preop Diagnosis: Recurrent small bowel obstructions. Proposed Procedure: Operation Date: 03/31/21 08:00 Proposed Procedures p EGD 60975 R93.3(Not Applicable) - Rigo Craig MD Was Beta Radha taken within 24 hours: N/A Was Clonidine taken within 24 hours: N/A Last intake: Intake Last Liquid Date 03/30/21 Last Liquid Time 19:00 Last Solid Date 03/30/21 Last Solid Time 19:00 Social: Social History: No alcohol and No tobacco Exam: Pre-Anes Outpt Exam: alert, oriented x 3, clear to auscultation bilaterally and regular rate & rhythm Airway: Submandibular: WNL Cervical ROM: WNL MP: 2 Dentition: False History/ROS: No significant history except as noted and No significant complaints Pulmonary: Pulmonary: None reported CV/HEM: CV/HEM: None reported : : None reported Hepatic: Hepatic: None reported GI: GI: GERD Comments: Gastric retention Metabolic: Metabolic: DM Comments: prediabetic Musc/skel: Musc/skel: None reported Neuropsych: Neuropsych: Anxiety Anesthetic Plan: ASA status: 3 Anesthesia: Anesthesia Evaluation and MAC Risk of > 500 ml blood loss (7ml/kg in children): No Meds/Allergies Current Medications: Current Medications Generic Name Dose Route Start Last Admin Trade Name Freq PRN Reason Stop Dose Admin Sodium Chloride 1,000 mls @ 30 ml s/hr 03/31/21 07:15 03/31/21 07:44 Sodium Chloride 0.9% IV 04/01/21 07:14 30 mls/hr .Q24H NETO Administration PFSH Anesthesia PFSH: Medical History (Updated 03/27/21 @ 00:00 by ) Anxiety BPH (benign prostatic hyperplasia) Chronic constipation Environmental and seasonal allergies GERD (gastroesophageal reflux disease) Insect bite Left renal mass Migraine Nausea Pre-diabetes Small bowel obstruction Recurrent Vitamin B12 deficiency (dietary) anemia Surgical History Status post knee surgery Left Family History Denies family history of CAD (coronary artery disease) Cancer Social History Smoking and tobacco status: former smoker Second hand smoke exposure: No Smoking risk assessment/counseling performed?: No Alcohol intake: former Desire information about alcohol rehabilitation?: No Counseling given: No Desire information about substance/drug rehabilitation?: No Counseling given: No Data Anesthesia Other Labs: Laboratory Results - last 48 hr 03/31/21 07:40 POC Glucose 67 L Cardiac Studies: No Data to Display
--- NOTE | 2021-03-31 08:06 | W.PM.OPSUD ---
Surgery/Procedure H&P Update DATE OF PROCEDURE: March 31, 2021 DATE H&P PERFORMED: 03/22/21 H&P UPDATE INFORMATION: No changes to prior documentation PREOP DIAGNOSIS: Abnormal CT of the stomach. PLANNED PROCEDURE: Operation Date: 03/31/21 08:00 Proposed Procedures p EGD 23702 R93.3(Not Applicable) - Rigo Craig MD
[2021-03-31 08:51] VITALS: BP 114/72; PULSE 48; RESP 20; TEMP 36.8; O2SAT 100
[2021-03-31 08:55] VITALS: BP 111/73; PULSE 49; RESP 17; O2SAT 98
[2021-03-31 09:00] VITALS: BP 130/75; PULSE 48; RESP 13; O2SAT 100
[2021-03-31 09:05] VITALS: BP 125/71; PULSE 49; RESP 14; TEMP 36.8; O2SAT 95
[2021-03-31 09:11] VITALS: BP 124/96; PULSE 52; RESP 16; TEMP 36.5; O2SAT 100
--- NOTE | 2021-03-31 14:44 | ANE.PACU2 ---
Inpatient post-anesthesia follow up: Airway intact: Yes Vital signs: Temperature 97.7 F Pulse Rate 52 Respiratory Rate 16 Blood Pressure 124/96 Pulse Oximetry 100 Oxygen Delivery Me thod Room Air Oxygen Flow Rate 6 Fraction of Inspir ed Oxygen Hydration adequate: Yes Nausea and vomiting: No Pain level: 1 Mental status: Baseline
[2021-04-01 06:28] LABS: H. Pylori / CLO Test Negative
== END 2021-03-31 09:52 | disposition home or self-care (01) ==
PROVIDERS: PCP Nurse Practitioner Family; Visit Provider Surgery
PROC: 0DJ08ZZ Inspection of Upper Intestinal Tract, Via Natural or Artificial Opening Endoscopic (ICD-10-PCS; CPT 43235; principal; 2021-03-31 08:00)
DX: R93.3 Abnormal findings on diagnostic imaging of other parts of digestive tract (principal); K29.70 Gastritis, unspecified, without bleeding; K29.80 Duodenitis without bleeding; E11.9 Type 2 diabetes mellitus without complications; F41.9 Anxiety disorder, unspecified; N40.0 Benign prostatic hyperplasia without lower urinary tract symptoms; K21.9 Gastro-esophageal reflux disease without esophagitis; Z87.891 Personal history of nicotine dependence
CPT/HCPCS: 36416; 43239; 82962; 87077; 88305; 96360; 96361; J0330; J2704; J7030

== ENCOUNTER → 2021-04-26 11:35 | Outpatient (BNVA) | payer MEDICARE, MEDICAID, SELFPAY | PROVIDERS: PCP Nurse Practitioner Family; Visit Provider Nurse Practitioner Family | DX: R30.0 Dysuria (principal); N39.0 Urinary tract infection, site not specified | CPT/HCPCS: 81003; 87086 ==

== ENCOUNTER 2021-04-28 14:23 | Inpatient (IN) | payer MEDICARE, MEDICAID, SELFPAY ==
[2021-04-28 14:46] VITALS: BP 89/63; PULSE 79; RESP 18; TEMP 36.8; O2SAT 99; BMI 16.6
[2021-04-28 17:21] VITALS: BP 107/70; PULSE 68; O2SAT 100
--- NOTE | 2021-04-28 18:25 | CTR_ITS ---
PROCEDURE INFORMATION: Exam: CT Abdomen And Pelvis With Contrast Exam date and time: 04/28/2021 6:25 PM Age: 66 years old Clinical indication: Nausea and vomiting and other: Diarrhea; Abdominal pain; Prior surgery; Surgery type: Colon, appy; Additional info: Abdmonial pain. Has gastric cancer TECHNIQUE: Imaging protocol: Computed tomography of the abdomen and pelvis with contrast. Radiation optimization: All CT scans at this facility use at least one of these dose optimization techniques: automated exposure control; mA and/or kV adjustment per patient size (includes targeted exams where dose is matched to clinical indication); or iterative reconstruction. Contrast material: VISI 320; Contrast volume: 75 ml; Contrast route: INTRAVENOUS (IV); COMPARISON: CT abdomen pelvis w con* [id number] 03/17/2021 11:45 AM RADIATION DOSE METRICS: Total DLP (mGy-cm): 636.82 FINDINGS: Liver: A couple punctate low-attenuation lesions within the liver too small to characterize on CT, likely small cysts. Gallbladder and bile ducts: Normal. No calcified stones. No ductal dilation. Pancreas: Normal. No ductal dilation. Spleen: Normal. No splenomegaly. Adrenal glands: Normal. No mass. Kidneys and ureters: Subcentimeter cyst in the lower pole of the left kidney. Stomach and bowel: Wall thickening at the gastric antrum/pyloric likely corresponding to known gastric cancer. New dilated loops of small bowel with air-fluid levels centered within the left hemiabdomen. The bowel is dilated up to 4.5 cm in transverse dimension. There is a short segment of small bowel in the right lower abdomen near the ileocolonic anastomosis which appears decompressed and may represent a transition point. No evidence of bowel pneumatosis, portal venous gas, or pneumoperitoneum. Appendix: Appendectomy changes. Intraperitoneal space: Unremarkable. No free air. No significant fluid collection. Vasculature: Unremarkable. No abdominal aortic aneurysm. Lymph nodes: Unremarkable. No enlarged lymph nodes. Urinary bladder: Unremarkable as visualized. Reproductive: Enlarged prostate. Bones/joints: No acute fracture. No aggressive osseous lesion. Soft tissues: Unremarkable. CT/CT abdomen pelvis w con* [id number] IMPRESSION: 1. New dilated loops of small bowel with a suspected transition point in the right lower abdomen near the ileocolonic anastomosis suspicious for bowel obstruction. 2. Wall thickening of the gastric antrum/pyloric region likely corresponding to known gastric malignancy is not significantly changed from prior imaging. COMMENTS: Consistent with the [employer]'s Incidental Findings Committee white paper (J Am Zay Radiol 2018): Any incidental renal lesion less than 1 cm or classified as too small to characterize, or any incidental cystic renal lesion characterized as simple-appearing, is likely benign. No follow-up imaging is recommended for these lesions per consensus recommendations based on imaging criteria. Radiation Dose CTDIVOL = (mGy): DLP = 636.82 (mGy-cm)
[2021-04-28 18:52] LABS: Basophils % 0.5 %; Eosinophils % 0.5 %; Hematocrit 44.8 % (42.0-52.0); Hemoglobin 13.6 g/dL (11.7-16.6); Lymphocytes % 15.7 %; Mean Corpuscular HGB Conc 30.4 g/dL (30.0-36.0); Mean Corpuscular Hemoglobin 29.6 pg (28.0-34.0); Mean Corpuscular Volume 97.6 fL (80-94); Mean Platelet Volume 10.4 fL (7.4-10.4); Monocytes # 0.6 10^3/uL (0.2-0.9); Monocytes % 9.4 %; Neutrophils % 73.7 %; Nucleated Red Blood Cells % 0 %; Platelet Count 209 10^3/cmm (130-400); Red Blood Count 4.59 10^6/uL (4.1-5.3); Red Cell Distribution Width 14.7 % (12.1-15.1); White Blood Count 6.6 10^3/uL (4.0-10.0)
[2021-04-28] MEDS: iodixanol 320 mg/mL 100mL Btl IV (18:53)
[2021-04-28 19:28] LABS: Alanine Aminotransferase 26 U/L (0-41); Albumin Level 3.9 g/dL (3.5-5.2); Alkaline Phosphatase 72 IU/L (40-130); Aspartate Amino Transferase 25 U/L (0-40); Blood Urea Nitrogen 16 mg/dL (8-23); Carbon Dioxide 25 mmol/L (22-29); Chloride 103 mmol/L (98-107); Globulin 2.8 g/dL (1.3-4.6); Glomerular Filtration Rate 84.2 mL/min (90-130); Glucose 69 mg/dL (65-115); Lipase 50 U/L (13-60); Osmolality Calculated 290 mOsm/kg (285-295); Sodium 140 mmol/L (136-145); Total Bilirubin 1.2 mg/dL (0.15-1.2); Total Protein 6.7 g/dL (6.6-8.7)
[2021-04-28 19:29] LABS: Add Urine Microscopic? YES; Bilirubin Urine 1+ (Negative); Blood Urine Neg (Negative); Glucose Urine UA Norm (Normal); Ketones Urine 1+ (Negative); Leukocyte Esterase Urine Trace (Negative); Nitrate Urine Negative (Negative); Protein Urine Trace (Negative); Specific Gravity, Urine 1.025 (1.005-1.030); Urine Appearance SL Hazy (CLEAR); Urine Color Amber (Yellow); Urobilinogen Urine 1 mg/dL (Negative); pH Urine 5 (5-7)
[2021-04-28] MEDS: ketorolac 30 mg/mL INJ IVP (19:29)
[2021-04-28 19:30] LABS: Add Urine Culture? No; Bacteria Urine 1+ /hpf; Squamous Epithelial Cell Urine 0-4 /hpf (0-5); WBC Urine 0-4 /hpf (0-5)
[2021-04-28 19:39] LABS: Anion Gap 16.4 (5-19); Potassium 4.4 mmol/L (3.5-5.1)
--- NOTE | 2021-04-28 20:07 | XRR_ITS ---
PROCEDURE INFORMATION: Exam: XR Chest Exam date and time: 04/28/2021 8:07 PM Age: 66 years old Clinical indication: Device placement; Ng tube; Additional info: Ng tube insertion TECHNIQUE: Imaging protocol: XR of the chest. Views: 1 view. COMPARISON: CR XR chest 1V portable [id number] 02/21/2021 11:41 AM FINDINGS: Tubes, catheters and devices: NG tube terminates within the proximal gastric lumen. Side port projects over the distal esophagus. Lungs: Unremarkable. No consolidation. Pleural spaces: Unremarkable. No pleural effusion. No pneumothorax. Heart/Mediastinum: Unremarkable. No cardiomegaly. Bones/joints: Unremarkable. XR/XR chest 1V portable [id number] IMPRESSION: NG tube terminates within the proximal gastric lumen. Side port projects over the distal esophagus. Would suggest at least 4 cm advancement for side port placement within the gastric lumen.
--- NOTE | 2021-04-28 20:44 | P.HP_ITS ---
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 Last bowel movement 2 days prior. Patient has followed with Dr. Craig. Has refused any chemo or surgical intervention for malignancy. Laboratory workup arrival showed a WBC of 6.6, hemoglobin of 13.6, hematocrit of 44.8 and a platelet count 209. Sodium 140, potassium 4.4, chloride 103, bicarb 25, BUN 16 and creatinine of 0.9 . LFTs within normal limits. Lipase of 50. Urinalysis showed trace leukocyte esterase Imaging studies included a CT abdomen pelvis which showed new dilated loops of small bowel with suspected transition point in the right lower abdomen near the ileocolonic anastomosis suspicious for obstruction. Also noted to have wall thickening of the gastric antrum /pyloric corresponding with known gastric malignancy. Patient was agreeable to nasogastric tube placement and decompression. After this intervention he did state his abdominal pain had improved. Review of Systems General: Reports: 10 or more systems reviewed and unremarkable except in HPI and below Medications/Allergies Home Medications Medication Instructions Recorded Confirmed Last Taken Type ondansetron HCl 4 mg tablet 4 mg PO Q8H PRN 15 Days #45 tab 01/09/21 04/28/21 04/28/21 Rx sumatriptan 5 mg/actuation nasal 20 mg INTRANASAL Q2H PRN 30 Days 01/09/21 04/28/21 Unknown Rx spray #6 ea lorazepam 1 mg tablet 1 mg PO TID PRN 30 Days #90 tab 02/04/21 04/28/21 04/28/21 Rx cetirizine 10 mg capsule 10 mg PO DAILY #30 cap 02/22/21 04/28/21 04/28/21 Rx ondansetron 4 mg PO Q6H PRN #14 tab 03/20/21 04/28/21 Unknown Rx pantoprazole 40 mg PO DAILY 03/29/21 04/28/21 04/28/21 History sennosides-docusate sodium 1 tab-cap PO BID 03/29/21 04/28/21 04/28/21 History sucralfate 30 mg PO BID@0900,2100 04/28/21 04/28/21 04/28/21 History tamsulosin 0.4 mg PO DAILY 04/28/21 04/28/21 Unknown History Allergies Allergy/AdvReac Type Severity Reaction Status Date / Time ciprofloxacin [From Cipro] Allergy ADR-Anxiety Verified 04/28/21 14:46 metronidazole Allergy ADR-Anxiety Verified 04/28/21 14:46 phenylephrine Allergy ADR-Nausea Verified 04/28/21 14:46 [From Sudafed PE] pseudoephedrine Allergy ADR-Nausea Verified 04/28/21 14:46 [From Actifed] triprolidine [From Actifed] Allergy ADR-Nausea Verified 04/28/21 14:46 aspirin AdvReac low heart Verified 04/28/21 14:46 rate PFSH Acute PFSH: Medical History (Updated 04/29/21 @ 04:03 by Hilaria Galan MD) Anxiety BPH (benign prostatic hyperplasia) Chronic constipation Environmental and seasonal allergies GERD (gastroesophageal reflux disease) Insect bite Left renal mass Migraine Nausea Pre-diabetes Small bowel obstruction Recurrent Vitamin B12 deficiency (dietary) anemia Surgical History Status post knee surgery Left Family History Denies family history of CAD (coronary artery disease) Cancer Social History Smoking and tobacco status: former smoker Second hand smoke exposure: No Smoking risk assessment/counseling performed?: No Alcohol intake: former Desire information about alcohol rehabilitation?: No Counseling given: No Desire information about substance/drug rehabilitation?: No Counseling given: No Vitals/I&O/Wt Last Vital Signs Temp 98.2 F 04/28/21 14:46 Pulse 68 04/28/21 17:21 Resp 18 04/28/21 14:46 BP 107/70 04/28/21 17:21 Pulse Ox 100 04/28/21 17:21 Weight last 48 hrs Weight 45.359 kg Physical Exam Narrative: EXAM NARRATIVE: General- frail , alert , oriented HEENT- grossly unremarkable CVS- normal sinus rhythm Chest- nonlabored respiration Abdomen nontender nondistended Extremities- no edema Data : 04/28/21 18:27 04/28/21 18:27 A&P Assessment and plan (1) Small bowel obstruction: NG tube placed continue with low intermittent suction Abdominal pain improved Consider General surgery consult in a.m. NPO for now Pain control Status: Acute (2) Primary adenocarcinoma of ileum: Patient has refused intervention Status: Acute (3) DVT prophylaxis: Heparin 5000 units b.i.d. Status: Acute Attestations Medical Necessity Statement*: Anticipate over 2 midnights stay in hospital for evaluation and treatment of small-bowel obstruction requiring decompression Time Spent in Patient Care: Greater than 35 minutes Coding Level of Care Code Acute Epic Prelude Analyst for [facility] Fwd Diagnoses Small bowel obstruction K56.609 Primary adenocarcinoma of ileum C17.2 DVT prophylaxis Z29.9
[2021-04-28] MEDS: sodium chloride 0.9% 1,000 ML 75 ML IV (22:05)
[2021-04-28] MEDS: pantoprazole 40 mg SDV IVP (22:05)
[2021-04-28 22:33] VITALS: BP 98/64; PULSE 67; RESP 18; TEMP 36.6; O2SAT 96
[2021-04-28 22:45] VITALS: BP 99/63; PULSE 58; RESP 16; TEMP 36.5; O2SAT 97
--- NOTE | 2021-04-29 | ED_ITS ---
HPI - Abdominal Pain General: Chief Complaint: Abdominal Pain Stated Complaint: Cramping in stomach, Back pain, N/V Time Seen by Provider: 04/28/21 17:35 Source: patient Mode of arrival: ambulatory Limitations: no limitations History of Present Illness: HPI narrative: This 66 year old male with a history of metastatic adenocarcinoma of the colon. He was diagnosed after he had several episodes of instestinal obstruction and the surgeon decided to perform an explortory laparotomy. At the time of diagnosis he decided against any form of treatment as he had seen the effect of chemotherapy on a friend and did not like the quality of the friend's life. He therefore wanted to have a better quality of life. He presents to the ED with complaints of abdominal pain and multiple episodes of vomiting that started last night. He states that the pain is severe and he is unable to keep anything down. He is therefore here to be evaluated. MD elicited complaint: abdominal pain Pertinent past history: other (metastatic colon cancer, multiple intestinal obstruction) Onset (ago): day(s) (1) Pain Consistency: constant Location: Diffuse Severity: severe Quality: cramping Radiation: none Exacerbating factors: eating Relieving factors: nothing Context: recent surgery/procedure Associated Symptoms: Reports GI cramping, nausea and vomiting; Denies anorexia, belching, bloating, change in bowel habits, change in stool character, chills, coffee ground emesis, constipation, diarrhea, dyspepsia, dysuria, excessive flatus, fever(s), heartburn, hematochezia, hematuria, hematemesis, fecal incontinence, loose stools, melena, poor appetite and syncope Review of Systems General: Reports: 10 or more systems reviewed and unremarkable except in HPI and below Const: Denies: fever(s) or chills Card: Denies: syncope GI: Reports: nausea, vomiting and GI cramping; Denies: hematemesis, coffee ground emesis, heartburn, diarrhea, constipation, bloating, belching, excessive flatus, fecal incontinence, change in bowel habits, change in stool character, hematochezia or melena : Denies: dysuria or hematuria [facility] PFSH: Medical History Abdominal malignancy Anxiety BPH (benign prostatic hyperplasia) Chronic constipation DVT prophylaxis Environmental and seasonal allergies GERD (gastroesophageal reflux disease) Insect bite Left renal mass Migraine Nausea Pre-diabetes Primary adenocarcinoma of ileum Small bowel obstruction Recurrent Vitamin B12 deficiency (dietary) anemia Surgical History Status post knee surgery Left Family History Denies family history of CAD (coronary artery disease) Cancer Social History Smoking and tobacco status: never smoked Second hand smoke exposure: No Smoking risk assessment/counseling performed?: No Alcohol intake: former Desire information about alcohol rehabilitation?: No Counseling given: No Desire information about substance/drug rehabilitation?: No Counseling given: No Physical Exam Const: COMMON NORMALS: no acute distress, average body habitus, patient oriented x3, no limitations, healthy appearing, alert and well nourished Neck/C-Spine: COMMON NORMALS: no meningeal signs and no JVD Resp: COMMON NORMALS: normal respiratory effort, No retractions, No use of accessory muscles, clear to auscultation bilaterally and percussion normal AUSCULTATION: clear to auscultation bilaterally PERCUSSION: percussion normal Cardio: COMMON NORMALS: no JVD, regular rate, regular rhythm, S1 normal heart sound present, S2 normal heart sound present, No gallops present (Cardio), No clicks present (Cardio), No murmurs present (Cardio), No rub (Cardio) and Peripheral pulses 2+ throughout RATE: regular rate RHYTHM: regular rhythm HEART SOUNDS: S1 normal heart sound present and S2 normal heart sound present PERIPHERAL PULSES: Peripheral pulses 2+ throughout GI: COMMON NORMALS: Soft to palpation, No hepatosplenomegaly present, no masses and no bruits INSPECTION: No abdominal distension AUSCULTATION: Yes Hyperactive bowel sounds present PALPATION: Yes Soft to palpation, Yes Tenderness to palpation present (GI) (generalized.), No Guarding due to palpation present (GI), No Rigid due to palpation, Yes No hepatosplenomegaly present and No Rebound tenderness present Extremity: COMMON NORMALS: normal to inspection, full ROM, capillary refill normal, no calf tenderness and no pedal edema Neuro: COMMON NORMALS: patient oriented x3 SENSORIUM/ORIENTATION: Yes alert MENINGEAL SIGNS: Yes no meningeal signs Skin: COMMON NORMALS: no rashes or lesions noted, no wounds, turgor normal, no jaundice, no petechiae and no mottling GENERAL SKIN EXAM: no rashes or lesions noted and turgor normal Course Reevaluation(s): Reevaluation #1: Discussed his lab and imaging findings with the patient and his . Also discussed my conversation with Dr. Craig. I d iscussed that the patient needs to make arrangements for hospice care as he will eventually need it. He has no desire to be on hospice at this time. I discussed opting for an NG tube placement for decompression of his stomach/bowel to see if he can obtain relief. He wishes to try that. I however explained to him that if this does not work there are no further treatment modalities open to him. I did advise that he will eventually need hospice care so he should probably start working on it. He voiced understanding and is in agreement with the plan. Time: 19:50 Consultations: Consultation #1: Discussed the patient with Dr. Galan, hospitalist and he kindly accepted the patient to his service. Will discuss the patient with Dr. Craig who is the surgeon production boring machine operator Time: 19:26 Consultation #2: Discussed the patient with Dr. Craig. The patient is well known to him and he performed the initial exploratory laparotomy and a recent endoscopy about one month ago for this patient. Since the patient has opted not to obtain any treatment for his malignancy, and with the risk of spread of the cancer, the patient is not a surgical candidate and he has nothing to offer the patient at this time. The patient needs to consider hospice care. Time: 19:40 Vital Signs: Vital signs: Vital Signs Temperature 98.2 F 05/01/21 15:36 Pulse Rate 60 05/01/21 15:36 Respiratory Rate 18 05/01/21 15:36 Blood Pressure 106/67 05/01/21 15:36 Pulse Oximetry 93 05/01/21 15:36 MDM - Abdominal Pain MDM Narrative: Medical decision making narrative: 66 year old male with metastatic intraabdominal cancer who presents to the ED with abdominal pain and vomiting. In the ED he is diagnosed with a SBO. He had opted for no treatment of his cancer at diagnosis. Surgeon does not have any treatment options for the patient. The patient will have a trial of NG tube decompression to see if that relieves his symptoms. He is admitted to the hospital for further evaluation and management. Medical Records: Attestation: I reviewed the patient's medical records. Lab Data: Attestation: I reviewed the patient's lab results. Labs: Lab Results 04/28/21 04/28/21 04/28/21 Range/Units 18:27 18:27 19:04 WBC 6.6 (4.0-10.0) 10^3/ uL RBC 4.59 (4.1-5.3) 10^6/u L Hgb 13.6 (11.7-16.6) g/dL Hct 44.8 (42.0-52.0) % MCV 97.6 H (80-94) fL MCH 29.6 (28.0-34.0) pg MCHC 30.4 (30.0-36.0) g/dL RDW 14.7 (12.1-15.1) % Plt Count 209 (130-400) 10^3/c mm MPV 10.4 (7.4-10.4) fL Neut % (Auto) 73.7 % Lymph % (Auto) 15.7 % [place] % (Auto) 9.4 % Eos % (Auto) 0.5 % Baso % (Auto) 0.5 % Neut # (Auto) 4.90 (1.8-7.7) 10^3/u L Lymph # (Auto) 1.0 (0.8-4.8) 10^3/u L [place] # (Auto) 0.6 (0.2-0.9) 10^3/u L Eos # (Auto) 0.0 (0.0-0.8) 10^3/u L Baso # (Auto) 0.0 (0.0-0.1) 10^3/u L Nucleated RBC % (a uto) 0 % Nucleated RBCs # 0.0 /100WBC Sodium 140 (136-145) mmol/L Potassium 4.4 (3.5-5.1) mmol/L Chloride 103 (98-107) mmol/L Carbon Dioxide 25 (22-29) mmol/L Anion Gap 16.4 (5-19) BUN 16 (8-23) mg/dL Creatinine 0.9 (0.7-1.2) mg/dL GFR Calculation 84.2 L (90-130) mL/min Glucose 69 (65-115) mg/dL Calculated Osmolal ity 290 (285-295) mOsm/k g Calcium 10.0 (8.5-10.5) mg/dL Total Bilirubin 1.2 (0.15-1.2) mg/dL AST 25 (0-40) U/L ALT 26 (0-41) U/L Alkaline Phosphata se 72 (40-130) IU/L Total Protein 6.7 (6.6-8.7) g/dL Albumin 3.9 (3.5-5.2) g/dL Globulin 2.8 (1.3-4.6) g/dL Lipase 50 (13-60) U/L Urine Color [place] (Yellow) Urine Appearance Sl hazy (CLEAR) Urine pH 5 (5-7) Ur Specific Gravit y 1.025 (1.005-1.030) Urine Protein Trace (Negative) Urine Glucose (UA) Norm (Normal) Urine Ketones 1+ H (Negative) Urine Blood Neg (Negative) Urine Nitrate Negative (Negative) Urine Bilirubin 1+ H (Negative) Urine Urobilinogen 1 H (Negative) mg/dL Ur Leukocyte Lisa ase Trace H (Negative) Urine RBC None (0-2) /hpf Urine WBC 0-4 H (0-5) /hpf Ur Squamous Epith Cells 0-4 H (0-5) /hpf Amorphous Sediment Not Reportable Urine Bacteria 1+ H (NONE) /hpf Imaging Data ^: CXR: Attestation: I personally reviewed and interpreted this imaging study as follows: Radiologist's impression: [address] [address]NH[address]q ReportSigned Patient: Марина Huang #: [id number]: 4Acct#:[id number]/Sex: 66 / MADM Date: 04/28/21Loc: ERRoom/Bed:Attending Dr: Ordering Provider/Ordering MD: Reggie Wild MD, [facility] [place] Date of Service: 04/28/21 Procedure(s): XR chest 1V portable [id number] Accession Number(s): [id number] Report Number: [id number] PROCEDURE INFORMATION: Exam: XR Chest Exam date and time: 04/28/2021 8:07 PM Age: 66 years old Clinical indication: Device placement; Ng tube; Additional info: Ng tube insertion TECHNIQUE: Imaging protocol: XR of the chest. Views: 1 view. COMPARISON: CR XR chest 1V portable [id number] 02/21/2021 11:41 AM FINDINGS: Tubes, catheters and devices: NG tube terminates within the proximal gastric lumen. Side port projects over the distal esophagus. Lungs: Unremarkable. No consolidation. Pleural spaces: Unremarkable. No pleural effusion. No pneumothorax. Heart/Mediastinum: Unremarkable. No cardiomegaly. Bones/joints: Unremarkable. XR/XR chest 1V portable [id number] IMPRESSION: NG tube terminates within the proximal gastric lumen. Side port projects over the distal esophagus. Would suggest at least 4 cm advancement for side port placement within the gastric lumen. Dictated By:Chivo Garibay DOSigned By:Chivo Garibay DOSigned Date/Time:04/28/212108DD/ 06 CT Abd/Pel: Attestation: I personally reviewed and interpreted this imaging study as follows: Radiologist's impression: [address] [id number] Scan ReportSigned with Addenda Patient: Марина Huang #: [id number]: 1955cct#:[id number]/Sex: 66 / MADM Date: 04/28/21Loc: ERRoom/Bed:Attending Dr: Ordering Provider/Ordering MD: Reggie Wild MD, [facility] [place] Date of Service: 04/28/21 Procedure(s): CT abdomen pelvis w con* [id number] Accession Number(s): [id number] Report Number: [id number]/CT abdomen pelvis w con* [id number] THIS REPORT CONTAINS FINDINGS THAT MAY BE CRITICAL TO PATIENT CARE. The findings were verbally communicated via telephone conference with REGGIE WILD at 7:23 PM CDT on 04/28/2021. The findings were acknowledged and understood. Radiation Dose CTDIVOL = (mGy): DLP = 636.82 (mGy-cm) Addendum Dictated By: Chivo Garibay DOAddendum Signed By: Chivo Garibay DOSigned Date/Time:04/28/214Addendum Cosigned By: PROCEDURE INFORMATION: Exam: CT Abdomen And Pelvis With Contrast Exam date and time: 04/28/2021 6:25 PM Age: 66 years old Clinical indication: Nausea and vomiting and other: Diarrhea; Abdominal pain; Prior surgery; Surgery type: Colon, appy; Additional info: Abdmonial pain. Has gastric cancer TECHNIQUE: Imaging protocol: Computed tomography of the abdomen and pelvis with contrast. Radiation optimization: All CT scans at this facility use at least one of these dose optimization techniques: automated exposure control; mA and/or kV adjustment per patient size (includes targeted exams where dose is matched to clinical indication); or iterative reconstruction. Contrast material: VISI 320; Contrast volume: 75 ml; Contrast route: INTRAVENOUS (IV); COMPARISON: CT abdomen pelvis w con* [id number] 03/17/2021 11:45 AM RADIATION DOSE METRICS: Total DLP (mGy-cm): 636.82 FINDINGS: Liver: A couple punctate low-attenuation lesions within the liver too small to characterize on CT, likely small cysts. Gallbladder and bile ducts: Normal. No calcified stones. No ductal dilation. Pancreas: Normal. No ductal dilation. Spleen: Normal. No splenomegaly. Adrenal glands: Normal. No mass. Kidneys and ureters: Subcentimeter cyst in the lower pole of the left kidney. Stomach and bowel: Wall thickening at the gastric antrum/pyloric likely corresponding to known gastric cancer. New dilated loops of small bowel with air-fluid levels centered within the left hemiabdomen. The bowel is dilated up to 4.5 cm in transverse dimension. There is a short segment of small bowel in the right lower abdomen near the ileocolonic anastomosis which appears decompressed and may represent a transition point. No evidence of bowel pneumatosis, portal venous gas, or pneumoperitoneum. Appendix: Appendectomy changes. Intraperitoneal space: Unremarkable. No free air. No significant fluid collection. Vasculature: Unremarkable. No abdominal aortic aneurysm. Lymph nodes: Unremarkable. No enlarged lymph nodes. Urinary bladder: Unremarkable as visualized. Reproductive: Enlarged prostate. Bones/joints: No acute fracture. No aggressive osseous lesion. Soft tissues: Unremarkable. CT/CT abdomen pelvis w con* [id number] IMPRESSION: 1. New dilated loops of small bowel with a suspected transition point in the right lower abdomen near the ileocolonic anastomosis suspicious for bowel obstruction. 2. Wall thickening of the gastric antrum/pyloric region likely corresponding to known gastric malignancy is not significantly changed from prior imaging. COMMENTS: Consistent with the [employer]'s Incidental Findings Committee white paper (J Am Zay Radiol 2018): Any incidental renal lesion less than 1 cm or classified as too small to characterize, or any incidental cystic renal lesion characterized as simple-appearing, is likely benign. No follow-up imaging is recommended for these lesions per consensus recommendations based on imaging criteria. Radiation Dose CTDIVOL = (mGy): DLP = 636.82 (mGy-cm) Dictated By:Chivo Garibay DOSigned By:Chivo Garibay DOSigned Date/Time:04/28/211921 Discharge Plan Discharge Patient Disposition: Admitted As Inpatient Admit Provider: Hilaria Galan Clinical Impression: Small bowel obstruction, Abdominal malignancy Condition: Stable Discharge Diet: Advance as tolerated Discharge Activity: Increase activity as tolerated Coding Level of Care Code ED Lease Purchase Truck Driver for Delon Londono
[2021-04-29 04:10] VITALS: BP 101/62; PULSE 61; RESP 18; TEMP 36.4; O2SAT 97
[2021-04-29 06:25] LABS: Basophils % 0.2 %; Eosinophils # 0.1 10^3/uL (0.0-0.8); Eosinophils % 1.8 %; Lymphocytes % 16.4 %; Mean Corpuscular HGB Conc 31.6 g/dL (30.0-36.0); Mean Corpuscular Hemoglobin 29.6 pg (28.0-34.0); Mean Corpuscular Volume 93.8 fL (80-94); Mean Platelet Volume 10.2 fL (7.4-10.4); Monocytes # 0.8 10^3/uL (0.2-0.9); Monocytes % 12.6 %; Neutrophils # 4.19 10^3/uL (1.8-7.7); Neutrophils % 68.8 %; Nucleated Red Blood Cells % 0 %; Platelet Count 174 10^3/cmm (130-400); Red Blood Count 4.05 10^6/uL (4.1-5.3); Red Cell Distribution Width 14.3 % (12.1-15.1); White Blood Count 6.1 10^3/uL (4.0-10.0)
[2021-04-29 06:55] LABS: Anion Gap 14.9 (5-19); Blood Urea Nitrogen 22 mg/dL (8-23); Calcium 9.1 mg/dL (8.5-10.5); Carbon Dioxide 23 mmol/L (22-29); Chloride 105 mmol/L (98-107); Glomerular Filtration Rate 84.2 mL/min (90-130); Glucose 55 mg/dL (65-115); Osmolality Calculated 289 mOsm/kg (285-295); Potassium 3.9 mmol/L (3.5-5.1); Sodium 139 mmol/L (136-145)
[2021-04-29 07:35] LABS: Glucose Point of Care 59 mg/dL (70-110)
[2021-04-29 08:00] VITALS: BP 97/54; PULSE 71; RESP 14; TEMP 36.6; O2SAT 96
[2021-04-29] MEDS: dextrose 5%-sod chloride 0.45% 1,000 ML 75 ML IV (08:07)
[2021-04-29] MEDS: heparin 5,000 unit/mL INJ 1 mL 5000 UNIT SUBCUT ×2 (10:33→21:32)
[2021-04-29 11:03] LABS: Glucose Point of Care 80 mg/dL (70-110)
--- NOTE | 2021-04-29 11:47 | P.PN_ITS ---
Subjective Subjective: Interval history: H&P reviewed, labs reviewed, patient is doing better, NG tube currently is not showing any output on low intermittent suction bulb 100 mL of gastric content in the container Patient endorsing feeling better no active nausea vomiting abdominal distention Requested nurse to clamp his NG tube for 4 to 6 hours Patient is endorsing feeling hungry Switch to normal saline to D5 half-normal secondary to low blood sugar however he has been asymptomatic Vitals/I&O/Wt Last Vital Signs Temp 97.9 F 04/29/21 08:00 Pulse 71 04/29/21 08:00 Resp 14 04/29/21 08:00 BP 97/54 04/29/21 08:00 Pulse Ox 96 04/29/21 08:00 04/28/21 04/29/21 04/29/21 22:59 06:59 14:59 Intake Total 757.5 / 757.5 Output Total 340 / 340 Balance -340 / -340 757.5 / 757.5 Weight last 48 hrs Weight 47.99 kg Weight 45.359 kg Physical Exam Narrative: EXAM NARRATIVE: Patient was laying comfortably with NG tube to low intermittent suction 100 mL of gastric content in container No active drainage of content noted Patient was very comfortable No abdominal pain no signs of peritonitis No active nausea vomiting S1, S2 no murmur Abdomen soft Lower extremity pain EOMI, PERRLA No neurological deficit Data : 04/29/21 05:28 04/29/21 05:28 A&P Assessment and plan (1) Small bowel obstruction: Status: Acute (2) BPH (benign prostatic hyperplasia): Status: Acute (3) DVT prophylaxis: Status: Acute Additional A&P Information Recurrent small bowel obstruction NG tube to low intermittent suction, patient endorsing feeling better no active nausea vomiting or abdominal distention NG tube clamped for 6 hours for monitoring of symptoms We will repeat KUB Patient is endorsing feeling hungry Hypoglycemia noted changes fluids of D5 half-normal saline Patient is stating that he would not opt for any kind of intervention for his cancer or current SBO BPH: We will resume medication once he is able to tolerate p.o. medications Adenocarcinoma of the ileum with carcinomatosis Patient refused intervention DVT prophylaxis: Changed to Lovenox N.p.o. DNR/DNI goals of care discussed with the patient Attestations Medical Necessity Statement*: Anticipating discharge once his SBO resolved Time Spent in Patient Care: 15 to 30 minutes Coding Level of Care Code Acute Library Services Dean for Chg Fwd Diagnoses Small bowel obstruction K56.609 BPH (benign prostatic hyperplasia) N40.0 DVT prophylaxis Z29.9
[2021-04-29 12:00] VITALS: BP 94/64; PULSE 60; RESP 16; TEMP 36.6; O2SAT 99
[2021-04-29 16:00] VITALS: BP 97/58; PULSE 60; RESP 16; TEMP 36.6; O2SAT 93
[2021-04-29 17:15] LABS: Glucose Point of Care 76 mg/dL (70-110)
[2021-04-29 20:13] VITALS: BP 109/63; PULSE 54; RESP 18; TEMP 36.5; O2SAT 95
[2021-04-29] MEDS: pantoprazole 40 mg SDV IVP (21:33)
[2021-04-30] VITALS: BP 106/64; PULSE 54; RESP 16; TEMP 36.9; O2SAT 96
[2021-04-30] MEDS: dextrose 5%-sod chloride 0.45% 1,000 ML 75 ML IV (00:25)
[2021-04-30 04:00] VITALS: BP 115/67; PULSE 56; RESP 16; TEMP 36.4; O2SAT 96
--- NOTE | 2021-04-30 06:00 | XRR_ITS ---
PROCEDURE INFORMATION: Exam: XR Abdomen Exam date and time: 04/30/2021 6:00 AM Age: 66 years old Clinical indication: Condition or disease; Prior surgery; Surgery date: 6+ months; Surgery type: Colon, appy; Patient HX: F/u sbo S/P ng removal TECHNIQUE: Imaging protocol: XR of the abdomen. Views: Frontal supine view of the abdomen. 1 View. COMPARISON: CT abdomen pelvis w con* [id number] 04/28/2021 6:50 PM FINDINGS: Gastrointestinal tract: No evident loops of dilated small bowel or air-fluid levels. Organs: Contrast noted in the bladder. Bones/joints: Unremarkable. XR/XR KUB portable [id number] IMPRESSION: No evident loops of dilated small bowel or air-fluid levels suggesting some interval improvement from recent CT examination.
[2021-04-30 08:00] VITALS: BP 124/71; PULSE 71; RESP 20; TEMP 36.4; O2SAT 98
[2021-04-30] MEDS: heparin 5,000 unit/mL INJ 1 mL 5000 UNIT SUBCUT (09:47)
[2021-04-30 10:36] LABS: Blood Urea Nitrogen 17 mg/dL (8-23); Calcium 8.7 mg/dL (8.5-10.5); Carbon Dioxide 20 mmol/L (22-29); Chloride 105 mmol/L (98-107); Glomerular Filtration Rate 134.4 mL/min (90-130); Glucose 96 mg/dL (65-115); Osmolality Calculated 283 mOsm/kg (285-295); Sodium 136 mmol/L (136-145)
[2021-04-30 11:28] VITALS: BP 125/74; PULSE 67; RESP 18; TEMP 36.4; O2SAT 98
--- NOTE | 2021-04-30 14:13 | P.PN_ITS ---
Subjective Subjective: Interval history: Patient had 2 bowel movements today semisolid, able to tolerate liquid diet, diet to be advanced today, NG tube has been removed, Vitals/I&O/Wt Last Vital Signs Temp 97.5 F L 04/30/21 11:28 Pulse 67 04/30/21 11:28 Resp 18 04/30/21 11:28 BP 125/74 04/30/21 11:28 Pulse Ox 98 04/30/21 11:28 04/29/21 04/30/21 04/30/21 22:59 06:59 14:59 Intake Total 1000 / 1757.5 2202.5 / 2202.5 Output Total 120 / 120 Balance 1000 / 1757.5 -120 / 1637.5 2202.5 / 2202.5 Weight last 48 hrs Weight 48.217 kg Weight 47.99 kg Weight 45.359 kg Physical Exam Narrative: EXAM NARRATIVE: Patient was laying comfortably in his bed was able to tolerate p.o. diet Saturating well Thin lean malnourished cachectic appearance No chest pain Abdomen soft without any active signs of peritonitis Bowel sounds present in left lower quadrant diminished and right lower quadrant EOMI, PERRLA No neurological deficit No acute respiratory distress Data : 04/29/21 05:28 04/30/21 09:41 A&P Assessment and plan (1) Small bowel obstruction: Status: Acute (2) BPH (benign prostatic hyperplasia): Status: Acute (3) Abdominal malignancy: Status: Acute Additional A&P Information Small bowel suction: Resolved NG tube has been removed, patient is able to tolerate p.o. full liquid diet Requested KUB No abdominal distention however mild pain endorsed by the patient right lower quadrant We will monitor for at least 1 more day For his GI malignancy patient has refused to pursue any kind of investigation treatment or therapy He is at high risk of recurrent obstruction, high risk of mortality morbidity BPH: Continue tamsulosin DVT prophylaxis: Lovenox Full liquid diet DNR/DNI Attestations Medical Necessity Statement*: Discharge tomorrow Time Spent in Patient Care: 15 to 30 minutes Coding Level of Care Code Acute Dental Office Assistant for g Fwd Diagnoses Small bowel obstruction K56.609 BPH (benign prostatic hyperplasia) N40.0 Abdominal malignancy C76.2
[2021-04-30 16:00] VITALS: BP 99/64; PULSE 56; RESP 17; TEMP 37.1; O2SAT 97
[2021-04-30] MEDS: enoxaparin 40 mg/0.4 mL Syringe SUBCUT (16:03)
[2021-04-30] MEDS: acetaminophen 325 mg Tablet PO (17:52)
[2021-04-30 20:15] VITALS: BP 94/58; PULSE 58; RESP 16; TEMP 37; O2SAT 96
--- NOTE | 2021-04-30 20:38 | PC.NUTR ---
Nutrition assessment completed for low BMI and MST score of 5. After pt interview, recommend Ensure plus (butter pecan) with meals. See RD assessment for further details.
[2021-04-30] MEDS: pantoprazole 40 mg SDV IVP (20:58)
[2021-05-01 00:15] VITALS: BP 99/64; PULSE 54; RESP 16; TEMP 36.9; O2SAT 96
[2021-05-01 04:00] VITALS: BP 111/64; PULSE 56; RESP 16; TEMP 36.7; O2SAT 96
[2021-05-01 08:00] VITALS: BP 101/63; PULSE 60; RESP 17; TEMP 36.6; O2SAT 98
[2021-05-01 12:00] VITALS: BP 106/67; PULSE 60; RESP 18; TEMP 36.8; O2SAT 93
--- NOTE | 2021-05-01 13:15 | P.DS_ITS ---
Discharge Providers Date of Admission: 04/28/21 20:25 Date of Discharge: May 01, 2021 Attending Provider at Admission: Hilaria Galan Attending Provider at Discharge: Vinicius Moulton MD Primary Care Provider: JAYCEE Clemente Diagnoses at Discharge Discharge Diagnosis (1) Small bowel obstruction: Status: Acute Permanent problem details: Recurrent (2) BPH (benign prostatic hyperplasia): Status: Acute (3) Abdominal malignancy: Status: Acute Reason for Visit Reason for Visit: Cramping in stomach, Back pain, N/V Hospital Course Hospital Course History of Present Illness 66-year-old male with past medical history significant for anxiety, benign prostatic hyperplasia, vitamin B12 deficiency, prediabetes, migraines, 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 Last bowel movement 2 days prior. Patient has followed with Dr. Cragi. Has refused any chemo or surgical intervention for malignancy. Laboratory workup arrival showed a WBC of 6.6, hemoglobin of 13.6, hematocrit of 44.8 and a platelet count 209. Sodium 140, potassium 4.4, chloride 103, bicarb 25, BUN 16 and creatinine of 0.9 . LFTs within normal limits. Lipase of 50. Urinalysis showed trace leukocyte esterase Imaging studies included a CT abdomen pelvis which showed new dilated loops of small bowel with suspected transition point in the right lower abdomen near the ileocolonic anastomosis suspicious for obstruction. Also noted to have wall thickening of the gastric antrum /pyloric corresponding with known gastric malignancy. Patient was agreeable to nasogastric tube placement and decompression. After this intervention he did state his abdominal pain had improved. Hospital course Patient was admitted on 04/29 for management of small bowel obstruction, his symptoms improved with NG tube to low intermittent suction after 24 hours his NG tube was clamped, KUB showed improvement, NG tube was removed he tolerated full liquid diet and next day tolerated GI soft diet. He is being discharged home on 05/01, he does have adequate opioids at home prescribed by Dr. Craig I would add sucralfate and Protonix. IMPRESSION: 1. New dilated loops of small bowel with a suspected transition point in the right lower abdomen near the ileocolonic anastomosis suspicious for bowel obstruction. 2. Wall thickening of the gastric antrum/pyloric region likely corresponding to known gastric malignancy is not significantly changed from prior imaging KUB done on 04/30 KUB portable [id number] IMPRESSION: No evident loops of dilated small bowel or air-fluid levels suggesting some interval improvement from recent CT examination. Physical Exam Narrative: EXAM NARRATIVE: Patient was laying comfortably in his bed was able to tolerate p.o. diet Saturating well Thin lean malnourished cachectic appearance No chest pain Abdomen soft without any active signs of peritonitis Bowel sounds present in left lower quadrant diminished and right lower quadrant EOMI, PERRLA No neurological deficit No acute respiratory distress Discharge Data Data Completed and Pending: Completed Studies During Hospitalization Category Date Time Status CT abdomen pelvis w con* [id number] Stat Cat Scan 04/28/21 18:25 Completed XR KUB portable 7 [id number] Routine Exams 04/30/21 06:00 Completed XR chest 1V chandan ble [id number] Stat Exams 04/28/21 20:07 Completed Vitals: Last Vital Signs Temp 98.2 F 05/01/21 12:00 Pulse 60 05/01/21 12:00 Resp 18 05/01/21 12:00 BP 106/67 05/01/21 12:00 Pulse Ox 93 05/01/21 12:00 Discharge Plan Discharge Patient Disposition: Home Condition: Stable Prescriptions: Continued ondansetron HCl [Zofran] 4 mg tablet 4 mg PO Q8H PRN (Reason: nausea and vomiting) 15 Days Qty: 45 RF: 0 sumatriptan 5 mg/actuation spray,non-aerosol 20 mg INTRANASAL Q2H PRN (Reason: Migraine Headache) 30 Days Qty: 6 RF: 5 lorazepam 1 mg tablet 1 mg PO TID PRN (Reason: nausea) 30 Days Qty: 90 RF: 1 Zyrtec 10 mg capsule 10 mg PO DAILY Qty: 30 RF: 5 tamsulosin 0.4 mg capsule 0.4 mg PO DAILY RF: 0 pantoprazole 40 mg tablet,delayed release (DR/EC) 40 mg PO DAILY 30 Days Qty: 30 RF: 0 ondansetron 4 mg tablet,disintegrating 4 mg PO Q6H PRN (Reason: nausea and vomiting) Qty: 14 RF: 0 sennosides-docusate sodium 8.6-50 mg Tablet 1 tab-cap PO BID RF: 0 Changed sucralfate 100 mg/mL suspension 30 mg PO BID@0900,2100 30 Days Qty: 60 RF: 0 Discharge Orders: Discharge Order (Routine); Ordered 05/01/21 Ordered By: Vinicius Moulton Discharge Diet: Advance as tolerated Discharge Activity: Increase activity as tolerated Patient Instructions: Opioid Safety Discharge Attestations Time Spent in Discharge Care*: less than 30 min Quality Metrics Clinical Quality Measures During this hospital stay, did patient experience: None Coding Level of Care Code Acute Chg FW DC note Diagnoses Small bowel obstruction K56.609 BPH (benign prostatic hyperplasia) N40.0 Abdominal malignancy C76.2
[2021-05-01 15:36] VITALS: BP 106/67; PULSE 60; RESP 18; TEMP 36.8; O2SAT 93
== END 2021-05-01 14:45 | disposition home or self-care (01) | DRG 389 ==
LOC: ER 17:35 → MEDSURG 22:06
PROVIDERS: Family Medicine; Admitting Provider Hospitalist; Emergency Provider Family Medicine; PCP Nurse Practitioner Family; Visit Provider Internal Medicine
DX: K56.609 Unspecified intestinal obstruction, unspecified as to partial versus complete obstruction (principal); C17.2 Malignant neoplasm of ileum; C78.5 Secondary malignant neoplasm of large intestine and rectum; F41.9 Anxiety disorder, unspecified; N40.0 Benign prostatic hyperplasia without lower urinary tract symptoms; D51.9 Vitamin B12 deficiency anemia, unspecified; R73.03 Prediabetes; G43.909 Migraine, unspecified, not intractable, without status migrainosus; K59.00 Constipation, unspecified; K21.9 Gastro-esophageal reflux disease without esophagitis; Z87.891 Personal history of nicotine dependence
CPT/HCPCS: 36415; 36416; 71045; 74018; 74177; 80048; 80053; 81001; 81003; 82962; 83690; 85025; 87086; 96372; 96374; 99285; C9113; J1644; J1650; J1885; J7030; J7799; Q9967

== ENCOUNTER 2021-05-04 10:24 | Emergency (ER) | payer MEDICARE, MEDICAID, SELFPAY ==
[2021-05-04 11:04] VITALS: BP 93/65; PULSE 68; RESP 16; TEMP 36.7; O2SAT 98; BMI 17.6
[2021-05-04 12:21] LABS: Basophils % 0.6 %; Eosinophils % 0.9 %; Hematocrit 35.9 % (42.0-52.0); Hemoglobin 11.6 g/dL (11.7-16.6); Lymphocytes # 0.6 10^3/uL (0.8-4.8); Lymphocytes % 11.9 %; Mean Corpuscular HGB Conc 32.3 g/dL (30.0-36.0); Mean Corpuscular Hemoglobin 29.6 pg (28.0-34.0); Mean Corpuscular Volume 91.6 fL (80-94); Mean Platelet Volume 10.5 fL (7.4-10.4); Monocytes # 0.7 10^3/uL (0.2-0.9); Monocytes % 15.4 %; Neutrophils # 3.27 10^3/uL (1.8-7.7); Neutrophils % 70.8 %; Nucleated Red Blood Cells % 0 %; Platelet Count 182 10^3/cmm (130-400); Red Blood Count 3.92 10^6/uL (4.1-5.3); Red Cell Distribution Width 14.5 % (12.1-15.1); White Blood Count 4.6 10^3/uL (4.0-10.0)
[2021-05-04 12:30] LABS: Lactic Sepsis W/Reflex 0.8 mmol/L (0.5-2.2)
[2021-05-04 12:33] LABS: Alanine Aminotransferase 10 U/L (0-41); Albumin Level 3.5 g/dL (3.5-5.2); Alkaline Phosphatase 65 IU/L (40-130); Anion Gap 10.8 (5-19); Aspartate Amino Transferase 14 U/L (0-40); Blood Urea Nitrogen 15 mg/dL (8-23); Calcium 9.5 mg/dL (8.5-10.5); Carbon Dioxide 29 mmol/L (22-29); Chloride 104 mmol/L (98-107); Globulin 2.9 g/dL (1.3-4.6); Glomerular Filtration Rate 84.2 mL/min (90-130); Glucose 80 mg/dL (65-115); Lipase 54 U/L (13-60); Osmolality Calculated 290 mOsm/kg (285-295); Potassium 3.8 mmol/L (3.5-5.1); Sodium 140 mmol/L (136-145); Total Bilirubin 0.7 mg/dL (0.15-1.2); Total Protein 6.4 g/dL (6.6-8.7)
--- NOTE | 2021-05-04 16:47 | CTR_ITS ---
PROCEDURE INFORMATION: Exam: CT Abdomen And Pelvis With Contrast Exam date and time: 05/04/2021 4:47 PM Age: 66 years old Clinical indication: Abdominal pain; Generalized; Prior surgery; Surgery type: Colon, appy TECHNIQUE: Imaging protocol: Computed tomography of the abdomen and pelvis with contrast. Radiation optimization: All CT scans at this facility use at least one of these dose optimization techniques: automated exposure control; mA and/or kV adjustment per patient size (includes targeted exams where dose is matched to clinical indication); or iterative reconstruction. Contrast material: OMNI 300; Contrast volume: 75 ml; Contrast route: INTRAVENOUS (IV); COMPARISON: CT abdomen pelvis w con* [id number] 04/28/2021 6:50 PM RADIATION DOSE METRICS: Total DLP (mGy-cm): 608.51 FINDINGS: Liver: Normal. No mass. Gallbladder and bile ducts: Normal. No calcified stones. No ductal dilation. Pancreas: Normal. No ductal dilation. Spleen: Normal. No splenomegaly. Adrenal glands: Normal. No mass. Kidneys and ureters: Incidental finding of a tiny simple left renal lower pole cortical cyst. Normal renal enhancement. Negative for hydronephrosis. Stomach and bowel: There is new wall thickening in generalized wall edema predominantly in the right colon and the transverse colon. Right lower quadrant ileocolic anastomosis is unremarkable. Decreased caliber of small bowel loops without evidence of obstruction. Appendix: Absent appendix. Intraperitoneal space: No free intraperitoneal air. Scattered small volume abdominopelvic free fluid. No loculated intraperitoneal fluid collection. Vasculature: Patent, unremarkable mesenteric vasculature. Scattered, diffuse abdominal aorta atherosclerotic wall plaques. Lymph nodes: Unremarkable. No enlarged lymph nodes. Urinary bladder: Decompressed bladder. Reproductive: Mild prostate gland enlargement. Bones/joints: Unremarkable. No acute fracture. Soft tissues: Unremarkable. CT/CT abdomen pelvis w con* [id number] IMPRESSION: New finding of edematous wall thickening in the colon. Nonspecific acute colitis pattern. COMMENTS: Consistent with the [employer]'s Incidental Findings Committee white paper (J Am Zay Radiol 2018): Any incidental renal lesion less than 1 cm or classified as too small to characterize, or any incidental cystic renal lesion characterized as simple-appearing, is likely benign. No follow-up imaging is recommended for these lesions per consensus recommendations based on imaging criteria. Radiation Dose CTDIVOL = (mGy): DLP = 608.51 (mGy-cm)
--- NOTE | 2021-05-04 16:49 | W.ED.ABDPA2 ---
HPI - Abdominal Pain General: Chief Complaint: Abdominal Pain Stated Complaint: ABD pain Time Seen by Provider: 05/04/21 16:47 Source: patient Mode of arrival: ambulatory Limitations: no limitations History of Present Illness: HPI narrative: Mr. Huang is a nice 66-year-old male who comes in stating that he has been diagnosed with stomach cancer approximately 9 months ago. He states that it was diagnosed based upon a colonoscopy that was performed. He states that Dr. Craig has told him he does not want to do anymore surgery because he is afraid it was spread. The patient has elected not to do any chemotherapy or radiation but just to let the natural progression of this disease take his life. The patient states though he has been told if his stomach ever fills up with fluid he will need to come in and get a hose down his nose into his stomach to drain the fluid off and then he should be able to go home. Patient states that when he eats or drinks he feels like he is having a hard time getting what ever it is down into his stomach because he feels bloated. Patient denies history of liver cancer. Patient states he is having normal bowel movements and he has not vomited up to this point. Associated Symptoms: Reports nausea; Denies chills, coffee ground emesis, constipation, GI cramping, diarrhea, dysuria, fever(s), heartburn, hematochezia, hematuria, hematemesis, melena, syncope and vomiting Review of Systems Const: Denies: fever(s), chills, body aches, fatigue, malaise or diaphoresis Eyes: Denies: change in vision, blurry vision, photophobia, eye discomfort, eye discharge, eye redness or yellow eyes ENMT: Denies: throat pain, odynophagia, hoarseness, swelling of lips/tongue, ear or mastoid pain, ear discharge, change in hearing or nasal discharge Card: Denies: chest pain, palpitations, irregular heart rhythm, edema, lightheadedness, syncope, pre-syncope, dyspnea on exertion or orthopnea Resp: Denies: dyspnea, productive cough, non-productive cough, wheezing, hemoptysis or chest congestion GI: Reports: abdominal pain and nausea; Denies: vomiting, hematemesis, coffee ground emesis, heartburn, diarrhea, constipation, GI cramping, hematochezia or melena : Denies: flank pain, dysuria, urinary frequency, urinary urgency or hematuria Musc: Denies: neck pain, back pain, extremity pain, extremity swelling, joint pain, joint swelling, joint redness, joint warmth or joint stiffness Skin/Breast: Denies: rash, pruritus, erythema, skin pain or skin tenderness Neuro: Denies: headache(s), numbness in extremities, weakness in extremities, sensory changes, lack of coordination, difficulty walking, dizziness, vertigo, confusion, Slurred speech present or seizure-like activity Patel/Lymph: Denies: easy bruising, easy bleeding, petechiae, purpura or enlarged lymph nodes All/Imm: Denies: urticaria, throat swelling, tongue swelling, facial swelling or acute wheezing PFSH ED PFSH: Medical History Abdominal malignancy Anxiety BPH (benign prostatic hyperplasia) Chronic constipation DVT prophylaxis Environmental and seasonal allergies GERD (gastroesophageal reflux disease) Insect bite Left renal mass Migraine Nausea Pre-diabetes Primary adenocarcinoma of ileum Small bowel obstruction Recurrent Vitamin B12 deficiency (dietary) anemia Surgical History Status post knee surgery Left Family History Denies family history of CAD (coronary artery disease) Cancer Social History Smoking and tobacco status: never smoked Second hand smoke exposure: No Smoking risk assessment/counseling performed?: No Alcohol intake: former Desire information about alcohol rehabilitation?: No Counseling given: No Desire information about substance/drug rehabilitation?: No Counseling given: No Physical Exam Const: COMMON NORMALS: no acute distress, patient oriented x3, no limitations and alert GENERAL APPEARANCE: cooperative HENMT: COMMON NORMALS: normocephalic, atraumatic, external ears normal, EAC's normal and Normal external nose present HEAD & SCALP: normal to inspection, normocephalic and atraumatic FACE & SINUS: normal facial exam and face symmetric NOSE: Normal external nose present and Normal nares present EXTERNAL EAR: Yes external ears normal EXTERNAL AUDITORY CANAL: EAC's normal MOUTH: Normal oral and palatal mucosa present, lip normal and tongue normal Eye: COMMON NORMALS: Equal, round and reactive pupils present and conjunctivae normal GENERAL EYE: appearance normal, both eyes and all related structures ALIGNMENT: Yes alignment normal PERIORBITAL: periorbital findings normal EYELID: eyelids normal CONJUNCTIVA: Yes conjunctivae normal SCLERA: sclerae normal PUPIL: Yes Equal, round and reactive pupils present Neck/C-Spine: COMMON NORMALS: full ROM, no lymphadenopathy, supple, no meningeal signs and no JVD GENERAL: Yes normal visual inspection and Yes trachea midline Chest: COMMONS NORMALS: normal inspection of the chest and normal palpation of entire chest wall Resp: COMMON NORMALS: normal respiratory effort, No retractions, No use of accessory muscles and clear to auscultation bilaterally EFFORT & INSPECTION: Yes able to speak in complete sentences and Yes symmetric chest movement AUSCULTATION: clear to auscultation bilaterally, no crackles, no rales, no rhonchi and no wheezes Cardio: COMMON NORMALS: no JVD, regular rate, regular rhythm, S1 normal heart sound present and S2 normal heart sound present RATE: regular rate RHYTHM: regular rhythm HEART SOUNDS: S1 normal heart sound present, S2 normal heart sound present, no click, no gallops, no murmurs and no rubs GI: COMMON NORMALS: Soft to palpation and No hepatosplenomegaly present PALPATION: Yes Soft to palpation, No Tenderness to palpation present (GI), No Guarding due to palpation present (GI), No Rigid due to palpation, Yes No hepatosplenomegaly present, No Hernia present, No Palpable mass present and No Pulsatile mass present : COMMON NORMALS: Yes no CVA tenderness BLADDER/KIDNEY EXAM: Yes no CVA tenderness Back/Pelvis: COMMON NORMALS: no CVA tenderness, thoracic and lumbar spine normal to inspection, no thoracic nor lumbar tenderness and thoraco-lumbar ROM normal Extremity: COMMON NORMALS: normal to inspection, full ROM, capillary refill normal, no joint enlargement, no clubbing, cyanosis or edema and no calf tenderness Neuro: COMMON NORMALS: patient oriented x3, CN's II-XII intact bilaterally, moves all extremities, no focal motor deficits and no sensory deficits noted SENSORIUM/ORIENTATION: Yes alert MENINGEAL SIGNS: Yes no meningeal signs SPEECH: speech normal Psych: COMMON NORMALS: mental status grossly normal, Normal thought process present, cooperative, normal affect, speech normal and activity/motor behavior normal SPEECH: Yes normal speech THOUGHT PROCESS: Normal thought process present Skin: COMMON NORMALS: no rashes or lesions noted, turgor normal, no jaundice, no petechiae and no mottling GENERAL SKIN EXAM: no rashes or lesions noted and turgor normal Course Vital Signs: Vital signs: Vital Signs Temperature 98.1 F 05/04/21 11:04 Pulse Rate 68 05/04/21 11:04 Respiratory Rate 16 05/04/21 11:04 Blood Pressure 93/65 05/04/21 11:04 Pulse Oximetry 98 05/04/21 11:04 MDM - Abdominal Pain Lab Data: Labs: Lab Results 05/04/21 05/04/21 05/04/21 Range/Units 11:45 11:45 11:45 WBC 4.6 (4.0-10.0) 10^3/ uL RBC 3.92 L (4.1-5.3) 10^6/u L Hgb 11.6 L (11.7-16.6) g/dL Hct 35.9 L (42.0-52.0) % MCV 91.6 (80-94) fL MCH 29.6 (28.0-34.0) pg MCHC 32.3 (30.0-36.0) g/dL RDW 14.5 (12.1-15.1) % Plt Count 182 (130-400) 10^3/c mm MPV 10.5 H (7.4-10.4) fL Neut % (Auto) 70.8 % Lymph % (Auto) 11.9 % [place] % (Auto) 15.4 % Eos % (Auto) 0.9 % Baso % (Auto) 0.6 % Neut # (Auto) 3.27 (1.8-7.7) 10^3/u L Lymph # (Auto) 0.6 L (0.8-4.8) 10^3/u L [place] # (Auto) 0.7 (0.2-0.9) 10^3/u L Eos # (Auto) 0.0 (0.0-0.8) 10^3/u L Baso # (Auto) 0.0 (0.0-0.1) 10^3/u L Nucleated RBC % (a uto) 0 % Nucleated RBCs # 0.0 /100WBC Sodium 140 (136-145) mmol/L Potassium 3.8 (3.5-5.1) mmol/L Chloride 104 (98-107) mmol/L Carbon Dioxide 29 (22-29) mmol/L Anion Gap 10.8 (5-19) BUN 15 (8-23) mg/dL Creatinine 0.9 (0.7-1.2) mg/dL GFR Calculation 84.2 L (90-130) mL/min Glucose 80 (65-115) mg/dL Calculated Osmolal ity 290 (285-295) mOsm/k g Lactic Acid 0.8 (0.5-2.2) mmol/L Calcium 9.5 (8.5-10.5) mg/dL Total Bilirubin 0.7 (0.15-1.2) mg/dL AST 14 (0-40) U/L ALT 10 (0-41) U/L Alkaline Phosphata se 65 (40-130) IU/L Total Protein 6.4 L (6.6-8.7) g/dL Albumin 3.5 (3.5-5.2) g/dL Globulin 2.9 (1.3-4.6) g/dL Lipase 54 (13-60) U/L Discharge Plan Discharge Prescriptions: No Action sumatriptan 5 mg/actuation spray,non-aerosol 20 mg INTRANASAL Q2H PRN (Reason: Migraine Headache) 30 Days Qty: 6 RF: 5 lorazepam 1 mg tablet 1 mg PO TID PRN (Reason: nausea) 30 Days Qty: 90 RF: 1 ondansetron HCl 8 mg tablet 8 mg PO Q8H PRN (Reason: nausea and vomiting) 15 Days Qty: 45 RF: 1 Zyrtec 10 mg capsule 10 mg PO DAILY Qty: 30 RF: 5 tamsulosin 0.4 mg capsule 0.4 mg PO DAILY RF: 0 sucralfate 100 mg/mL suspension 30 mg PO BID@0900,2100 30 Days Qty: 60 RF: 0 pantoprazole 40 mg tablet,delayed release (DR/EC) 40 mg PO DAILY 30 Days Qty: 30 RF: 0 sennosides-docusate sodium 8.6-50 mg Tablet 1 tab-cap PO BID RF: 0 Coding Level of Care Code [employer] [facility] Fwaguilar
[2021-05-04 17:20] VITALS: BP 130/77; PULSE 55; RESP 18; O2SAT 100
[2021-05-04] MEDS: metoclopramide 5 mg/mL SDV 2 mL 10 MG IV (17:50)
[2021-05-04] MEDS: sodium chloride 0.9% 1,000 ML 999 ML IV (17:50)
[2021-05-04 18:00] VITALS: BP 134/75; PULSE 62; RESP 18; O2SAT 98
[2021-05-04] MEDS: iohexol 300 mg/mL 100 mL Btl IV (18:14)
[2021-05-04 18:26] LABS: Urine Appearance Clear (CLEAR); Urine Color Amber (Yellow)
[2021-05-04 18:27] LABS: Bilirubin Urine 1+ (Negative); Blood Urine Neg (Negative); Glucose Urine UA Norm (Normal); Ketones Urine 2+ (Negative); Leukocyte Esterase Urine Negative (Negative); Nitrate Urine Negative (Negative); Protein Urine Trace (Negative); Urobilinogen Urine 1 mg/dL (Negative); pH Urine 5 (5-7)
[2021-05-04 20:01] VITALS: BP 116/75; PULSE 70; RESP 17; O2SAT 97
[2021-05-04 20:29] VITALS: BP 106/73; PULSE 71; RESP 18; O2SAT 99
[2021-05-04 20:42] LABS: Add Urine Microscopic? YES; Bacteria Urine 2+ /hpf; Mucus Urine 1+ /hpf
== END 2021-05-04 20:29 | disposition home or self-care (01) ==
PROVIDERS: Physician Assistant; Emergency Provider Emergency Medicine; PCP Nurse Practitioner Family
DX: K52.9 Noninfective gastroenteritis and colitis, unspecified (principal); C17.2 Malignant neoplasm of ileum; Z98.0 Intestinal bypass and anastomosis status
CPT/HCPCS: 36415; 74177; 80053; 81001; 83605; 83690; 85025; 96361; 96374; 99284; J2765; J7030; Q9967

== ENCOUNTER 2021-05-09 15:13 | Emergency (ER) | payer MEDICARE, MEDICAID, SELFPAY ==
[2021-05-09 15:33] VITALS: BP 92/60; PULSE 64; RESP 18; TEMP 36.7; O2SAT 97; BMI 17.2
--- NOTE | 2021-05-09 18:38 | XRR_ITS ---
PROCEDURE INFORMATION: Exam: XR Chest Exam date and time: 05/09/2021 6:38 PM Age: 66 years old Clinical indication: Cough and shortness of breath; Additional info: Cough, SOB TECHNIQUE: Imaging protocol: XR of the chest. Views: 1 view. COMPARISON: CR (CHEST, ) 04/28/2021 8:33 PM FINDINGS: Lungs: Hyperinflated lungs, similar to previous exam. No focal consolidation. Pleural spaces: Unremarkable. No pleural effusion. No pneumothorax. Heart/Mediastinum: Unremarkable. No cardiomegaly. Bones/joints: Unremarkable. XR/XR chest 1V portable [id number] IMPRESSION: No acute findings.
--- NOTE | 2021-05-09 21:27 | W.ED.COVID ---
Documented by User: Javier Buchanan MD 05/09/21 22:34 HPI - COVID General: Chief Complaint: COVID symptoms Stated Complaint: sob, cOVID + Time Seen by Provider: 05/09/21 21:27 Triage information: Has fever, cough or shortness of breath. Exposure to COVID + person last 14 days History of Present Illness: HPI Narrative: This patient is a 66-year-old male who presents to the emergency department complaint of diarrhea and fatigue. Patient believes he is dehydrated. Patient has a history of constipation. Patient states that he had a stomach infection due to colitis and was started on medication just few days ago. Patient states he went to [facility] emergency department 2 to 3 days ago was diagnosed with a positive Covid test that he was requesting. Patient denies any cough or any significant shortness of breath at this time. Pulse ox is 98% on room air. The medical evaluation treat as needed. Patient states that he does not want admission to the hospital. MD complaint: known COVID positive Prior covid testing: yes, results known COVID 19 common symptoms: positive diarrhea; negative fever(s), chills, non-productive cough, productive cough, dyspnea, fatigue, body aches, headache(s), throat pain, nausea or vomiting COVID 19 other sytmptoms: negative chest pain COVID Results: SARS-CoV-2 RNA (RT-PCR) Not detected (NOT DETECTED) 08/15/20 12:34 08/15/20 Nasal/Oral Coronavirus 2019 PCR Not detected 03/28/21 09:49 03/28/21 Review of Systems General: Reports: 10 or more systems reviewed and unremarkable except in HPI and below Const: Denies: fever(s), chills, body aches or fatigue Eyes: Denies: change in vision or blurry vision ENMT: Denies: throat pain, hoarseness or mouth pain Card: Denies: chest pain, palpitations, irregular heart rhythm, edema, swelling of feet/ankles or lightheadedness Resp: Denies: dyspnea, productive cough, non-productive cough, wheezing or pain on inspiration GI: Reports: diarrhea; Denies: abdominal pain, nausea or vomiting : Denies: flank pain, dysuria, urinary frequency, urinary urgency or urinary hesitancy Musc: Denies: neck pain, back pain, extremity pain, extremity swelling, joint pain, joint swelling, joint redness, joint warmth or limited range of motion Skin/Breast: Denies: rash, pruritus, erythema or skin tenderness Neuro: Denies: headache(s), numbness in extremities or weakness in extremities Psych: Denies: anxiety or depression PFSH ED PFSH: Medical History Abdominal malignancy Anxiety BPH (benign prostatic hyperplasia) Chronic constipation DVT prophylaxis Environmental and seasonal allergies GERD (gastroesophageal reflux disease) Insect bite Left renal mass Migraine Nausea Pre-diabetes Primary adenocarcinoma of ileum Small bowel obstruction Recurrent Vitamin B12 deficiency (dietary) anemia Surgical History Status post knee surgery Left Family History Denies family history of CAD (coronary artery disease) Cancer Social History Smoking and tobacco status: never smoked Second hand smoke exposure: No Smoking risk assessment/counseling performed?: No Alcohol intake: former Desire information about alcohol rehabilitation?: No Counseling given: No Desire information about substance/drug rehabilitation?: No Counseling given: No Physical Exam Const: COMMON NORMALS: no acute distress, average body habitus, patient oriented x3, no limitations, healthy appearing, alert and well nourished HENMT: COMMON NORMALS: normocephalic, atraumatic, hearing grossly normal bilaterally, external ears normal, EAC's normal, TM's normal bilaterally, Normal external nose present, Normal nasal mucous membranes and turbinates present, moist oral mucous membranes, oropharynx normal, dentition normal and gingiva normal HEAD & SCALP: normocephalic and atraumatic NOSE: Normal external nose present and Normal nasal mucous membranes and turbinates present EXTERNAL EAR: Yes external ears normal EXTERNAL AUDITORY CANAL: EAC's normal TYMPANIC MEMBRANE: TM's normal bilaterally Neck/C-Spine: COMMON NORMALS: full ROM, no lymphadenopathy, supple, no meningeal signs, no JVD, Thyroid normal and No carotid bruits THYROID: Thyroid normal Chest: COMMONS NORMALS: normal inspection of the chest, normal palpation of entire chest wall, normal inspection of the breasts and normal palpation of the breasts Breast/axilla inspection: Yes normal inspection of the breasts BREAST/AXILLA PALPATION: Yes normal palpation of the breasts Resp: COMMON NORMALS: normal respiratory effort, No retractions, No use of accessory muscles, clear to auscultation bilaterally and percussion normal AUSCULTATION: clear to auscultation bilaterally PERCUSSION: percussion normal Cardio: COMMON NORMALS: no JVD, regular rate, regular rhythm, S1 normal heart sound present, S2 normal heart sound present, No gallops present (Cardio), No clicks present (Cardio), No murmurs present (Cardio), No rub (Cardio) and Peripheral pulses 2+ throughout RATE: regular rate RHYTHM: regular rhythm HEART SOUNDS: S1 normal heart sound present and S2 normal heart sound present PERIPHERAL PULSES: Peripheral pulses 2+ throughout GI: COMMON NORMALS: Normal to inspection, nondistended, normoactive bowel sounds present, Soft to palpation, non-tender, No hepatosplenomegaly present, no masses and no bruits PALPATION: Yes Soft to palpation and Yes No hepatosplenomegaly present : COMMON NORMALS: Yes no CVA tenderness BLADDER/KIDNEY EXAM: Yes no CVA tenderness Back/Pelvis: COMMON NORMALS: no CVA tenderness, thoracic and lumbar spine normal to inspection, no thoracic nor lumbar tenderness, thoraco-lumbar ROM normal and straight leg raise negative bilaterally Extremity: COMMON NORMALS: normal to inspection, full ROM, capillary refill normal, no joint enlargement, no clubbing, cyanosis or edema, no calf tenderness and no pedal edema Neuro: COMMON NORMALS: patient oriented x3 SENSORIUM/ORIENTATION: Yes alert MENINGEAL SIGNS: Yes no meningeal signs Course Consultations: Consultation #1: Care transferred to Dr. Chauhan for shift change. Time: 22:33 Vital Signs: Vital signs: Vital Signs Temperature 98.1 F 05/09/21 15:33 Pulse Rate 50 L 05/09/21 23:49 Respiratory Rate 18 05/09/21 21:28 Blood Pressure 130/66 05/09/21 23:49 Pulse Oximetry 98 05/09/21 23:49 MDM - COVID Lab Data: Labs: Lab Results 05/09/21 05/09/21 Range/Units 23:37 23:37 WBC 4.8 (4.0-10.0) 10^3/ uL RBC 4.61 (4.1-5.3) 10^6/u L Hgb 13.6 (11.7-16.6) g/dL Hct 44.8 (42.0-52.0) % MCV 97.2 H (80-94) fL MCH 29.5 (28.0-34.0) pg MCHC 30.4 (30.0-36.0) g/dL RDW 14.2 (12.1-15.1) % Plt Count 193 (130-400) 10^3/c mm MPV 10.1 (7.4-10.4) fL Neut % (Auto) 62.8 % Lymph % (Auto) 27.2 % [place] % (Auto) 7.7 % Eos % (Auto) 1.5 % Baso % (Auto) 0.4 % Neut # (Auto) 3.02 (1.8-7.7) 10^3/u L Lymph # (Auto) 1.3 (0.8-4.8) 10^3/u L [place] # (Auto) 0.4 (0.2-0.9) 10^3/u L Eos # (Auto) 0.1 (0.0-0.8) 10^3/u L Baso # (Auto) 0.0 (0.0-0.1) 10^3/u L Nucleated RBC % (a uto) 0 % Nucleated RBCs # 0.0 /100WBC Sodium 134 L (136-145) mmol/L Potassium 3.7 (3.5-5.1) mmol/L Chloride 100 (98-107) mmol/L Carbon Dioxide 24 (22-29) mmol/L Anion Gap 13.7 (5-19) BUN 10 (8-23) mg/dL Creatinine 0.8 (0.7-1.2) mg/dL GFR Calculation 96.4 (90-130) mL/min Glucose 68 (65-115) mg/dL Calculated Osmolal ity 275 L (285-295) mOsm/k g Calcium 9.2 (8.5-10.5) mg/dL Total Bilirubin 0.6 (0.15-1.2) mg/dL AST 18 (0-40) U/L ALT 9 (0-41) U/L Alkaline Phosphata se 59 (40-130) IU/L Total Protein 6.7 (6.6-8.7) g/dL Albumin 3.4 L (3.5-5.2) g/dL Globulin 3.3 (1.3-4.6) g/dL Imaging Data: CXR: Attestation: I personally reviewed and interpreted this imaging study as follows: Radiologist's impression: IMPRESSION: No acute findings. COVID Results: SARS-CoV-2 RNA (RT-PCR) Not detected (NOT DETECTED) 08/15/20 12:34 08/15/20 Nasal/Oral Coronavirus 2019 PCR Not detected 03/28/21 09:49 03/28/21 Discharge Plan Discharge Patient Disposition: Home Clinical Impression: COVID-19 Condition: Stable Prescriptions: No Action sumatriptan 5 mg/actuation spray,non-aerosol 20 mg INTRANASAL Q2H PRN (Reason: Migraine Headache) 30 Days Qty: 6 RF: 5 lorazepam 1 mg tablet 1 mg PO TID PRN (Reason: nausea) 30 Days Qty: 90 RF: 1 ondansetron HCl 8 mg tablet 8 mg PO Q8H PRN (Reason: nausea and vomiting) 15 Days Qty: 45 RF: 1 Zyrtec 10 mg capsule 10 mg PO DAILY Qty: 30 RF: 5 tamsulosin 0.4 mg capsule 0.4 mg PO DAILY RF: 0 pantoprazole 40 mg tablet,delayed release (DR/EC) 40 mg PO DAILY 30 Days Qty: 30 RF: 0 Dulcolax (bisacodyl) 5 mg Tablet,Delayed Release (Dr/Ec) 5 mg PO QAM RF: 0 sucralfate 100 mg/mL suspension 30 mg PO TID RF: 0 Fiber Gummies 10 mg PO DAILY RF: 0 Fish Oil 1 cap PO DAILY RF: 0 Augmentin 875-125 mg tablet 1 tab PO BID Qty: 14 RF: 0 Discharge Orders: Discharge ED (Routine); Ordered 05/10/21 Ordered By: Epi Chauhan Referrals: LUCERO Dueñas, CHARTERED WEALTH MANAGER [Primary Care Provider] - Discharge Diet: Advance as tolerated Discharge Activity: Resume usual activity Patient Instructions: Viral Syndrome (ED) Coding Level of Care Code ED Municipal Services Manager for Chg Fwd Exam Comprehensive Documented by User: Epi Chauhan MD 05/10/21 00:20 HPI - COVID General: Chief Complaint: COVID symptoms Stated Complaint: sob, cOVID + Time Seen by Provider: 05/09/21 21:27 COVID Results: SARS-CoV-2 RNA (RT-PCR) Not detected (NOT DETECTED) 08/15/20 12:34 08/15/20 Nasal/Oral Coronavirus 2019 PCR Not detected 03/28/21 09:49 03/28/21 PFSH ED PFSH: Medical History Abdominal malignancy Anxiety BPH (benign prostatic hyperplasia) Chronic constipation DVT prophylaxis Environmental and seasonal allergies GERD (gastroesophageal reflux disease) Insect bite Left renal mass Migraine Nausea Pre-diabetes Primary adenocarcinoma of ileum Small bowel obstruction Recurrent Vitamin B12 deficiency (dietary) anemia Surgical History Status post knee surgery Left Family History Denies family history of CAD (coronary artery disease) Cancer Social History Smoking and tobacco status: never smoked Second hand smoke exposure: No Smoking risk assessment/counseling performed?: No Alcohol intake: former Desire information about alcohol rehabilitation?: No Counseling given: No Desire information about substance/drug rehabilitation?: No Counseling given: No Course Vital Signs: Vital signs: Vital Signs Temperature 98.1 F 05/09/21 15:33 Pulse Rate 50 L 05/09/21 23:49 Respiratory Rate 18 05/09/21 21:28 Blood Pressure 130/66 05/09/21 23:49 Pulse Oximetry 98 05/09/21 23:49 MDM - COVID MDM Narrative: Medical decision making narrative: Patient presents here with weakness likely from his Covid. He is also had some diarrhea and is currently being treated for colitis. He is stable for discharge and his blood work here is normal. He is to return if worsening. He understands and agrees to plan. Lab Data: Labs: Lab Results 05/09/21 05/09/21 Range/Units 23:37 23:37 WBC 4.8 (4.0-10.0) 10^3/ uL RBC 4.61 (4.1-5.3) 10^6/u L Hgb 13.6 (11.7-16.6) g/dL Hct 44.8 (42.0-52.0) % MCV 97.2 H (80-94) fL MCH 29.5 (28.0-34.0) pg MCHC 30.4 (30.0-36.0) g/dL RDW 14.2 (12.1-15.1) % Plt Count 193 (130-400) 10^3/c mm MPV 10.1 (7.4-10.4) fL Neut % (Auto) 62.8 % Lymph % (Auto) 27.2 % [place] % (Auto) 7.7 % Eos % (Auto) 1.5 % Baso % (Auto) 0.4 % Neut # (Auto) 3.02 (1.8-7.7) 10^3/u L Lymph # (Auto) 1.3 (0.8-4.8) 10^3/u L [place] # (Auto) 0.4 (0.2-0.9) 10^3/u L Eos # (Auto) 0.1 (0.0-0.8) 10^3/u L Baso # (Auto) 0.0 (0.0-0.1) 10^3/u L Nucleated RBC % (a uto) 0 % Nucleated RBCs # 0.0 /100WBC Sodium 134 L (136-145) mmol/L Potassium 3.7 (3.5-5.1) mmol/L Chloride 100 (98-107) mmol/L Carbon Dioxide 24 (22-29) mmol/L Anion Gap 13.7 (5-19) BUN 10 (8-23) mg/dL Creatinine 0.8 (0.7-1.2) mg/dL GFR Calculation 96.4 (90-130) mL/min Glucose 68 (65-115) mg/dL Calculated Osmolal ity 275 L (285-295) mOsm/k g Calcium 9.2 (8.5-10.5) mg/dL Total Bilirubin 0.6 (0.15-1.2) mg/dL AST 18 (0-40) U/L ALT 9 (0-41) U/L Alkaline Phosphata se 59 (40-130) IU/L Total Protein 6.7 (6.6-8.7) g/dL Albumin 3.4 L (3.5-5.2) g/dL Globulin 3.3 (1.3-4.6) g/dL Imaging Data: KUB: Attestation: I personally reviewed and interpreted this imaging study as follows: Radiologist's impression: [address] [address] XRay Report Signed Patient: Ryland Huang Unit #: [id number] : 1955 Age/Sex: 66 / M ADM Date: 05/09/21 Loc: ER Room/Bed: Attending Dr: Ordering Provider/Ordering MD: Javier Buchanan MD Date of Service: 05/09/21 Procedure(s): XR abdomen min 2V 27059 Accession Number(s): [id number] Report Number: [id number] PROCEDURE INFORMATION: Exam: XR Abdomen Exam date and time: 05/09/2021 9:34 PM Age: 66 years old Clinical indication: Abdominal pain; Additional info: Abd pain TECHNIQUE: Imaging protocol: XR of the abdomen. Views: 2 Views. Upright and supine views. COMPARISON: CT abdomen pelvis w con* [id number] 05/04/2021 6:11 PM FINDINGS: Gastrointestinal tract: Normal. No bowel dilation. Intraperitoneal space: Normal. No free air. Bones/joints: Unremarkable for age. XR/XR abdomen min 2V 17204 IMPRESSION: No acute findings. Dictated By: Chivo Garibay DO Signed By: Chivo Garibay DO Signed Date/Time: 05/09/212157 DD/ 56 COVID Results: SARS-CoV-2 RNA (RT-PCR) Not detected (NOT DETECTED) 08/15/20 12:34 08/15/20 Nasal/Oral Coronavirus 2019 PCR Not detected 03/28/21 09:49 03/28/21 Discharge Plan Discharge Patient Disposition: Home Clinical Impression: COVID-19 Condition: Stable Prescriptions: No Action sumatriptan 5 mg/actuation spray,non-aerosol 20 mg INTRANASAL Q2H PRN (Reason: Migraine Headache) 30 Days Qty: 6 RF: 5 lorazepam 1 mg tablet 1 mg PO TID PRN (Reason: nausea) 30 Days Qty: 90 RF: 1 ondansetron HCl 8 mg tablet 8 mg PO Q8H PRN (Reason: nausea and vomiting) 15 Days Qty: 45 RF: 1 Zyrtec 10 mg capsule 10 mg PO DAILY Qty: 30 RF: 5 tamsulosin 0.4 mg capsule 0.4 mg PO DAILY RF: 0 pantoprazole 40 mg tablet,delayed release (DR/EC) 40 mg PO DAILY 30 Days Qty: 30 RF: 0 Dulcolax (bisacodyl) 5 mg Tablet,Delayed Release (Dr/Ec) 5 mg PO QAM RF: 0 sucralfate 100 mg/mL suspension 30 mg PO TID RF: 0 Fiber Gummies 10 mg PO DAILY RF: 0 Fish Oil 1 cap PO DAILY RF: 0 Augmentin 875-125 mg tablet 1 tab PO BID Qty: 14 RF: 0 Discharge Orders: Discharge ED (Routine); Ordered 05/10/21 Ordered By: Epi Chauhan Referrals: LUCERO Dueñas, CHARTERED WEALTH MANAGER [Primary Care Provider] - Discharge Diet: Advance as tolerated Discharge Activity: Resume usual activity Patient Instructions: Viral Syndrome (ED) Coding Level of Care Code ED Municipal Services Manager for Delon Fwd Exam Comprehensive
[2021-05-09 21:28] VITALS: BP 127/43; PULSE 46; RESP 18; O2SAT 98
--- NOTE | 2021-05-09 21:34 | XRR_ITS ---
PROCEDURE INFORMATION: Exam: XR Abdomen Exam date and time: 05/09/2021 9:34 PM Age: 66 years old Clinical indication: Abdominal pain; Additional info: Abd pain TECHNIQUE: Imaging protocol: XR of the abdomen. Views: 2 Views. Upright and supine views. COMPARISON: CT abdomen pelvis w con* [id number] 05/04/2021 6:11 PM FINDINGS: Gastrointestinal tract: Normal. No bowel dilation. Intraperitoneal space: Normal. No free air. Bones/joints: Unremarkable for age. XR/XR abdomen min 2V 07474 IMPRESSION: No acute findings.
--- NOTE | 2021-05-09 21:35 | ECG_ITS ---
[facility] Test Date: 2021-05-09 Pat Name: Ryland Huang Department: Room: Gender: Male Slater Apprentice: : 1955 Requested By: Javier Buchanan Order Number: [id number] Reading MD: MISTI ESTRADA Measurements Intervals [place] Rate: 45 P: 70 UT: 203 QRS: 90 QRSD: 97 T: 78 QT: 493 QTc: 430 Interpretive Statements SINUS BRADYCARDIA Compared to ECG 02/21/2021 14:58:42 No significant changes Electronically Signed On 05-09-2021 23:33:40 CDT by MISTI ESTRADA [email or web address]
[2021-05-09 23:43] LABS: Basophils % 0.4 %; Eosinophils # 0.1 10^3/uL (0.0-0.8); Eosinophils % 1.5 %; Hematocrit 44.8 % (42.0-52.0); Hemoglobin 13.6 g/dL (11.7-16.6); Lymphocytes # 1.3 10^3/uL (0.8-4.8); Lymphocytes % 27.2 %; Mean Corpuscular HGB Conc 30.4 g/dL (30.0-36.0); Mean Corpuscular Hemoglobin 29.5 pg (28.0-34.0); Mean Corpuscular Volume 97.2 fL (80-94); Mean Platelet Volume 10.1 fL (7.4-10.4); Monocytes # 0.4 10^3/uL (0.2-0.9); Monocytes % 7.7 %; Neutrophils # 3.02 10^3/uL (1.8-7.7); Neutrophils % 62.8 %; Nucleated Red Blood Cells % 0 %; Platelet Count 193 10^3/cmm (130-400); Red Blood Count 4.61 10^6/uL (4.1-5.3); Red Cell Distribution Width 14.2 % (12.1-15.1); White Blood Count 4.8 10^3/uL (4.0-10.0)
[2021-05-09 23:49] VITALS: BP 130/66; PULSE 50; O2SAT 98
[2021-05-10 00:13] LABS: Alanine Aminotransferase 9 U/L (0-41); Albumin Level 3.4 g/dL (3.5-5.2); Alkaline Phosphatase 59 IU/L (40-130); Anion Gap 13.7 (5-19); Aspartate Amino Transferase 18 U/L (0-40); Blood Urea Nitrogen 10 mg/dL (8-23); Calcium 9.2 mg/dL (8.5-10.5); Carbon Dioxide 24 mmol/L (22-29); Chloride 100 mmol/L (98-107); Globulin 3.3 g/dL (1.3-4.6); Glomerular Filtration Rate 96.4 mL/min (90-130); Glucose 68 mg/dL (65-115); Osmolality Calculated 275 mOsm/kg (285-295); Potassium 3.7 mmol/L (3.5-5.1); Sodium 134 mmol/L (136-145); Total Bilirubin 0.6 mg/dL (0.15-1.2); Total Protein 6.7 g/dL (6.6-8.7)
[2021-05-10 01:06] LABS: Add Urine Microscopic? NO; Bilirubin Urine Neg (Negative); Blood Urine Neg (Negative); Glucose Urine UA Norm (Normal); Ketones Urine Negative (Negative); Leukocyte Esterase Urine Negative (Negative); Nitrate Urine Negative (Negative); Protein Urine Neg (Negative); Urine Appearance Clear (CLEAR); Urine Color Yellow (Yellow); Urobilinogen Urine Norm (Negative); pH Urine 5 (5-7)
[2021-05-10 01:07] LABS: Charge for UA Resulting for Rev
== END 2021-05-10 00:33 | disposition home or self-care (01) ==
PROVIDERS: Emergency Medicine; Emergency Provider Emergency Medicine; PCP Nurse Practitioner Family
DX: U07.1 COVID-19 (principal)
CPT/HCPCS: 36415; 71045; 74019; 80053; 81003; 85025; 93005; 96360; 99284

== ENCOUNTER 2021-05-20 18:47 | Emergency (ER) | payer MEDICARE, MEDICAID, SELFPAY ==
--- NOTE | 2021-05-20 19:02 | PC.NURSE ---
Received report from EMS at 1854. Patient resting in low fowlers.
[2021-05-20 19:05] VITALS: BP 99/65; PULSE 54; RESP 16; TEMP 36.6; O2SAT 98; BMI 17.1
--- NOTE | 2021-05-20 19:13 | ED_ITS ---
HPI - Abdominal Pain General: Chief Complaint: Abdominal Pain Stated Complaint: LOWER ABDOMINAL/ BACK PAIN Time Seen by Provider: 05/20/21 19:04 History of Present Illness: HPI narrative: 66-year-old male patient comes in today with lower abdominal discomfort. Patient has a history of colon cancer. Patient reports that he needs to get the fluid off his abdomen. Patient appears well. Patient appears in mild to no pain. Review of Systems General: Reports: 10 or more systems reviewed and unremarkable except in HPI and below GI: Reports: abdominal pain PFSH ED PFSH: Medical History Abdominal malignancy Anxiety BPH (benign prostatic hyperplasia) Chronic constipation DVT prophylaxis Environmental and seasonal allergies GERD (gastroesophageal reflux disease) Insect bite Left renal mass Migraine Nausea Pre-diabetes Primary adenocarcinoma of ileum Small bowel obstruction Recurrent Vitamin B12 deficiency (dietary) anemia Surgical History Status post knee surgery Left Family History Denies family history of CAD (coronary artery disease) Cancer Social History Smoking and tobacco status: never smoked Second hand smoke exposure: No Smoking risk assessment/counseling performed?: No Alcohol intake: former Desire information about alcohol rehabilitation?: No Counseling given: No Desire information about substance/drug rehabilitation?: No Counseling given: No Physical Exam Const: COMMON NORMALS: no acute distress and patient oriented x3 GENERAL APPEARANCE: cooperative HENMT: COMMON NORMALS: normocephalic and Normal external nose present HEAD & SCALP: normal to inspection and normocephalic NOSE: Normal external nose present MOUTH: Normal oral and palatal mucosa present Eye: GENERAL EYE: appearance normal, both eyes and all related structures Neck/C-Spine: COMMON NORMALS: full ROM Lymph: LYMPHATIC: no lymphadenopathy noted Chest: COMMONS NORMALS: normal inspection of the chest Resp: COMMON NORMALS: normal respiratory effort EFFORT & INSPECTION: Yes able to speak in complete sentences Cardio: COMMON NORMALS: regular rate and regular rhythm RATE: regular rate RHYTHM: regular rhythm GI: COMMON NORMALS: Soft to palpation PALPATION: Yes Soft to palpation, No Guarding due to palpation present (GI) and No Rebound tenderness present : COMMON NORMALS: Yes no CVA tenderness BLADDER/KIDNEY EXAM: Yes no CVA tenderness Back/Pelvis: COMMON NORMALS: no CVA tenderness and thoracic and lumbar spine normal to inspection Extremity: COMMON NORMALS: normal to inspection Neuro: COMMON NORMALS: patient oriented x3 and moves all extremities Psych: COMMON NORMALS: mental status grossly normal and cooperative Skin: COMMON NORMALS: no rashes or lesions noted GENERAL SKIN EXAM: no rashes or lesions noted Course Vital Signs: Vital signs: Vital Signs Temperature 97.5 F L 05/20/21 20:13 Pulse Rate 53 L 05/20/21 21:35 Respiratory Rate 20 H 05/20/21 21:35 Blood Pressure 108/66 05/20/21 21:35 Pulse Oximetry 98 05/20/21 21:35 MDM - Abdominal Pain MDM Narrative: Medical decision making narrative: 66-year-old male patient comes in today for concerns of obstruction and abdominal pain. 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 Patient had been treated before with decompression and monitoring. Patient is to follow-up with Dr. Prater but has yet to follow-up with him as he is not wanting to be treated with chemotherapy he reports. On exam abdomen is soft with some mild tenderness on deep palpation. Bowel sounds are present. Patient does report daily bowel movements. Vital signs were normal. Differential diagnosis includes but not limited to bowel obstruction, abdominal pain, colitis. Reviewed CT scans and prior evaluation in the ER and with specialist. Patient does have some stomach wall thickening and bowel wall thickening which is caused obstructions in the past. We repeated the x-ray of acute abdomen indicated no bowel obstruction at this time. Laboratory values were unremarkable. I recommended the patient follow-up with primary care for further instruction regarding his concerns. I have placed a note in to case management for a follow-up appoint with Dr. Prater his oncologist for further discussion regarding his care plan. Patient reports understanding. Lab Data: Labs: Lab Results 05/20/21 05/20/21 05/20/21 Range/Units 19:23 19:42 19:42 WBC 5.3 (4.0-10.0) 10^3/ uL RBC 3.99 L (4.1-5.3) 10^6/u L Hgb 11.8 (11.7-16.6) g/dL Hct 37.9 L (42.0-52.0) % MCV 95.0 H (80-94) fl MCH 29.6 (28.0-34.0) pg MCHC 31.1 (30.0-36.0) g/dL RDW 14.8 (12.1-15.1) % Plt Count 167 (130-400) 10^3/c mm MPV 10.1 (7.4-10.4) fL Neut % (Auto) 67.4 % Lymph % (Auto) 19.2 % [place] % (Auto) 10.5 % Eos % (Auto) 1.7 % Baso % (Auto) 0.8 % Neut # (Auto) 3.54 (1.8-7.7) 10^3/u L Lymph # (Auto) 1.0 (0.8-4.8) 10^3/u L [place] # (Auto) 0.6 (0.2-0.9) 10^3/u L Eos # (Auto) 0.1 (0.0-0.8) 10^3/u L Baso # (Auto) 0.0 (0.0-0.1) 10^3/u L Nucleated RBC % (a uto) 0 % Nucleated RBCs # 0.0 /100WBC Sodium 138 (136-145) mmol/L Potassium 3.7 (3.5-5.1) mmol/L Chloride 108 H (98-107) mmol/L Carbon Dioxide 24 (22-29) mmol/L Anion Gap 9.7 (5-19) BUN 17 (8-23) mg/dL Creatinine 0.8 (0.7-1.2) mg/dL GFR Calculation 96.4 (90-130) mL/min Glucose 82 (65-115) mg/dL Calculated Osmolal ity 287 (285-295) mOsm/k g Calcium 9.1 (8.5-10.5) mg/dL Total Bilirubin 0.6 (0.15-1.2) mg/dL AST 21 (0-40) U/L ALT 11 (0-41) U/L Alkaline Phosphata se 53 (40-130) IU/L Total Protein 5.6 L (6.6-8.7) g/dL Albumin 3.0 L (3.5-5.2) g/dL Globulin 2.6 (1.3-4.6) g/dL Lipase 70 H (13-60) U/L Urine Color Straw (Yellow) Urine Appearance Clear (CLEAR) Urine pH 5 (5-7) Ur Specific Gravit y 1.025 (1.005-1.030) Urine Protein Trace (Negative) Urine Glucose (UA) Norm (Normal) Urine Ketones 1+ H (Negative) Urine Blood Neg (Negative) Urine Nitrate Negative (Negative) Urine Bilirubin 1+ H (Negative) Urine Urobilinogen 1 H (Negative) mg/dL Ur Leukocyte Lisa ase Negative (Negative) Discharge Plan Discharge Patient Disposition: Home Clinical Impression: Abdominal malignancy Abdominal pain Qualifiers: Abdominal location: generalized Qualified Code(s): R10.84 - Generalized abdominal pain Condition: Stable Prescriptions: New cefdinir 300 mg capsule 300 mg PO BID 5 Days Qty: 14 RF: 0 No Action sumatriptan 5 mg/actuation spray,non-aerosol 20 mg INTRANASAL Q2H PRN (Reason: Migraine Headache) 30 Days Qty: 6 RF: 5 ondansetron HCl 8 mg tablet 8 mg PO Q8H PRN (Reason: nausea and vomiting) 15 Days Qty: 45 RF: 1 Zyrtec 10 mg capsule 10 mg PO DAILY Qty: 30 RF: 5 sucralfate 100 mg/mL suspension See Rx Instructions .ROUTE .COMPLEX Qty: 900 RF: 0 tamsulosin 0.4 mg capsule 0.4 mg PO DAILY RF: 0 pantoprazole 40 mg tablet,delayed release (DR/EC) 40 mg PO DAILY 30 Days Qty: 30 RF: 0 lorazepam 1 mg tablet 1 mg PO TID PRN (Reason: UNKNOWN) RF: 0 bisacodyl [Dulcolax (bisacodyl)] 5 mg Tablet,Delayed Release (Dr/Ec) 5 mg PO DAILY RF: 0 Fiber Gummies 10 mg PO DAILY RF: 0 Fish Oil 1 cap PO DAILY RF: 0 Discharge Orders: Discharge ED (Routine); Ordered 05/20/21 Ordered By: Abdirashid Sawyer Referrals: LUCERO Dueñas, SUPPORT TEAM MEMBER [Primary Care Provider] - Discharge Diet: Usual diet Discharge Activity: Increase activity as tolerated Patient Instructions: Abdominal Pain (ED), Opioid Safety Activity Restrictions/Additional Instructions: Drink plenty of fluids. Use medications as directed. Follow-up with primary care in 1 week for recheck. Case management will contact you regarding a return appointment with Dr. Prater. Coding Level of Care Code ED Automatic Lehr Operator for Chg Fwd Exam Comprehensive
--- NOTE | 2021-05-20 19:13 | XRR_ITS ---
PROCEDURE INFORMATION: Exam: XR Complete Acute Abdomen Series Including Chest Exam date and time: 05/20/2021 7:13 PM Age: 66 years old Clinical indication: Constipation TECHNIQUE: Imaging protocol: XR complete acute abdomen series, including 2 or more views of the abdomen and a single view chest. COMPARISON: CR XR abdomen min 2V [id number] 05/09/2021 9:38 PM FINDINGS: Lungs: There is no consolidation. Pleural spaces: There is no pleural effusion or pneumothorax. Heart/Mediastinum: Cardiomediastinal contours are unremarkable. Gastrointestinal tract: Bowel gas pattern is unremarkable. No sign of obstruction. Intraperitoneal space: There is no intraperitoneal free air. Bones/joints: Bones are unremarkable. Soft tissues: Normal. XR/XR acute abdomen series [id number] IMPRESSION: No acute findings.
[2021-05-20 19:49] LABS: Basophils % 0.8 %; Eosinophils # 0.1 10^3/uL (0.0-0.8); Eosinophils % 1.7 %; Hematocrit 37.9 % (42.0-52.0); Hemoglobin 11.8 g/dL (11.7-16.6); Lymphocytes % 19.2 %; Mean Corpuscular HGB Conc 31.1 g/dL (30.0-36.0); Mean Corpuscular Hemoglobin 29.6 pg (28.0-34.0); Mean Platelet Volume 10.1 fL (7.4-10.4); Monocytes # 0.6 10^3/uL (0.2-0.9); Monocytes % 10.5 %; Neutrophils # 3.54 10^3/uL (1.8-7.7); Neutrophils % 67.4 %; Nucleated Red Blood Cells % 0 %; Platelet Count 167 10^3/cmm (130-400); Red Blood Count 3.99 10^6/uL (4.1-5.3); Red Cell Distribution Width 14.8 % (12.1-15.1); White Blood Count 5.3 10^3/uL (4.0-10.0)
[2021-05-20 20:04] LABS: Alanine Aminotransferase 11 U/L (0-41); Alkaline Phosphatase 53 IU/L (40-130); Anion Gap 9.7 (5-19); Aspartate Amino Transferase 21 U/L (0-40); Blood Urea Nitrogen 17 mg/dL (8-23); Calcium 9.1 mg/dL (8.5-10.5); Carbon Dioxide 24 mmol/L (22-29); Chloride 108 mmol/L (98-107); Globulin 2.6 g/dL (1.3-4.6); Glomerular Filtration Rate 96.4 mL/min (90-130); Glucose 82 mg/dL (65-115); Lipase 70 U/L (13-60); Osmolality Calculated 287 mOsm/kg (285-295); Potassium 3.7 mmol/L (3.5-5.1); Sodium 138 mmol/L (136-145); Total Bilirubin 0.6 mg/dL (0.15-1.2); Total Protein 5.6 g/dL (6.6-8.7)
[2021-05-20 20:13] VITALS: BP 108/69; PULSE 52; RESP 14; TEMP 36.4
[2021-05-20 20:16] LABS: Add Urine Microscopic? NO; Charge for UA Resulting for Rev
[2021-05-20 20:40] LABS: Bilirubin Urine 1+ (Negative); Blood Urine Neg (Negative); Glucose Urine UA Norm (Normal); Ketones Urine 1+ (Negative); Leukocyte Esterase Urine Negative (Negative); Nitrate Urine Negative (Negative); Protein Urine Trace (Negative); Specific Gravity, Urine 1.025 (1.005-1.030); Urine Appearance Clear (CLEAR); Urine Color Straw (Yellow); Urobilinogen Urine 1 mg/dL (Negative); pH Urine 5 (5-7)
[2021-05-20] MEDS: tamsulosin 0.4 mg Capsule PO (21:27)
[2021-05-20] MEDS: dexamethasone 10 mg/mL INJ IM (21:29)
[2021-05-20] MEDS: cefTRIAXone 1,000 MG in lidocaine 1% 2.1 ML 2.1 MG IM (21:33)
[2021-05-20 21:35] VITALS: BP 108/66; PULSE 53; RESP 20; O2SAT 98
--- NOTE | 2021-05-23 14:27 | DCPLANNER ---
merchandising execution manager had message to schedule a follow up appointment for patient with Dr. Prater at [facility]. merchandising execution manager called funding coordinator at the [facility], Stella. merchandising execution manager gave clinic patients information. Case manger was told that patients information would be printed and reviewed. Clinic will call patient with appointment information.
--- NOTE | 2021-05-26 10:03 | DCPLANNER ---
manager of selection and assessment called Stella at [facility] to confirm that a follow up appointment had been scheduled for patient. manager of selection and assessment was told that clinic called patient, and was told that patient does not want any chemo at this time.
== END 2021-05-20 21:37 | disposition home or self-care (01) ==
PROVIDERS: Emergency Provider Nurse Practitioner Family; PCP Nurse Practitioner Family
DX: C78.89 Secondary malignant neoplasm of other digestive organs (principal); R10.84 Generalized abdominal pain; Z85.038 Personal history of other malignant neoplasm of large intestine
CPT/HCPCS: 74022; 80053; 81003; 83690; 85025; 96372; 99283; J0696; J1100

== ENCOUNTER → 2021-05-24 11:43 | Outpatient (BNVA) | payer MEDICARE, MEDICAID, SELFPAY | PROVIDERS: PCP Nurse Practitioner Family; Visit Provider Nurse Practitioner Family | DX: K59.09 Other constipation (principal); C76.2 Malignant neoplasm of abdomen | CPT/HCPCS: 74018 ==

== ENCOUNTER 2021-06-02 08:39 | Outpatient (CLI) | payer MEDICARE, MEDICAID, SELFPAY ==
--- NOTE | 2021-06-05 18:45 | ONC FU_ITS ---
Dr. Prater follow up note Patient: Ryland Huang Unit #: [id number]: [id number] Dicatated By: Lilliam Prater M.D.Date of Visit:Jun 02, 2021 Onc Med Follow-up/Prog Note History of Present Illness: Mr. Ryland Huang, is a 66-year-old gentleman with multiple hospitalization with recurrent small bowel obstructions and treated conservatively and underwent multiple CT scan of abdomen which showed abnormality in the transverse colon, as per patient underwent colonoscopy, which was as per patient normal and rectal biopsies showed some lymphoid aggregate. Because of abdominal pain nausea vomiting, patient lost about more than 10 pounds weight initially patient was seen by Dr. Gilbert and then was evaluated by Dr. Craig and on July 01, 2020, patient underwent exploratory laparotomy due to recurrent small bowel obstructions which showed carcinomatosis, peritoneal biopsy was obtained as well as ileum and cecum was resected and final pathology report came back, peritoneal biopsy confirmed metastatic adenocarcinoma and small bowel showed adenocarcinoma, primary site being the ileum with 2 ileal strictures, tumor size were 2.9 cm but no perforation was identified no lymphovascular invasion was seen tumor shows visceral peritoneal deposit and invades other organs e.g. rectum but clear surgical margins and 2 out of 24 lymph nodes were positive e.g. T4, N1,M1. And with intact MSI MMR status. Patient denies any family history of colorectal cancer, is a former smoker and quit alcohol in the past During his multiple hospitalization, patient was also found to have left renal mass, for which he was referred to Dr. Costa but work-up was postponed because of acute abdominal issue due to recurrent small bowel obstruction.Follow-up CT scan of abdomen pelvis done on March 17, 2021 showed diffuse thickening with submucosal enhancement and induration involving transverse colon, sigmoid colon, extending to the rectum. Distended abdomen with air-fluid levels. Multiple submucosal polypoid lesion prominent in the gastric fundus with the largest en plaque lesion measuring 6.1 x 2.1 x 1.7 cm, associated diffuse gastric wall thickening. Diffuse transmural thickening involving the duodenal bulb extending into the first and second portion of the duodenum. Focal filling defect in the second portion of duodenum measuring 6 mm suspicious for polyp. Enlarged heterogeneous enhancing prostate 4.5 x 4.5 x 4.9 cm, evidence of bladder outlet obstruction, patient went to [facility] on March 18, 2021 where he was diagnosed with colitis and was started on ciprofloxacin and Flagyl, as per patient that made him feel weird, because someone anxiety and diarrhea mild abdominal cramps, patient went back to ER on March 20, 2021 where, ciprofloxacin/Flagyl was discontinued and switched to Augmentin which he is taking now and tolerating well., Came for follow-up, denies any specific complaints except chronic off and on mild abdominal discomfort/pain but no melena or hematochezia, no mucus in the stool, no nausea or vomiting, no abdominal fullness, complaining of off and on decreased urine output, Came for follow-up, complaining of poor oral intake due to abdominal pain, nausea vomiting and recently went to hospital on May 20, 2021 with above-mentioned symptoms, prior to that patient went to hospital on May 04, [address] scan of abdomen pelvis showed there is a new wall thickening and generalized wall edema predominantly in the right colon and transverse colon. Right lower quadrant ileocolic anastomosis is unremarkable also showed decreased caliber of small intraperitoneal space, patient was treated for colitis and patient was referred to Dr. Craig for evaluation with colonoscopy as well as if needed laparoscopic evaluation for carcinomatosis but due to his poor performance status and his wish not to consider any systemic therapy, as per Dr. Craig's office ' he has nothing else for Mr. Huang and he is not going to keep torturing him with the test'Patient denies any hemoptysis or hematemesis, Tolerating small amount of liquids and meals Medications: Cefdinir 1 Capsule (of 300 mg) Oral b.i.d., Cetirizine HCl (10 mg) Tablet Oral daily, Dilaudid 1 Tablet (of 4 mg) Oral q 6 hours, Linzess 1 Capsule (of 290 mcg) Oral daily, Metoclopramide HCl 5 mL (of 5 mg/5mL) Solution Oral ac (tid) & at bedtime, Ondansetron HCl (4 mg) Tablet Oral t.i.d. PRN, Pantoprazole Sodium (40 mg) Tablet, enteric coated Oral daily, Polyethylene Glycol 1000 1 Scoop(s) Powder daily PRN, SUMAtriptan 1 [place](s) (of 5 mg/act) Solution Nasal PRN Allergies: Aspirin, Phenylephrine HCl, Pseudoephedrine HCl, and Triprolidine-PSE. Review of Systems: Review of Systems is not available for this patient. Vital Signs: Performed on Jun 02, 2021 08:58 Height - 65.00 in Weight - 107.8 lbs (LOW) BSA - 1.52 sq.m BMI - 17.94 (LOW) Temperature - 97.9 F (LOW) Pulse - 68 /min Respiration - 18 /min BP - 92/58 mm(hg) O2 Sat - 99 % Pain - 0 Performance Status: 2 - Ambulatory/capable of all self-care, unable to perform any work activities. Up and about more than 50% of waking hours. (ECOG) Physical Examination: ENMT - Poor oral hygiene, no mouth sores, no thrush,, Respiratory - Lungs are clear to auscultation, Cardiovascular - Regular rate and rhythm of heart, Abdomen - Soft, nontender, Bowel sounds present, Extremities - No visible edema. Lab/Imaging: Most recent lab results are not available for this patient. 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, 2 out of 24 lymph nodes showed metastatic disease per exploratory laparotomy done on July 01, 2020, pathology stage T4, N1, M1 During his visit on August 02, 2020 patient was offered palliative chemotherapy with FOLFOX, but patient never return to clinic for the treatment and decided not to take any treatment AGAINST MEDICAL ADVICE Left renal mass, being evaluated by urology Follow-up CT scan of abdomen pelvis done on March 17, 2021 showed diffuse thickening with submucosal enhancement and induration involving transverse colon/sigmoid colon/rectum and distended stomach with air-fluid levels, multiple submucosal polypoid lesions prominent in the gastric fundus with largest en plaque lesion measuring 6.1 x 2.1 x 1.7 cm, associated diffuse gastric wall thickening. Diffuse transmural thickening involving duodenal bulb extending into the first and second portion of duodenum, nonspecific but can be seen with duodenitis. Infiltrating neoplasm such as lymphoma not excluded. Focal filling defect in the second portion of duodenum measuring 6 mm suspicious for polyp. Postop changes right lower quadrant ileal anastomosis Enlarged heterogeneous enhancing prostate measuring 4.5 x 4.5 x 4.9 cm.With evidence of bladder outlet obstruction Plan: Discussed with patient regarding his disease status and overall condition, patient has lost significant amount of weight and now with signs symptom suggestive of progressive intestinal obstruction probably due to carcinomatosis, GI evaluation was requested including colonoscopy and possible laparoscopic evaluation but due to his poor performance status and risk involved, Dr. Craig did not consider further testing and evaluation,, Considering his overall condition and poor performance status and extent of disease, his prognosis is very poor , so discussed with patient and his caregiver, at this point , we will refer him to hospice for further care and management, patient agreed in the meantime we will continue supportive care. Signed By: Lilliam Prater M.D. <<Signature on File>>
== END 2021-06-02 08:40 | disposition home or self-care (01) ==
LOC: ONCMED 08:45
PROVIDERS: PCP Nurse Practitioner Family; Visit Provider Internal Medicine Hematology & Oncology
DX: C18.8 Malignant neoplasm of overlapping sites of colon (principal); C77.2 Secondary and unspecified malignant neoplasm of intra-abdominal lymph nodes; N40.0 Benign prostatic hyperplasia without lower urinary tract symptoms; Z79.899 Other long term (current) drug therapy
CPT/HCPCS: 99214